=== PATIENT | female | born 1995 | race Caucasian/White ===

== ENCOUNTER 2023-07-05 20:41 | Outpatient (REF) | payer BC, SELFPAY ==
[2023-07-12 14:09] LABS: Age Gdln ACOG Testing Note (.); IGP, rfx Aptima HPV ASCU Note (.)
== END 2023-07-05 20:42 | disposition home or self-care (01) ==
LOC: LAB 20:41
PROVIDERS: Visit Provider Obstetrics & Gynecology
DX: Z12.4 Encounter for screening for malignant neoplasm of cervix (principal)
CPT/HCPCS: G0145

== ENCOUNTER 2024-11-12 19:35 | Outpatient (REF) | payer BC, SELFPAY ==
[2024-11-15 12:08] LABS: Age Gdln ACOG Testing Note (.); IGP, rfx Aptima HPV ASCU Note (.)
== END 2024-11-12 19:36 | disposition home or self-care (01) ==
LOC: LAB 19:35
PROVIDERS: Visit Provider Obstetrics & Gynecology
DX: Z01.419 Encounter for gynecological examination (general) (routine) without abnormal findings (principal)
CPT/HCPCS: 88175

== ENCOUNTER 2025-04-16 16:35 | Outpatient (OUT) | payer BC, SELFPAY ==
--- OUTSIDE RECORDS SUMMARY | 2011-09-12 20:00 | XMS_ITS | Continuity of Care Document ---
Author Organization [facility] Address [address] [place] [address] Phone Care Team Providers Care Medical Representative Name Role Phone Nighat SCHULTZ Renard Unavailable Unavailable Procedures Procedure Date TB INTRADERMAL TEST Advance Directives Directive Yes / No Effective Date File Name No Information Encounters Encounter Description Practice Location Reason(s) For Visit Diagnoses Date Provider Providers Copied on Encounter [facility], [address] [place], [place], [id number], [place] tel:[phone] [facility] No Information Nighat Loco. [address] [place], [place], [id number], [place]. tel:[phone] Family History Family Member Type Diagnosis Age At Onset No Information Payers Payer name Insurance type Covered constitution party ID Authoriza tion(s) No Information Social [...]
--- OUTSIDE RECORDS SUMMARY | 2025-01-14 06:45 | XMS_ITS ---
Author Organization [facility] Address [address] [place] [address] Care Team Providers Care Technology Architect Name Role Phone Aleksandr Becerril Primary Care Provider [phone] Deisy Nelson Unavailable [phone] REASON FOR VISIT 6 MONTHS Encounters Encounter Location Date Provider Diagnosis [facility] [address] [place] [address] 01/14/2025 Deisy Nelson Plan Of Treatment Next Appt Details Provider Name:Bridgett Osuna , 04/23/2025 09:00:00 AM, [address], [place], [address], Progress Notes * YOLANDA LIMONJUANITAOB:1995 ( 29 yo F)Acc No.[id number]:01/14/2025 Patient: DAYA KEN Provider: Dorene Nleson :1995 A ge:29 Y S ex:Female Date:01/14/2025 Address:[address] [place], [place] [address] Pcp:Aleksandr Becerril Subjective: * Chief Complaints: * 1 . 6 MONTHS. * Medical History: Objective: * Vitals: Assessment: Plan: * Treatment: * Images: * Electronic signature of Katherin Nelson on 04/16/2025 at 04:38 PM EDT Sign off status: Pending * Provider: Dorene Nelson Date: 0 01/14/2025 Generated for Lobo tovar/Alhaji/Silverio on: 0 04/16/2025 04:38 PM EDT
--- OUTSIDE RECORDS SUMMARY | 2025-04-16 16:38 | XMS_ITS | Clinical Summary ---
Author Organization [facility] Address [address] [place] [address] Care Team Providers Care Nursing Scheduler Name Role Phone Varun Cardenas MD Primary Care Provider [phone] Allergies No known active allergies Medications clindamycin (Cleocin-T) 1 % lotionIndicatio ns:Acne, unspecified acne type Apply topically Daily 60 mL 3 03/20/20 25 026 Active MV-Min-Fe Fum-FA-DHA ( 1 PO) Take 1 tablet by mouth Daily Active metFORMIN, OSM, (Fortamet) 500 MG 24 hr tablet Metformin HCl 025 Discontinued metFORMIN XR (Glucophage-XR) 500 MG 24 hr tabletIndicatio ns:Weight gain Take 1 tablet (500 mg) by mouth in the evening. Take with meals Do not crush, chew, or split. 30 tablet 11 11/12/19 25 025 Discontinued phentermine (Adipex-P) 37.5 MG tabletIndicatio ns:Encounter for weight management Take 1 tablet (37.5 mg) by mouth in the morning. Take before meals. 30 tablet 12/19/19 25 025 Discontinued phentermine (Adipex-P) 37.5 MG tabletIndicatio ns:Encounter for weight management Take 1 tablet (37.5 mg) by mouth in the morning. Take before meals. 30 tablet 01/14/20 25 025 Discontinued Encounters Date Type Department Care Team Description 03/20/2025 1:00 PM EDT Initial [facility] [address] [place] [address] [place]: 12w0d 03/20/2025 12:30 PM EDT Ancillary Procedure [facility] [address] [place] [address] Missed menses 03/17/2025 Travel from Last 3 Months Family History Medical History Relation Name Comments Breast cancer Maternal Great-Grandmother Relation Name Status Comments Brother 1 Alive Brother 2 Alive Father Alive Maternal Great-Grandmother Mother Alive Social History Tobacco Use Types Packs/Day Years Used Date Smoking Tobacco: Some Days Cigarettes Tobacco Cessation:Ready to Q uit: Not Asked; Counseling Given: Not Answered Comments:5 or less cigarettes/day Alcohol Use Standard Drinks/Week Comments Yes 0 (1 standard drink = 0.6 oz pure alcohol) Alcohol: 1 or 2 drinks on a typical day / 2 to 4 times a month. Caffeine: >4 cups/day coffee Estimated Date of Delivery Comme nts Yes 10/02/2025 Based on Ultraso und, FHR-160 Sex and Gender Information Value Date Recorded Sex Assigned at Female 07/04/2023 6:04 PM EDT Legal Sex Female 6:37 PM EDT Gender Identity Female 07/04/2023 6:04 PM EDT Sexual Orientation Straight 07/04/2023 6: 04 PM EDT Last Filed Vital Signs Vital Sign Reading Time Taken Comments Blood Pressure 110/70 03/20/2025 1:47 PM EDT Pulse - - Temperature - - Respiratory Rate - - Oxygen Saturation - - Inhaled Oxygen Concentration - - Weight 101 kg (223 lb 3.2 oz) 03/20/2025 1:47 PM EDT Height 152.4 cm (5') 01/13/2025 8:57 AM EDT Body Mass Index 43.59 01/13/2025 8:57 AM EDT Plan of Treatment Upcoming Encounters Date Type Department Care Team (Late st Contact Info) Description 04/17/2025 8:50 AM EDT Routine [facility] [address] [place], [place] [address] [address] Grzegorz Cheung, DO [address] [place], [place] [address], [place] [id number] 11/18/2025 9:00 AM EST Office Visit [facility] [address] [facility] [place] [address] Grzegorz Cheung, DO [address] [facility] [place] [address] Procedures Procedure Name Priority Date/Time Associated Diagnosis Comments US OB TRANSVAGINAL Routine 03/20/2025 2: 27 PM EDT Missed menses POCT URINALYSIS DIPSTICK Routine 03/20/2025 1:11 PM EDT Missed menses POCT , URINE Routine 03/20/2025 1:11 PM EDT Missed menses from Last 3 Months Results * US OB transvaginal (03/20/2025 2:27 PM EDT) Anatomical Region Laterality Modality Body Ultrasound 03/21/2025 10:1 5 AM EDT Narrative 03/21/2025 10:15 AM EDT EXAM: US OB TRANSVAGINAL HISTORY: Dating. COMPARISON: None available. TECHNIQUE: Two-dimensional transvaginal grayscale ultrasound imaging of the pelvis was performed. Color Doppler evaluation of the ovaries was also performed. FINDINGS: The uterus demonstrates a normal homogeneous echotexture. The cervix measures 4.4 cm in length and the cervical os is closed. The right ovary measures 3.2 x 1.9 x 2.0 cm and demonstrates a normal echotexture. There is normal color Doppler flow. The left ovary measures 2.8 x 1.6 x 2.5 cm and demonstrates a normal echotexture. There is normal color Doppler flow. No fluid is present within the cul-de-sac. There is a single, live intrauterine gestation identified with a heart rate of 160 beats per minute and a crown-rump length measurement of 5.3 cm, correlating to a gestational age of 12 weeks is 0 days (+/- 8 days). There is a 2.1 cm subchorionic hemorrhage visualized. A yolk sac is not visualized. IMPRESSION: 1. Single, live intrauterine gestation 9 weeks, 0 days by LMP. Today's ultrasound measurements correlate with a gestational age of 12 weeks 0 days (+/- 8 days). ROSALEE by today's ultrasound is 10/02/2025. 2. Small subchorionic hemorrhage. 3. Normal color Doppler evaluation of the bilateral ovaries. Interpreted by: Electronically signed by VELASQUEZ SCHUMACHER II, MD, PHD at 21-Mar-2025 10:13:40 AM [facility] Procedure Note Velasquez Schumacher MD - 03/21/2025 EXAM: US OB TRANSVAGINAL HISTORY: Dating. COMPARISON: None available. TECHNIQUE: Two-dimensional transvaginal grayscale ultrasound imaging ofthe pelvis was performed. Color Doppler evaluation of the ovaries was alsoperformed. FINDINGS: The uterus demonstrates a normal homogeneous echotexture. The cervixmeasures 4.4 cm in length and the cervical os is closed. The right ovary measures 3.2 x 1.9 x 2.0 cm and demonstrates a normalechotexture. There is normal color Doppler flow. The left ovary measures 2.8 x 1.6 x 2.5 cm and demonstrates a normalechotexture. There is normal color Doppler flow. No fluid is present within the cul-de-sac. There is a single, live intrauterine gestation identified with a fetalheart rate of 160 beats per minute and a crown-rump length measurement of5.3 cm, correlating to a gestational age of 12 weeks is 0 days (+/- 8days). There is a 2.1 cm subchorionic hemorrhage visualized. A yolk sac isnot visualized. IMPRESSION: 1. Single, live intrauterine gestation 9 weeks, 0 days by LMP. Today'sultrasound measurements correlate with a gestational age of 12 weeks 0days (+/- 8 days). ROSALEE by today's ultrasound is 10/02/2025. 2. Small subchorionic hemorrhage. 3. Normal color Doppler evaluation of the bilateral ovaries. Interpreted by: Electronically signed by VELASQUEZ SCHUMACHER II, MD, PHD [id number] 10:13:40 AM [facility] us Grzegorz Cheung DO IM OB US PROCEDURES Final Resul t * (ABNORMAL) POCT , urine manually resulted (03/20/2025 1:11 PM EDT) Preg Test, Ur Positive Negative Urine 03/20/2025 1:11 PM EDT [facility] DO POINT OF CARE TEST ENTER/EDIT OR DERABLES Final Result * (ABNORMAL) POCT urinalysis dipstick manually resulted (03/20/2025 1:11 PM EDT) Color, UA Yellow Clarity, UA Clear Glucose, UA Negative Negative - 2000(110) ++++ mg/dL Bilirubin, UA Negative Negative - 4(70) +++ mg/dL Ketones, UA Negative Negative - 160(16) ++++ mg/dL Spec Grav, UA 1.025 1 - 1.03 Blood, UA Negative Negative - 50 Shoaib/mcL pH, UA 5.5 5 - 9 Protein, UA Negative Negative - 2000(20) ++++ mg/dL Urobilinogen, UA 0.2 0.2 - 12 mg/dL Leukocytes, UA Trace Negative - 500+++ Mayra/mcL Nitrite, UA Negative Negative - Positive Urine 03/20/2025 1:11 PM EDT [facility] DO POINT OF CARE TEST ENTER/EDIT OR DERABLES Final Result from Last 3 Months Insurance [facility] Care Teams Nursing Scheduler Relationship Specialty Start Date End Date Varun Cardenas MD [address] [place] [address] PCP - General 07/04/23
--- OUTSIDE RECORDS SUMMARY | 2025-04-16 16:38 | XMS_ITS | Encounter Summary ---
Author Organization [facility] Address [address] [place] [address] Care Team Providers Care Vessel Builder Name Role Phone Varun Cardenas MD Primary Care Provider [phone] Encounter Details Date Type Department Care Team (Late Contact Info) Description 11/25/2024 Orders Only [facility] [address] [place] [address] Perlita Lynn LPN [address] [employer] [facility] [place] [address] Social History Tobacco Use Types Packs/Day Years Used Date Smoking Tobacco: Some Days Cigarettes Comments:5 or less cigarette s/day Alcohol Use Standard Drinks/Week Comments Yes 0 (1 standard drink = 0.6 oz pure alcohol) Alcohol: 1 or 2 drinks on a typical day / 2 to 4 times a month. Caffeine: >4 cups/day coffee Comments Unknown Sex and Gender Information Value Date Recorded Sex Assigned at Female 07/04/2023 6:04 PM EDT Legal Sex Female 6:37 PM EDT Gender Identity Female 07/04/2023 6:04 PM EDT Sexual Orientation Straight 07/04/2023 6: 04 PM EDT documented as of this encounter Plan of Treatment Upcoming Encounters Date Type Department Care Team (Late st Contact Info) Description 04/17/2025 8:50 AM EDT Routine [facility] [address] [place] [address] Grzegorz Cheung, DO [address] [place] [address] 11/18/2025 9:00 AM EST Office Visit [facility] [address] [facility] [place] [address] Grzegorz Cheung DO [address] [place] [address] Dr Joelle [place], [place] [id number] documented as of this encounter Procedures Procedure Name Priority Date/Time Associated Diagnosis Comments PAP SMEAR Routine 11/12/2024 12:00 AM EST documented in this encounter Results * Pap Smear (11/12/2024 12:00 AM EST) Swab Cervical swab / Unknown us [facility] Nurse LAB CYTOLOGY ORDERABLES Final Result EXTERNAL LAB documented in this encounter Visit Diagnoses Not on filedocumented in this encounter Care Teams Vessel Builder Relationship Specialty Start Date End Date Varun Cardenas MD [address] [facility] [place] [address] PCP - General 07/04/23 documented as of this encounter
--- OUTSIDE RECORDS SUMMARY | 2025-04-16 16:38 | XMS_ITS | Patient Health Record ---
Author Organization [facility] Address [address] [place] [address] Care Team Providers Care Freelance Displayer Name Role Phone MauriAleksandr cobb Primary Care Provider [phone] Dr. Agustin Jaramillo Unavailable [phone] Deisy Nelson Unavailable [phone] Reason For Referral No Information Medications Medication SIG (Take, Route, Fr equency, Duration) Notes Start Date End Date Status Metformin HCl Active Citalopram Hydrobromide Active Encounters Encounter Location Date Provider Diagnosis [facility] [address] [place] [address] 04/14/2025 Aleksandr Clementeelizabethreza [place] [address] [place] [address] 07/16/2024 Deisy Nelson Other dental procedure status Z98.818 ; Encounter for dental examination and cleaning with abnormal findings Z01.21 ; Dental caries on pit and fissure surface penetrating into dentin K02.52 and Acute gingivitis, plaque induced K05.00 [place] [address] [place] [address] 06/11/2024 gAustin Mckeon Dental caries on pit and fissure surface penetrating into dentin K02.52 Assessments Encounter Date Diagnosis (ICD Code) Assessment Notes Treatment Notes Treatment Clinical Notes Section Notes 06/11/2024 Dental caries on pit and fissure surface penetrating into dentin (ICD-10 - K02.52) 07/16/2024 Other dental procedure status (ICD-10 - Z98.818) 07/16/2024 Encounter for dental examination and cleaning with abnormal findings (ICD-10 - Z01.21) 07/16/2024 Dental caries on pit and fissure surface penetrating into dentin (ICD-10 - K02.52) 07/16/2024 Acute gingivitis, plaque induced (ICD-10 - K05.00) Plan Of Treatment Next Appt Details Provider Name:Bridgett Osuna , 04/23/2025 09:00:00 AM, [address], [place], [address], Insurance Providers Payer Name Payer Address Payer Phone Subscriber Number Group Number Insured Name Patient Relationship to Insured Coverage Start Date Coverage End Date zCARESOU RCE-term ed 22 [address] [place] [address] [id number] DAYA LIMON Self - patient is the insured 2 3 zMEDICAI D CFC after CARESOUR CE-terme d 22 [address] [place] [address] [id number] DAYA LIMON Self - patient is the insured 2 3 zDENTAL DQ CARESOUR CE-terme d 22 [address] [place] [address] [id number] DAYA LIMON Self - patient is the insured 2 3 zDental MEDICAID CFC after CARESOUR CE-terme d 22 [address] [place] [address] [phone] [id number] DAYA LIMON Self - patient is the insured 2 3 [facility] [place] [address] [place] [address] [id number] DAYA LIMON Self - patient is the insured 3 3 Wrap CFC [employer] [address] [place] [address] [id number] DAYA LIMON Self - patient is the insured 3 3 Dental [facility] [facility] [place] [address] [place] [address] [id number] DAYA LIMON Self - patient is the insured 3 4 Dental Wrap [facility] ce [address] [place] [address] [id number] DAYA LIMON Self - patient is the insured [address] [facility] [address] [place] [phone] [id number] DAYA LIMON Self - patient is the insured 3 3 DENTAL GUARDIAN [address] [place] [address] [id number] DAYA LIMON Self - patient is the insured 4 4 DENTAL [facility] [address] [place] [address] [id number] DAYA LIMON Self - patient is the insured 4
[2025-04-16 16:57] LABS: Basophils Percent Auto 0.2 % (0.2-2.0); Eosinophils Absolute Auto 0.1 10^3/uL (0.0-0.7); Eosinophils Percent Auto 0.5 % (0.9-7.0); Hematocrit 37.3 % (36.0-48.0); Hemoglobin 12.5 g/dL (12.0-16.0); Immature Granulocytes Abs Auto 0.03 10^3/uL (0.00-0.03); Immature Granulocytes Pct Auto 0.3 % (0.0-0.5); Lymphocytes Absolute Auto 2.9 10^3/uL (1.2-3.8); Lymphocytes Percent Auto 26.2 % (20.5-60.0); Mean Corpuscular HGB Conc 33.5 g/dL (29.9-35.2); Mean Corpuscular Hemoglobin 28.2 pg (26.7-34.0); Mean Platelet Volume 8.5 fL (9.5-13.5); Monocytes Absolute Auto 0.5 10^3/uL (0.3-0.8); Monocytes Percent Auto 4.6 % (1.7-12.0); Neutrophils Absolute Auto 7.6 10^3/uL (1.4-6.5); Neutrophils Percent Auto 68.2 % (43.0-75.0); Platelet Count 237 10^3/uL (150-450); Red Blood Count 4.44 10^6/uL (4.20-5.40); White Blood Count 11.1 10^3/uL (4.0-11.0)
[2025-04-16 17:15] LABS: Amphetamine Screen Urine NEGATIVE (NEGATIVE); Barbiturates Screen Urine NEGATIVE (NEGATIVE); Benzodiazepines Screen Urine NEGATIVE (NEGATIVE); Buprenorphine Screen Urine NEGATIVE (NEGATIVE); Cannabinoid Screen Urine POSITIVE (NEGATIVE); Cocaine Screen Urine NEGATIVE (NEGATIVE); Methadone Screen Urine NEGATIVE (NEGATIVE); Methamphetamines Screen Urine NEGATIVE (NEGATIVE); Opiate Screen Urine NEGATIVE (NEGATIVE); Oxycodone Screen Urine NEGATIVE (NEGATIVE); Phencyclidine Screen Urine NEGATIVE (NEGATIVE); Tricyclic Antidepressant Urine NEGATIVE (NEGATIVE)
[2025-04-16 17:22] LABS: Estimated Average Glucose 103 mg/dL; Glycohemoglobin A1C 5.2 % (4.5-6.2)
[2025-04-18 05:07] LABS: HIV Ab/p24 Ag Screen Non Reactive (Non Reactive)
[2025-04-18 06:08] LABS: HBsAg Screen Negative (Negative); HCV Ab Non Reactive (Non Reactive)
[2025-04-18 09:10] LABS: Rubella Antibodies, IgG 4.12 index (Immune >0.99)
[2025-04-18 12:08] LABS: Rapid Plasma Reagin, Quant Non Reactive titer (NonRea<1:1)
[2025-04-21 20:08] LABS: Cannabinoid Positive (.); Carboxy THC Conf, MS, UR 611 ng/mL (Cutoff=10)
== END 2025-04-16 16:36 | disposition home or self-care (01) ==
LOC: LAB 16:35
PROVIDERS: PCP Family Medicine; Visit Provider Obstetrics & Gynecology
DX: Z34.01 Encounter for supervision of normal first pregnancy, first trimester (principal); N92.6 Irregular menstruation, unspecified
CPT/HCPCS: 36415; 80307; 80349; 83036; 85025; 86592; 86762; 86803; 86850; 86900; 86901; 87086; 87340; 87389

== ENCOUNTER 2025-07-14 10:26 | Outpatient (OUT) | payer BC, SELFPAY ==
--- OUTSIDE RECORDS SUMMARY | 2011-09-12 20:00 | XMS_ITS | Continuity of Care Document ---
Author Organization [facility] Address [address] [place] [address] Phone Care Team Providers Care Leak Patcher Name Role Phone Nighat SCHULTZ Renard Unavailable Unavailable Procedures Procedure Date TB INTRADERMAL TEST Advance Directives Directive Yes / No Effective Date File Name No Information Encounters Encounter Description Practice Location Reason(s) For Visit Diagnoses Date Provider Providers Copied on Encounter [facility], [address] [place], [place], [id number], [place] tel:[phone] [facility] No Information Nighat Loco. [address] [place], [place], [id number], [place]. tel:[phone] Family History Family Member Type Diagnosis Age At Onset No Information Payers Payer name Insurance type Covered libertarian ID Authoriza tion(s) No Information Social History [...]
--- OUTSIDE RECORDS SUMMARY | 2025-01-14 06:45 | XMS_ITS ---
Author Organization [facility] Address [address] [place] [address] Care Team Providers Care General Assembler Name Role Phone Aleksandr Becerril Primary Care Provider [phone] Deisy Nelson Unavailable [phone] REASON FOR VISIT 6 MONTHS Encounters Encounter Location Date Provider Diagnosis [facility] [address] [place] [address] 01/14/2025 Deisy Nelson Plan Of Treatment Next Appt Details Provider Name:Bridgett Osuna , 02/17/2026 11:00:00 AM, [address], [place], [address], Progress Notes * YOLANDA LIMONJUANITAOB:1995 ( 30 yo F)Acc No.[id number]:01/14/2025 Patient: DAYA KEN Provider: Dorene Nelson :1995 A ge:29 Y S ex:Female Date:01/14/2025 Address:[address] [place], [place] [address] Pcp:Aleksandr Becerril Subjective: * Chief Complaints: * 1 . 6 MONTHS. * Medical History: Objective: * Vitals: Assessment: Plan: * Treatment: * Images: * Electronic signature of Katherin Nelson on 07/14/2025 at 10:31 AM EDT Sign off status: Pending * Provider: Dorene Nelson Date: 0 01/14/2025 Generated for Lobo tovar/Alhaji/Silverio on: 0 07/14/2025 10:31 AM EDT
--- OUTSIDE RECORDS SUMMARY | 2025-04-23 05:00 | XMS_ITS ---
Author Organization [facility] Address [address] [place] [address] Care Team Providers Care Grocery Specialist Name Role Phone Aleksandr Becerril Primary Care Provider [phone] Bridgett Denis [phone] REASON FOR VISIT PROPHY Encounters Encounter Location Date Provider Diagnosis [facility] [address] [place] [address] 04/23/2025 Bridgett Osuna Acute gingivitis, plaque induced K05.00 Assessments Encounter Date Diagnosis (ICD Code) Assessment Notes Treatment Notes Treatment Clinical Notes Section Notes 04/23/2025 Acute gingivitis, plaque induced (ICD-10 - K05.00) Plan Of Treatment Next Appt Details Provider Name:Bridgett Osuna , 02/17/2026 11:00:00 AM, [address], [place], [address], Progress Notes * YOLANDA LIMONHDOB:1995 ( 30 yo F)Acc No.[id number]:04/23/2025 Patient: DAYA KEN Provider: Gregory Osuna :1995 A ge:29 Y S ex:Female Date:04/23/2025 Address:[address] [place] [address] Pcp:Aleksandr Becerril Subjective: * Chief Complaints: * 1 . PROPHY. * Medical History: Objective: * Vitals: * Dental Examination/Plan : Tooth / Surface Status Description Provider TP PROPHYLAXIS - ADULT 04/23 Assessment: * Assessment: 1. A cute gingivitis, plaque induced - K05.00 (Primary) Plan: * Treatment: * Images: * Electronic signature of Ginger Osuna on 07/14/2025 at 10:30 AM EDT Sign off status: Pending * Provider: Gregory Osuna Date: 0 04/23/2025 Generated for Lobo tovar/Alhaji/Silverio on: 0 07/14/2025 10:30 AM EDT
--- OUTSIDE RECORDS SUMMARY | 2025-05-29 05:45 | XMS_ITS ---
Author Organization [facility] Address [address] [place] [address] Care Team Providers Care Material Flow Engineer Name Role Phone Aleksandr Becerril Primary Care Provider [phone] Bridgett Denis Bobbi [phone] REASON FOR VISIT 6 MONTH F/U Encounters Encounter Location Date Provider Diagnosis [facility] [address] [place] [address] 05/29/2025 Bridgett Osuna Plan Of Treatment Next Appt Details Provider Name:Bridgett Osuna , 02/17/2026 11:00:00 AM, [address], [place], [address], Progress Notes * JEWELS LIMONOB:1995 ( 30 yo F)Acc No.[id number]:05/29/2025 Patient: DAYA KEN Provider: Gregory Osuna :1995 A ge:29 Y S ex:Female Date:05/29/2025 Address:[address] [place], [place] [address] Pcp:Aleksandr Becerril Subjective: * Chief Complaints: * 1 . 6 MONTH F/U. * Medical History: Objective: * Vitals: Assessment: Plan: * Treatment: * Images: * Electronic signature of Ginger Osuna on 07/14/2025 at 10:31 AM EDT Sign off status: Pending * Provider: Gregory Osuna Date: 05/29/2025 Generated for Printi ng/Alhaji/Mauitting on: 0 07/14/2025 10:31 AM EDT
--- OUTSIDE RECORDS SUMMARY | 2025-06-30 09:50 | XMS_ITS | Encounter Summary ---
Author Organization [facility] Address [address] [place] [address] Care Team Providers Care Die Press Operator Name Role Phone Varun Cardenas MD Primary Care Provider [phone] Reason for Visit * Reason Comments Routine Visit Encounter Details Date Type Department Care Team (Late st Contact Info) Description 06/30/2025 9:50 AM EDT Routine [facility] [place] [facility] [address] [place] [address] Grzegorz Cheung DO [address] [place] [id number] Second trimester ([facility]); 26 weeks gestation of ([facility]); Diabetes mellitus screening Social History Tobacco Use Types Packs/Day Years [...] PM EDT documented as of this encounter Last Filed Vital Signs Vital Sign Reading Time Taken Comments Blood Pressure 124/76 06/30/2025 10:14 AM EDT Pulse - - Temperature - - Respiratory Rate - - Oxygen Saturation - - Inhaled Oxygen Concentration - - Weight 110 kg (241 lb 8 oz) 06/30/2025 10:14 AM EDT Height - - Body Mass Index 47.16 01/13/2025 8:57 AM EDT documented in this encounter Progress Notes * Becki Chaudhary NP - 06/30/2025 9:50 AM EDT Reason for Appointment: Patient ID: Genesis Barahona is a 30 y.o. female who presents for Routine Visit Patient presents today for Return OB appointment. MEDICATIONS Current Outpatient Medications Medication Instructions aspirin 81 mg, Daily clindamycin (Cleocin-T) 1 % lotion Topical, Daily MV-Min-Fe Fum-FA-DHA ( 1 PO) 1 tablet, Daily ALLERGIES No Known Allergies PROBLEMS Active Ambulatory Problems Diagnosis Date Noted No Active Ambulatory Problems Resolved Ambulatory Problems Diagnosis Date Noted No Resolved Ambulatory Problems Past Medical History: Diagnosis Date PCOS (polycystic ovarian syndrome) HISTORY PAST MEDICAL HISTORY SOCIAL HISTORY Past Medical History: Diagnosis Date PCOS (polycystic ovarian syndrome) Social History Tobacco Use Smoking status: Some Days Types: Cigarettes Smokeless tobacco: Not on file Tobacco comments: 5 or less cigarettes/day Substance Use Topics Alcohol use: Yes Comment: Alcohol: 1 or 2 drinks on a typical day / 2 to 4 times a month. Caffeine: >4 cups/day coffee Drug use: Never FAMILY HISTORY Family History Problem Relation Name Age of Onset Breast cancer Maternal Great-Grandmother SURGICAL HISTORY Past Surgical History: Procedure Laterality Date SECTION, LOW TRANSVERSE PAP SMEAR 04/04/[address]/ ng neg REVIEW OF SYSTEMS Review of Systems: Review of Systems Constitutional: Negative. HENT: Negative. Eyes: Negative. Respiratory: Negative. Cardiovascular: Negative. Gastrointestinal: Negative. Genitourinary: Negative. Musculoskeletal: Negative. Skin: Negative. Neurological: Negative. All other systems reviewed and are negative. Hematological: Negative. Endocrine: Negative. Allergic/Immunologic: Negative. OBJECTIVE Objective: Physical Exam Constitutional: Appearance: Normal appearance. She is well-developed. Cardiovascular: Rate and Rhythm: Normal rate and regular rhythm. Pulmonary: Effort: Pulmonary effort is normal. Breath sounds: Normal breath sounds. Abdominal: General: Bowel sounds are normal. There is no distension. Palpations: Abdomen is soft. Tenderness: There is no abdominal tenderness. There is no guarding or rebound. Musculoskeletal: General: No swelling. Normal range of motion. Right lower leg: No edema. Left lower leg: No edema. Neurological: Mental Status: She is alert and oriented to person, place, and time. Skin: General: Skin is warm and dry. Psychiatric: Mood and Affect: Mood normal. Behavior: Behavior normal. Vitals and nursing note reviewed. Exam conducted with a labor relations manager present. Vitals: Estimated body mass index is 47.16 kg/m?? as calculated from the following: Height as of 01/13/25: 5'. Weight as of this encounter: 241 lb 8 oz. BP: 124/76 Patient's last menstrual period was 01/16/2025. ASSESSMENT & PLAN ICD-10-CM 1. Second trimester ([facility]) Z34.92 POCT urinalysis dipstick manually resulted 2. 26 weeks gestation of ([facility]) Z3A.26 3. Diabetes mellitus screening Z13.1 CBC Glucose tolerance, 1 hour CBC Glucose tolerance, 1 hour Return OB: Patient presents today for a routine obstetrics appointment. Patient is currently 26w4d . Patient states she is doing well but has complaints of being tired due to current . Patient has verbalizes frequent movement. labor precautions was discussed/given and patient was instructed to perform kick counts three times a day. Orders Placed This Encounter Procedures CBC Glucose tolerance, 1 hour POCT urinalysis dipstick manually resulted Follow Up: Patient is to return to office in 2 week for routine OB appointment. Documented by Becki Chaudhary NP on behalf of: Grzegorz Cheung DO documented in this encounter Plan of Treatment Upcoming Encounters Date Type Department Care Team (Late st Contact Info) Description 07/28/2025 2:50 PM EDT Routine [facility] [place] [facility] [address] [facility] [place] [address] Grzegorz Cheung DO [address] [facility] [place] [address] 11/18/2025 9:00 AM EST Office Visit [facility] [place] [facility] [address] [facility] [place] [address] Grzegorz Cheung DO [address] [facility] [place] [address] Scheduled Orders Name Type Priority Associated Diagnoses Orde r Schedule CBC Lab Routine Diabetes mellitus screening Expected: 06/30/2025 (Approximate), Expires: 06/30/2026 Glucose tolerance, 1 hour Lab Routine Diabetes mellitus screening Expected: 06/30/2025 (Approximate), Expires: 06/30/2026 documented as of this encounter Goals Goal Patient Goal Type Associated Problems Recent Progress Patient-Stated? Author Reminders Care Plan OB Reminders No Open Scheduling, Background documented as of this encounter Procedures Procedure Name Priority Date/Time Associated Diagnosis Comments POCT URINALYSIS DIPSTICK Routine 06/30/2025 10:16 AM EDT Second trimester ([facility]) documented in this encounter Results * (ABNORMAL) POCT urinalysis dipstick manually resulted (06/30/2025 10:16 AM EDT) Color, UA Yellow Clarity, UA Clear Glucose, UA Negative Negative - 2000(110) ++++ mg/dL Bilirubin, UA Negative Negative - 4(70) +++ mg/dL Ketones, UA Positive Negative - 160(16) ++++ mg/dL Comment:0.5 mmol/L Spec Grav, UA 1.020 1 - 1.03 Blood, UA Negative Negative - 50 Shoaib/mcL pH, UA 6.0 5 - 9 Protein, UA Positive Negative - 2000(20) ++++ mg/dL Comment:0.15 g/L Urobilinogen, UA 0.2 0.2 - 12 mg/dL Leukocytes, UA Positive Negative - 500+++ Mayra/mcL Comment:15 Mayra/ul Nitrite, UA Negative Negative - Positive Urine 06/30/2025 10:1 6 AM EDT us Grzegorz Cheung DO POINT OF CARE TEST ENTER/EDIT OR DERABLES Final Result documented in this encounter Visit Diagnoses Diagnosis Second trimester [facility]) state, incidental 26 weeks gestation of ([facility]) Diabetes mellitus screening Screening for diabetes mellitus documented in this encounter Additional Health Concerns Active Problems Noted Date Diagnosed Date OB Reminders 04/16/2025 documented as of this encounter Care Teams Die Press Operator Relationship Specialty Start Date End Date Varun Cardenas MD [address] [place] [address] PCP - General 07/04/23 documented as of this encounter
--- OUTSIDE RECORDS SUMMARY | 2025-07-14 10:31 | XMS_ITS | Encounter Summary ---
Author Organization [facility] Address [address] [place] [address] Care Team Providers Care Slubber Runner Name Role Phone Varun Cardenas MD Primary Care Provider [phone] Encounter Details Date Type Department Care Team (Late Contact Info) Description 06/30/2025 Bamboo flowsheet [facility] [address] [place] [address] Grzegorz Cheung, [address] [facility] [address] [place], [place] [id number] Social History Tobacco Use Types Packs/Day Years [...] Encounters Date Type Department Care Team (Late Contact Info) Description 07/28/2025 2:50 PM EDT Routine [facility] [address] [place] [address] Grzegorz Cheung, DO [address] [facility] [place] [address] 11/18/2025 9:00 AM EST Office Visit [facility] [place] [facility] [address] [facility] [place] [address] Grzegorz Cheung, DO [address] [facility] [place] [address] documented as of this encounter Goals Goal Patient Goal Type Associated Problems Recent Progress Patient-Stated? Author Reminders Care Plan OB Reminders No Open Scheduling, Background documented as of this encounter Visit Diagnoses Not on filedocumented in this encounter Additional Health Concerns Active Problems Noted Date Diagnosed Date OB Reminders 04/16/2025 documented as of this encounter Care Teams Slubber Runner Relationship Specialty Start Date End Date Varun Cardenas MD [address] [facility] [address] PCP - General 07/04/23 documented as of this encounter
--- OUTSIDE RECORDS SUMMARY | 2025-07-14 10:31 | XMS_ITS | Clinical Summary ---
Author Organization [facility] Address [address] [place] [address] Care Team Providers Care Investment Trader Name Role Phone Varun Cardenas MD Primary Care Provider [phone] Allergies No known active allergies Medications clindamycin (Cleocin-T) 1 % lotionIndication s:Acne, unspecified acne type Apply topically Daily 60 mL 3 5 03/20/20 26 Active MV-Min-Fe Fum-FA-DHA ( 1 PO) Take 1 tablet by mouth Daily Active aspirin 81 MG EC tablet Take 81 mg by mouth Daily Active Encounters Date Type Department Care Team Description 06/30/2025 9:50 [place] [address] Grzegorz Cheung DO Second trimester ([facility]); 26 weeks gestation of ([facility]); Diabetes mellitus screening 06/30/2025 [place] [address] Grzegorz Cheung DO 05/29/2025 9:30 [place] [address] Bekah Harry PA Second trimester ([facility]); 22 weeks gestation of ([facility]) 05/29/2025 8:30 AM EDT Ancillary Procedure [facility] [place] [phone] Screening, , for anatomic survey ([facility]) 04/17/2025 8:50 AM EDT Routine [facility] [place] [phone] Grzegorz Cheung DO Second trimester ([facility]); 16 weeks gestation of ([facility]); Screening, , for anatomic survey ([facility]) 04/17/2025 Bamboo flowsheet [facility] JONES [address] [place] [address] [place] [phone] Grzegorz Cheung DO 04/16/2025 Travel 04/16/2025 Clinisync Result Encounter [facility] External Department Unsolicited Grzegorz Cheung DO from Last 3 Months Family History Medical [...] 8 oz) 06/30/2025 10:14 AM EDT Height 152.4 cm (5') 01/13/2025 8:57 AM EDT Body Mass Index 47.16 01/13/2025 8:57 AM EDT Plan of Treatment Upcoming Encounters Date Type Department Care Team (Late st Contact Info) Description 07/28/2025 2:50 PM EDT Routine [facility] [address] [facility] [facility] [place] [phone] Grzegorz Cheung, DO [address] [place] [address] 11/18/2025 9:00 AM EST Office Visit [facility]ON[facility] [address] [facility] [place] [phone] Grzegorz Cheung, DO [address] Joelle [place], [place] [id number] Goals Goal Patient Goal Type Associated Problems Recent Progress Patient-Stated? Author Reminders Care Plan OB Reminders No Open Scheduling, Background Procedures Procedure Name Priority Date/Time Associated Diagnosis Comments POCT URINALYSIS DIPSTICK Routine 06/30/2025 10:16 AM EDT Second trimester ([facility]) POCT URINALYSIS DIPSTICK Routine 05/29/2025 10:24 AM EDT Second trimester ([facility]) OB 14+ WEEKS ANATOMY SCAN Routine 05/29/2025 9:47 AM EDT Screening, , for anatomic survey ([facility]) POCT URINALYSIS DIPSTICK Routine 04/17/2025 9:21 AM EDT Second trimester ([facility]) HBSAG SCREEN Routine 04/16/2025 4:48 PM EDT RAPID PLASMA REAGIN, QUANT Routine 04/16/2025 4:48 PM EDT HCV ANTIBODY RFX TO QUANT PCR Routine 04/16/2025 4:48 PM EDT ALL RUBELLA IGG AB Routine 04/16/2025 4: 48 PM EDT HIV AB/P24 AG WITH REFLEX Routine 04/16/2025 4:48 PM EDT ALL TYPE AND SCREEN Routine 04/16/2025 4 :48 PM EDT MLR HEMOGLOBIN A1C Routine 04/16/2025 4: 48 PM EDT ALL CBC WITH AUTO DIFF Routine 04/16/2025 4:48 PM EDT CANNABINOID CONF, MS, UR Routine 04/16/2025 4:40 PM EDT [facility] DRUG SCREEN RAPID (URINE) Routine 04/16/2025 4:40 PM EDT from Last 3 Months Results * (ABNORMAL) POCT urinalysis dipstick manually resulted (06/30/2025 10:16 AM EDT) Only the most recent of3 resultswithin the time period is included. Color, UA Yellow Clarity, UA Clear Glucose, [...] TEST ENTER/EDIT OR DERABLES Final Result * US OB 14+ weeks anatomy scan (05/29/2025 9:47 AM EDT) Anatomical Region Laterality Modality Body Ultrasound 06/03/2025 10:5 8 AM EDT Impressions 06/03/2025 11:27 AM EDT Single, live intrauterine , current sonographic age of 22 weeks and 0 days, with an estimated date of delivery of October 02, 2025. TRANSCRIBED BY: ELECTRONICALLY SIGNED BY: Agustin Fernandez MD Narrative 06/03/2025 11:27 AM EDT FINDINGS: A single, live intrauterine is present with normal cardiac rate of 140 beats per minute. Normal activity and amniotic fluid volume. Morphology is grossly normal. The cervix is long and closed, 3.8 cm. The placenta is anterior, inferior margin 7.5 cm from the closed internal cervical os. The current sonographic age is 22 weeks and 0 days, based on the following measurements: BPD 5.1 cm (21 weeks, 3 days) Head Circumference 19.6 cm (21 weeks, 6 days) Abdominal Circumference 18.1 cm (23 weeks, 0 days) Femur Length 3.6 cm (20 weeks, 1 day) Presentation Cephalic Placenta Anterior These measurements result in an estimated date of delivery of October 02, 2025. The current estimated weight is 483 grams (1 pound, 1 ounce). Procedure Note Agustin Fernandez MD - 06/03/2025 FINDINGS: A single, live intrauterine is present with normal cardiacrate of 140 beats per minute. Normal activity and amniotic fluidvolume. Morphology is grossly normal. The cervix is long and closed, 3.8cm. The placenta is anterior, inferior margin 7.5 cm from the closedinternal cervical os. The current sonographic age is 22 weeks and 0 days,based on the following measurements: BPD 5.1 cm (21 weeks, 3 days) Head Circumference 19.6 cm (21 weeks, 6 days) Abdominal Circumference 18.1 cm (23 weeks, 0 days) Femur Length 3.6 cm (20 weeks, 1 day) Presentation Cephalic Placenta Anterior These measurements result in an estimated date of delivery of September. The current estimated weight is 483 grams (1 pound, 1 ounce). IMPRESSION: Single, live intrauterine , current sonographic age of 22 weeksand 0 days, with an estimated date of delivery of October 02, 2025. TRANSCRIBED BY: ELECTRONICALLY SIGNED BY: Agustin Fernandez MD us Grzegorz Skye DO IMG OB US PROCEDURES Final Resul t * HBSAG SCREEN (04/16/2025 4:48 PM EDT) Pathologist [facility] HBSAG SCREEN Negative Negative [facility] Comment: Performed at: [address] [id number] [facility]of[facility] Prosthetics Dentist: Jeet Dawn PhD, Phone: [phone] 04/16/2025 4:48 PM EDT 04/16/2025 4:50 PM EDT Narrative [facility] - 04/18/2025 12:08 PM EDT us Grzegorz Skye DO LAB BLOOD ORDERABLES Final Resul t [facility] * RAPID PLASMA REAGIN, QUANT (04/16/2025 4:48 PM EDT) [facility] RAPID PLASMA REAGIN, QUANT Non Reactive NonRea<1: 1 titer [facility] Comment: Please Note: This test does not meet current guidelines for screening and diagnosis of syphilis. This test is intended for following treatment response in patients being treated for syphilis infection. To screen for syphilis infection, a reflex cascade that includes both RPR and a treponema-specific assay should be utilized, such as Treponema pallidum (Syphilis) Screening [place] (920509) or Rapid Plasma Reagin (RPR) Test With Reflex to Quantitative RPR and Confirmatory Treponema pallidum Antibodies (155716). Performed at: [address] [id number] Maxillof[facility] Prosthetics Dentist: Jeet Dawn PhD, Phone: [phone] 04/16/2025 4:48 PM EDT 04/16/2025 4:50 PM EDT Narrative [facility] - 04/18/2025 12:08 PM EDT us Grzegorz Skye DO LAB BLOOD ORDERABLES Final Resul t Performing Organization Address [facility] Co de Phone Number [facility] * HIV AB/P24 AG WITH REFLEX (04/16/2025 4:48 PM EDT) Pathologist [facility] HIV AB/P24 AG SCREEN Non Reactive Non Reactive [facility] Comment: HIV-1/HIV-2 antibodies and HIV-1 p24 antigen were NOT detected. There is no laboratory evidence of HIV infection. HIV Negative Performed at: [address] [id number] Max[facility]of[facility] Prosthetics Dentist: Jeet Dawn PhD, Phone: [phone] 04/16/2025 4:48 PM EDT 04/16/2025 4:50 PM EDT [facility] - 04/18/2025 5:07 AM EDT us [email or web address] DO LAB BLOOD ORDERABLES Final Resul t Performing Organization Address [facility] Co de Phone Number [facility] * HCV ANTIBODY RFX TO QUANT PCR (04/16/2025 4:48 PM EDT) Pathologist [facility] HCV AB Non Reactive Non Reactive [facility] INTERPRETATION: Comment . [facility] Comment: Not infected with HCV unless early or acute infection is suspected (which may be delayed in an immunocompromised individual), or other evidence exists to indicate HCV infection. Performed at: [address] [id number] [facility] Pro[facility] Dentist: Jeet Dawn PhD, Phone: [phone] 04/16/2025 4:48 PM EDT 04/16/2025 4:50 PM EDT [facility] - 04/18/2025 9:10 AM EDT us Grzegorz Skye DO LAB BLOOD ORDERABLES Final Resul t Performing Organization Address [facility] Co de Phone Number [facility] * MLR HEMOGLOBIN A1C (04/16/2025 4:48 PM EDT) Pathologist [facility] GLYCOHEMOGLOBIN A1C 5.2 4.5 - 6.2 % [facility] Comment: ADA RECOMMENDED LIMIT 4.0 - 6.0 ADA THERAPEUTIC TARGET < 7.0 ACTION SUGGESTED > 7.0 ESTIMATED AVERAGE GLUCOSE 103 mg/dL TB 04/16/2025 4:48 PM EDT 04/16/2025 4:50 PM EDT Narrative [facility] - 04/16/2025 5:34 PM EDT Grzegorz Skye DO CLINISYNC Final Result [facility] * ALL TYPE AND SCREEN (04/16/2025 4:48 PM EDT) Pathologist [facility] BLOOD TYPE A Negative [facility] ANTIBODY SCREEN NEGATIVE [facility] 04/16/2025 4:48 PM EDT 04/16/2025 4:50 PM EDT Narrative [facility] - 04/16/2025 6:28 PM EDT [facility] , Grzegorz Skye DO CLINISYNC Final Result Performing Organization Address City/[facility]/ZIP Co de Phone Number [facility] * ALL RUBELLA IGG AB (04/16/2025 4:48 PM EDT) Pathologist [facility] RUBELLA ANTIBODIES, IGG 4.12 Immune >0.99 index [facility] Comment: Non-immune <0.90 Equivocal 0.90 - 0.99 Immune >0.99 Performed at: - [facility] [id number] [facility]of[facility] Pro[facility] Dentist: Jeet Dawn PhD, Phone: [phone] 04/16/2025 4:48 PM EDT 04/16/2025 4:50 PM EDT Narrative [facility] - 04/18/2025 9:10 AM EDT Grzegorz Skye DO CLINISYNC Final Result [facility] * (ABNORMAL) ALL CBC WITH AUTO DIFF (04/16/2025 4:48 PM EDT) [facility] TB WBC 11.1(H) 4.0 - 11.0 10 3/uL [facility] RBC 4.44 4.20 - 5.40 10 6/uL [facility] HGB 12.5 12.0 - 16.0 g/dL [facility] TB[facility] HCT 37.3 36.0 - 48.0 % [facility] MCV 84.0 81.0 - 99.0 fL [facility] MCH 28.2 26.7 - 34.0 pg TBH [facility] MCHC 33.5 29.9 - 35.2 g/dL [facility]H RDW 13.0 11.0 - 15.0 % [facility] TBH PLT 237 150 - 450 10 3/uL [facility] TBH MPV 8.5(L) 9.5 - 13.5 fL [facility] NEUTROPHILS PERCENT AUTO 68.2 43.0 - 75.0 % [facility] LYMPHOCYTES PERCENT AUTO 26.2 20.5 - 60.0 % [facility] MONOCYTES PERCENT AUTO 4.6 1.7 - 12.0 % [facility] EO % 0.5(L) 0.9 - 7.0 % [facility] BASOPHILS PERCENT AUTO 0.2 0.2 - 2.0 % [facility] IMMATURE GRANULOCYTES PCT AUTO 0.3 0.0 - 0.5 % [facility] NEUTROPHILS ABSOLUTE AUTO 7.6(H) 1.4 - 6.5 10 3/uL [facility] LYMPHOCYTES ABSOLUTE AUTO 2.9 1.2 - 3.8 10 3/uL [facility] MONOCYTES ABSOLUTE AUTO 0.5 0.3 - 0.8 10 3/uL [facility] TBH EO # 0.1 0.0 - 0.7 10 3/uL [facility] BASOPHILS ABSOLUTE AUTO 0.0 0.0 - 0.1 10 3/uL [facility] IMMATURE GRANULOCYTES ABS AUTO 0.03 0.00 - 0.03 10 3/uL [facility] 04/16/2025 4:48 PM EDT 04/16/2025 4:50 PM EDT Narrative [facility] - 04/16/2025 4:59 PM EDT Grzegorz Skye DO CLINISYNC Final Result [facility] * (ABNORMAL) [facility] DRUG SCREEN RAPID (URINE) (04/16/2025 4:40 PM EDT) CANNABINOID SCREEN URINE POSITIVE(A) NEGATIVE [facility] PHENCYCLIDINE SCREEN URINE NEGATIVE NEGATIVE [facility] COCAINE SCREEN URINE NEGATIVE NEGATIVE [facility] METHAMPHETAMINES SCREEN URINE NEGATIVE NEGATIVE [facility] OPIATE SCREEN URINE NEGATIVE NEGATIVE TBH AMPHETAMINE SCREEN URINE NEGATIVE NEGATIVE TBH BENZODIAZEPINES SCREEN URINE NEGATIVE NEGATIVE TBH TRICYCLIC ANTIDEPRESSANT URINE NEGATIVE NEGATIVE TB[facility] METHADONE SCREEN URINE NEGATIVE NEGATIVE TBH BARBITURATES SCREEN URINE NEGATIVE NEGATIVE TBH OXYCODONE SCREEN URINE NEGATIVE NEGATIVE TB[facility] BUPRENORPHINE SCREEN URINE NEGATIVE NEGATIVE [facility] Comment: DRUG CLASS TEST SYSTEM CUT-OFF CONCENTRATIONS ARE FOLLOWS: AMP (Amphetamine): 500 ng/mL BAR (Barbiturates): 200 ng/mL BZO (Benzodiazepines): 150 ng/mL BUP (Buprenorphine): 10 ng/mL BRIDGER (Cocaine): 150 ng/mL mAMP (Methamphetamine): 500 ng/mL MTD (Methadone): 200 ng/mL OPI (Opiates): 100 ng/mL OXY (Oxycodone): 100 ng/mL PCP (Phencyclidine): 25 ng/mL THC (Cannabinoids): 50 ng/mL TCA (Trycyclic Antidepressants): 300 ng/mL 04/16/2025 4:40 PM EDT 04/16/2025 4:50 PM EDT Narrative [facility] - 04/16/2025 5:15 PM EDT us Grzegorz Skye DO CLINISYNC Final Result [facility] * (ABNORMAL) CANNABINOID CONF, MS, UR (04/16/2025 4:40 PM EDT) CANNABINOID Positive(A ) . [facility] CARBOXY THC CONF, MS, UR 611 Cutoff=10 ng/mL [facility] Comment: Performed at: [facility] [address] [facility], [place] [id number] Maxillof[facility] Prosthetics Dentist: Phill Astorga PhD, Phone: [phone] 04/16/2025 4:40 PM EDT 04/16/2025 5:17 PM EDT Narrative [facility] - 04/21/2025 8:08 PM EDT us Grzegorz Skye DO LAB BLOOD ORDERABLES Final Resul t [facility] from Last 3 Months Additional Health Concerns Active Problems Noted Date Diagnosed Date OB Reminders 04/16/2025 Insurance BCBS Care Teams Investment Trader Relationship Specialty Start Date End Date Varun Cardenas MD [address] [place] [address] PCP - General 07/04/23
--- OUTSIDE RECORDS SUMMARY | 2025-07-14 10:31 | XMS_ITS | Encounter Summary ---
Author Organization [facility] Address [address] [place] [address] Care Team Providers Care Bearingizer Name Role Phone Varun Cardenas MD Primary Care Provider [phone] Encounter Details Date Type Department Care Team (Late Contact Info) Description 11/25/2024 Orders Only [facility] [address] [place] [address] Perlita Lynn LPN [address] [facility] [place] Joelle MARTE [id number] Social History Tobacco Use Types Packs/Day Years [...] 07/28/2025 2:50 PM EDT Routine [facility] [address] [place] [address] Grzegorz Cheung DO [address] [place] [address] 11/18/2025 9:00 AM EST Office Visit [facility] [address] [facility] [place] [phone] Grzegorz Cheung, [address] [facility] [address] [place], [place] [phone] documented as of this encounter Procedures Procedure Name Priority Date/Time Associated Diagnosis Comments PAP SMEAR Routine 11/12/2024 12:00 AM EST documented in this encounter Results * Pap Smear (11/12/2024 12:00 AM EST) Swab Cervical swab / Unknown us Skye Nurse [facility] LAB CYTOLOGY ORDERABLES Final Result EXTERNAL LAB documented in this encounter Visit Diagnoses Not on filedocumented in this encounter Care Teams Bearingizer Relationship Specialty Start Date End Date Varun Cardenas MD [address] [facility] [place] [phone] PCP - General 07/04/23 documented as of this encounter
--- OUTSIDE RECORDS SUMMARY | 2025-07-14 10:37 | XMS_ITS | CCD ---
Author Organization [facility] Care Team Providers Care History Tutor Name Role Phone SKYE, DR COPELAND Attending Unavailable REQUEST, NONE LISTED Primary Care Unavaila ble OMEGA, DR ESAU Smith Consulting Unavailable SKYE, DR COPELAND Admitting Unavailable SKYE, DR COPELAND Consulting Unavailable SKYE, DR COPELAND Attending Unavailable SKYE, DR COPELAND Admitting Unavailable REQUEST, DR LUNA LISTED Primary Care Unavaila ble SKYE, DR COPELAND Consulting Unavailable ZIEBER, DR ENRIQUETA Luke Consulting Unavailable SKYE, DR COPELAND Attending Unavailable SKYE, DR COPELAND Admitting Unavailable REQUEST, DR NONE LISTED Primary Care Unavaila ble SKYE, DR COPELAND Consulting Unavailable SKYE, DR COPELAND Attending Unavailable SKYE, DR COPELAND Admitting Unavailable REQUEST, DR CARRASCO LISTED Primary Care Unavaila ble SKYE, DR COPELAND Consulting Unavailable ZIEBER, DR ENRIQUETA Luke Consulting Unavailable SKYE, DR COPELAND Attending Unavailable SKYE, DR COPELAND Admitting Unavailable REQUEST, DR LUNA LISTED Primary Care Unavaila ble SKYE, DR COPELAND Attending Unavailable SKYE, DR COPELAND Admitting Unavailable REQUEST, NONE LISTED Primary Care Unavaila ble SKYE, DR COPELAND Consulting Unavailable SKYE, DR COPELAND Attending Unavailable SKYE, DR COPELAND Primary Care Unavailable SKYE, DR COPELAND Admitting Unavailable SKYE, DR COPELADN Attending Unavailable SKYE, DR COPELAND Admitting Unavailable REQUEST, DR NONE LISTED Primary Care Unavaila ble DAMIAN, DR CARROLL Consulting Unavailable GRIFFIN WHEELER Attending Unavailable GRIFFIN WHEELER Admitting Unavailable REQUEST, DR CARRASCO LISTED Primary Care Unavaila ble SKYE, DR COPELAND Consulting Unavailable GRIFFIN WHEELER Consulting Unavailable DAMIAN, DR CARROLL Procedure Practitioner Unava ilable AGUBOSISUSAN Mendoza Consulting Unavailable SKYE, DR COPELAND Procedure Practitioner Unavailab le SKYE, DR COPELAND Consulting Unavailable SKYE, DR COPELAND Attending Unavailable REQUEST, NONE LISTED Primary Care Unavaila ble SKYE, DR COPELAND Admitting Unavailable SKYE, DR COPELAND Attending Unavailable SKYE, DR COPELAND Admitting Unavailable REQUEST, NONE LISTED Primary Care Unavaila carlos CHEUNG, DR COPELAND Consulting Unavailable SKYE, DR COPELAND Attending Unavailable SKYE, DR COPELAND Admitting Unavailable REQUEST, NONE LISTED Primary Care Unavaila Varun Ingram MD Primary Care Provider [phone] Varun Cardenas MD Primary Care Provider [phone] Varun Cardenas MD Primary Care Provider [phone] BEKAH OLSON Attending Unavailable BEKAH OLSON Attending Unavailable MIN CHEUNG Attending Unavailable SKYE, MIN Attending Unavailable WHITNEY, BEKAH Attending Unavailable SKYE, MIN Attending Unavailable Medications Current Medications Medication Drug Class(es) Dates Sig (Normalized) Sig (Original) aspirin 81 mg delayed release oral tablet (7 sources) Platelet Aggregation Inhibitor, Nonsteroidal Anti-inflammatory Drug take 1 tablet by mouth once daily aspirin 81 MG EC tablet Take 81 mg by mouth Daily Active citalopram 10 mg oral tablet (6 sources) Serotonin Reuptake Inhibitor End: 12-19-2024 citalopram (CeleXA) 10 MG tablet CeleXA 12/19/2024 Discontinued (Other) clindamycin 10 mg/ml topical lotion (10 sources) Lincosamide Antibacterial Start: 03-20-2025 End: 03-20-2026 clindamycin (Cleocin-T) 1 % lotion Indications: Acne, unspecified acne type Apply topically Daily 60 mL 3 03/20/2025 03/20/2026 Active desogestrel 0.15 mg / ethinyl estradiol 0.03 mg oral tablet (3 sources) Progestin, Estrogen Start: 08-13-2024 End: 11-12-2024 desogestrel-ethiny l estradiol (Apri) 0.15-30 MG-MCG tablet Indications: Acne, unspecified acne type TAKE 1 TABLET BY MOUTH EVERY DAY IN THE MORNING 28 tablet 08/13/2024 11/12/2024 Discontinued (Therapy completed) 24 hr metFORMIN hydrochloride 500 mg extended release oral tablet (14 sources) Biguanide Start: 11-12-2024 End: 11-12-2025 take 1 tablet by mouth every twenty-four hours at mealtime metFORMIN XR (Glucophage-XR) 500 MG 24 hr tablet Indications: Weight gain Take 1 tablet (500 mg) by mouth in the evening. Take with meals Do not crush, chew, or split. 30 tablet 11 11/12/2024 03/20/2025 Discontinued End: 03-20-2025 metFORMIN, OSM, (Fortamet) 5 00 MG 24 hr tablet Metformin HCl 03/20/2025 Discontinued minocycline 50 mg oral capsule (3 sources) Tetracycline-class Drug Start: 09-01-2023 End: 11-12-2024 take 1 tablet by mouth at bedtime minocycline 50 MG capsule Indications: Acne, unspecified acne type TAKE 1 TABLET (50 MG) BY MOUTH IN THE MORNING AND BEFORE BEDTIME 60 capsule 1 09/01/2023 11/12/2024 Discontinued (Therapy completed) phentermine hydrochloride 37.5 mg oral tablet (4 sources) Sympathomimetic Amine Anorectic Start: 12-19-2024 End: 03-20-2025 take 1 tablet by mouth before mealtime phentermine (Adipex-P) 37.5 MG tablet Indications: Encounter for weight management Take 1 tablet (37.5 mg) by mouth in the morning. Take before meals. 30 tablet 01/13/2025 03/20/2025 Discontinued MV-Min-Fe Fum-FA-DHA ( 1 PO) (10 sources) MV-Min-Fe Fum-FA-DHA ( 1 PO) Take 1 tablet by mouth Daily Active 24 hr venlafaxine 37.5 mg extended release oral capsule (3 sources) Serotonin and Norepinephrine Reuptake Inhibitor Start: 11-02-2023 End: 11-12-2024 take 1 capsule by mouth every twenty-four hours in the morning venlafaxine XR (Effexor XR) 37.5 MG 24 hr capsule Indications: Anxiety, generalized (CMS/HCC) Take 1 capsule (37.5 mg) by mouth in the morning. Do not crush or chew.. 30 capsule 5 11/02/2023 11/12/2024 Discontinued (Therapy completed) Problems Active Problems Problem Classification Problem Date Documented Date Episodic/Chronic Administrative/social admission (2 sources) Patient encounter status; Translations: [Persons encountering health services in other specified circumstances] 12-19-2024 Episodic Immunizations and screening for infectious disease (1 source) Encounter for screening for human papillomavirus (HPV); Translations: [ENC SCREENING HUMAN PAPILLOMAVIRUS] Onset: 03-16-2022 Episodic Menstrual disorders (1 source) Missed period; Translations: [Irregular menstruation, unspecified] 03-19-2025 Chronic Other complications of ; puerperium affecting management of mother (1 source) Anemia complicating childbirth; Translations: [ANEMIA COMPLICATING CHILDBIRTH] Onset: 08-05-2021 Chronic Other nutritional; endocrine; and metabolic disorders (2 sources) Weight increased; Translations: [Abnormal weight gain] 11-12-2024 Episodic Other and delivery including normal (17 sources) Encounter for care and examination of lactating mother; Translations: [Encounter for routine follow-up] Onset: 07-28-2021 Episodic Other screening for suspected conditions (not mental disorders or infectious disease) (18 sources) Encounter for screening for malignant neoplasm of cervix; Translations: [Encounter for screening for Streptococcus B] Onset: 04-20-2021 Episodic Other skin disorders (1 source) Acne; Translations: [Acne, unspecified] 03-20-2025 Episodic Residual codes; unclassified (2 sources) Gestation period, 16 weeks; Translations: [16 weeks gestation of ] 04-17-2025 Episodic Residual codes; unclassified (2 sources) Gestation period, 22 weeks; Translations: [22 weeks gestation of ] 05-29-2025 Episodic Residual codes; unclassified (2 sources) Gestation period, 26 weeks; Translations: [26 weeks gestation of ] 06-30-2025 Episodic Unclassified (1 source) CONTACT W/AND (SUSP) EXPOS COVID-19; Translations: [CONTACT W/AND (SUSP) EXPOS COVID-19] Onset: 08-05-2021 Unclassified (8 sources) OB Reminders Onset: 04-16-2025 04-16-2025 Past or Other Problems Problem Classification Problem Date Documented Date Episodic/Chronic Acute posthemorrhagic anemia (1 source) Acute posthemorrhagic anemia; Translations: [ACUTE POSTHEMORRHAGIC ANEMIA] Onset: 08-05-2021 Episodic Fetopelvic disproportion; obstruction (1 source) Maternal care for disproportion, unspecified; Translations: [MATERNAL CARE FOR DISPROPORTION UNS] Onset: 08-05-2021 Episodic Hemorrhage during ; abruptio placenta; placenta previa (4 sources) Low lying placenta NOS or without hemorrhage, second trimester; Translations: [LOW LYING PL NOS W/O HEMORR 2ND TRI] Onset: 04-15-2021 Episodic Malposition; malpresentation (1 source) Maternal care for high head at term, not applicable or unspecified; Translations: [MATERNAL CARE HIGH HEAD TERM NA/UNS] Onset: 08-05-2021 Episodic Other complications of (5 sources) Maternal care for excessive growth, third trimester, not applicable or unspecified; Translations: [MAT CARE EXCSS FTL GRTH 3RD TRI UNS] Onset: 07-02-2021 Episodic Other complications of (4 sources) Maternal care for excessive growth, unspecified trimester, not applicable or unspecified; Translations: [MAT CARE EXCSS FTL GRTH UNS TRI UNS] Onset: 07-15-2021 Episodic Other complications of (1 source) Other specified related conditions, unspecified trimester; Translations: [OTH SPEC PREG RELATED COND UNS TRI] Onset: 05-12-2021 Episodic Residual codes; unclassified (1 source) 39 weeks gestation of ; Translations: [39 WEEKS GESTATION OF ] Onset: 08-05-2021 Episodic Residual codes; unclassified (1 source) 35 weeks gestation of ; Translations: [35 WEEKS GESTATION OF ] Onset: 07-02-2021 Episodic Residual codes; unclassified (1 source) Unspecified blood type, Rh negative; Translations: [UNSPECIFIED BLOOD TYPE RH NEGATIVE] Onset: 05-12-2021 Episodic Residual codes; unclassified (1 source) 24 weeks gestation of ; Translations: [24 WEEKS GESTATION OF ] Onset: 04-20-2021 Episodic Results Test Name Value Interpretation Reference Range Facility Urinalysis macro (dipstick) panel (U)on 06-30-2025 Bilirubin, UA Negative Negative - 4(70) +++ mg/dL [facility] Blood, UA Negative Negative - 50 Shoaib/mcL [facility] Healthcare Clarity, UA Clear [facility] re Color, UA Yellow [facility] Glucose, UA Negative Negative - 1999(110) ++++ mg/dL [facility] Interpretation and review of laboratory results Abnormal [facility] re Ketones, UA Positive Negative - 160(16) ++++ mg/dL [facility] Comment on above: 0.5 mmol/L Leukocytes, UA Positive Negative - 500+++ Mayra/mcL [facility] Comment on above: 15 Mayra/ul Nitrite, UA Negative Negative - Positive [facility] pH, UA 6 5 - 9 [facility] e Protein, UA Positive Negative - 2000(20) ++++ mg/dL [facility] Comment on above: 0.15 g/L Spec Grav, UA 1.02 1 - 1.03 [facility] Urobilinogen, UA 0.2 0.2 - 12 mg/dL [facility] e US OB 14+ WEEKS ANATOMY SCAN on 05-29-2025 US OB 14+ WEEKS ANATOMY SCAN FINDINGS: A single, live intrauterine is present [...] BY: ELECTRONICALLY SIGNED BY: Agustin Fernandez MD Normal Not Available Comment on above: Order Comment: US OB ANATOMY SINGLE W US OB CERVICAL LENGTH Estimated Date of Delivery: 10/02/25 Gestational Age as of 04/17/2025: 16w0d Urinalysis macro (dipstick) panel (U)on 05-29-2025 Bilirubin, UA Negative Negative - 4(70) +++ mg/dL [facility] Blood, UA Negative Negative - 50 Shoaib/mcL [facility] Clarity, UA Clear [facility] re Color, UA Yellow [facility] Glucose, UA Negative Negative - 1999(110) ++++ mg/dL [facility] Interpretation and review of laboratory results Normal [facility] re Ketones, UA Negative Negative - 160(16) ++++ mg/dL [facility] Leukocytes, UA Negative Negative - 500+++ Mayra/mcL [facility] Nitrite, UA Negative Negative - Positive [facility] pH, UA 8 5 - 9 [facility] Protein, UA Negative Negative - 1999(20) ++++ mg/dL [facility] Spec Grav, UA 1.015 1 - 1.03 [facility] Urobilinogen, UA 0.2 0.2 - 12 mg/dL [facility] Urinalysis macro (dipstick) panel (U)on 04-17-2025 Bilirubin, UA Negative Negative - 4(70) +++ mg/dL [facility] Blood, UA Positive Negative - 50 Shoaib/mcL [facility] Comment on above: Trace-intact Clarity, UA Clear [facility] re Color, UA Yellow [facility] Glucose, UA Negative Negative - 1999(110) ++++ mg/dL [facility] Interpretation and review of laboratory results Abnormal [facility] re Ketones, UA Negative Negative - 160(16) ++++ mg/dL [facility] Leukocytes, UA Trace Negative - 500+++ Mayra/mcL [facility] Nitrite, UA Negative Negative - Positive [facility] pH, UA 7 5 - 9 [facility] Protein, UA Negative Negative - 1999(20) ++++ mg/dL [facility] Spec Grav, UA 1.01 1 - 1.03 [facility] Urobilinogen, UA 0.2 0.2 - 12 mg/dL [facility] ALL CBC WITH AUTO DIFFon BASOPHILS ABSOLUTE AUTO 0 [facility] Basophils/100 WBC (Bld) 0.2 % 0.2 - 2.0 % [facility] Eosinophils/100 WBC (Bld) 0.5 % Low 0.9 - 7.0 % [facility] Erythrocyte distribution width (RBC) [Ratio] 13 % 11.0 - 15.0 % [facility] Hematocrit (Bld) [Volume fraction] 37.3 % 36.0 - 48.0 % [facility] Hemoglobin (Bld) [Mass/Vol] 12.5 g/dL 12.0 - 16.0 g/dL [facility] IMMATURE GRANULOCYTES ABS AUTO 0.03 [facility] Immature granulocytes/100 WBC (Bld) 0.3 % 0.0 - 0.5 % [facility] Interpretation and review of laboratory results Abnormal [facility] re LYMPHOCYTES ABSOLUTE AUTO 2.9 [facility] Lymphocytes/100 WBC (Bld) 26.2 % 20.5 - 60.0 % [facility] MCH (RBC) [Entitic mass] 28.2 pg 26.7 - 34.0 pg [facility] MCHC (RBC) [Mass/Vol] 33.5 g/dL 29.9 - 35.2 g/dL [facility] MCV (RBC) [Entitic vol] 84 fL 81.0 - 99.0 fL [facility] MONOCYTES ABSOLUTE AUTO 0.5 [facility] Monocytes/100 WBC (Bld) 4.6 % 1.7 - 12.0 % [facility] NEUTROPHILS ABSOLUTE AUTO 7.6 High [facility] Neutrophils/100 WBC (Bld) 68.2 % 43.0 - 75.0 % [facility] Platelet mean volume (Bld) [Entitic vol] 8.5 fL Low 9.5 - 13.5 fL [facility] TBH EO # 0.1 [facility] TB PLT 237 [facility] RBC 4.44 [facility] TB WBC 11.1 High [facility] HCG ( test) Ql (U)o n 03-20-2025 Interpretation and review of laboratory results Abnormal [facility] re Preg Test, Ur Positive Negative [facility] US OB TRANSVAGINALon 025 US OB TRANSVAGINAL EXAM: US OB TRANSVAGINAL HISTORY: Dating. COMPARISON: [...] II, MD, PHD at 21-Mar-2025 10:13:40 AM [facility] [employer] Normal Not Available Comment on above: Order Comment: US OB TRANSVAGINAL No LMP recorded. Urinalysis macro (dipstick) panel (U)on 03-20-2025 Bilirubin, UA Negative Negative - 4(70) +++ mg/dL [facility] Blood, UA Negative Negative - 50 Shoaib/mcL [facility] Clarity, UA Clear [facility] re Color, UA Yellow [facility] Glucose, UA Negative Negative - 1999(110) ++++ mg/dL [facility] Interpretation and review of laboratory results Abnormal [facility] re Ketones, UA Negative Negative - 160(16) ++++ mg/dL [facility] Leukocytes, UA Trace Negative - 500+++ Mayra/mcL [facility] Nitrite, UA Negative Negative - Positive [facility] pH, UA 5.5 5 - 9 [facility] Protein, UA Negative Negative - 1999(20) ++++ mg/dL [facility] Spec Grav, UA 1.025 1 - 1.03 [facility] Urobilinogen, UA 0.2 0.2 - 12 mg/dL [facility] IGP,APTIMA HPV,AGE GDLNon AGE GDLN ACOG TESTING Note . [facility] Comment on above: TESTS RESULT FLAG UN ITS REF RANGE LAB Clinician Provided Cytology Information Source.............Cervix;Endocervix No. of containers..01 ThinPrep Vial Age Algo ACOG Ese... FLAG LEGEND: L-Low Normal,H-High Normal,LL-Alert Low,HH-Alert High <-Panic Low,>-Panic High,A-Abnormal,AA-Critical Abnormal Performed at: 01 [facility] [id number] Cynthia Guzman MD, IGP, RFX APTIMA HPV ASCU Note . [facility] Comment on above: TESTS RESULT FLAG UN ITS REF RANGE LAB DIAGNOSIS: 02 NEGATIVE FOR INTRAEPITHELIAL LESION OR MALIGNANCY. Specimen adequacy: 02 Satisfactory for evaluation. Endocervical and/or squamous metaplastic cells (endocervical component) are present. Performed by: 02 Ramon Marquez Windows Software Developer ([facility]) . 02 Note: Note 02 The Pap smear is a screening test designed to aid in the detection of premalignant and malignant conditions of the uterine cervix. It is not a diagnostic procedure and should not be used as the sole means of detecting cervical cancer. Both false-positive and false-negative reports do occur. Test Methodology: Note 02 This liquid based ThinPrep(R) pap test was screened with the use of an image guided system. . 02 The HPV DNA reflex criteria were not met with this specimen result therefore, no HPV testing was performed. FLAG LEGEND: L-Low Normal,H-High Normal,LL-Alert Low,HH-Alert High <-Panic Low,>-Panic High,A-Abnormal,AA-Critical Abnormal Performed at: [address] [phone] Cynthia Guzman MD, Performed at: = - [facility] [address] [id number] Commercial Loan Administrator: Cynthia Guzman MD, Phone: [phone] Performed at: [facility] [address] [id number] Commercial Loan Administrator: Cynhtia Guzman MD, Phone: [phone] BRUSH-SPATULA CERVIX ENDOCERVIX [facility] Cytology Cervical or vaginal smear or scraping studyon 07-05-2023 [facility] PAP ACOG PANEL 2: 21 to 29on 03-21-2022 . . Normal [facility] Comment on above: Performed By: #### C VDAGA #### [facility] [address] [place] [address] Dr. Nixon Bravo DIAGNOSIS: Comment Normal [facility] Comment on above: Result Comment: NEGA TIVE FOR INTRAEPITHELIAL LESION OR MALIGNANCY. Performed By: #### C WINNIEAGA #### [facility] [address] [place] [address] Dr. Nixon Bravo Methodology: Comment [facility] Comment on above: Result Comment: This liquid based ThinPrep(R) pap test was screened with the use of an image guided system. Performed By: #### C VDAGA #### [facility] [address] [place] [address] Dr. Nixon Bravo Note: Comment [facility] Comment on above: Result Comment: The Pap smear is a screening test designed to aid in the detection of premalignant and malignant conditions of the uterine cervix. It is not a diagnostic procedure and should not be used as the sole means of detecting cervical cancer. Both false-positive and false-negative reports do occur. . Performed By: #### C VDAGA #### [facility] [address] [place] [address] Dr. Nixon Bravo Performed by: Comment Normal [facility] Comment on above: Result Comment: Brianna Anderson, Windows Software Developer ([employer]) Performed By: #### C VDAGA #### [facility] [address] [place] [address] Dr. Nixon Bravo Reflex Criteria: Comment [facility] Comment on above: Result Comment: The HPV DNA reflex criteria were not met with this specimen result therefore, no HPV testing was performed. . Performed By: #### C VDAGA #### [facility] [address] [place] [address] Dr. Nixon Bravo Specimen adequacy: Comment [facility] Comment on above: Result Comment: Sati sfactory for evaluation. Endocervical and/or squamous metaplastic cells (endocervical component) are present. Performed By: #### C VDAGA #### [facility] [address] [place] [address] Dr. Nixon Bravo Age Gdln ACOG Testing [facility] Comment on above: Performed By: #### C VDAGA #### [facility] [address] [place], [place] [id number] Dr. Nixon Bravo PRBC LEUKOREDUCEDon 08-04-20 21 ABO and Rh group Nom (Bld) Cross Match Result Compatible Unit Blood Type A Neg Unit Number [id number] Status Information Transfused Product ID Red Blood Cells Product Code [id number] Cross Match Result Compatible Blood Bank Notes Notifed Meredith Collazo in [facility] @ 1053 07/26/21 Unit Blood Type A Neg Unit Number [id number] Status Information Transfused Product ID Red Blood Cells Product Code [id number] Normal [facility] Comment on above: Performed By: #### P RBC #### [facility] [address] [place] [address] Dr. Nixon Bravo CBC AUTO DIFFon 07-26-2021 BASO # 0.0 103/ul Normal 0.0-0.1 [facility] Comment on above: Performed By: #### C BC #### [facility] [address] [place] [address] Dr. Nixon Bravo Basophils/100 WBC (Bld) 0.3 % Normal 0.2-2.0 [facility] Comment on above: Performed By: #### C BC #### [facility] [address] [place] [address] Dr. Nixon Bravo EO # 0.0 103/ul Normal 0.0-0.7 [facility] Comment on above: Performed By: #### C BC #### [facility] [address] [place] [address] Dr. Nixon Bravo Eosinophils/100 WBC (Bld) 0.3 % Critically low 0.9-7.0 [facility] Comment on above: Performed By: #### C BC #### [facility] [address] [place] [address] Dr. Nixon Bravo Erythrocyte distribution width (RBC) [Ratio] 14.8 % Normal 11.0-15.0 [facility] Comment on above: Performed By: #### C BC #### [facility] [address] [place] [address] Dr. Nixon Bravo Hematocrit (Bld) [Volume fraction] 24.0 % Critically low 36.0-48.0 [facility] Comment on above: Performed By: #### C BC #### [facility] [address] [address] [address] Nixon Bravo Hemoglobin (Bld) [Mass/Vol] 7.5 g/dL Critically low 12.0-16.0 [facility] Comment on above: Performed By: #### C BC #### [facility] [address] [address] [address] Nixon Bravo IG # 0.05 10e3/ul Critically high 0.00-0.03 [facility] Comment on above: Performed By: #### C BC #### [facility] [address] [address] [address] Nixon Bravo IG % 0.5 % Normal 0.0-0.5 [facility] Comment on above: Performed By: #### C BC #### [facility] [address] [place] [address] Dr. Nixon Bravo LYMPH # 2.4 103/ul Normal 1.2-3.8 [facility] Comment on above: Performed By: #### C BC #### [facility] [address] [place] [address] Dr. Nixon Bravo Lymphocytes/100 WBC (Bld) 24.7 % Normal 20.5-60.0 [facility] Comment on above: Performed By: #### C BC #### [facility] [address] [place] [address] Dr. Nixon Bravo MANUAL DIFF REQ NO Normal [facility] Comment on above: Performed By: #### C BC #### [facility] [address] [address] [address] Nixon Bravo MCH (RBC) [Entitic mass] 25.6 pg Critically low 26.7-34.0 [facility] Comment on above: Performed By: #### C BC #### [facility] [address] [place] [address] Dr. Nixon Bravo MCHC (RBC) [Mass/Vol] 31.3 g/dL Normal 29.9-35.2 [facility] Comment on above: Performed By: #### C BC #### [facility] [address] [place], [place] [id number] Dr. Nixon Bravo MCV (RBC) [Entitic vol] 81.9 fL Normal 81.0-99.0 [facility] Comment on above: Performed By: #### C BC #### [facility] [address] [place] [address] Dr. Nixon Bravo MONO # 0.8 103/ul Normal 0.3-0.8 [facility] Comment on above: Performed By: #### C BC #### [facility] [address] [place] [address] Dr. Nixon Bravo Monocytes/100 WBC (Bld) 7.8 % Normal 1.7-12.0 [facility] Comment on above: Performed By: #### C BC #### [facility] [address] [place] [address] Dr. Nixon Bravo NEUT # 6.5 103/ul Normal 1.4-6.5 [facility] Comment on above: Performed By: #### C BC #### [facility] [address] [place] [address] Dr. Nixon Bravo Neutrophils/100 WBC (Bld) 66.4 % Normal 43.0-75.0 [facility] Comment on above: Performed By: #### C BC #### [facility] [address] [place] [address] Dr. Nixon Bravo Platelet mean volume (Bld) [Entitic vol] 9.7 fL Normal 9.5-13.5 [facility] Comment on above: Performed By: #### C BC #### [facility] [address] [place] [address] Dr. Nixon Bravo PLT 254 103/ul Normal 150-450 [facility] Comment on above: Performed By: #### C BC #### [facility] [address] [place] [address] Dr. Nixon Bravo RBC 2.93 106/ul Critically low 4.20-5.40 [facility] Comment on above: Performed By: #### C BC #### [facility] [address] [place] [address] Dr. Nixon Bravo WBC 9.8 103/ul Normal 4.0-11.0 [facility] Comment on above: Performed By: #### C BC #### [facility] [address] [place] [address] Dr. Nixon Bravo CBC AUTO DIFFon 07-25-2021 BASO # 0.0 103/ul Normal 0.0-0.1 [facility] Comment on above: Performed By: #### C BC #### [facility] [address] [place] [address] Dr. Nixon Bravo Basophils/100 WBC (Bld) 0.1 % Critically low 0.2-2.0 [facility] Comment on above: Performed By: #### C BC #### [facility] [address] [place] [address] Dr. Nixon Bravo EO # 0.0 103/ul Normal 0.0-0.7 [facility] Comment on above: Performed By: #### C BC #### [facility] [address] [place] [address] Dr. Nixon Bravo Eosinophils/100 WBC (Bld) 0.1 % Critically low 0.9-7.0 [facility] Comment on above: Performed By: #### C BC #### [facility] [address] [place] [address] Dr. Nixon Bravo Erythrocyte distribution width (RBC) [Ratio] 14.5 % Normal 11.0-15.0 [facility] Comment on above: Performed By: #### C BC #### [facility] [address] [place] [address] Dr. Nixon Bravo Hematocrit (Bld) [Volume fraction] 25.9 % Critically low 36.0-48.0 [facility] Comment on above: Performed By: #### C BC #### [facility] [address] [place] [address] Dr. Nixon Bravo Hemoglobin (Bld) [Mass/Vol] 8.0 g/dL Critically low 12.0-16.0 [facility] Comment on above: Result Comment: DELT A: DELIVERED Performed By: #### C BC #### [facility] [address] [place] [address] Dr. Nixon Bravo IG # 0.06 10e3/ul Critically high 0.00-0.03 [facility] Comment on above: Performed By: #### C BC #### [facility] [address] [place] [address] Dr. Nixon Bravo IG % 0.4 % Normal 0.0-0.5 [facility] Comment on above: Performed By: #### C BC #### [facility] [address] [place] [address] Dr. Nixon Bravo LYMPH # 2.1 103/ul Normal 1.2-3.8 [facility] Comment on above: Performed By: #### C BC #### [facility] [address] [place] [address] Dr. Nixon Bravo Lymphocytes/100 WBC (Bld) 14.9 % Critically low 20.5-60.0 [facility] Comment on above: Performed By: #### C BC #### [facility] [address] [place] [address] Dr. Nixon Bravo MANUAL DIFF REQ NO Normal [facility] Comment on above: Performed By: #### C BC #### [facility] [address] [place] [address] Dr. Nixon Bravo MCH (RBC) [Entitic mass] 25.5 pg Critically low 26.7-34.0 [facility] Comment on above: Performed By: #### C BC #### [facility] [address] [place] [address] Dr. Nixon Bravo MCHC (RBC) [Mass/Vol] 30.9 g/dL Normal 29.9-35.2 [facility] Comment on above: Performed By: #### C BC #### [facility] [address] [place] [address] Dr. Nixon Bravo MCV (RBC) [Entitic vol] 82.5 fL Normal 81.0-99.0 [facility] Comment on above: Performed By: #### C BC #### [facility] [address] [place] [address] Dr. Nixon Bravo MONO # 0.9 103/ul Critically high 0.3-0.8 [facility] Comment on above: Performed By: #### C BC #### [facility] [address] [place] [address] Dr. Nixon Bravo Monocytes/100 WBC (Bld) 6.2 % Normal 1.7-12.0 [facility] Comment on above: Performed By: #### C BC #### [facility] [address] [address] [address] Nixon Bravo NEUT # 11.1 103/ul Critically high 1.4-6.5 [facility] Comment on above: Performed By: #### C BC #### [facility] [address] [place] [address] Dr. Nixon Bravo Neutrophils/100 WBC (Bld) 78.3 % Critically high 43.0-75.0 [facility] Comment on above: Performed By: #### C BC #### [facility] [address] [place] [address] Dr. Nixon Bravo Platelet mean volume (Bld) [Entitic vol] 9.8 fL Normal 9.5-13.5 [facility] Comment on above: Performed By: #### C BC #### [facility] [address] [place] [address] Dr. Nixon Bravo PLT 230 103/ul Normal 150-450 [facility] Comment on above: Performed By: #### C BC #### [facility] [address] [place] [address] Dr. Nixon Bravo RBC 3.14 106/ul Critically low 4.20-5.40 [facility] Comment on above: Performed By: #### C BC #### [facility] [address] [place] [address] Dr. Nixon Bravo WBC 14.2 103/ul Critically high 4.0-11.0 [facility] Comment on above: Performed By: #### C BC #### [facility] [address] [place] [address] Dr. Nixon Bravo SCREENon 07-25-2021 SCREEN Negative Normal [facility] Comment on above: Performed By: #### F ETSCRN #### [facility] [address] [place] [address] Dr. Nixon Bravo RHOGAMon 07-25-2021 RHOGAM Status Information Issued Quantity 1 Product ID Rh Immune Globulin Lot Number [id number] Issue Date/Time [id number] Normal [facility] Comment on above: Performed By: #### R HOG #### [facility] [address] [place] [address] Dr. Nixon Bravo ASYMPTOMATIC COVID-19 ANTIGE Non 07-24-2021 EUA Statement SEE BELOW Normal [facility] Comment on above: Result Comment: This test has not been FDA cleared or approved, but has been authorized by the FDA under an Emergency Use Authorization (EUA) for use by authorized laboratories certified under CLIA that meet the requirements to perform moderate or high complexity testing. This test has been authorized only for the detection of proteins from SARS-CoV-2, not for any other viruses or pathogens. The emergency use of this test is authorized for the duration of the declaration that circumstances exist justifying the authorization of emergency use of in vitro diagnostic tests for detection and/or diagnosis of Covid-19 under section 564(b)(1) of the Act, 21 U.S.C. 360bbb-3(b)(1), unless the declaration is terminated or authorization is revoked sooner. Performed By: #### C VDAGA #### [facility] [address] [place] [address] Dr. Nixon Bravo SARS-CoV-2 (COVID-19) RNA JONA+probe Ql (Unsp spec) Negative Normal NEGATIVE [facility] Comment on above: Result Comment: Nega tive results are presumptive. They do not preclude infection and should not be used as the sole basis for treatment decisions. Additional confirmatory testing by a molecular method should be considered. Performed By: #### C VDAGA #### [facility] [address] [place] [address] Dr. Nixon Bravo CBC AUTO DIFFon 07-24-2021 BASO # 0.0 103/ul Normal 0.0-0.1 [facility] Comment on above: Performed By: #### C VDAGA #### [facility] [address] [address] [address] Nixon Bravo Basophils/100 WBC (Bld) 0.2 % Normal 0.2-2.0 [facility] Comment on above: Performed By: #### C VDAGA #### [facility] [address] [place] [address] Dr. Nixon Bravo EO # 0.0 103/ul Normal 0.0-0.7 [facility] Comment on above: Performed By: #### C VDAGA #### [facility] [address] [place] [address] Dr. Nixon Bravo Eosinophils/100 WBC (Bld) 0.3 % Critically low 0.9-7.0 [facility] Comment on above: Performed By: #### C VDAGA #### [facility] [address] [place] [address] Dr. Nixon Bravo Erythrocyte distribution width (RBC) [Ratio] 14.3 % Normal 11.0-15.0 [facility] Comment on above: Performed By: #### C VDAGA #### [facility] [address] [place] [address] Dr. Nixon Bravo Hematocrit (Bld) [Volume fraction] 33.2 % Critically low 36.0-48.0 [facility] Comment on above: Performed By: #### C VDAGA #### [facility] [address] [place] [address] Dr. Nixon Bravo Hemoglobin (Bld) [Mass/Vol] 10.6 g/dL Critically low 12.0-16.0 [facility] Comment on above: Performed By: #### C VDAGA #### [facility] [address] [place] [address] Dr. Nixon Bravo IG # 0.03 10e3/ul Normal 0.00-0.03 [facility] Comment on above: Performed By: #### C VDAGA #### [facility] [address] [place] [address] Dr. Nixon Bravo IG % 0.3 % Normal 0.0-0.5 [facility] Comment on above: Performed By: #### C VDAGA #### [facility] [address] [address] [address] Nixon Bravo LYMPH # 2.8 103/ul Normal 1.2-3.8 [facility] Comment on above: Performed By: #### C VDAGA #### [facility] [address] [address] [address] Nixon Bravo Lymphocytes/100 WBC (Bld) 26.9 % Normal 20.5-60.0 [facility] Comment on above: Performed By: #### C VDAGA #### [facility] [address] [address] [address] Nixon Bravo MANUAL DIFF REQ NO Normal [facility] Comment on above: Performed By: #### C VDAGA #### [facility] [address] [place] [address] Dr. Nixon Bravo MCH (RBC) [Entitic mass] 25.9 pg Critically low 26.7-34.0 [facility] Comment on above: Performed By: #### C VDAGA #### [facility] [address] [address] [address] Nixon Bravo MCHC (RBC) [Mass/Vol] 31.9 g/dL Normal 29.9-35.2 [facility] Comment on above: Performed By: #### C VDAGA #### [facility] [address] [place] [address] Dr. Nixon Bravo MCV (RBC) [Entitic vol] 81.2 fL Normal 81.0-99.0 [facility] Comment on above: Performed By: #### C VDAGA #### [facility] [address] [address] [address] Nixon Bravo MONO # 0.7 103/ul Normal 0.3-0.8 [facility] Comment on above: Performed By: #### C VDAGA #### [facility] [address] [address] [address] Nixon Bravo Monocytes/100 WBC (Bld) 6.5 % Normal 1.7-12.0 [facility] Comment on above: Performed By: #### C VDAGA #### [facility] [address] [address] [address] Nixon Bravo NEUT # 6.8 103/ul Critically high 1.4-6.5 [facility] Comment on above: Performed By: #### C VDAGA #### [facility] [address] [address] [address] Nixon Bravo Neutrophils/100 WBC (Bld) 65.8 % Normal 43.0-75.0 [facility] Comment on above: Performed By: #### C VDAGA #### [facility] [address] [address] [address] Nixon Bravo Platelet mean volume (Bld) [Entitic vol] 9.8 fL Normal 9.5-13.5 [facility] Comment on above: Performed By: #### C VDAGA #### [facility] [address] [address] [address] Nixon Bravo PLT 243 103/ul Normal 150-450 [facility] Comment on above: Performed By: #### C VDAGA #### [facility] [address] [address] [address] Nixon Bravo RBC 4.09 106/ul Critically low 4.20-5.40 [facility] Comment on above: Performed By: #### C VDAGA #### [facility] [address] [address] [address] Nixon Bravo WBC 10.3 103/ul Normal 4.0-11.0 [facility] Comment on above: Performed By: #### C VDAGA #### [facility] [address] [place] [address] Dr. Nixon Bravo DRUG SCREEN RAPID (URINE)on 07-24-2021 AMP Negative Normal NEGATIVE [facility] Comment on above: Performed By: #### C BC #### [facility] [address] [place] [address] Dr. Nixon Bravo BAR Negative Normal NEGATIVE [facility] Comment on above: Performed By: #### C BC #### [facility] [address] [place] [address] Dr. Nixon Bravo BUP Negative Normal NEGATIVE [facility] Comment on above: Performed By: #### C BC #### [facility] [address] [place] [address] Dr. Nixon Bravo BZO Negative Normal NEGATIVE [facility] Comment on above: Performed By: #### C BC #### [facility] [address] [place] [address] Dr. Nixon Bravo BRIDGER Negative Normal NEGATIVE [facility] Comment on above: Performed By: #### C BC #### [facility] [address] [place] [address] Dr. Nixon Bravo CUT-OFFS SEE BELOW Normal [facility] Comment on above: Result Comment: AMP (Amphetamine): 500ng/mL, BAR (Barbituates): 200 ng/mL, BZO (Benzodiazepines): 150 ng/mL, BUP (Buprenorphine): 10 ng/mL, BRIDGER (Cocaine): 150 ng/mL, mAMP (Methamphetamine): 500 ng/mL, MTD (Methadone): 200 ng/mL, OPI (Opiates): 100 ng/mL, OXY (Oxycodone): 100 ng/mL, PCP (Phencyclidine): 25 ng/mL, PPX (Propoxyphene): 300 ng/mL, THC (Cannabinoids): 50 ng/mL, TCA (Trycyclic Antidepressants): 300 ng/mL Performed By: #### C BC #### [facility] [address] [place] [address] Dr. Nixon Bravo DRUG CUT HEADER DRUG CLASS TEST SYSTEM CUT-OFF CONCENTRATIONS ARE FOLLOWS: Normal [facility] Comment on above: Performed By: #### C BC #### [facility] [address] [place] [address] Dr. Nixon Bravo mAMP Negative Normal NEGATIVE [facility] Comment on above: Performed By: #### C BC #### [facility] [address] [place] [address] Dr. Nixon Bravo MTD Negative Normal NEGATIVE [facility] Comment on above: Performed By: #### C BC #### [facility] [address] [place] [address] Dr. Nixon Bravo OPI Negative Normal NEGATIVE [facility] Comment on above: Performed By: #### C BC #### [facility] [address] [place] [address] Dr. Nixon Bravo OXY Negative Normal NEGATIVE [facility] Comment on above: Performed By: #### C BC #### [facility] [address] [place] [address] Dr. Nixon Bravo PCP Negative Normal NEGATIVE [facility] Comment on above: Performed By: #### C BC #### [facility] [address] [place] [address] Dr. Nixon Bravo PPX Negative Normal NEGATIVE [facility] Comment on above: Performed By: #### C BC #### [facility] [address] [place] [address] Dr. Nixon Bravo TCA Negative Normal NEGATIVE [facility] Comment on above: Performed By: #### C BC #### [facility] [address] [place] [address] Dr. Nixon Bravo THC Negative Normal NEGATIVE [facility] Comment on above: Performed By: #### C BC #### [facility] [address] [place] [address] Dr. Nixon Bravo TYPE AND SCREENon 07-24-2021 TYPE AND SCREEN Negative Normal [facility] Comment on above: Performed By: #### T NS #### [facility] [address] [place] [address] Dr. Nixon Bravo US PREG GROWTHon 07-15-2021 US PREG GROWTH EXAMINATION: US PREG GROWTH HISTORY: Large for gestation age fetus COMPARISON: Ultrasound growth 07/01/2021 FINDINGS: Heart Rate: 146 Number: 1.0 Position: Cephalic Amniotic Fluid Volume: 12.9 cm Maximum Vertical Pocket: 3.5 cm BIOMETRY: BPD: 9.5 cm cm; 38 weeks 4 days HC: 35.0 cmcm; 40 weeks 5 days AC: 37.3 cm cm; 41 weeks 1 days FL: 6.9 cm cm; 35 weeks 2 days EFW: 3864 g (84th percentile by ultrasound, 90th percentile by expected). FL/AC: 0.344312 FL/BPD: 0.752167 HC/AC: 0.437687 GESTATIONAL AGE: Age by EDC: 37 weeks, 6 days ROSALEE by EDC: 07/30/2021 Age by US: 39 weeks, 0 days ROSALEE by US: 07/22/2021 IMPRESSION: 1. Single live intrauterine with growth detailed above. 2. Estimated weight is at the 95th percentile. Dr. Cheung was notified by the honeycomb blanket maker at the time of imaging. Electronically authenticated by: ENRIQUETA HUERTA Date: 2021-07-15 13:30 Normal [facility] GROUP B STREP CULTUREon 06-07 S. agalactiae Ag Ql (Unsp spec) Culture Observations: NEGATIVE FOR GROUP B STREPTOCOCCUS. Normal [facility] Comment on above: Performed By: #### C VDAGA #### [facility] [address] [place] [address] Dr. Nixon Bravo US PREG GROWTHon 07-01-2021 US PREG GROWTH EXAMINATION: US PREG GROWTH HISTORY: Excessive growth affecting management of mother COMPARISON: Ultrasound anatomy 03/18/2021 FINDINGS: Heart Rate: 135 Number: 1.0 Position: Cephalic Amniotic Fluid Volume: 14.0 cm Maximum Vertical Pocket: 4.8 cm BIOMETRY: BPD: 9.4 cm cm; 38 weeks 2 days HC: 33.8 cmcm; 38 weeks 5 days AC: 35.0 cm cm; 38 weeks 6 days FL: 6.8 cm cm; 34 weeks 5 days EFW: 3347 g (69th percentile by ultrasound, 94th percentile by expected) FL/AC: 0.028827 FL/BPD: 0.523635 HC/AC: 0.867490 GESTATIONAL AGE: Age by EDC: 35 weeks, 6 days ROSALEE by EDC: 07/30/2021 Age by US: 37 weeks, 4 days ROSALEE by US: 07/18/2021 IMPRESSION: 1. Single live intrauterine with growth detailed above. 2. Estimated weight is at the 94th percentile. 3. BPD, HC, and AC are more than 2 weeks larger than gestational age. Electronically authenticated by: ENRIQUETA HUERTA Date: 2021-07-01 09:04 Normal [facility] HEPATITIS B SURFACE ANTIBODY , QUANTon 06-10-2021 Hepatitis B Surf AB Quant <3.1 Critically low Immunity>9.9 [facility] Comment on above: Result Comment: Stat us of Immunity Anti-HBs Level Inconsistent with Immunity 0.0 - 9.9 Consistent with Immunity >9.9 Performed By: #### C VDAGA #### [facility] [address] [place] [address] Dr. Nixon Bravo RHOGAMon 05-07-2021 RHOGAM Status Information Issued Quantity 1 Product ID Rh Immune Globulin Lot Number [id number] Issue Date/Time [id number] Normal [facility] Comment on above: Performed By: #### C VDAGA #### [facility] [address] [place] [address] Dr. Nixon Bravo GLUCOSE - 1HRon 05-06-2021 Glucose [Mass/Vol] 98 mg/dL Normal 74-106 [facility] Comment on above: Performed By: #### C VDAGA #### [facility] [address] [place] [address] Dr. Nixon Bravo HEMOGRAM AND PLATELon 2020 Hematocrit (Bld) [Volume fraction] 35.7 % Critically low 36.0-48.0 [facility] Comment on above: Performed By: #### H H #### [facility] [address] [place] [address] Samantha Eliana Hemoglobin (Bld) [Mass/Vol] 11.8 g/dL Critically low 12.0-16.0 [facility] Comment on above: Performed By: #### H H #### [facility] [address] [place] [address] Samantha Eliana MCH (RBC) [Entitic mass] 28.0 pg Normal 26.7-34.0 [facility] Comment on above: Performed By: #### H H #### [facility] [address] [place] [address] Samantha Eliana MCHC (RBC) [Mass/Vol] 33.1 g/dL Normal 29.9-35.2 [facility] Comment on above: Performed By: #### H H #### [facility] [address] [place], [place] [address] Samantha Monroy MCV (RBC) [Entitic vol] 84.8 fL Normal 81.0-99.0 [facility] Comment on above: Performed By: #### H H #### [facility] [address] [place], [place] [address] Samantha Monroy PLT 231 103/ul Normal 150-450 [facility] Comment on above: Performed By: #### H H #### [facility] [address] [place], [place] [address] Samanhtaeric Monroy RBC 4.21 106/ul Normal 4.20-5.40 [facility] Comment on above: Performed By: #### H H #### [facility] [address] [place], [place] [address] Samanthaeric Monroy WBC 11.3 103/ul Critically high 4.0-11.0 [facility] Comment on above: Performed By: #### H H #### [facility] [address] [place], [place] [address] Samantha Eliana TYPE AND SCREENon 05-06-2021 TYPE AND SCREEN Negative Normal [facility] Comment on above: Performed By: #### T NS #### [facility] [address] [place] [address] Samantha Monroy US PREG PLACENTAon US PREG PLACENTA EXAMINATION: US PREG PLACENTA HISTORY: Low lying placenta COMPARISON: 03/18/2021 FINDINGS: Placenta: Posterior. No intraplacental or retroplacental echogenic abnormality. The placental edge is 4.8 cm from the cervical os. IMPRESSION: Placental edge is 4.8 cm from the cervical os Electronically authenticated by: ESAU DUFF Date: 2021-04-15 08:45 Normal [facility] Vital Signs Date Time Vital Sign Value Performing Clinician Fatou cutler 06-30-2025 10:14-0400 Body mass index (BMI) [Ratio] 47.16 kg/m2 Min Cheung DO Work Phone: [facility] 06-30-2025 10:14-0400 Body weight 109.54 kg Min Skye DO Work Phone: [facility] 06-30-2025 10:14-0400 Diastolic blood pressure 76 mm[Hg] Min Skye DO Work Phone: [facility] 06-30-2025 10:14-0400 Systolic blood pressure 124 mm[Hg] Min Skye DO Work Phone: [facility] 05-29-2025 10:20-0400 Body mass index (BMI) [Ratio] 45.8 kg/m2 Bekah Whitney PA Work Phone: [facility] 05-29-2025 10:20-0400 Body weight 106.37 kg Bekah Whitney PA Work Phone: [facility] 05-29-2025 10:20-0400 Diastolic blood pressure 82 mm[Hg] Bekah Whitney PA Work Phone: [facility] 05-29-2025 10:20-0400 Systolic blood pressure 110 mm[Hg] Bekah Whitney PA Work Phone: [facility] 04-17-2025 09:15-0400 Body mass index (BMI) [Ratio] 44.33 kg/m2 Min Skye DO Work Phone: [facility] 04-17-2025 09:15-0400 Body weight 102.97 kg Min Skye DO Work Phone: [facility] 04-17-2025 09:15-0400 Diastolic blood pressure 84 mm[Hg] Min Skye DO Work Phone: [facility] 04-17-2025 09:15-0400 Systolic blood pressure 120 mm[Hg] Min Skye DO Work Phone: [facility] 03-20-2025 13:47-0400 Body mass index (BMI) [Ratio] 43.59 kg/m2 [facility] 03-20-2025 13:47-0400 Body weight 101.24 kg [facility] 03-20-2025 13:47-0400 Diastolic blood pressure 70 mm[Hg] [facility] 03-20-2025 13:47-0400 Systolic blood pressure 110 mm[Hg] [facility] 12-19-2024 13:02-0500 Body mass index (BMI) [Ratio] 47.29 kg/m2 Bekah ESCAMILLA Work Phone: [facility] 12-19-2024 13:02-0500 Body weight 109.83 kg Bekah Whitney PA Work Phone: [facility] 12-19-2024 13:02-0500 Diastolic blood pressure 72 mm[Hg] Bekah Whitney PA Work Phone: [facility] 12-19-2024 13:02-0500 Systolic blood pressure 114 mm[Hg] Bekah Napa PA Work Phone: [facility] 11-12-2024 11:59-0500 Body mass index (BMI) [Ratio] 48.63 kg/m2 Min Skye DO Work Phone: [facility] 11-12-2024 11:59-0500 Body weight 112.95 kg Min Skye DO Work Phone: [facility] 11-12-2024 11:59-0500 Diastolic blood pressure 72 mm[Hg] Min Skye DO Work Phone: [facility] 11-12-2024 11:59-0500 Systolic blood pressure 118 mm[Hg] Min Skye DO Work Phone: [facility] Encounters Encounter Date Encounter Type Care Provider Facility Start: 06-30-2025 End: 06-30-2025 Bamboo flowsheet Min Skye DO Work Phone: [facility] Start: 06-30-2025 End: 06-30-2025 Bamboo flowsheet Min Skye DO Work Phone: [facility] Start: 06-30-2025 End: 06-30-2025 ambulatory MIN SKYE Not Available Start: 06-30-2025 End: 06-30-2025 flow sheet Min Skye DO Work Phone: [facility] Comment on above: Second trimester pre gnancy ([facility]); 26 weeks gestation of ([facility]); Diabetes mellitus screening Start: 05-29-2025 End: 05-29-2025 ambulatory BEKAH OLSON Not Available Start: 05-29-2025 End: 05-29-2025 flow sheet Bekah Olson PA Work Phone: [facility] Comment on above: Second trimester pre gnancy ([facility]); 22 weeks gestation of ([facility]) Start: 05-29-2025 End: 05-29-2025 ambulatory BEKAH OLSON Not Available Start: 04-17-2025 End: 04-17-2025 Bamboo flowsheet Min Skye DO Work Phone: [facility] Start: 04-17-2025 End: 04-17-2025 Bamboo flowsheet Min Skye DO Work Phone: [facility] Start: 04-17-2025 End: 04-17-2025 ambulatory MIN SKYE Not Available Start: 04-17-2025 End: 04-17-2025 flow sheet Min Skye DO Work Phone: [facility] Comment on above: Second trimester pre gnancy ([facility]); 16 weeks gestation of ([facility]); Screening, , for anatomic survey ([facility]) Start: 04-16-2025 End: 04-16-2025 Clinisync Result Encounter Min Skye DO Work Phone: [facility] Unsolicited Start: 04-16-2025 End: 04-16-2025 Clinisync Result Encounter Min Skye DO Work Phone: [facility]solic[facility] Start: 03-20-2025 End: 03-20-2025 Office outpatient visit 5 minutes [facility]e Nurse [facility] Comment on above: GA: 12w0d Start: 03-20-2025 End: 03-20-2025 ambulatory BEKAH OLSON Not Available Start: 01-13-2025 End: 01-13-2025 ambulatory BEKAH OLSON Not Available Start: 12-19-2024 End: 12-19-2024 Bamboo flowsheet Bekah Olson PA Work Phone: [facility] Start: 12-19-2024 End: 12-19-2024 Bamboo flowsheet Bekah Olson PA Work Phone: [facility] Start: 12-19-2024 End: 12-19-2024 Office outpatient visit 15 minutes Bekah Olson PA Work Phone: [facility] Comment on above: Encounter for weight management Start: 12-19-2024 End: 12-19-2024 ambulatory BEKAH WHITNEY Not Available Start: 11-12-2024 End: 11-12-2024 Bamboo flowsheet Min Skye DO Work Phone: [facility] Start: 11-12-2024 End: 11-15-2024 Bamboo flowsheet Min Skye DO Work Phone: [facility] Start: 11-12-2024 End: 11-15-2024 Clinisync Result Encounter Mni Skye DO Work Phone: [facility] External Department Unsolicited Start: 11-12-2024 End: 11-12-2024 Patient encounter procedure Min Skye DO Work Phone: [facility] Healthcare Start: 11-12-2024 End: 11-12-2024 Periodic preventive med est patient 18-39 yrs Min Skye DO Work Phone: [facility] Comment on above: Well woman exam with routine gynecological exam; Weight gain Start: 11-12-2024 End: 11-12-2024 ambulatory MIN SKYE Not Available Start: 03-15-2022 End: 03-15-[address] MIN CHEUNG Facility:[facility] Start: 08-03-2021 End: 08-12-[address] MIN CHEUNG Facility:[facility] Start: 07-30-2021 Evaluation and manag ement of inpatient DR MIN CHEUNG Facility:[facility] Start: 07-28-2021 End: 07-29-[address] MIN CHEUNG Facility:[facility] Start: 07-24-2021 End: 07-26-2021 Evaluation and management of inpatient DR GLEN SALGADO Facility:[facility] Start: 07-15-2021 End: 07-16-[address] MIN CHEUNG Facility:[facility] Start: 07-01-2021 End: 07-01-[address] MIN CHEUNG Facility:[facility] Start: 07-01-2021 End: 07-02-[address] MIN CHEUNG Facility:[facility] Start: 06-14-2021 Encounter for antibo dy response examination DR MIN CHEUNG [facility] Start: 06-09-2021 End: 06-10-[address] MIN CHEUNG Facility:[facility] Start: 06-09-2021 End: 06-10-2021 Encounter for antibody response examination DR MIN CHEUNG Facility:[facility] Start: 05-06-2021 End: 05-07-[address] MIN CHEUNG Facility:[facility] Start: 04-15-2021 End: 04-16-[address] MIN CHEUNG Facility:[facility] Procedures Date Procedure Procedure Detail Performing Clinician Start: 06-30-2025 Urnls dip stick/tabl et rgnt non-auto w/o micrscp Min Skye DO Work Phone: Start: 05-29-2025 Urnls dip stick/tabl et rgnt non-auto w/o micrscp Bekah ESCAMILLA Work Phone: Start: 04-17-2025 Urnls dip stick/tabl et rgnt non-auto w/o micrscp Min Skye DO Work Phone: Start: 04-16-2025 ALL CBC WITH AUTO DIFF Min Skye DO Work Phone: Start: 03-20-2025 Urnls dip stick/tabl et rgnt non-auto w/o micrscp Min Skye DO Work Phone: Start: 11-12-2024 IGP,APTIMA HPV,AGE GDLN Min Cheung DO Work Phone: Start: 07-05-2023 Cytp cerv/vag auto t hin layer prep mnl screen Min Cheung DO Work Phone: Start: 07-26-2021 Transfusion of Nonautologous Red Blood Cells into Peripheral Vein, Percutaneous Approach DR MIN CHEUNG Start: 07-24-2021 Extraction of Produc ts of Conception, Low Cervical, Open Approach DR MIN CHEUNG Start: 07-24-2021 Drainage of Amniotic Fluid, Therapeutic from Products of Conception, Via Natural or Artificial Opening DR MIN CHEUNG Start: 07-23-2021 Introduction of Othe r Hormone into Peripheral Vein, Percutaneous Approach DR MIN CHEUNG Plan of Treatment Date Care Activity Detail Author Start: 11-18-2025 End: 11-18-2025 Patient encounter procedure [facility] Start: 07-14-2025 End: 07-14-2025 Patient encounter procedure 07/14/2025 11:30 AM EDT Routine [facility] [address] [place] [id number] Min Cheung DO [address] [address] [facility] Start: 06-30-2025 End: 06-30-2026 CBC panel - Blood by Automated count CBC Lab Routine Diabetes mellitus screening Expected: 06/30/2025 (Approximate), Expires: 06/30/2026 [facility] Work Phone: Comment on above: Expected: 06/30/2025 (Approximate), Expires: 06/30/2026 Start: 06-30-2025 End: 06-30-2026 Measurement of glucose 1 hour after glucose challenge for glucose tolerance test Glucose tolerance, 1 hour Lab Routine Diabetes mellitus screening Expected: 06/30/2025 (Approximate), Expires: 06/30/2026 [facility] Comment on above: Expected: 06/30/2025 (Approximate), Expires: 06/30/2026 Start: 06-30-2025 End: 06-30-2025 Patient encounter procedure 06/30/2025 9:50 AM EDT Routine [facility] [address] [phone] Min Cheung DO [address] [place], [place] [id number] [facility] Start: 05-29-2025 End: 05-29-2025 Patient encounter procedure 05/29/2025 9:30 AM EDT Routine [facility] [address] [place] [address] Bekah Olson PA [address] [place], [place] [id number] [facility] Start: 05-29-2025 End: 05-29-2025 Professional / ancillary services management 05/29/2025 8:30 AM EDT Ancillary Procedure [facility] [address] [place] [address] [facility] Start: 04-17-2025 End: 06-17-2025 Alpha fetoprotein, maternal Alpha fetoprotein, maternal Lab Routine 16 weeks gestation of ([facility]) Expected: 04/17/2025 (Approximate), Expires: 06/17/2025 [facility] Work Phone: Comment on above: Expected: 04/17/2025 (Approximate), Expires: 06/17/2025 Start: 04-17-2025 End: 07-18-2025 US for US OB 14+ weeks anatomy scan Imaging Routine Screening, , for anatomic survey ([facility]) Expected: 04/17/2025, Expires: 07/18/2025 [facility] Comment on above: Expected: 04/17/2025 , Expires: 07/18/2025 Start: 04-17-2025 End: 04-17-2025 Patient encounter procedure 04/17/2025 8:50 AM EDT Routine [facility] [address] [phone] Min Cheung DO [address] [place], [place] [id number] [facility] Start: 03-20-2025 End: 03-20-2026 ABO/Rh ABO/Rh Lab Routine Missed menses , unspecified gestational age Expected: 03/20/2025 (Approximate), Expires: 03/20/2026 [facility] Comment on above: Expected: 03/20/2025 (Approximate), Expires: 03/20/2026 Start: 03-20-2025 End: 03-20-2026 Blood type and Indirect antibody screen panel - Blood Type and screen Lab Routine Missed menses , unspecified gestational age Expected: 03/20/2025 (Approximate), Expires: 03/20/2026 [facility] Comment on above: Expected: 03/20/2025 (Approximate), Expires: 03/20/2026 Start: 03-20-2025 End: 03-20-2026 Drugs of abuse panel - Urine by Screen method Rapid drug screen, urine Lab Routine , unspecified gestational age Encounter for supervision of normal first in first trimester Expected: 03/20/2025 (Approximate), Expires: 03/20/2026 [facility] Comment on above: Expected: 03/20/2025 (Approximate), Expires: 03/20/2026 Start: 03-19-2025 End: 06-19-2025 US Pelvis transvaginal US OB transvaginal Imaging Routine Missed menses Expected: 03/19/2025, Expires: 06/19/2025 [facility] Work Phone: Comment on above: Expected: 03/19/2025 , Expires: 06/19/2025 Start: 01-16-2025 End: 01-16-2025 Patient encounter procedure 01/16/2025 8:30 AM EDT Office Visit [facility] [address] [phone] Bekah Olson PA [address] [place] [address] [facility] Start: 12-19-2024 End: 12-19-2024 [facility] Comment on above: Arrived Start: 11-12-2024 End: 11-12-2024 Patient encounter procedure 11/12/2024 11:40 AM EST Office Visit [facility] [address] [phone] Min Cheung, [address] [place] [address] [facility] Comment on above: Arrived Bacteria identified in Urine by Culture Urine culture Microbiology Routine Missed menses Ordered: 03/20/2025 [facility] Comment on above: Ordered: 03/20/2025 CBC W Auto Different ial panel - Blood CBC and differential Lab Routine Missed menses , unspecified gestational age Ordered: 03/20/2025 [facility] Comment on above: Ordered: 03/20/2025 Cytology Cervical or vaginal smear or scraping study Pap Smear Pathology and Cytology Routine Well woman exam with routine gynecological exam Ordered: 11/12/2024 [facility] Work Phone: Comment on above: Ordered: 11/12/2024 Hemoglobin A1c/Hemoglobin.total in Blood Hemoglobin A1c Lab Routine Missed menses , unspecified gestational age Ordered: 03/20/2025 [facility] Comment on above: Ordered: 03/20/2025 Hepatitis B virus surface Ag [Presence] in Serum or Plasma by Immunoassay Hepatitis B surface antigen Lab Routine Missed menses , unspecified gestational age Ordered: 03/20/2025 [facility] Comment on above: Ordered: 03/20/2025 Hepatitis C virus Ab [Presence] in Serum or Plasma by Immunoassay Hepatitis C antibody Lab Routine Missed menses , unspecified gestational age Ordered: 03/20/2025 [facility] Comment on above: Ordered: 03/20/2025 HIV-1/HIV-2 antigen/antibody combination immunoassay HIV-1 and HIV-2 antibodies Lab Routine Missed menses , unspecified gestational age Ordered: 03/20/2025 [facility] Comment on above: Ordered: 03/20/2025 Reagin Ab [Presence] in Serum by RPR RPR Lab Routine Missed menses , unspecified gestational age Ordered: 03/20/2025 [facility] Comment on above: Ordered: 03/20/2025 Rubella antibody, IgG Rubella an tibody, IgG Lab Routine Missed menses , unspecified gestational age Ordered: 03/20/2025 [facility] Comment on above: Ordered: 03/20/2025 US Pelvis transvaginal US OB tra nsvaginal Imaging Routine Missed menses 03/20/2025 12:34 PM EDT [facility] Payers Date Payer Category Payer [facility] BCBS [id number] 2023 Unknown [id number] 1995 Unknown [id number] 2.840.1.692948.3.579.2. 59 1995 Unknown [id number] 2.840.1.791647.3.579.2 59 1995 Unknown [id number] 2.840.1.903293.3.579.2. 59 1995 Unknown [id number] 2.16.840.1.229008.3.579.2. 59 1995 Unknown [id number] 2.16840.1.963421.3.579.2. 59 1995 Unknown [id number] 2.16.840.1.341063.3.579.2. 593 1995 Unknown [id number] 2.16.840.1.861467.3.579.2. 593 1995 Unknown [id number] 2.16.840.1.542758.3.579.2. 593 1995 Unknown [id number] 2.16.840.1.001808.3.579.2. 593 1995 Unknown [id number] 2.16.840.1.206388.3.579.2. 593 1995 Unknown [id number] 2.16.840.1.804931.3.579.2. 593 1995 Unknown [id number] 2.16.840.1.350907.3.579.2. 593 1995 Unknown [id number] 2.16.840.1.914353.3.579.2. 125 1995 Unknown [id number] 2.16840.1.314638.3.579.2. 125 1995 Unknown [id number] 2.16.840.1.144098.3.579.2. 1258 1995 Unknown [id number] 2.16.840.1.563900.3.579.2. 1258 1995 Unknown [id number] 2.16.840.1.630240.3.579.2. 125 1995 Unknown [id number] 2.16840.1.342082.3.579.2. 125 1995 Unknown [id number] 2.16.840.1.632019.3.579.2. 125 1995 Unknown [id number] 2.16840.1.968908.3.579.2. 1258 1995 Unknown [id number] 2.16.840.1.255732.3.579.2. 1259 1959 Unknown [id number] 1959 Unknown [id number] Social History Date Type Detail Facility Start: 06-27-2023 Tobacco smoking stat [facility] Occasional tobacco smoker [facility] History of tobacco use Cigarette Smoker [facility] Start: 07-05-2023 End: 03-20-2025 Alcoholic beverage intake Current drinker of alcohol (finding) [facility] Start: 07-05-2023 End: 11-12-2024 History of Social function [facility] Start: 07-05-2023 End: 11-12-2024 Tobacco use panel [facility] Start: 06-27-2023 Tobacco Comment 5 or less cigarettes /day [facility] Start: 06-27-2023 Alcohol Comment Alcohol: 1 or 2 drinks on a typical day / 2 to 4 times a month. Caffeine: >4 cups/day coffee [facility] Start: 1995 Sex assigned at Female [facility] Start: 07-04-2023 Gender identity Identifies as female gender (finding) [facility] Start: 07-04-2023 Sexual orientation Heterosexual (fin ding) [facility] Start: 01-09-2025 [facility] Goals Date Patient Goal Desired Activity /State Personal health goal Clinical Notes 07-24-2021 to 06-30-2025 Becki Chaudhary NP - 06/30/2025 9:50 AM FRANCINE Covington - 05/29/2025 9:30 AM Sinai Osorio IC ENGINEER - 04/17/2025 8:50 AM Bakari Lynn IC ENGINEER - 03/20/2025 1:00 PM EDT Note Date & Type Note Facility 06-30-2025 History of Presen t illness Narrative Reason for Appointment: Patient ID: Genesis Barahona [...] nursing note reviewed. Exam conducted with a graphic designer present. Vitals: Estimated body mass index is 47.16 kg/m as calculated from the following: Height as of 25: 5'. Weight as of this encounter: 241 lb 8 oz. BP: 124/76 Patient's last menstrual period was 01/16/2025. ASSESSMENT & PLAN ICD-10-CM 1. Second trimester ([facility]) Z34.92 POCT urinalysis dipstick manually resulted 2. 26 weeks gestation of ([facility]) Z3A.26 3. Diabetes mellitus screening Z13.1 CBC [...] by Becki Chaudhary NP on behalf of: Min Cheung DO documented in this encounter [facility] 05-29-2025 History of Presen t illness Narrative Reason for Appointment: Patient ID: Genesis Barahona is a 29 y.o. female who presents for Routine Visit [...] Exam Constitutional: Appearance: Normal appearance. She is normal weight. HENT: Head: Normocephalic. Cardiovascular: Rate and Rhythm: Normal rate. Pulses: Normal pulses. Pulmonary: Effort: Pulmonary effort is normal. Breath sounds: Normal breath sounds. Abdominal: Palpations: Abdomen is soft. Musculoskeletal: General: Normal range of motion. Neurological: General: No focal deficit present. Mental Status: She is alert and oriented to person, place, and time. Psychiatric: Mood and Affect: Mood normal. Behavior: Behavior normal. Thought Content: Thought content normal. Judgment: Judgment normal. Vitals and nursing note reviewed. Vitals: Estimated body mass index is 45.8 kg/m as calculated from the following: Height as of 01/13/25: 5'. Weight as of this encounter: 234 lb 8 oz. BP: 110/82 Patient's last menstrual period was 01/16/2025. ASSESSMENT & PLAN ICD-10-CM 1. Second trimester ([facility]) Z34.92 POCT urinalysis dipstick manually resulted 2. 22 weeks gestation of ([facility]) Z3A.22 Return OB: Patient presents today for a routine obstetrics appointment. Patient is currently 22w0d . Patient states she is doing well but has complaints of being tired due to current . Patient has verbalizes frequent movement. Orders Placed This Encounter Procedures POCT urinalysis dipstick manually resulted Follow Up: Patient is to return to office in 24 week for routine OB appointment. Documented by FRANCINE Chery on behalf of: FRANCINE Chery documented in this encounter [facility] 04-17-2025 History of Presen t illness Narrative Reason for Appointment: Patient ID: Genesis Barahona is a 29 y.o. female who presents for Routine Visit [...] nursing note reviewed. Exam conducted with a graphic designer present. Vitals: Estimated body mass index is 44.33 kg/m as calculated from the following: Height as of 01/13/25: 5'. Weight as of this encounter: 227 lb. BP: 120/84 Patient's last menstrual period was 01/16/2025. ASSESSMENT & PLAN ICD-10-CM 1. Second trimester ([facility]) Z34.92 POCT urinalysis dipstick manually resulted 2. 16 weeks gestation of ([facility]) Z3A.16 Alpha fetoprotein, maternal Alpha fetoprotein, maternal 3. Screening, , for anatomic survey ([facility]) Z36.89 US OB 14+ weeks anatomy scan New OB: Patient presents today for 1st time obstetrics appointment with provider. Patient is currently 16w0d . Patients history has been reviewed in great detail including any potential risks. Patient stated she currently has no complaints. Expectations throughout regarding labs, ultrasounds, and appointments have been discussed with the patient in detail. It was reiterated that the patient is to drink 6-8 glasses of water a day, eat 6 small meals a day, do not consume raw or undercooked meat, and stay away from [facility]. Patient has been consulted regarding any further do's and don'ts of . Patient voiced understanding and all questions and concerns were answered. Orders Placed This Encounter Procedures US OB 14+ weeks anatomy scan Alpha fetoprotein, maternal POCT urinalysis dipstick manually resulted Discussed rpt to be performed on 09/25/2025. Discussed that at 28 weeks gestation patient will need to have Rhogam injection. Discussed nausea and vomiting. Follow Up: Patient is to return in 4 weeks for routine OB appointment. Documented by Karina Osorio LPN on behalf of: Min Cheung DO documented in this encounter [facility] 03-20-2025 History of Presen t illness Narrative Reason for Appointment: Patient ID: Genesis Barahona is a 29 y.o. female who presents for Amenorrhea Patient presents today for a Nurse OB Intake appointment. Patient is 12w0d with a Estimated Date of Delivery: 10/02/25 OB History Para Term AB Living 2 1 1 SAB IAB Ectopic Multiple Live Births 1 # Outcome Date GA Lbr Madhu/2nd Weight Sex Type Anes PTL Lv 2 Current 1 Para Current Medications: has a current medication list which includes the following prescription(s): clindamycin and mv-min-fe fum-fa-dha. Medical History: Active Ambulatory Problems Diagnosis Date Noted No Active Ambulatory Problems Resolved Ambulatory Problems Diagnosis Date Noted No Resolved Ambulatory Problems Past Medical History: Diagnosis Date PCOS (polycystic ovarian syndrome) Family History Problem Relation Name Age of Onset Breast cancer Maternal Great-Grandmother Social History Tobacco Use Smoking status: Some Days Types: Cigarettes Smokeless tobacco: Not on file Tobacco comments: 5 or less cigarettes/day Substance Use Topics Alcohol use: Yes Comment: Alcohol: 1 or 2 drinks on a typical day / 2 to 4 times a month. Caffeine: >4 cups/day coffee Drug use: Never Past Surgical History: Procedure Laterality Date SECTION, LOW TRANSVERSE PAP SMEAR 04/04/[address]/ ng neg No Known Allergies Vitals: Estimated body mass index is 44.72 kg/m as calculated from the following: Height as of 01/13/25: 5'. Weight as of 01/13/25: 229 lb. BP: Patient's last menstrual period was 01/16/2025. Assessment/Plan Diagnoses and all orders for this visit: Missed menses - US OB transvaginal; Future - Type and screen; Future - ABO/Rh; Future - CBC and differential - Hemoglobin A1c - RPR - Rubella antibody, IgG - Hepatitis B surface antigen - Hepatitis C antibody - HIV-1 and HIV-2 antibodies - Urine culture - POCT , urine manually resulted - POCT urinalysis dipstick manually resulted , unspecified gestational age - Type and screen; Future - ABO/Rh; Future - CBC and differential - Hemoglobin A1c - RPR - Rubella antibody, IgG - Hepatitis B surface antigen - Hepatitis C antibody - HIV-1 and HIV-2 antibodies - Rapid drug screen, urine; Future Encounter for supervision of normal first in first trimester - Rapid drug screen, urine; Future Acne, unspecified acne type - clindamycin (Cleocin-T) 1 % lotion; Apply topically Daily Nurse Note: OB Intake: Patient presents today for first OB visit. Patients history has been reviewed in great detail including any potential risks. Patient signed consent forms and patient desires testing in both trimesters. Patient currently has no complaints and has been advised to drink 6-8 glasses of water a day, eat no raw or undercooked meat, and stay away from [facility]. Patient has also been advised to not change litter boxes and eat 6 small meals a day. Patient has been consulted regarding the do's and don'ts of . Patient was given labs and all questions and concerns were answered. Patient did not want [place] labs or Zofran sent at this time. Patient spoke with provider and needed to have Cleocin T- acne medication sent to pharmacy for her. Follow Up: Patient is to return in 4 weeks for routine OB appointment. Follow Up: Patient is to have labs drawn at directed and return to office for initial OB appointment with provider. Patient may call office as needed with any concerns or questions. Nurse Visit Completed by: Perlita Lynn LPN documented in this encounter [facility] 12-19-2024 History of Presen t illness Narrative Reason for Appointment: Patient ID: Genesis Barahona is a 29 y.o. female who presents for Weight Management Patient presents today for a weight management consultation. Patient desires to initiate Adipex. Initial Vitals for Adipex prescription #1: Estimated body mass index is 47.29 kg/m as calculated from the following: Height as of 04/05/22: 5'. Weight as of this encounter: 242 lb 1.9 oz. Allergies as of 12/19/2024 (No Known Allergies) No past medical history on file. Past Surgical History: Procedure Laterality Date PAP SMEAR 04/04/[address]/ ng neg Review of Systems: Review of Systems Constitutional: Negative. HENT: Negative. Eyes: Negative. Respiratory: Negative. Cardiovascular: Negative. Gastrointestinal: Negative. Genitourinary: Negative. Musculoskeletal: Negative. Skin: Negative. Neurological: Negative. All other systems reviewed and are negative. Hematological: Negative. Endocrine: Negative. Allergic/Immunologic: Negative. Objective Physical Exam Constitutional: Appearance: Normal appearance. She is normal weight. HENT: Head: Normocephalic. Cardiovascular: Rate and Rhythm: Normal rate. Pulses: Normal pulses. Pulmonary: Effort: Pulmonary effort is normal. Breath sounds: Normal breath sounds. Abdominal: Palpations: Abdomen is soft. Musculoskeletal: General: Normal range of motion. Neurological: General: No focal deficit present. Mental Status: She is alert and oriented to person, place, and time. Psychiatric: Mood and Affect: Mood normal. Behavior: Behavior normal. Thought Content: Thought content normal. Judgment: Judgment normal. Vitals and nursing note reviewed. Assessment/Plan Encounter Diagnosis Name Primary? Encounter for weight management Adipex: Patient presents today for initial Adipex prescription. I have discussed in detail the importance of keeping a food journal, proper nutrition/diet, and exercise regimen while taking Adipex. Patient verbalized understanding and signed consents to initiate (Adipex) medication therapy. Patient was given a printed prescription signed by provider to take to their local pharmacy. Follow Up: Patient is to return to the office in 1 month for further evaluation to assess patient progress. Weight and blood pressure will need to be captured in order for patient to receive 2nd prescription. Documented by: Lucretia Lazar LPN on behalf of FRANCINE Chery documented in this encounter [facility] 11-12-2024 History of Presen t illness Narrative Reason for Appointment: Patient ID: Genesis Barahona is a 29 y.o. female who presents for Gynecologic Exam Patient presents today for Annual Exam. MEDICATIONS Current Outpatient Medications Medication Instructions citalopram (CeleXA) 10 MG tablet CeleXA metFORMIN, OSM, (Fortamet) 500 MG 24 hr tablet Metformin HCl ALLERGIES No Known Allergies PROBLEMS Active Ambulatory Problems Diagnosis Date Noted No Active Ambulatory Problems Resolved Ambulatory Problems Diagnosis Date Noted No Resolved Ambulatory Problems No Additional Past Medical History HISTORY PAST MEDICAL HISTORY SOCIAL HISTORY No past medical history on file. Social History Tobacco Use Smoking status: Some [...] HISTORY Past Surgical History: Procedure Laterality Date PAP SMEAR 04/04/[address]/ ng neg REVIEW OF SYSTEMS Review of Systems: Review of Systems Constitutional: Negative. HENT: Negative. Eyes: Negative. Respiratory: Negative. Cardiovascular: Negative. Gastrointestinal: Negative. Genitourinary: Negative. Musculoskeletal: Negative. Skin: Negative. Neurological: Negative. All other systems reviewed and are negative. Hematological: Negative. Endocrine: Negative. Allergic/Immunologic: Negative. OBJECTIVE Objective: Physical Exam Constitutional: Appearance: Normal appearance. She is well-developed. Genitourinary: Vulva normal. Cardiovascular: Rate and Rhythm: Normal rate and [...] nursing note reviewed. Exam conducted with a graphic designer present. Vitals: Estimated body mass index is 48.63 kg/m as calculated from the following: Height as of 04/05/22: 5'. Weight as of this encounter: 249 lb. BP: 118/72 No LMP recorded. ASSESSMENT & PLAN ICD-10-CM 1. Well woman exam with routine gynecological exam Z01.419 Pap Smear Annual Exam: Patient presents today for an annual exam. Patient states she is doing well and has complaints of weight gain. Rx for metformin faxed to pharmacy and will return in 4 weeks. Pap was obtained without difficulty. No orders of the defined types were placed in this encounter. Follow Up: Patient is to return in one year for annual unless needed otherwise. Documented by Eliana Pruett LPN on behalf of: Min Cheung DO documented in this encounter [facility] 07-24-2021 Note OPERATIVE NOTE OPERATION DATE: 07-24-21 ANESTHETIC:Spinal with Duramorph. INTERNET MANAGER:IBIS Cordova. PREOPERATIVE DIAGNOSIS: 1. Intrauterine at 39 weeks. 2. Failure to descend. 3. Suspected CPD. POSTOPERATIVE DIAGNOSIS:Same as above. PROCEDURE NAME:Caesarean section. URINE OUTPUT:Yellow and clear. BLOOD LOSS:700 mL. SPECIMEN:Placenta. FINDINGS: Viable female, Apgars 8 at 1, 9 at 5. Weight 9 pounds, 3 ounces. PROCEDURE: Patient was taken back to the Operating Room where she was given a spinal anesthesia with Duramorph without difficulty. She was prepped and draped in the normal sterile fashion. A Pfannenstiel skin incision was then made 2 cm above the symphysis pubis and carried down to underlying rectus fascia using a Bovie. The fascia was incised in the midline and extended laterally using Gongora scissors. Two Miri clamps were placed on the superior aspect of the fascia and dissected off the underlying rectus muscles. The same was performed on the inferior aspect as well. The muscles were then in the midline. Peritoneum was identified and entered bluntly. The peritoneum was then extended superiorly and inferiorly with good visualization of the bladder. The bladder blade was inserted. Vesicouterine peritoneum was identified, tented up, and entered with Metzenbaum scissors. A bladder flap was then created digitally. The bladder blade was reinserted. A low transverse incision was made on the patient's uterus and extended laterally digitally. The infant was then delivered atraumatically after the bladder blade was removed in the cephalic position. The cord was clamped and cut. Cord blood was obtained. The was handed off to awaiting team. The patient's placenta was spontaneously delivered. The uterus was then exteriorized. The uterus was cleared of all clots and debris. The bladder blade was reinserted. The patient's uterine incision was closed using #0 Vicryl in a running lock fashion. Excellent hemostasis was assured. The uterus was then returned to the patient's abdomen. The patient's abdomen was copiously irrigated using warm saline. Peritoneal gutters were cleared of all clots and debris. Again excellent hemostasis was assured. The patient's peritoneum was closed using 3-0 Vicryl in a running fashion. The patient's fascia was closed using #0 Vicryl in a running fashion. The patient's skin was closed using 4-0 Vicryl subcuticularly. The patient tolerated the procedure well. Sponge, lap, and needle counts were correct x2. The patient was taken to the Recovery Room in stable condition. [facility] Signed and Approved by: DR IMN CHEUNG . 07/27/2021 19:33:00 [facility] 07-24-2021 Note DISCHARGE SUMMARY Discharge Date: 07-26-21 PRIMARY DIAGNOSIS: 1. Intrauterine at 39 weeks. 2. Failure to descend. 3. Suspected CPD. PROCEDURE: Primary low transverse Caesarean section. CONSULTATION: Anesthesia. HOSPITAL COURSE: Was as expected, please see chart for full details. LABS: Please see chart. DISCHARGE CONDITION: Stable. DISCHARGE PLAN: ACTIVITY: Pelvic rest for 6 weeks. No heavy lifting for 6 weeks greater than [address] when pain free and no longer on narcotics. DIET: Regular. MEDICATIONS: Percocet, 5/325, 1-2 p.o. q4-5h p.r.n. pain. Motrin, 800, 1 p.o. q8h p.r.n. pain. FOLLOW-UP: In 1 week. The patient was instructed to return to the hospital with any vaginal bleeding greater than a period. Any fever unrelieved by Tylenol, any abdominal pain unrelieved with narcotics. [facility] Signed and Approved by: DR MIN CHEUNG . 08/05/2021 21:36:00 [facility] Evaluation note Diagnosis Well woman exam with routine gynecological exam Routine gynecological examination Weight gain Other symptoms concerning nutrition, metabolism, and development [facility] Diagnosis Encounter for weight management [facility] Diagnosis Missed menses , unspecified gestational age Encounter for supervision of normal first in first trimester Acne, unspecified acne type [facility] Diagnosis Second trimester ([facility]) state, incidental 16 weeks gestation of ([facility]) Screening, , for anatomic survey ([facility]) Encounter for anatomic survey [facility] Diagnosis Second trimester ([facility]) state, incidental 22 weeks gestation of ([facility]) [facility] Diagnosis Second trimester ([facility]) state, incidental 26 weeks gestation of ([facility]) Diabetes mellitus screening Screening for diabetes mellitus documented in this encounter [facility] Summary Purpose Family History No Family History Records FoundNo Family History Records Found Advance Directives No Advanced Directives Records FoundNo Advanced Directives Records Found Additional Source Comments INFORMATION SOURCE (unrecogn ized section and content) DATE CREATED AUTHOR 03/24/2022 [facility] DATE CREATED AUTHOR AUTHOR'S ORGANIZ ATION 07/01/2025 [facility] Care Teams (unrecognized sec tion and content) History Tutor Relationship Specialty Start Date End Date Varun Cardenas MD [address] [place] [place] [address] PCP - General 07/04/23 History Tutor Relationship Specialty Start Date End Date Varun Cardenas MD [address] [place] [facility] [place] [address] PCP - General 07/04/23 History Tutor Relationship Specialty Start Date End Date Varun Cardenas MD [address] [place] [facility] [place] [address] PCP - General 07/04/23 History Tutor Relationship Specialty Start Date End Date Varun Cardenas MD [address] [place] [facility] [place] [address] PCP - General 07/04/23 History Tutor Relationship Specialty Start Date End Date Varun Cardenas MD PCP - General 07/04/23 History Tutor Relationship Specialty Start Date End Date Varun Cardenas MD [address] [place] [place] [address] PCP - General 07/04/23 History Tutor Relationship Specialty Start Date End Date Varun Cardenas MD [address] [place] [place] [address] PCP - General 07/04/23 History Tutor Relationship Specialty Start Date End Date Varun Cardenas MD [address] [place] [place] [address] PCP - General 07/04/23 Reason for Visit (unrecogniz ed section and content) Reason Comments Gynecologic Exam Reason Comments Weight Management Reason Comments Amenorrhea Reason Comments Routine Visit FOR RECORDS PERTAINING TO PATIENTS WHO ARE OR HAVE BEEN ENROLLED IN A CHEMICAL DEPENDENCY/SUBSTANCEABUSE PROGRAM, SOME INFORMATION MAY BE OMITTED. This clinical summary was aggregated from multiple sources. Caution should be exercised in using it in the provision of clinical care. This summary normalizes information from multiple sources, and as a consequence, information in this document may materially change the coding, format and clinical context of patient data. In addition, data may be omitted in some cases. CLINICAL DECISIONS SHOULD BE BASED ON THE PRIMARY CLINICAL RECORDS. [facility] [employer] [facility]. provides no warranty or guarantee of the accuracy or completeness of information in this document.
[2025-07-14 12:08] LABS: Hematocrit 35.2 % (36.0-48.0); Hemoglobin 11.3 g/dL (12.0-16.0); Immature Granulocytes Abs Auto 0.12 10^3/uL (0.00-0.03); Immature Granulocytes Pct Auto 1.3 % (0.0-0.5); Lymphocytes Absolute Auto 2.3 10^3/uL (1.2-3.8); Mean Corpuscular HGB Conc 32.1 g/dL (29.9-35.2); Mean Corpuscular Hemoglobin 27.3 pg (26.7-34.0); Mean Corpuscular Volume 85.0 fL (81.0-99.0); Platelet Count 236 10^3/uL (150-450); Red Blood Count 4.14 10^6/uL (4.20-5.40); White Blood Count 9.5 10^3/uL (4.0-11.0)
[2025-07-14 12:10] LABS: Glucose 1 Hour 104 mg/dL (<130)
== END 2025-07-14 10:27 | disposition home or self-care (01) ==
LOC: LAB 10:28
PROVIDERS: PCP Family Medicine; Visit Provider Obstetrics & Gynecology
DX: Z13.1 Encounter for screening for diabetes mellitus (principal)
CPT/HCPCS: 36415; 82950; 85025

== ENCOUNTER 2025-08-11 07:35 | Outpatient (RCR) | payer BC, SELFPAY ==
[2025-08-11 09:00] VITALS: BP 107/69; PULSE 90; TEMP 36.5; O2SAT 98
[2025-08-11] MEDS: RHO(D) IMMUNE GLOBULIN 1,500 UNIT SYRINGE 1500 UNIT IM (09:05)
== END 2025-09-05 23:59 | disposition home or self-care (01) ==
LOC: INF 07:35
PROVIDERS: PCP Family Medicine; Visit Provider Obstetrics & Gynecology
DX: O26.893 Other specified pregnancy related conditions, third trimester (principal); Z67.91 Unspecified blood type, Rh negative; Z3A.00 Weeks of gestation of pregnancy not specified
CPT/HCPCS: 36415; 86850; 86900; 86901; 96372; J2791

== ENCOUNTER 2025-09-09 18:42 | Outpatient (REF) | payer BC, SELFPAY ==
--- OUTSIDE RECORDS SUMMARY | 2011-09-12 19:00 | XMS_ITS | Continuity of Care Document ---
Author Organization [facility] Address [address] [place] [address] Phone Care Team Providers Care Tube Backer Name Role Phone Nighat SCHULTZ Renard Unavailable Unavailable Procedures Procedure Date TB INTRADERMAL TEST Advance Directives Directive Yes / No Effective Date File Name No Information Encounters Encounter Description Practice Location Reason(s) For Visit Diagnoses Date Provider Providers Copied on Encounter [facility], [address] [place], [place], [id number], [place] tel:[phone] [facility] No Information Nighat Loco. [address] [place], [place], [id number], [place]. tel:[phone] Family History Family Member Type Diagnosis Age At Onset No Information Payers Payer name Insurance type Covered alliance party ID Authoriza tion(s) No Information Social [...]
--- OUTSIDE RECORDS SUMMARY | 2024-03-14 09:45 | XMS_ITS ---
Author Organization [facility] Address [address] [place] [address] Care Team Providers Care Director Telehealth Name Role Phone Aleksandr Becerril Primary Care Provider [phone] Dr. Agustin Jaramillo Unavailable [phone] REASON FOR VISIT FILLING Encounters Encounter Location Date Provider Diagnosis [facility] [address] [place] [address] 03/14/2024 Agustin Mckeon Plan Of Treatment Next Appt Details Provider Name:Bridgett Osuna , 02/17/2026 11:15:00 AM, [address], [place], [address], Progress Notes * YOLANDA LIMONHDOB:1995 ( 30 yo F)Acc No.[id number]:03/14/2024 Patient:?DAYA LIMON :?Agustin Mckeon DDSDOB:1995???Age:28 Y???Sex: FemaleDate:03/14/2024hone:[phone]:[address] [place], [place] [address], [place]Pcp:Aleksandr Becerril Subjective: * Chief Complaints: * F ILLING Billing Information: * Procedure Codes: * Electronic signature of Dr. Agustin Mckeon , [facility], [id number] on 09/09/2025 at 11:49 AM ESTSign off status: Pending * Provider: Catherine Mckeon DDS Date: 0 03/14/2024 Generated for Printing/Faxing/eTransmitting on:?09/09/2025 11:49 AM EST
--- OUTSIDE RECORDS SUMMARY | 2024-07-15 03:30 | XMS_ITS ---
Author Organization [facility] Address [address] [place] [address] Care Team Providers Care Pinking Machine Operator Name Role Phone Aleksandr Becerril Primary Care Provider [phone] Deisy Nelson Unavailable [phone] REASON FOR VISIT 6 MONTH prophy Encounters Encounter Location Date Provider Diagnosis [facility] [address] [place] [address] 07/15/2024 Deisy Nelson Plan Of Treatment Next Appt Details Provider Name:Bridgett Osuna , 02/17/2026 11:15:00 AM, [address], [place], [address], Progress Notes * YOLANDA LIMONJUANITAOB:1995 ( 30 yo F)Acc No.[id number]:07/15/2024 Patient:?DAYA LIMON :?Deisy ReillyelifDOB:1995???Age:29 Y???Sex: FemaleDate:07/15/2024hone:[phone]:[address] [place], [place]Qdv:Aleksandr Becerril Subjective: * Chief Complaints: * 6 MONTH prophy * Electronic signature of Deisy Nelson on 09/09/2025 at 11:49 AM ESTSign off status: Pending * Provider: Dorene Nelson Date: 0 07/15/2024 Generated for Printing/Faxing/eTransmitting on:?09/09/2025 11:49 AM EST
--- OUTSIDE RECORDS SUMMARY | 2025-01-14 05:45 | XMS_ITS ---
Author Organization [facility] Address [address] [place] [address] Care Team Providers Care Senior Quantity Surveyor Name Role Phone Aleksandr Becerril Primary Care Provider Deisy Nelson Unavailable [phone] REASON FOR VISIT 6 MONTHS Encounters Encounter Location Date Provider Diagnosis [facility] [address] [place] [address] 01/14/2025 Deisy Nelson Plan Of Treatment Next Appt Details Provider Name:Bridgett Osuna , 02/17/2026 11:15:00 AM, [address], [place], [address], Progress Notes * YOLANDA LIMONHDOB:1995 ( 30 yo F)Acc No.[id number]:01/14/2025 Patient:?DAYA LIMON :?Deisy NelsonDOB:1995???Age:29 Y???Sex: FemaleDate:01/14/2025Phone:[phone]:[address] [place], [place]Ktx:Aleksandr Becerril Subjective: * Chief Complaints: * 6 MONTHS * Electronic signature of Deisy Nelson on 09/09/2025 at 11:49 AM ESTSign off status: Pending * Provider: Dorene Nelson Date: 0 01/14/2025 Generated for Printing/Faxing/eTransmitting on:?09/09/2025 11:49 AM EST
--- OUTSIDE RECORDS SUMMARY | 2025-04-23 04:00 | XMS_ITS ---
Author Organization [facility] Address [address] [place] [address] Care Team Providers Care Dehydrating Press Operator Name Role Phone Aleksandr Becerril Primary Care Provider [phone] Bridgett Denis Unavailable [phone] REASON FOR VISIT PROPHY Encounters Encounter Location Date Provider Diagnosis [facility] [address] [place] [address] 04/23/2025 Bridgett Osuna Acute gingivitis, plaque induced K05.00 Assessments Encounter Date Diagnosis (ICD Code) Assessment Notes Treatment Notes Treatment Clinical Notes Section Notes 04/23/2025 Acute gingivitis, plaque induced (ICD-10 - K05.00) Plan Of Treatment Next Appt Details Provider Name:Bridgett Osuna , 02/17/2026 11:15:00 AM, [address], [place], [address], Progress Notes * YOLANDA LIMONHDOB:1995 ( 30 yo F)Acc No.[id number]:04/23/2025 Patient:?DAYA LIMON :?Bridgett OsunaDOB:1995???Age:29 Y???Sex: FemaleDate:04/23/2025Phone:[phone]:[address], [id number]:Aleksandr Becerril Subjective: * Chief Complaints: * P ROPHY Objective: * Dental Examination/Plan : * Tooth / Surface Status Description Provider Date TPPROPHYLAXIS - [id number]/23/2025 Assessment: * Assessment: 1.?Acute gingivitis, plaque induced - K05.00 (Primary)??? * Electronic signature of Bridgettyoel Osuna on 09/09/2025 at 11:49 AM ESTSign off status: Pending * Provider: Gregory Osuna Date: 0 04/23/2025 Generated for Printing/Faxing/eTransmitting on:?09/09/2025 11:49 AM EST
--- OUTSIDE RECORDS SUMMARY | 2025-05-29 04:45 | XMS_ITS ---
Author Organization [facility] Address [address] [place] [address] Care Team Providers Care Data Warehouse Analyst Name Role Phone Aleksandr Becerril Primary Care Provider [phone] Bridgett Denis Unavailable [phone] REASON FOR VISIT 6 MONTH F/U Encounters Encounter Location Date Provider Diagnosis [facility] [address] [place] [address] 05/29/2025 Bridgett Osuna Plan Of Treatment Next Appt Details Provider Name:Bridgett Osuna , 02/17/2026 11:15:00 AM, [address], [place], [address], Progress Notes * YOLANDA LIMONJUANITAOB:1995 ( 30 yo F)Acc No.[id number]:05/29/2025 Patient:?DAYA LIMON :?Bridgett OsunaDOB:1995???Age:29 Y???Sex: FemaleDate:05/29/2025Phone:[phone]:[address] [id number]:Aleksandr Becerril Subjective: * Chief Complaints: * 6 MONTH F/U * Electronic signature of Bridgett Osuna on 09/09/2025 at 11:49 AM ESTSign off status: Pending * Provider: Gregory Osuna Date: 0 05/29/2025 Generated for Printing/Faxing/eTransmitting on:?09/09/2025 11:49 AM EST
--- OUTSIDE RECORDS SUMMARY | 2025-08-26 10:00 | XMS_ITS | Encounter Summary ---
Author Organization [facility] Address [address] [place] [address] Care Team Providers Care Artificial Flower Maker Name Role Phone Varun Cardenas MD Primary Care Provider [phone] Encounter Details DateTypeDepartmentCare Team (Latest Contact Info)Kzqstfxdwcn59/21/2025 11:00 AM EDTAncillary Procedure NOMNick JONES [address] [place] [address] size inconsistent with dates ([facility]) Social History Tobacco UseTypesPacks/DayYears UsedDateSmoking Tobacco: Some DaysCigarettes Comments:5 or less cigarette s/day Alcohol UseStandard Drinks/WeekCommentsYes0 (1 standard drink = 0.6 oz pure alcohol)Alcohol: 1 or 2 drinks on a typical day / 2 to 4 times a month. Caffeine: >4 cups/day coffeeEstimated Date of DeliveryCommentsYes 5Based on Ultrasound, FHR-160Sex and Gender InformationValueDate RecordedSex Assigned at EtlxnOmpbjr96/29/2023 6:04 PM EDTLegal SexFemale 01/18/2023 6:37 PM EDTGender TgiweksxSbgbgs78/29/2023 6:04 PM EDTSexual YdtqmofcwyuNgrsuobf13/29/2023 6:04 PM EDTdocumented as of this encounter Plan of Treatment DateTypeDepartmentCare Team (Latest Contact Info)Yzdwennyppm37/13/2025 2:30 PM ESTRoutine NOMNick JONES [address] [place] [phone] Bekah Harry PA [address] [facility] [address] [place], [place] [id number] 11/18/2025 9:00 AM ESTOffice Visit [facility] [address] [place] [address] Grzegorz Cheung, [address] [facility] [place] [address] documented as of this encounter Goals GoalPatient Goal TypeAssociated ProblemsRecent ProgressPatient-Stated?Author Reminders Care PlanOB RemindersNoOpen Scheduling, Backgrounddocumented as of this encounter Procedures Procedure NamePriorityDate/TimeAssociated DiagnosisCommentsUS OB FOLLOW UP TRANSABDOMINAL SLPKUNKCIfofeor30/21/2025 11:42 AM EDT size inconsistent with dates ([facility]) documented in this encounter Results * OB follow up transabdominal approach (08/26/2025 11:42 AM EDT)Anatomical RegionLateralityModalityBodyUltrasoundSpecimen (Source)Anatomical Location / LateralityCollection Method / VolumeCollection TimeReceived Time08/26/2025 3:48 PM EDT Impressions 08/27/2025 7:09 AM EDT 1. Single, live intrauterine , current sonographic age of 36 weeks and 1 days, with an estimated date of delivery of September 22, 2025. 2. Comparison made with prior examination of May 29, 2025 date of delivery at that tie was October 02, 2025 and weight ??was 53.7% * ??Estimated Weight (g) by Percentile is based upon an accurate estimated age based onlast menstrual period. ?? TRANSCRIBED BY: ? ELECTRONICALLY SIGNED BY: Agustin Fernandez MD Narrative 08/27/2025 7:09 AM EDT FINDINGS: A single, live intrauterine is present with normal cardiac rate of ??139 beats per minute. Normal activity and amniotic fluid volume. Amniotic fluid index is 15 ??cm. ??Morphology is grossly normal. The current sonographic age is36 ??weeks and 1 days, based on the following measurements: ? BPD ?9.0cm (36 weeks, 3 days) Head Circumference ?32.9cm ( 37weeks,3 ??days) Abdominal Circumference ?32.5cm ( 36 ??weeks, 3 days) Femur Length ? 6.6 ??cm (34 weeks,1 ??days) Presentation ? Cephalic ? Weight (g) by Percentile ??80.3 % * These measurements result in an estimated date of delivery of ??September 22, 2025 ??The current estimated weight is ??2807grams ( 6 pound, 3 ounces). ?? Procedure Note Agustin Fernandez MD - 08/27/2025 FINDINGS: A single, live intrauterine is present with normal cardiacrate of 139 beats per minute. Normal activity and amniotic fluidvolume. Amniotic fluid index is 15 cm. Morphology is grossly normal. Thecurrent sonographic age is36 weeks and 1 days, based on the followingmeasurements: BPD 9.0cm (36 weeks, 3 days) Head Circumference 32.9cm ( 37weeks,3 days) Abdominal Circumference 32.5cm ( 36 weeks, 3 days) Femur Length 6.6 cm (34 weeks,1 days) Presentation Cephalic Weight (g) by Percentile 80.3 % * These measurements result in an estimated date of delivery of 2024 The current estimated weight is 2807grams ( 6 pound, 3ounces). IMPRESSION: 1. Single, live intrauterine , current sonographic age of 36weeks and 1 days, with an estimated date of delivery of September. 2. Comparison made with prior examination of May 29, 2025 date ofdelivery at that tie was October 02, 2025 and weight was 53.7% * Estimated Weight (g) by Percentile is based upon an accurateestimated age based on last menstrual period. TRANSCRIBED BY: ELECTRONICALLY SIGNED BY: Agustin Fernandez MD Authorizing ProviderResult TypeResult StatusBecki Chaudhary NPIMG OB US PROCEDURESFinal Result documented in this encounter Visit Diagnoses Diagnosis size inconsistent with dates ([facility]) documented in this encounter Additional Health Concerns Active ProblemsNoted DateDiagnosed DateOB Kpvkmtllr74/11/2025 documented as of this encounter Care Teams Team MemberRelationshipSpecialtyStart DateEnd Date Varun Cardenas MD [address] [place] [address] PCP - General07/04/23documented as of this encounter
--- OUTSIDE RECORDS SUMMARY | 2025-08-26 10:30 | XMS_ITS | Encounter Summary ---
Author Organization [facility] Address [address] [place] [address] Care Team Providers Care Design Editor Name Role Phone Varun Cardenas MD Primary Care Provider [phone] Reason for Visit * ReasonCommentsRoutine Visit Encounter Details DateTypeDepartmentCare Team (Latest Contact Info)Wkcxtkkinjq49/21/2025 11:30 AM EDTRoutine [facility] [address] [phone] Grzegorz Cheung DO [address] [place], [place] [phone] Third trimester ([facility]); 34 weeks gestation of ([facility]) Social History Tobacco UseTypesPacks/DayYears UsedDateSmoking Tobacco: Some DaysCigarettes Comments:5 or less cigarette s/day Alcohol UseStandard Drinks/WeekCommentsYes0 (1 standard drink = 0.6 oz pure alcohol)Alcohol: 1 or 2 drinks on a typical day / 2 to 4 times a month. Caffeine: >4 cups/day coffeeEstimated Date of DeliveryCommentsYes 5Based on Ultrasound, FHR-160Sex and Gender InformationValueDate RecordedSex Assigned at ZkydbVwqjdj17/29/2023 6:04 PM EDTLegal SexFemale 01/18/2023 6:37 PM EDTGender StyjlrinHygbbh36/29/2023 6:04 PM EDTSexual EmawpwjsllhDxsncdpv82/29/2023 6:04 PM EDTdocumented as of this encounter Last Filed Vital Signs Vital SignReadingTime TakenCommentsBlood Xgsddugi025/8210 11:45 AM EDT Pulse--Temperature--Respiratory Rate--Oxygen Saturation--Inhaled Oxygen Concentration--Jfpgja273 kg (254 lb)08/26/2025 11:45 AM EDTHeight--Body Mass Index49.6103 8:57 AM EDTdocumented in this encounter Progress Notes * Eliana Pruett LPN - 08/26/2025 11:30 AM EDT Reason for Appointment: Patient ID: [...] nursing note reviewed. Exam conducted with a anchor operator present. Vitals: Estimated body mass index is 49.61 kg/m?? as calculated from the following: Height as of 01/13/25: 5'. Weight as of this encounter: 254 lb. BP: 138/82 Patient's last menstrual period was 01/16/2025. Assessment/Plan ICD-10-CM 1. Third trimester ([facility]) Z34.93 2. 34 weeks gestation of ([facility]) Z3A.34 POCT urinalysis dipstick manually resulted Return OB: Patient presents today for a routine obstetrics appointment. Patient is currently 34w5d . Patient states she is doing well but has complaints of being tired due to current . Patient has verbalizes frequent movement. labor precautions was discussed/given and patient was instructed to perform kick counts three times a day. Orders Placed This Encounter Procedures POCT urinalysis dipstick manually resulted Follow Up: Patient is to return to office in 2 week for routine OB appointment. Documented by Eliana Pruett LPN on behalf of: Grzegorz Cheung DO documented in this encounter Plan of Treatment DateTypeDepartmentCare Team (Latest Contact Info)Xieohgzgktm58/13/2025 2:30 PM ESTRoutine [facility] [address] [place] [phone] Bekah Harry PA [address] [facility] [place] [address] 11/18/2025 9:00 AM ESTOffice Visit [facility] [address] [address] Grzegorz Cheung DO [address] [facility] [place] [address] documented as of this encounter Goals GoalPatient Goal TypeAssociated ProblemsRecent ProgressPatient-Stated?Author Reminders Care PlanOB RemindersNoOpen Scheduling, Backgrounddocumented as of this encounter Procedures Procedure NamePriorityDate/TimeAssociated DiagnosisCommentsPOCT URINALYSIS VFMWHVONVzlwhsx03/21/2025 11:58 AM EDT 34 weeks gestation of ([facility]) documented in this encounter Results * (ABNORMAL) POCT urinalysis dipstick manually resulted (08/26/2025 11:58 AM EDT)ComponentValueRef RangeTest MethodAnalysis TimePerformed AtPathologist SignatureColor, UAYellowClarity, UAClearGlucose, UATraceNegative - 2000(110) ++++ mg/dLBilirubin, UANegativeNegative - 4(70) +++ mg/dLKetones, UAPositive Negative - 160(16) ++++ mg/dLSpec Grav, UA1.0201 - 1.03Blood, UANegative Negative - 50 Shoaib/mcLpH, UA6.05 - 9Protein, UANegativeNegative - 2000(20) ++++ mg/dLUrobilinogen, UA2.00.2 - 12 mg/dLLeukocytes, UANegativeNegative - 500+++ Mayra/mcLNitrite, UANegativeNegative - PositiveSpecimen (Source)Anatomical Location / LateralityCollection Method / VolumeCollection TimeReceived Time Urine08/26/2025 11:58 AM EDT Narrative Authorizing ProviderResult TypeResult StatusCorey Skye DOPOINT OF CARE TEST ENTER/EDIT ORDERABLESFinal Result documented in this encounter Visit Diagnoses Diagnosis Third trimester ([facility]) state, incidental 34 weeks gestation of ([facility]) documented in this encounter Additional Health Concerns Active ProblemsNoted DateDiagnosed DateOB Rrhuubfbx84/11/2025 documented as of this encounter Care Teams Team MemberRelationshipSpecialtyStart DateEnd Date Varun Cardenas MD [address] [place] [address] PCP - General07/04/23documented as of this encounter
--- OUTSIDE RECORDS SUMMARY | 2025-09-09 10:00 | XMS_ITS | Encounter Summary ---
Author Organization [facility] Address [address] [place] [address] Care Team Providers Care Plant Packer Name Role Phone Varun Cardenas MD Primary Care Provider [phone] Reason for Visit * ReasonCommentsRoutine Visit Encounter Details DateTypeDepartmentCare Team (Latest Contact Info)Igwzfngyccq28/04/2025 10:00 AM ESTRoutine [facility] [address] [place] [phone] Grzegorz Cheung DO [address] [facility] [address] [place] [id number] Third trimester ([facility]); 36 weeks gestation of ([facility]) Social History Tobacco UseTypesPacks/DayYears UsedDateSmoking Tobacco: Some DaysCigarettes Comments:5 or less cigarette s/day Alcohol UseStandard Drinks/WeekCommentsYes0 (1 standard drink = 0.6 oz pure alcohol)Alcohol: 1 or 2 drinks on a typical day / 2 to 4 times a month. Caffeine: >4 cups/day coffeeEstimated Date of DeliveryCommentsYes 5Based on Ultrasound, FHR-160Sex and Gender InformationValueDate RecordedSex Assigned at VkzpaWzlxtb32/29/2023 6:04 PM EDTLegal SexFemale 01/18/2023 6:37 PM EDTGender WvejyycrJfuzou97/29/2023 6:04 PM EDTSexual LbwrxrdiwvgFnotiexs62/ 6:04 PM EDTdocumented as of this encounter Last Filed Vital Signs Vital SignReadingTime TakenCommentsBlood Vkjwvgzr929/7811 10:41 AM EST Pulse--Temperature--Respiratory Rate--Oxygen Saturation--Inhaled Oxygen Concentration--Biioqj095 kg (255 lb 12.8 oz)09/09/2025 10:41 AM ESTHeight--Body Mass Index49.9603 8:57 AM EDTdocumented in this encounter Progress Notes * Eliana Pruett LPN - 09/09/2025 10:00 AM EST Reason for Appointment: Patient ID: Genesis Barahona [...] Exam Constitutional: Appearance: Normal appearance. She is well-developed and normal weight. Genitourinary: Vulva normal. HENT: Head: Normocephalic. Cardiovascular: Rate and Rhythm: Normal rate and regular rhythm. Pulses: Normal pulses. Pulmonary: Effort: Pulmonary effort is normal. Breath sounds: Normal breath sounds. Abdominal: General: Bowel sounds are normal. There is no distension. Palpations: Abdomen is soft. Tenderness: There is no abdominal tenderness. There is no guarding or rebound. Musculoskeletal: General: No swelling. Normal range of motion. Right lower leg: No edema. Left lower leg: No edema. Neurological: General: No focal deficit present. Mental Status: She is alert and oriented to person, place, and time. Skin: General: Skin is warm and dry. Psychiatric: Mood and Affect: Mood normal. Behavior: Behavior normal. Thought Content: Thought content normal. Judgment: Judgment normal. Vitals and nursing note reviewed. Exam conducted with a aircraft structural repairer present. Vitals: Estimated body mass index is 49.96 kg/m?? as calculated from the following: Height as of 01/13/25: 5'. Weight as of this encounter: 255 lb 12.8 oz. BP: 126/78 Patient's last menstrual period was 01/16/2025. Assessment/Plan ICD-10-CM 1. Third trimester ([facility]) Z34.93 SURESWAB(R) ADVANCED VAGINITIS PLUS, TMA CHLAMYDIA TRACHOMATIS (GENITO/STI) Neisseria gonorrhea DNA probe, direct CULTURE, GROUP B STREP WITH SUSCEPTIBLITY CULTURE, GROUP B STREP WITH SUSCEPTIBLITY 2. 36 weeks gestation of ([facility]) Z3A.36 POCT urinalysis dipstick manually resulted Patient is doing well but has complaints of being tired and having maternal discomfort due to . Patient verbalized frequent movement and was instructed to perform kick counts three times per day. labor precautions were given, LARC consent was signed/declined, and GBS was obtained. Orders Placed This Encounter Procedures CHLAMYDIA TRACHOMATIS (GENITO/STI) Neisseria gonorrhea DNA probe, direct CULTURE, GROUP B STREP WITH SUSCEPTIBLITY POCT urinalysis dipstick manually resulted Follow Up: Patient is to return to office in 1 week for routine OB appointment Documented by Eliana Pruett LPN on behalf of: Grzegorz Cheung DO documented in this encounter Plan of Treatment DateTypeDepartmentCare Team (Latest Contact Info)Amvttmavssy97/13/2025 2:30 PM ESTRoutine [facility]OM[facility] [address] [place] [address] [place] [phone] Bekah Harry PA [address] [facility] [place] [address] 11/18/2025 9:00 AM ESTOffice Visit NOM[facility] [address] [place] [address] [place] [address] Grzegorz Cheung DO [address] [facility] [address] [place], [place] [id number] NameTypePriorityAssociated DiagnosesOrder ScheduleSURESWAB(R) ADVANCED VAGINITIS PLUS, TMAPathology and CytologyRoutine Third trimester ([facility]) Ordered: 09/09/2025HLAMYDIA TRACHOMATIS (GENITO/STI)LabRoutine Third trimester ([facility]) Ordered: 09/09/2025Neisseria gonorrhea DNA probe, directLabRoutine Third trimester ([facility]) Ordered: 09/09/2025ULTURE, GROUP B STREP WITH SUSCEPTIBLITYLabRoutine Third trimester ([facility]) Expected: 09/09/2025, Expires: 09/09/2026documented as of this encounter Goals GoalPatient Goal TypeAssociated ProblemsRecent ProgressPatient-Stated?Author Reminders Care PlanOB RemindersNoOpen Scheduling, Backgrounddocumented as of this encounter Procedures Procedure NamePriorityDate/TimeAssociated DiagnosisCommentsPOCT URINALYSIS OXFHOZLSSpmvgff81/04/2025 10:40 AM EST 36 weeks gestation of ([facility]) documented in this encounter Results * (ABNORMAL) POCT urinalysis dipstick manually resulted (09/09/2025 10:40 AM EST)ComponentValueRef RangeTest MethodAnalysis TimePerformed AtPathologist SignatureColor, UAYellowClarity, UAClearGlucose, UANegativeNegative - 1999(110) ++++ mg/dLBilirubin, UANegativeNegative - 4(70) +++ mg/dLKetones, UA PositiveNegative - 160(16) ++++ mg/dLSpec Grav, UA1.0151 - 1.03Blood, UA NegativeNegative - 50 Shoaib/mcLpH, UA6.05 - 9Protein, UATraceNegative - 1999(20) ++++ mg/dLUrobilinogen, UA1.00.2 - 12 mg/dLLeukocytes, UATraceNegative - 500+++ Mayra/mcLNitrite, UANegativeNegative - PositiveSpecimen (Source) Anatomical Location / LateralityCollection Method / VolumeCollection Time Received OlaeIeava94/04/2025 10:40 AM EST Narrative Authorizing ProviderResult TypeResult StatusCorey Skye DOPOINT OF CARE TEST ENTER/EDIT ORDERABLESFinal Result documented in this encounter Visit Diagnoses Diagnosis Third trimester ([facility]) state, incidental 36 weeks gestation of ([facility]) documented in this encounter Additional Health Concerns Active ProblemsNoted DateDiagnosed DateOB Kixlqrfet64/11/2025 documented as of this encounter Care Teams Team MemberRelationshipSpecialtyStart DateEnd Date Varun Cardenas MD [address] [place] [address] PCP - General07/04/23documented as of this encounter
--- OUTSIDE RECORDS SUMMARY | 2025-09-09 18:45 | XMS_ITS | Patient Health Record ---
Author Organization [facility] Address [address] [place] [address] Care Team Providers Care Asphalt Distributor Tender Name Role Phone Aleksandr Becerril Primary Care Provider Bridgett Osuna Unavailable [phone] Deisy Nelson Unavailable [phone] Reason For Referral No Information Medications Medication SIG (Take, Route, Frequency, Duration) Notes Start Date End Date Status Metformin HCl ActiveCitalopram HydrobromideActive Encounters Encounter Location Date Provider Diagnosis [facility] [address] [place] [address] 06/13/2025 Bridgett Osuna Acute gingivitis, plaque induced K05.00 and Dental caries on pit and fissure surface penetrating into dentin K02.[address] [place] [address] 04/14/2025 Aleksandr Becerril Assessments Encounter Date Diagnosis (ICD Code) Assessment Notes Treatment Notes Treatment Clinical Notes Section Notes 06/13/2025 Acute gingivitis, plaque induced (ICD-10 - K05.00) 06/13/2025Dental caries on pit and fissure surface penetrating into dentin (ICD- 10 - K02.52) Plan Of Treatment Next Appt Details Provider Name:Bridgett Osuna , 02/17/2026 11:15:00 AM, [address] [place], [address], Insurance Providers Payer Name Payer Address Payer Phone Subscriber Number Group Number Insured Name Patient Relationship to Insured Coverage Start Date Coverage End Date zCARESOJORDANA CE-termed 12/06/22 [address] [place] [address] [id number] DAYA LIMON Self - patient is the insured 2 3 zMEDICAID CFC after [employer] E-termed 12/06/22 [address] [place] [address] [id number] DAYA LIMON Self - patient is the insured 2 3 zDENTAL [employer] E-termed 12/06/22 [address] [place] [address] [id number] DAYA LIMON Self - patient is the insured 2 3 zDental MEDICAID CFC after [employer] E-termed 12/06/22 [address] [place] [address] [id number] DAYA LIMON Self - patient is the insured 2 3 [facility] [place] [address] [place] [address] [id number] Jackie LIMON - patient is the [id number] [facility] CareSource [address] [place] [id number], HANNAHSelf - patient is the tzmitwh48/ental CareSource DQ [place] [place] [id number], HANNAHSelf - patient is the jmkxunj72/ental Wrap [facility] CareSourcePO [address] [place] [phone], HANNAHSelf - patient is the blzaxvq28/[facility] [address] [place] [phone], HANNAHSelf - patient is the [id number]PO [address] [place] [address] [id number], HANNAHSelf - patient is the tucwlqf7311/06/2023 05/05/2024[facility] [address] [place] [phone], HANNAHSelf - patient is the uefiule8505/06/2024[facility] COMMERCIALPO [address] [address] [place] [id number], HANNAHSelf - patient is the insured 11/06/2024
--- OUTSIDE RECORDS SUMMARY | 2025-09-09 18:45 | XMS_ITS | Encounter Summary ---
Author Organization [facility] Address [address] [place] [address] Care Team Providers Care Tree Care Foreman Name Role Phone Varun Cardenas MD Primary Care Provider [phone] Encounter Details DateTypeDepartmentCare Team (Latest Contact Info)Nflnexevjfs29/04/2025amboo flowsheet [facility] [address] [place] [address] Grzegorz Cheung, [address] [place], [facility] Social History Tobacco UseTypesPacks/DayYears UsedDateSmoking Tobacco: Some DaysCigarettes Comments:5 or less cigarette s/day Alcohol UseStandard Drinks/WeekCommentsYes0 (1 standard drink = 0.6 oz pure alcohol)Alcohol: 1 or 2 drinks on a typical day / 2 to 4 times a month. Caffeine: >4 cups/day coffeeEstimated Date of DeliveryCommentsYes 5Based on Ultrasound, FHR-160Sex and Gender InformationValueDate RecordedSex Assigned at BiydcQeynbm01/29/2023 6:04 PM EDTLegal SexFemale 01/18/2023 6:37 PM EDTGender UfxyiknbPjpwuj03/29/2023 6:04 PM EDTSexual HgiqkdpnanwDyujbwua73/29/2023 6:04 PM EDTdocumented as of this encounter Plan of Treatment DateTypeDepartmentCare Team (Latest Contact Info)Xfkxguxicfq74/13/2025 2:30 PM ESTRoutine [facility] [address] [place] [phone] Bekah Harry PA [address] [place] [address] 11/18/2025 9:00 AM ESTOffice Visit NOMNick [place] [facility] [address] [place] [phone] Grzegorz Cheung DO [address] [place] [address] documented as of this encounter Goals GoalPatient Goal TypeAssociated ProblemsRecent ProgressPatient-Stated?Author Reminders Care PlanOB RemindersNoOpen Scheduling, Backgrounddocumented as of this encounter Visit Diagnoses Not on filedocumented in this encounter Additional Health Concerns Active ProblemsNoted DateDiagnosed DateOB Okqznevza23/11/2025 documented as of this encounter Care Teams Team MemberRelationshipSpecialtyStart DateEnd Date Varun Cardenas MD [address] [facility] [place] [address] PCP - General07/04/23documented as of this encounter
--- OUTSIDE RECORDS SUMMARY | 2025-09-09 18:46 | XMS_ITS | CCD ---
Author Organization [facility] Care Team Providers Care Stem Maker Name Role Phone SKYE, DR COPELAND Attending [...] Unavailable SKYE, DR COPELAND Attending Unavailable REQUEST, DR NONE LISTED Primary Care Unavaila ble SKYE, DR COPELAND Admitting Unavailable SKYE, DR COPELAND Attending Unavailable SKYE, DR COPELAND Admitting Unavailable REQUEST, NONE LISTED Primary Care Unavaila carlos CHEUNG, DR COPELAND Consulting Unavailable SKYE, DR COPELAND Attending Unavailable SKYE, DR COPELAND Admitting Unavailable REQUEST, NONE LISTED Primary Care Unavaila Varun Ingram MD Primary Care Provider [phone] Varun Cardenas MD Primary Care Provider [phone] Varun Cardenas MD Primary Care Provider [phone] BEKAH OLSON Attending Unavailable BEKAH OLSON Attending Unavailable SKYE, MIN Attending Unavailable BECKI CHAUDHARY Attending Unavailable SKYE, MIN Attending Unavailable BEKAH OLSON Attending Unavailable SKYE, MIN Attending Unavailable SKYE, MIN Attending Unavailable SKYE, MIN Attending Unavailable Varun Cardenas MD Primary Care Provider [phone] Medications Current Medications MedicationDrug Class(es)DatesSig (Normalized)Sig (Original)aspirin 81 mg delayed release oral tablet (19 sources)Platelet Aggregation Inhibitor, Nonsteroidal Anti-inflammatory Drug take 1 tablet by mouth once dailyaspirin 81 MG EC tablet Take 81 mg by mouth Daily Activecitalopram 10 mg oral tablet (6 sources)Serotonin Reuptake Inhibitor End: 41-15-2082gkmbpnxmcw (CeleXA) 10 MG tablet CeleXA 12/19/2024 Discontinued (Other)clindamycin 10 mg/ml topical lotion (20 sources)Lincosamide AntibacterialStart: 03-20-2025 End: 98-04-7507wjbcvcuqtuy (Cleocin-T) 1 % lotion Indications: Acne, unspecified acne type Apply topically Daily 60 mL 3 03/20/2025 03/20/2026 Activedesogestrel 0.15 mg / ethinyl estradiol 0.03 mg oral tablet (3 sources)Progestin, EstrogenStart: 08-13-2024 End: 86-32-3039tvqrvjctswc-ethinyl estradiol (Apri) 0.15-30 MG-MCG tablet Indications: Acne, unspecified acne typeTAKE 1 TABLET BY MOUTH EVERY DAY IN THE MORNING 28 tablet 08/13/2024 11/12/2024 Discontinued (Therapy completed)24 hr metFORMIN hydrochloride 500 mg extended release oral tablet (14 sources)BiguanideStart: 11-12-2024 End: 75-33-3829jsok 1 tablet by mouth every twenty-four hours at mealtime metFORMIN XR (Glucophage-XR) 500 MG 24 hr tablet Indications: Weight gain Take 1 tablet (500 mg) bymouth in the evening. Take with meals Do not crush, chew, or split. 30 tablet 11 11/12/2024 03/20/2025 Discontinued End: 62-56-5614olfZNGNHF, OSM, (Fortamet) 500 MG 24 hr tablet Metformin HCl 03/20/2025 Discontinuedminocycline 50 mg oral capsule (3 sources)Tetracycline-class DrugStart: 09-01-2023 End: 34-06-5966bhsz 1 tablet by mouth at bedtimeminocycline 50 MG capsule Indications: Acne, unspecified acne type TAKE 1 TABLET (50 MG) BY MOUTH IN THE MORNING AND BEFORE BEDTIME 60 capsule 1 09/01/2023 11/12/2024 Discontinued (Therapy completed)phentermine hydrochloride 37.5 mg oral tablet (4 sources)Sympathomimetic Amine AnorecticStart: 12-19-2024 End: 00-79-3447ulkq 1 tablet by mouth before mealtimephentermine (Adipex-P) 37.5 MG tablet Indications: Encounter for weight management Take 1 tablet (37.5 mg) by mouth in the morning. Take before meals. 30 tablet 01/13/2025 03/20/2025 DiscontinuedPrenatal MV-Min-Fe Fum-FA-DHA ( 1 PO) (20 sources) MV-Min-Fe Fum-FA-DHA ( 1 PO) Take 1 tablet by mouth Daily Fltfeb40 hr venlafaxine 37.5 mg extended release oral capsule (3 sources)Serotonin and Norepinephrine Reuptake InhibitorStart: 11-02-2023 End: 23-32-5247nqjn 1 capsule by mouth every twenty-four hours in the morning venlafaxine XR (Effexor XR) 37.5 MG 24 hr capsule Indications: Anxiety, generalized (CMS/HCC) Take 1 capsule (37.5 mg) by mouth in the morning. Do not crush or chew.. 30 capsule 5 11/02/2023 11/12/2024 Discontinued (Therapy completed) Problems Active Problems Problem ClassificationProblemDateDocumented DateEpisodic/Chronic Administrative/social admission (2 sources)Patient encounter status; Translations: [Persons encountering health services in other specified circumstances]04-17-3465XpmvrikcPowsevicshefk and screening for infectious disease (1 source)Encounter for screening for human papillomavirus (HPV); Translations: [ENC SCREENING HUMAN PAPILLOMAVIRUS]Onset: 10-29-6908FadxmjilWlsblggje disorders (1 source)Missed period; Translations: [Irregular menstruation, unspecified] 96-60-3086YqdzbirXjfmd complications of ; puerperium affecting management of mother (1 source)Anemia complicating childbirth; Translations: [ANEMIA COMPLICATING CHILDBIRTH]Onset: 84-93-2062HayhsuyZcidg complications of (2 sources) size does not accord with dates; Translations: [Uterine size- date discrepancy, unspecified trimester]08-62-9795YlgtplcdNmulq nutritional; endocrine; and metabolic disorders (2 sources)Weight increased; Translations: [Abnormal weight gain]11-12-2024 EpisodicOther and delivery including normal (20 sources)Encounter for care and examination of lactating mother; Translations: [Encounter for routine follow-up]Onset: 07-28-2021 EpisodicOther screening for suspected conditions (not mental disorders or infectious disease) (18 sources)Encounter for screening for malignant neoplasm of cervix; Translations: [Encounter for screening for Streptococcus B]Onset: 80-65-5221YigfqqjoGqeuy skin disorders (1 source)Acne; Translations: [Acne, unspecified]73-63-6880AcvxxgcqEzmwcbcd codes; unclassified (2 sources)Gestation period, 16 weeks; Translations: [16 weeks gestation of ]26-14-4161DadtriezXahcujub codes; unclassified (2 sources)Gestation period, 22 weeks; Translations: [22 weeks gestation of ]27-24-6358RbsuusxlTjsgmyii codes; unclassified (2 sources)Gestation period, 26 weeks; Translations: [26 weeks gestation of ]58-13-8695YokiswpmGneilsnt codes; unclassified (2 sources)Gestation period, 30 weeks; Translations: [30 weeks gestation of ]28-75-6691TruhcictNyxuxxnz codes; unclassified (2 sources)Gestation period, 32 weeks; Translations: [32 weeks gestation of ]52-70-0961YigldgnbBftsgqtn codes; unclassified (2 sources)Gestation period, 34 weeks; Translations: [34 weeks gestation of ]15-37-1577DehzdqusJpjyihrm codes; unclassified (2 sources)Gestation period, 36 weeks; Translations: [36 weeks gestation of ]84-44-0247IvpcfrcgOweoxqxyldui (1 source)CONTACT W/AND (SUSP) EXPOS COVID-19; Translations: [CONTACT W/AND (SUSP) EXPOS COVID-19]Onset: 01-25-1050Iwsuuonqodqs (20 sources)OB RemindersOnset: [id number] Past or Other Problems Problem ClassificationProblemDateDocumented DateEpisodic/ChronicAcute posthemorrhagic anemia (1 source)Acute posthemorrhagic anemia; Translations: [ACUTE POSTHEMORRHAGIC ANEMIA]Onset: 34-78-1050QtpijqxnEwiufdintd disproportion; obstruction (1 source)Maternal care for disproportion, unspecified; Translations: [MATERNAL CARE FOR DISPROPORTION UNS]Onset: 33-82-3283HaueyrwwGcazjssjgh during ; abruptio placenta; placenta previa (4 sources)Low lying placenta NOS or without hemorrhage, second trimester; Translations: [LOW LYING PL NOS W/OHEMORR 2ND TRI]Onset: 19-05-2090Mnitrshe Malposition; malpresentation (1 source)Maternal care for high head at term, not applicable or unspecified; Translations: [MATERNAL CARE HIGH HEAD TERM NA/UNS]Onset: 01-77-3483Pwponrrm Other complications of (5 sources)Maternal care for excessive growth, third trimester, not applicable or unspecified; Translations: [MAT CARE EXCSS FTL GRTH 3RD TRI UNS] Onset: 81-61-4195CypzqibxWmjtp complications of (4 sources)Maternal care for excessive growth, unspecified trimester, not applicable or unspecified; Translations: [MAT CARE EXCSS FTL GRTH UNS TRI UNS] Onset: 37-70-0154JvfvmstbIojms complications of (1 source)Other specified related conditions, unspecified trimester; Translations: [OTH SPEC PREG RELATED COND UNS TRI]Onset: 51-81-4930Zvtoqmkj Residual codes; unclassified (1 source)39 weeks gestation of ; Translations: [39 WEEKS GESTATION OF ]Onset: 72-90-0761RadfdoznBtbqgevi codes; unclassified (1 source)35 weeks gestation of ; Translations: [35 WEEKS GESTATION OF ]Onset: 37-30-1456KdhebnvgYclfiahw codes; unclassified (1 source)Unspecified blood type, Rh negative; Translations: [UNSPECIFIED BLOOD TYPE RH NEGATIVE]Onset: 60-26-8694SjbltbrzUvssgwwb codes; unclassified (1 source)24 weeks gestation of ; Translations: [24 WEEKS GESTATION OF ]Onset: 66-16-3207Uzguagnz Results Test NameValueInterpretationReference RangeFacilityUrinalysis macro (dipstick) panel (U)on 52-40-0954Fpiqzofhc, UANegativeNegative - 4(70) +++ mg/dLNOMS HealthcareBlood, UANegativeNegative - 50 Shoaib/mcLNOMS HealthcareClarity, UAClear NOMS HealthcareColor, UAYellowNOMS HealthcareGlucose, UANegativeNegative - 2000(110) ++++ mg/dLNOMS HealthcareInterpretation and review of laboratory resultsAbnormalNOMS HealthcareKetones, UAPositiveNegative - 160(16) ++++ mg/dL NOMS HealthcareLeukocytes, UATraceNegative - 500+++ Mayra/mcLNOMS Healthcare Nitrite, UANegativeNegative - PositiveNOMS HealthcarepH, UA6.05 - 9NOMS HealthcareProtein, UATraceNegative - 2000(20) ++++ mg/dLNOMS HealthcareSpec Grav, UA1.0151 - 1.03NOMS HealthcareUrobilinogen, UA1.00.2 - 12 mg/dLNOMS HealthcareNOMS HealthcareUS OB FOLLOW UP TRANSABDOMINAL APPROACHon 67-34-0645YI OB FOLLOW UP TRANSABDOMINAL APPROACHFINDINGS: A single, live intrauterine is present with normal cardiac rate of 139 beats per minute. Normal activity and amniotic fluid volume. Amniotic fluid index is 15 cm. Morphology is grossly normal. The current sonographic age is36 weeks and 1 days, based on the following measurements: BPD 9.0cm (36 weeks, 3 days) Head Circumference 32.9cm ( 37weeks,3 days) Abdominal Circumference 32.5cm ( 36 weeks, 3 days) Femur Length 6.6 cm (34 weeks,1 days) Presentation Cephalic Weight (g) by Percentile 80.3 % * These measurements result in an estimated date of delivery of September 22, 2025 The current estimated weight is 2807grams ( 6 pound, 3 ounces). IMPRESSION: 1. Single, live intrauterine , current sonographic age of 36 weeks and 1 days, with an estimated date of delivery of September 22, 2025. 2. Comparison made with prior examination of May 29, 2025 date of delivery at that tie was October 02, 2025 and weight was 53.7% * Estimated Weight (g) by Percentile is based upon an accurate estimated age based on last menstrual period. TRANSCRIBED BY: ELECTRONICALLY SIGNED BY: Dylon Godinez AvailableComment on above:Order Comment: US OB SCAN FOR GROWTH Estimated Date of Delivery: 10/02/25 Gestational Age as of 08/11/2025: 68m6rTlqdycvgdm macro (dipstick) panel (U)on 50-09-4007Ulzdgbnsl, UANegativeNegative - 4(70) +++ mg/dLNOMS HealthcareBlood, UANegativeNegative - 50 Shoaib/mcLNOMS HealthcareClarity, UAClearNOMS Healthcare Color, UAYellowNOMS HealthcareGlucose, UATraceNegative - 2000(110) ++++ mg/dL NOMS HealthcareInterpretation and review of laboratory resultsAbnormalNOMS HealthcareKetones, UAPositiveNegative - 160(16) ++++ mg/dLNOMS Healthcare Leukocytes, UANegativeNegative - 500+++ Mayra/mcLNOMS HealthcareNitrite, UA NegativeNegative - PositiveNOMS HealthcarepH, UA6.05 - 9NOMS HealthcareProtein, UANegativeNegative - 1999(20) ++++ mg/dLNOMS HealthcareSpec Grav, UA1.0201 - 1.03NOMS HealthcareUrobilinogen, UA2.00.2 - 12 mg/dLNOMS HealthcareNOMS HealthcareUrinalysis macro (dipstick) panel (U)on 37-73-8978Aqtwogysn, UA NegativeNegative - 4(70) +++ mg/dLNOMS HealthcareBlood, UANegativeNegative - 50 Shoaib/mcLNOMS HealthcareClarity, UAClearNOMS HealthcareColor, UAYellowNOMS HealthcareGlucose, UANegativeNegative - 1999(110) ++++ mg/dLNOMS Healthcare Interpretation and review of laboratory resultsNormalNOMS HealthcareKetones, UA NegativeNegative - 160(16) ++++ mg/dLNOMS HealthcareLeukocytes, UANegative Negative - 500+++ Mayra/mcLNOMS HealthcareNitrite, UANegativeNegative - Positive NOMS HealthcarepH, UA75 - 9NOMS HealthcareProtein, UANegativeNegative - 1999(20) ++++ mg/dLNOMS HealthcareSpec Grav, UA1.0151 - 1.03NOMS HealthcareUrobilinogen, UA2.00.2 - 12 mg/dLNOMS HealthcareNOMS HealthcareUrinalysis macro (dipstick) panel (U)on 54-82-9522Pqqvbbyza, UANegativeNegative - 4(70) +++ mg/dLNOMS HealthcareBlood, UANegativeNegative - 50 Shoaib/mcLNOMS HealthcareClarity, UAClear NOMS HealthcareColor, UAYellowNOMS HealthcareGlucose, UANegativeNegative - 1999(110) ++++ mg/dLNOMS HealthcareInterpretation and review of laboratory resultsAbnormalNOMS HealthcareKetones, UANegativeNegative - 160(16) ++++ mg/dL NOMS HealthcareLeukocytes, UAPositiveNegative - 500+++ Mayra/mcLNOMS Healthcare Comment on above:TraceNitrite, UANegativeNegative - PositiveNOMS HealthcarepH, UA75 - 9NOMS HealthcareProtein, UAPositiveNegative - 1999(20) ++++ mg/dLNOMS HealthcareComment on above:TraceSpec Grav, UA1.0151 - 1.03N[facility] Healthcare Urobilinogen, UA0.20.2 - 12 mg/dLNOMS HealthcareNOMS HealthcareGLUCOSE 1 HOURon 87-76-2969Cijbmqo [Mass/Vol]104 mg/dLNINF - 130 mg/dLNOMS HealthcareCLINISYNC [facility] HealthcareUrinalysis macro (dipstick) panel (U)on 23-32-1542Ggddthmfj, UA NegativeNegative - 4(70) +++ mg/dLNOMS HealthcareBlood, UANegativeNegative - 50 Shoaib/mcLNOMS HealthcareClarity, UAClearNOMS HealthcareColor, UAYellowNOMS HealthcareGlucose, UANegativeNegative - 2000(110) ++++ mg/dLNOMS Healthcare Interpretation and review of laboratory resultsAbnormalNOMS HealthcareKetones, UAPositiveNegative - 160(16) ++++ mg/dLNOMS HealthcareComment on above:0.5 mmol/LLeukocytes, UAPositiveNegative - 500+++ Mayra/mcLNOMS HealthcareComment on above:15 Mayra/ulNitrite, UANegativeNegative - PositiveNOMS HealthcarepH, UA65 - 9 NOMS HealthcareProtein, UAPositiveNegative - 2000(20) ++++ mg/dLNOMS Healthcare Comment on above:0.15 g/LSpec Grav, UA1.021 - 1.03NOVA HealthcareUrobilinogen, UA0.20.2 - 12 mg/dLNOMS HealthcareNOMS HealthcareUS OB 14+ WEEKS ANATOMY SCANon 90-52-2161EK OB 14+ WEEKS ANATOMY SCANFINDINGS: A single, live intrauterine is present with [...] 02, 2025. TRANSCRIBED BY: ELECTRONICALLY SIGNED BY: Dylon Godinez AvailableComment on above:Order Comment: US OB ANATOMY SINGLE W US OB CERVICAL LENGTH Estimated Date of Delivery: 10/02/25 Gestational Age as of 04/17/2025: 39k3rDmuejlhqls macro (dipstick) panel (U)on 74-20-4095Jlwwpqfqg, UANegativeNegative - 4(70) +++ mg/dLNOMS HealthcareBlood, UANegativeNegative - 50 Shoaib/mcLNOMS HealthcareClarity, UAClearNOMS Healthcare Color, UAYellowNOMS HealthcareGlucose, UANegativeNegative - 1999(110) ++++ mg/dL NOMS HealthcareInterpretation and review of laboratory resultsNormalNOMS HealthcareKetones, UANegativeNegative - 160(16) ++++ mg/dLNOMS Healthcare Leukocytes, UANegativeNegative - 500+++ Mayra/mcLNOMS HealthcareNitrite, UA NegativeNegative - PositiveNOMS HealthcarepH, UA85 - 9NOMS HealthcareProtein, UA NegativeNegative - 2000(20) ++++ mg/dLNOMS HealthcareSpec Grav, UA1.0151 - 1.03 NOMS HealthcareUrobilinogen, UA0.20.2 - 12 mg/dLNOMS HealthcareNOMS Healthcare Urinalysis macro (dipstick) panel (U)on 71-14-8339Lavefnzev, UANegativeNegative - 4(70) +++ mg/dLNOMS HealthcareBlood, UAPositiveNegative - 50 Shoaib/mcLNOMS HealthcareComment on above:Trace-intactClarity, UAClearNOMS HealthcareColor, UA YellowNOMS HealthcareGlucose, UANegativeNegative - 2000(110) ++++ mg/dLNOMS HealthcareInterpretation and review of laboratory resultsAbnormalNOMS Healthcare Ketones, UANegativeNegative - 160(16) ++++ mg/dLWestern Missouri Mental Health CenterLeukocytes, UA TraceNegative - 500+++ Mayra/mcLNOThree Rivers HealthcareNitrite, UANegativeNegative - PositiveNOVA HealthcarepH, UA75 - 9NOVA HealthcareProtein, UANegativeNegative - 2000(20) ++++ mg/dLWestern [facility] Mental Health CenterSpec Grav, UA1.011 - 1.03NOThree Rivers Healthcare Urobilinogen, UA0.20.2 - 12 mg/dLPutnam County Memorial Hospital HealthcareALL CBC WITH AUTO DIFFon 21-37-9431AQZPHYTRA ABSOLUTE WUYQ2HJVEWestern Missouri Mental Health CenterBasophils/100 WBC (Bld) 0.2 %0.2 - 2.0 %[facility] CenterEosinophils/100 WBC (Bld)0.5 %Low0.9 - 7.0 %[facility] CenterErythrocyte distribution width (RBC) [Ratio]13 %11.0 - 15.0 %[facility] CenterHematocrit (Bld) [Volume fraction]37.3 %36.0 - 48.0 %[facility] Hemoglobin (Bld) [Mass/Vol]12.5 g/dL12.0 - 16.0 g/dLWestern Missouri Mental Health CenterIMMATURE GRANULOCYTES ABS AUTO0.03[facility] CenterImmature granulocytes/100 WBC (Bld)0.3 % 0.0 - 0.5 %[facility] CenterInterpretation and review of laboratory results AbnormalWestern Missouri Mental Health CenterLYMPHOCYTES ABSOLUTE AUTO2.9NOThree [facility] Healthcare Lymphocytes/100 WBC (Bld)26.2 %20.5 - 60.0 %[facility] CenterH (RBC) [Entitic mass]28.2 pg26.7 - 34.0 pgNortheast Regional Medical CenterHC (RBC) [Mass/Vol]33.5 g/dL29.9 - 35.2 g/dLNortheast Regional Medical CenterV (RBC) [Entitic vol]84 fL81.0 - 99.0 fLWestern Missouri Mental Health CenterMONOCYTES ABSOLUTE AUTO0.5NOThree Rivers HealthcareMonocytes/100 WBC (Bld)4.6 % 1.7 - 12.0 %[facility] CenterNEUTROPHILS ABSOLUTE AUTO7.6HighWestern Missouri Mental Health Center Neutrophils/100 WBC (Bld)68.2 %43.0 - 75.0 %NOMS HealthcarePlatelet mean volume (Bld) [Entitic vol]8.5 fLLow9.5 - 13.5 fLNOSSM [facility] EO #0.1NOMS [facility] [id number] [facility] RBC4.44NOMS [facility] WBC11.1HighWestern Missouri Mental Health CenterCLINISYNCNMEMORIAL HOSPITAL [facility] HealthcareHCG ( test) Ql (U)on 03-20-2025 Interpretation and review of laboratory resultsAbnormalWestern Missouri Mental Health CenterPreg Test, UrPositiveNegativeNOPutnam County Memorial Hospital HealthcareUS OB TRANSVAGINALon 03-20-2025 US OB TRANSVAGINALEXAM: US OB TRANSVAGINAL HISTORY: Dating. COMPARISON: None [...] II, MD, PHD at 21-Mar-2025 10:13:40 AM [facility] TeleradiologyNormalNot AvailableComment on above:Order Comment: US OB TRANSVAGINAL No LMP recorded.Urinalysis macro (dipstick) panel (U)on 24-28-2217Cxwuzxjeg, UA NegativeNegative - 4(70) +++ mg/dLNOMS HealthcareBlood, UANegativeNegative - 50 Shoaib/mcLCACHE VALLEY HOSPITAL HealthcareClarity, UAClearNOVA HealthcareColor, UAYellowNOVA HealthcareGlucose, UANegativeNegative - 2000(110) ++++ mg/dLN[facility] Healthcare Interpretation and review of laboratory resultsAbnormalNOVA HealthcareKetones, UANegativeNegative - 160(16) ++++ mg/dLNOVA HealthcareLeukocytes, UATrace Negative - 500+++ Mayra/mcLCACHE VALLEY HOSPITAL HealthcareNitrite, UANegativeNegative - Positive NOMS HealthcarepH, UA5.55 - 9NOVA HealthcareProtein, UANegativeNegative - 2000(20) ++++ mg/dLNOVA HealthcareSpec Grav, UA1.0251 - 1.03[facility] Urobilinogen, UA0.20.2 - 12 mg/dLNOThree Rivers HealthcareNOVA HealthcareIGP,APTIMA HPV,AGE GDLNon 62-01-5360BGT GDLN ACOG TESTINGNote.[facility] Health CenterComment on above:TESTS RESULT FLAG UNITS REF RANGE LAB Clinician Provided Cytology Information Source.............Cervix;Endocervix No. of containers..01 ThinPrep Vial Age Algo ACOG Ese... FLAG LEGEND: L-Low Normal,H-High Normal,LL-Alert Low,HH-Alert High <-Panic Low,>-Panic High,A-Abnormal,AA-Critical Abnormal Performed at: 01 =G [facility] [address] [place] [address] Cynthia Guzman MD, IGP, RFX APTIMA HPV ASCUNote.NOMS HealthcareComment on above:TESTS RESULT FLAG UNITS REF RANGE LAB DIAGNOSIS: 02 NEGATIVE FOR INTRAEPITHELIAL LESION OR MALIGNANCY. Specimen adequacy: 02 Satisfactory for evaluation. Endocervical and/or squamous metaplastic cells (endocervical component) are present. Performed by: 02 Ramon Marquez, Field Artillery Operations Specialist ([facility]) . 02 Note: Note 02 The [...] <-Panic Low,>-Panic High,A-Abnormal,AA-Critical Abnormal Performed at: 02 WB [facility] [address] [place] [address] Cynthia Guzman MD, Performed at: =G - [facility] [address], [place] [id number] Sausage Canner: Cynthia Guzman MD, Phone: [phone] Performed at: - [facility] [id number] Sausage Canner: Cynthia Guzman MD, Phone: [phone] BRUSH-SPATULA CERVIX ENDOCERVIX CLINISYJamestown Regional Medical CenterCytology Cervical or vaginal smear or scraping studyon 57-18-1612KHWHWestern Missouri Mental Health CenterPAP ACOG PANEL 2: 21 to 29on 03-21-2022..NormalGlenbeigh Hospitalment on above:Performed By: #### CVDAGA #### [facility] [address] [place] [address] Dr. Nixon BravoDIAGNOSIS:CommentMercer County Community Hospital on above: Result Comment: NEGATIVE FOR INTRAEPITHELIAL LESION OR MALIGNANCY.Performed By: #### CVDAGA #### [facility] [address] [place] [address] Dr. Nixon BravoMethodology:CommentNoMercy Health St. [facility] on above: Result Comment: This liquid based ThinPrep(R) pap test was screened with the use of an image guided system.Performed By: #### CVDAGA #### [facility] [address] [place] [address] Dr. Nixon BravoNote:CommentMercer County Community Hospital on above:Result Comment: The Pap smear is a screening test designed to aid in the detection of premalignant and malignant conditions of the uterine cervix. It is not a diagnostic procedure and should not be used as the sole means of detecting cervical cancer. Both false-positive and false-negative reports do occur. .Performed By: #### CVDAGA #### [facility] [address] [place] [address] Dr. Nixon BravoPerformed by:CommentMercer County Community Hospital on above: Result Comment: Pam Anderson, Field Artillery Operations Specialist (ASCP)Performed By: #### CVDAGA #### [facility] [address] [place] [address] Dr. Nixon BravoReflex Criteria:CommentMercer County Community Hospital on above:Result Comment: The HPV DNA reflex criteria were not met with this specimen result therefore, no HPV testing was performed. .Performed By: #### CVDAGA #### [facility] [address] [place] [address] Dr. Nixon BravoSpecimen adequacy:CommentMercer County Community Hospital on above:Result Comment: Satisfactory for evaluation. Endocervical and/or squamous metaplastic cells (endocervical component) are present.Performed By: #### CVDAGA #### [facility] [address] [place] [address] Dr. Nixon Santana Gdln ACOG Rdblgfl92-70EurprfVonSelect Medical Specialty Hospital - Southeast OhioComment on above:Performed By: #### CVDAGA #### [facility] [address] [place] [address] Dr. Nixon BravoPRJULIO LEUKOREDUCEDon 16-30-8658EQA and Rh group Nom (Bld)Cross Match Result Compatible Unit Blood Type A Neg Unit Number [id number] Status Information Transfused Product ID Red Blood Cells Product Code [id number] Cross Match Result Compatible Blood Bank Notes Notifed Meredith Collazo in [facility] @ 1053 07/26/21 Unit Blood Type A Neg Unit Number [id number] Status Information Transfused Product ID Red Blood Cells Product Code [id number] Medical Specialty Hospital - Southeast OhioComment on above:Performed By: #### PRBC #### [facility] [address] [place] [address] Dr. Nixon BravoCBC AUTO DIFFon 53-88-1147QHPV #0.0 103/ulNormal0.0-0.1The [facility] Memorial HospitalComment on above:Performed By: #### CBC #### [facility] [address] [place] [address] Dr. Nixon BravoBasophils/100 WBC (Bld)0.3 %Normal0.2-2.0[facility] Comment on above:Performed By: #### CBC #### [facility] [address] [place] [address] Dr. Nixon Alberto #0.0 103/ulNormal0.0-0.7The [facility] HospitalComment on above: Performed By: #### CBC #### [facility] [address] [place] [address] Dr. Nixon Azevedoosinophils/100 WBC (Bld)0.3 %Critically low0.9-7.0The [facility] Memorial HospitalComment on above:Performed By: #### CBC #### [facility] [address] [place] [address] Dr. Nixon Azevedorythrocyte distribution width (RBC) [Ratio]14.8 %Odnnin14.0-15.0 Select [facility] - DublinComment on above:Performed By: #### CBC #### [facility] [address] [place] [address] Dr. Nixon BravoHematocrit (Bld) [Volume fraction]24.0 %Critically low36.0-48.0 [facility] - DublinComment on above:Performed By: #### CBC #### [facility] [address] [place] [address] Dr. Nixon BravoHemoglobin (Bld) [Mass/Vol]7.5 g/dLCritically low12.0-16.0[facility] - DublinComment on above:Performed By: #### CBC #### [facility] [address] [place] [address] Dr. Nixon Shields #0.05 10e3/ulCritically high0.00-0.03The [facility] Comment on above:Performed By: #### CBC #### [facility] [address] [place] [address] Dr. Nixon Shields %0.5 %Normal0.0-0.5The [facility] HospitalComment on above: Performed By: #### CBC #### [facility] [address] [place] [address] Dr. Nixon Vela #2.4 103/ulNormal1.2-3.8The [facility] HospitalComment on above:Performed By: #### CBC #### [facility] [address] [place] [address] Dr. Nixon Perrymphocytes/100 WBC (Bld)24.7 %Fabjpa20.5-60.0The [facility] HospitalComment on above:Performed By: #### CBC #### [facility] [address] [place] [address] Dr. Nixon Restrepo DIFF REQNONormalThe [facility] HospitalComment on above: Performed By: #### CBC #### [facility] [address] [place] [address] Dr. Nixon Borges (RBC) [Entitic mass]25.6 pgCritically low26.7-34.0The [facility] HospitalComment on above:Performed By: #### CBC #### [facility] [address] [place] [address] Dr. Nixon Borges (RBC) [Mass/Vol]31.3 g/aAAdoiqi57.9-35.2The [facility] HospitalComment on above:Performed By: #### CBC #### [facility] [address] [place] [address] Dr. Nixon Coates (RBC) [Entitic vol]81.9 yTIkysfc36.0-99.0The [facility] HospitalComment on above:Performed By: #### CBC #### [facility] [address] [place] [address] Dr. Nixon Rose #0.8 103/ulNormal0.3-0.8The [facility] HospitalComment on above:Performed By: #### CBC #### [facility] [address] [place] [address] Dr. Nixon Kimballocytes/100 WBC (Bld)7.8 %Normal1.7-12.0[facility] Comment on above:Performed By: #### CBC #### [facility] [address] [place] [address] Dr. Yilan ChangNEUT #6.5 103/ulNormal1.4-6.5The [facility] HospitalComment on above:Performed By: #### CBC #### [facility] [address] [place] [address] Dr. Nixon Torrezutrophils/100 WBC (Bld)66.4 %Musxva59.0-75.0The [facility] HospitalComment on above:Performed By: #### CBC #### [facility] [address] [place] [address] Dr. Nixon Santanalet mean volume (Bld) [Entitic vol]9.7 fLNormal9.5-13.5The [facility] HospitalComment on above:Performed By: #### CBC #### [facility] [address] [place] [address] Dr. Nixon RolonT254 103/eeMplsmd645-130Kar [facility] HospitalComment on above: Performed By: #### CBC #### [facility] [address] [place] [address] Dr. Nixon BravoRBC2.93 106/ulCritically low4.20-5.40The [facility] HospitalComment on above:Performed By: #### CBC #### [facility] [address] [place] [address] Dr. Nixon BravoWBC9.8 103/ulNormal4.0-11.0The [facility] HospitalComment on above: Performed By: #### CBC #### [facility] [address] [place] [address] Dr. Nixon Sanchez AUTO DIFFon [id number] #0.0 103/ulNormal0.0-0.1The [facility] HospitalComment on above:Performed By: #### CBC #### [facility] [address] [place] [address] Dr. Nixon Calderonsophils/100 WBC (Bld)0.1 %Critically low0.2-2.0The [facility] HospitalComment on above:Performed By: #### CBC #### [facility] [address] [place] [address] Dr. Nixon Alberto #0.0 103/ulNormal0.0-0.7The [facility] HospitalComment on above: Performed By: #### CBC #### [facility] [address] [place] [address] Dr. Nixon Azevedoosinophils/100 WBC (Bld)0.1 %Critically low0.9-7.0The [facility] HospitalComment on above:Performed By: #### CBC #### [facility] [address] [place] [address] Dr. Nixon Azevedorythrocyte distribution width (RBC) [Ratio]14.5 %Zksuee14.0-15.0 The [facility] HospitalComment on above:Performed By: #### CBC #### [facility] [address] [place] [address] Dr. Nixon BravoHematocrit (Bld) [Volume fraction]25.9 %Critically low36.0-48.0 The [facility] HospitalComment on above:Performed By: #### CBC #### [facility] [address] [place] [address] Dr. Nixon BravoHemoglobin (Bld) [Mass/Vol]8.0 g/dLCritically low12.0-16.0The [facility] HospitalComment on above:Result Comment: DELTA: DELIVEREDPerformed By: #### CBC #### [facility] [address] [place] [address] Dr. Nixon Shields #0.06 10e3/ulCritically high0.00-0.03[facility] Comment on above:Performed By: #### CBC #### [facility] [address] [place] [address] Dr. Nixon Shields %0.4 %Normal0.0-0.5The [facility] HospitalComment on above: Performed By: #### CBC #### [facility] [address] [place] [address] Dr. Nixon Vela #2.1 103/ulNormal1.2-3.8The [facility] HospitalComment on above:Performed By: #### CBC #### [facility] [address] [place] [address] Dr. Nixon Perrymphocytes/100 WBC (Bld)14.9 %Critically low20.5-60.0The [facility] HospitalComment on above:Performed By: #### CBC #### [facility] [address] [place] [address] Dr. Nixon FisherUAL DIFF REQNONormalThe [facility] HospitalComment on above: Performed By: #### CBC #### [facility] [address] [place] [address] Dr. Nixon Borges (RBC) [Entitic mass]25.5 pgCritically low26.7-34.0The [facility] HospitalComment on above:Performed By: #### CBC #### [facility] [address] [place] [address] Dr. Nixon BorgesHC (RBC) [Mass/Vol]30.9 g/sOGrfwlq08.9-35.2The [facility] HospitalComment on above:Performed By: #### CBC #### [facility] [address] [place] [address] Dr. Nixon BorgesV (RBC) [Entitic vol]82.5 lJQmsokm06.0-99.0The [facility] HospitalComment on above:Performed By: #### CBC #### [facility] [address] [place] [address] Dr. Nixon Rose #0.9 103/ulCritically high0.3-0.8ThTogus [facility] Comment on above:Performed By: #### CBC #### [facility] [address] [place] [address] Dr. Nixon Kimballocytes/100 WBC (Bld)6.2 %Normal1.7-12.0[facility] Comment on above:Performed By: #### CBC #### [facility] [address] [place] [address] Dr. Nixon Mercedes #11.1 103/ulCritically high1.4-6.5[facility] Comment on above:Performed By: #### CBC #### [facility] [address] [place] [address] Dr. Nixon Torrezutrophils/100 WBC (Bld)78.3 %Critically high43.0-75.0The [facility] HospitalComment on above:Performed By: #### CBC #### [facility] [address] [place] [address] Dr. Nixon Santanalet mean volume (Bld) [Entitic vol]9.8 fLNormal9.5-13.5The [facility] HospitalComment on above:Performed By: #### CBC #### [facility] [address] [place] [address] Dr. Nixon BravoPLT230 103/fkDcbbqf401-783Pks [facility] HospitalComment on above: Performed By: #### CBC #### [facility] [address] [place] [address] Dr. Nixon BravoRBC3.14 106/ulCritically low4.20-5.40The [facility] HospitalComment on above:Performed By: #### CBC #### [facility] [address] [place] [address] Dr. Nixon BravoWBC14.2 103/ulCritically high4.0-11.0The [facility] HospitalCombronson [facility] on above:Performed By: #### CBC #### [facility] [address] [place] [address] Dr. Nixon iSlver SCREENon 62-43-7510AHXVB SCREENNegativeDoctors HospitalCombronson methodist hospital on above:Performed By: #### FETSCRN #### [facility] [address] [place] [address] Dr. Nixon Zendejas [id number] Information Issued Quantity 1 Product ID Rh Immune Globulin Lot Number [id number] Issue Date/Time [id number] County Community Hospital on above: Performed By: #### RHOG #### [facility] [address] [place] [address] Dr. Nixon AguiarMPTOMATIC COVID-19 ANTIGENon [id number] StatementSEE BELOW NormalThe [facility] HospitalComment on above:Result Comment: This test has not been FDA [...] declaration is terminated or authorization is revoked sooner.Performed By: #### CVDAGA #### [facility] [address] [place] [address] Dr. Nixon Barragan-CoV-2 (COVID-19) RNA JONA+probe Ql (Unsp spec)NegativeNormal NEGATIVEThe [facility] HospitalComment on above:Result Comment: Negative results are presumptive. They do not preclude infection and should not be used as the sole basis for treatment decisions. Additional confirmatory testing by a molecular method should be considered.Performed By: #### CVDAGA #### [facility] [address] [place] [address] Dr. Nixon Sanchez AUTO DIFFon [id number] #0.0 103/ulNormal0.0-0.1The [facility] HospitalComment on above:Performed By: #### CVDAGA #### [facility] [address] [place] [address] Dr. Nixon BravoBasophils/100 WBC (Bld)0.2 %Normal0.2-2.0[facility] Comment on above:Performed By: #### CVDAGA #### [facility] [address] [place] [address] Dr. Alicea ChangELalo #0.0 103/ulNormal0.0-0.7The [facility] HospitalComment on above: Performed By: #### CVDAGA #### [facility] [address] [place] [address] Dr. Nixon Azevedoosinophils/100 WBC (Bld)0.3 %Critically low0.9-7.0The [facility] HospitalComment on above:Performed By: #### CVDAGA #### [facility] [address] [place] [address] Dr. Nixon Azevedorythrocyte distribution width (RBC) [Ratio]14.3 %Wlwyud39.0-15.0 The [facility] HospitalComment on above:Performed By: #### CVDAGA #### [facility] [address] [place] [address] Dr. Nixon BravoHematocrit (Bld) [Volume fraction]33.2 %Critically low36.0-48.0 [facility] - DublinComment on above:Performed By: #### CVDAGA #### [facility] [address] [place] [address] Dr. Nixon BravoHemoglobin (Bld) [Mass/Vol]10.6 g/dLCritically low12.0-16.0The [facility] HospitalComment on above:Performed By: #### CVDAGA #### [facility] [address] [place] [address] Dr. Nixon BravoIG #0.03 10e3/ulNormal0.00-0.03The [facility] HospitalComment on above:Performed By: #### CVDAGA #### [facility] [address] [place] [address] Dr. Nixon BravoIG %0.3 %Normal0.0-0.5The [facility] HospitalComment on above: Performed By: #### CVDAGA #### [facility] [address] [place] [address] Dr. Nixon MenchacaH #2.8 103/ulNormal1.2-3.8The [facility] HospitalComment on above:Performed By: #### CVDAGA #### [facility] [address] [place] [address] Dr. Nixon Perrymphocytes/100 WBC (Bld)26.9 %Kfyhtc15.5-60.0The [facility] HospitalComment on above:Performed By: #### CVDAGA #### [facility] [address] [place] [address] Dr. Nixon Restrepo DIFF REQNONormalThe [facility] HospitalComment on above: Performed By: #### CVDAGA #### [facility] [address] [place] [address] Dr. Nixon Borges (RBC) [Entitic mass]25.9 pgCritically low26.7-34.0The [facility] HospitalComment on above:Performed By: #### CVDAGA #### [facility] [address] [place] [address] Dr. Nixon Borges (RBC) [Mass/Vol]31.9 g/dSAumyon07.9-35.2The [facility] HospitalComment on above:Performed By: #### CVDAGA #### [facility] [address] [place] [address] Dr. Nixon Borges (RBC) [Entitic vol]81.2 vJErtztm58.0-99.0The [facility] HospitalComment on above:Performed By: #### CVDAGA #### [facility] [address] [place] [address] Dr. Nixon Rose #0.7 103/ulNormal0.3-0.8The [facility] HospitalComment on above:Performed By: #### CVDAGA #### [facility] [address] [place] [address] Dr. Nixon Kimballocytes/100 WBC (Bld)6.5 %Normal1.7-12.0[facility] Comment on above:Performed By: #### CVDAGA #### [facility] [address] [place] [address] Dr. Nixon Mercedes #6.8 103/ulCritically high1.4-6.5The [facility] Comment on above:Performed By: #### CVDAGA #### [facility] [address] [place] [address] Dr. Nixon Torrezutrophils/100 WBC (Bld)65.8 %Ugqkvt03.0-75.0The [facility] HospitalComment on above:Performed By: #### CVDAGA #### [facility] [address] [place] [address] Dr. Nixon Faith mean volume (Bld) [Entitic vol]9.8 fLNormal9.5-13.5The [facility] HospitalComment on above:Performed By: #### CVDAGA #### [facility] [address] [place] [address] Dr. Nixon BravoPLT243 103/hnYoebpl424-204Rjf [facility] HospitalComment on above: Performed By: #### CVDAGA #### [facility] [address] [place] [address] Dr. Nixon BravoRBC4.09 106/ulCritically low4.20-5.40The [facility] HospitalComment on above:Performed By: #### CVDAGA #### [facility] [address] [place] [address] Dr. Nixon BravoWBC10.3 103/ulNormal4.0-11.0The [facility] HospitalComment on above:Performed By: #### CVDAGA #### [facility] [address] [place] [address] Dr. Nixon BravoDRUG SCREEN RAPID (URINE)on [id number]H The [facility] HospitalCombronson methodist hospital on above:Performed By: #### CBC #### [facility] [address] [place] [address] Dr. Nixon NagelNegativeNormalNEGATIVESelect Medical [facility] - DublinCombronson methodist hospital on above: Performed By: #### CBC #### [facility] [address] [place] [address] Dr. Nixon SebastianPNegativeNormalNEGATIVEThe [facility] HospitalCombronson methodist hospital on above: Performed By: #### CBC #### [facility] [address] [place] [address] Dr. Nixon PhilippeZONegativeNormalNEGATIVEThe [facility] Hospitalment on above: Performed By: #### CBC #### [facility] [address] [address] [address] Nixon WeinerCNegativeNormalNEGATIVEAvita Health System [facility] Hospital on above: Performed By: #### CBC #### [facility] [address] [address] [address] Nixon JorgensenSamaritan HospitalComment on above: Result Comment: AMP (Amphetamine): 500ng/mL, BAR (Barbituates): 200 ng/mL, BZO (Benzodiazepines): 150 ng/mL, BUP (Buprenorphine): 10 ng/mL, BRIDGER (Cocaine): 150 ng/mL, mAMP (Methamphetamine): 500 ng/mL, MTD (Methadone): 200 ng/mL, OPI (Opiates): 100 ng/mL, OXY (Oxycodone): 100 ng/mL, PCP (Phencyclidine): 25 ng/mL, PPX (Propoxyphene): 300 ng/mL, THC (Cannabinoids): 50 ng/mL, TCA (Trycyclic Antidepressants): 300 ng/mLPerformed By: #### CBC #### [facility] [address] [place] [address] Dr. Nixon BravoDRUG CUT HEADERDRUG CLASS TEST SYSTEM CUT-OFF CONCENTRATIONS ARE FOLLOWS:NormalThe [facility] on above:Performed By: #### CBC #### [facility] [address] [place] [address] Dr. Nixon BravomAMPNegativeNormalNEGATIVEAvita Health System [facility] Hospital on above: Performed By: #### CBC #### [facility] [address] [place] [address] Dr. Nixon BravoMTDNegativeNormalNEGATIVEAvita Health System [facility] Hospital on above: Performed By: #### CBC #### [facility] [address] [place] [address] Dr. Nixon GriggsINegativeNormalNEGMorrow County Hospital on above: Performed By: #### CBC #### [facility] [address] [address] [address] Nixon BravoOXYNegativeNormalNEGATIVESelect Medical [facility] - DublinComment on above: Performed By: #### CBC #### [facility] [address] [place] [address] Dr. Nixon BravoPCPNegativeNormalNEGClermont County HospitalComment on above: Performed By: #### CBC #### [facility] [address] [place] [address] Dr. Nixon BravoPPXNegativeNormalNEGClermont County HospitalComment on above: Performed By: #### CBC #### [facility] [address] [place] [address] Dr. Nixon BravoTCANegativeNormalNEGClermont County HospitalComment on above: Performed By: #### CBC #### [facility] [address] [place] [address] Dr. Nixon BravoTHCNegativeNormalNEGClermont County HospitalComment on above: Performed By: #### CBC #### [facility] [address] [place] [address] Dr. Nixon BravoTYPE AND SCREENon 27-51-2039FTGU AND SCREENNegativeNormalThTogus VA Medical CenterComment on above:Performed By: #### TNS #### [facility] [address] [place] [address] Dr. Nixon Rodriguez PREG GROWTHon [id number] PREG GROWTHEXAMINATION: US PREG GROWTH HISTORY: Large for gestation [...] by ultrasound, 90th percentile by expected). FL/AC: 0.793089 FL/BPD: 0.898667 HC/AC: 0.254368 GESTATIONAL AGE: Age by EDC: 37 weeks, 6 days ROSALEE by EDC: 07/30/2021 Age by US: 39 weeks, 0 days ROSALEE by US: 07/22/2021 IMPRESSION: 1. Single live intrauterine with growth detailed above. 2. Estimated weight is at the 95th percentile. Dr. Cheung was notified by the assistant unit forester at the time of imaging. Electronically authenticated by: ENRIQUETA HUERTA Date: 2021-07-15 13:30Doctors HospitalGROUP B STREP CULTUREon 07-01-2021. agalactiae Ag Ql (Unsp spec)Culture Observations: NEGATIVE FOR GROUP B STREPTOCOCCUS.NormalSelect Medical [facility] Hospital - DublinComment on above: Performed By: #### CVDAGA #### [facility] [address] [place] [address] Dr. Nixon Rodriguez PREG GROWTHon [id number] PREG GROWTHEXAMINATION: US PREG GROWTH HISTORY: Excessive growth affecting [...] by ultrasound, 94th percentile by expected) FL/AC: 0.951392 FL/BPD: 0.368465 HC/AC: 0.201567 GESTATIONAL AGE: Age by EDC: 35 weeks, 6 days ROSALEE by EDC: 07/30/2021 Age by US: 37 weeks, 4 days ROSALEE by US: 07/18/2021 IMPRESSION: 1. Single live intrauterine with growth detailed above. 2. Estimated weight is at the 94th percentile. 3. BPD, HC, and AC are more than 2 weeks larger than gestational age. Electronically authenticated by: ENRIQUETA HUERTA Date: 2021-07-01 09:04Doctors HospitalHEPATITIS B SURFACE ANTIBODY, QUANTon [id number] B Surf AB Quant<3.1Critically lowImmunity>9.9The [facility] HospitalComment on above:Result Comment: Status of Immunity Anti-HBs Level Inconsistent with Immunity 0.0 - 9.9 Consistent with Immunity >9.9Performed By: #### CVDAGA #### [facility] [address] [place] [address] Dr. Nixon Zendejas 27-29-2100HPCIJHVdtscl Information Issued Quantity 1 Product ID Rh Immune Globulin Lot Number [id number] Issue Date/Time [id number] Bellevue HospitalComment on above: Performed By: #### VIRGINIEAGA #### [facility] [address] [place] [address] Dr. Nixon BravoGLUCOSE - 1HRon 94-87-1593Xpnbcqn [Mass/Vol]98 mg/tFFgdhik19-565 The [facility] HospitalComment on above:Performed By: #### VIRGINIEAGA #### [facility] [address] [place] [address] Dr. Nixon BravoHEMOGRAM AND PLATELon 38-76-2959Tcmwszmtll (Bld) [Volume fraction]35.7 %Critically low36.0-48.0The [facility] HospitalComment on above: Performed By: #### HH #### [facility] [address] [place] [address] Samantha KarenHemoglobin (Bld) [Mass/Vol]11.8 g/dLCritically low12.0-16.0The [facility] HospitalComment on above:Performed By: #### HH #### [facility] [address] [place] [address] Sam[facility]New[facility] (RBC) [Entitic mass]28.0 wlHibume02.7-34.0The [facility] Comment on above:Performed By: #### HH #### [facility] [address] [place] [address] Sam[facility] KarLife[facility] (RBC) [Mass/Vol]33.1 g/xVHbrnmu18.9-35.2[facility] Comment on above:Performed By: #### HH #### [facility] [address] [place] [address] Samantha MonroyMCV (RBC) [Entitic vol]84.8 iJJphlsd55.0-99.0[facility] Comment on above:Performed By: #### HH #### [facility] [address] [place] [address] Samantha GhpjwWKW784 103/lxBpxnmy076-676Zyo [facility] HospitalComment on above: Performed By: #### HH #### [facility] [address] [place] [address] Samantha KarenRBC4.21 106/ulNormal4.20-5.40The [facility] HospitalComment on above: Performed By: #### HH #### [facility] [address] [place] [address] Samantha MedelenWBC11.3 103/ulCritically high4.0-11.0[facility] DublinComment on above:Performed By: #### HH #### [facility] [address] [place] [address] Samantha KarenTYPE AND SCREENon 84-81-1828GMTE AND SCREENNegativeDoctors HospitalComment on above:Performed By: #### TNS #### [facility] [address] [place] [address] Samantha MedelenUS PREG PLACENTAon 96-14-0610BX PREG PLACENTAEXAMINATION: US PREG PLACENTA HISTORY: Low lying placenta COMPARISON: 03/18/2021 FINDINGS: Placenta: Posterior. No intraplacental or retroplacental echogenic abnormality. The placental edge is 4.8 cm from the cervical os. IMPRESSION: Placental edge is 4.8 cm from the cervical os Electronically authenticated by: ESAU DUFF Date: 2021-04-15 08:45[facility] Vital Signs Date TimeVital SignValuePerforming IhppmhuzoBmgeijak55-45-3898 10:41-0500Body mass index (BMI) [Ratio]49.96 kg/k0Jbvqt Skye DO Work Phone: [phone] [place], [place] [address]Diuoswgrov91-54-3097 10:41-0500Body iaoaor461.03 kgCorey Skye DO Work Phone: [phone] [place], [place] [address]Ngomtwbkoo74-00-1907 10:41-0500Diastolic blood mm[Hg]Min Skye DO Work Phone: [phone] [place], [place] [address]Bnxrcwears31-85-5994 10:41-0500Systolic blood mm[Hg]Min Skye DO Work Phone: [phone] [place], [place] 9881610-21-2025 11:45-0400Body mass index (BMI) [Ratio]49.61 kg/u7Lwiox Skye DO Work Phone: [phone] [place], [place] 9881610-21-2025 11:45-0400Body jsizjz228.21 kgCorey Skye DO Work Phone: [phone] [place], [place] 9881610-21-2025 11:45-0400Diastolic blood nmqdeytr25 mm[Hg]Min Skye DO Work Phone: [phone] [place], [place] 988[address]10-21-2025 11:45-0400Systolic blood gvclsvri527 mm[Hg]Min Skye DO Work Phone: [phone] [place], [place] [address]88[address]10-06-2025 15:26-0400Body mass index (BMI) [Ratio]48.67 kg/y7HqosummoBecki Chaudhary AUTOMOTIVE REFINISHER Work Phone: [phone] [place], [place] [address]881610-06-2025 15:26-0400Body rixjzk233.04 kgKrtorresa Neena AUTOMOTIVE REFINISHER Work Phone: [phone] [place], [place] 9881610-06-2025 15:26-0400Diastolic blood zzrltofp79 mm[Hg]Becki Neena AUTOMOTIVE REFINISHER Work Phone: [phone] [place], [place] 9881610-06-2025 15:26-0400Systolic blood pkubdgaq918 mm[Hg]Becki Chaudhary AUTOMOTIVE REFINISHER Work Phone: [phone] [place], [place] 9881609-22-2025 15:30-0400Body mass index (BMI) [Ratio]47.8 kg/i6Zejin Skye DO Work Phone: 1([phone])546-[address] [place], [place] [address]Ugujukrdph17-72-1427 15:30-0400Body ughcmx200.02 kgCorey Skye DO Work Phone: [phone])420-[address] [place], [place] [address]Vmwmimqpis10-77-5914 15:30-0400Diastolic blood eclxqmjd69 mm[Hg]Min Skye DO Work Phone: [phone] [place], [place] [address]Rzipdxhhip63-50-9652 15:30-0400Systolic blood jjbctspo650 mm[Hg]Min Skye DO Work Phone: [phone] [place], [place] [address]Bidlhsgwxk07-96-5742 10:14-0400Body mass index (BMI) [Ratio]47.16 kg/r3Oslne Skye DO Work Phone: [phone])[facility] [place], [place] [address]Zxgwdbyrwm26-18-2840 10:14-0400Body .54 kgCorey Skye DO Work Phone: [phone] [place], [place] [address]Ttclbdrxyi05-71-4867 10:14-0400Diastolic blood vqmfusdi14 mm[Hg]Imn Skye DO Work Phone: [phone] [place], [place] [address]Loteufdmjo04-68-4999 10:14-0400Systolic blood cgidvnmp399 mm[Hg]Min Skye DO Work Phone: 1(728)[facility] [place], [place] [address]Bifieeijou91-42-1819 10:20-0400Body mass index (BMI) [Ratio]45.8 kg/m2Bekah ESCAMILLA Work Phone: [phone] [place], [place] [address]Gkvbotfzvp51-67-9584 10:20-0400Body .37 kgBekah ESCAMILLA Work Phone: 1(463)858-[address] [place], [place] [address]Bzfrhejted75-75-7224 10:20-0400Diastolic blood mcbygpqt71 mm[Hg]Bekah ESCAMILLA Work Phone: 1(972)664-[address] [place], [place] [address]Zbidnctvbt14-02-8063 10:20-0400Systolic blood mm[Hg]Bekah ESCAMILLA Work Phone: 1([phone] [place], [place] [address]Zqfgtojqtr98-68-4574 09:15-0400Body mass index (BMI) [Ratio]44.33 kg/s1Fpvuo Skye DO Work Phone: [phone] [place], [place] [address]Wrxfmppxhy83-85-6827 09:15-0400Body hmhkih203.97 kgCorey Skye DO Work Phone: 1(955)082-[address] [place], [place] [address]Cbkordsxjj23-73-8051 09:15-0400Diastolic blood upnstyzv99 mm[Hg]Min Skye DO Work Phone: 1(739)415-[address] [place], [place] [address]Ujnpqcsykq86-62-1763 09:15-0400Systolic blood rfanxjih673 mm[Hg]Min Skye DO Work Phone: 1(405)443-[address] [place], [place] [address]Rsgcpukcni58-56-9981 13:47-0400Body mass index (BMI) [Ratio]43.59 kg/m2[facility]05-15-2025 13:47-0400Body xxuwqk166.24 kg[facility]05-15-2025 13:47-0400Diastolic blood rszaixfb44 mm[Hg][facility]05-15-2025 13:47-0400Systolic blood iprimozu223 mm[Hg][facility]02-13-2025 13:02-0500Body mass index (BMI) [Ratio]47.29 kg/m2Bekah ESCAMILLA Work Phone: 1(588)266-[address] [place], [place] [address]Vvdjifjkrk55-98-6592 13:02-0500Body yzbyzt850.83 kgBekah ESCAMILLA Work Phone: 1([phone] [place], [place] [address]Dhwakytnhp43-99-8934 13:02-0500Diastolic blood ekwnfeao77 mm[Hg]Bekah ESCAMILLA Work Phone: 1(510)894-[address] [place], [place] [address]Pgeilbktnu11-40-4616 13:02-0500Systolic blood lraxufzj449 mm[Hg]Bekah ESCAMILLA Work Phone: 1(527)718-[address] [place], [place] [address]Koiegcwqjt08-10-2701 11:59-0500Body mass index (BMI) [Ratio]48.63 kg/s3Rnfte Skye DO Work Phone: 1(362)991-[address] [place], [place] [address]Pasaqbdphm10-71-3926 11:59-0500Body zgftar125.95 kgCorey Skye DO Work Phone: NO Ewkutvncrf54-78-0740 11:59-0500Diastolic blood qxyuxifl29 mm[Hg]Min Skye DO Work Phone: [facility] Fyewcszpjx41-17-2833 11:59-0500Systolic blood badbagmb565 mm[Hg]Min Skye DO Work Phone: [facility] Encounters Encounter DateEncounter TypeCare ProviderFacilityStart: 09-09-2025 End: 18-97-7306Swbckn flowsheetCorey Skye DO Work Phone: [facility]BGYNStart: 09-09-2025 End: 34-51-6334Iqcycl flowsheetCorey Skye DO Work Phone: [facility]BGYNStart: 09-09-2025 End: 51-37-2539Eneopxyc flow sheetCorey Skye DO Work Phone: [facility]BGYNComment on above:Third trimester ([facility]); 36 weeks gestation of ([facility])Start: 08-26-2025 End: 30-87-7771Iwiqpqlo flow sheetCorey Skye DO Work Phone: [facility] OBGYNComment on above:Third trimester ([facility]); 34 weeks gestation of ([facility])Start: 08-26-2025 End: 05-38-7290jhphxtsekgXDLJK FAZIONot AvailableStart: 08-11-2025 End: 47-49-5514uxeuumehkkCKKQMKCD EBERLYNot AvailableStart: 08-11-2025 End: 85-55-3507Nehkbssh flow sheetKristina Neena AUTOMOTIVE REFINISHER Work Phone: [facility] OBGYNComment on above: size inconsistent with dates ([facility]) (Primary Dx); Third trimester ([facility]); 32 weeks gestation of ([facility])Start: 08-11-2025 End: 77-45-4675Fecyrp flowsheetKristina Neena AUTOMOTIVE REFINISHER Work Phone: [facility] [place] OBGYNStart: 08-11-2025 End: 05-29-3989Xbmglh Fernando Chaudhary AUTOMOTIVE REFINISHER Work Phone: [facility]BGYNStart: 07-28-2025 End: 14-27-4545Corkhmki flow sheetCorey Skye DO Work Phone: [facility] OBGYNComment on above:Third trimester ([facility]); 30 weeks gestation of ([facility])Start: 07-28-2025 End: 51-40-0837qycapmpgggYREAT FAZIONot AvailableStart: 07-28-2025 End: 75-67-1832Lildec flowsheetCorey Skye DO Work Phone: [facility]BGYNStart: 07-28-2025 End: 99-63-2645Psxdqy flowsheetCorey Skye DO Work Phone: [facility]BGYNStart: 07-14-2025 End: 67-07-1629Rneydwtcu Result EncounterCorey Skye DO Work Phone: [facility] External Department UnsolicitedStart: 07-14-2025 End: 53-83-8825Rdxfxxosc Result EncounterCorey Skye DO Work Phone: [facility] External Department UnsolicitedStart: 06-30-2025 End: 09-19-1626Bibhkt flowsheetCorey Skye DO Work Phone: [facility]BGYNStart: 06-30-2025 End: 71-36-1739Zzvcak flowsheetCorey Skye DO Work Phone: [facility]BGYNStart: 06-30-2025 End: 24-13-6321ffkajaftppVQHBD FAZIONot AvailableStart: 06-30-2025 End: 20-27-1224Aemtqtdz flow sheetCorey Skye DO Work Phone: NOUT [facility] OBGYNComment on above:Second trimester ([facility]); 26 weeks gestation of ([facility]); Diabetes mellitus screeningStart: 05-29-2025 End: 20-65-8475bzqkiqinzaWJH RAMEYNot AvailableStart: 05-29-2025 End: 08-39-5104Opbhtinb flow sheetAmy [place]ager[place] PA Work Phone: NOYD BCP OBComment on above:Second trimester ([facility]); 22 weeks gestation of ([facility])Start: 05-29-2025 End: 00-55-6212xcrxshxqluSEZ RAMEYNot AvailableStart: 04-17-2025 End: 81-27-1592Ssxxxr flowsheetCorey Skye DO Work Phone: NOVI BCP OBStart: 04-17-2025 End: 17-87-9481Aqfzwh flowsheetCorey Skye DO Work Phone: NOAF BCP OBStart: 04-17-2025 End: 07-88-4293fnxikqgtgmELSFS FAZIONot AvailableStart: 04-17-2025 End: 28-74-3036Fmipawrs flow sheetCorey Skye DO Work Phone: [facility] BCP OBComment on above:Second trimester ([facility]); 16 weeks gestation of ([facility]); Screening, , for anatomic survey ([facility])Start: 04-16-2025 End: 65-05-3296Ptqfvxxdl Result EncounterCorey Skye DO Work Phone: noms External Department UnsolicitedStart: 04-16-2025 End: 19-96-0482Monzpumwf Result EncounterCorey Skye DO Work Phone: noms External Department UnsolicitedStart: 03-20-2025 End: 14-03-7486Coupxv outpatient visit 5 minutesNoms Bcp Ob Skye NurseNOMS BCP OBComment on above:GA: 39j1nNoqwj: 03-20-2025 End: 38-29-7572mixrugzwkzUSG RAMEYNot AvailableStart: 01-13-2025 End: 77-51-6030riwevonbxjTDL RAMEYNot AvailableStart: 12-19-2024 End: 08-89-1740Jeliko flowsAndriy ESCAMILLA Work Phone: [facility] BCP OBStart: 12-19-2024 End: 26-04-1015Swpasf Jaden ESCAMILLA Work Phone: [facility] BCP OBStart: 12-19-2024 End: 72-61-2381Uugnzp outpatient visit 15 minutesAmy Kamryn ESCAMILLA Work Phone: [facility] BCP OBComment on above:Encounter for weight managementStart: 12-19-2024 End: 63-51-8981eyqdhsrgeuLLQ RAMEYNot AvailableStart: 11-12-2024 End: 04-95-9427Amostd flowsheetCorey Skye DO Work Phone: [facility] BCP OBStart: 11-12-2024 End: 91-07-6529Zbgqku flowsheetCorey Skye DO Work Phone: [facility] BCP OBStart: 11-12-2024 End: 82-73-3968Nzbbdomqt Result EncounterCorey Skye DO Work Phone: [facility] External Department UnsolicitedStart: 11-12-2024 End: 77-55-4715[place] encounter procedureCorey Skye DO Work Phone: [facility] HealthcareStart: 11-12-2024 End: 20-03-0367Ryfuygsw preventive med est patient 18-39 yrsCorey Skye DO Work Phone: [facility] BCP OBComment on above:Well woman exam with routine gynecological exam; Weight gainStart: 11-12-2024 End: 80-11-6366yxrxgkhxacGIILQ FAZIONot AvailableStart: 03-15-2022 End: 52-77-4101mtktjpggigXG MIN FAZIOFacility:K9Lcplg: 08-03-2021 End: 65-21-2403bpcrpwivwgZA MIN FAZIOFacility:H0Txlxs: 12-75-8762Qsbuoavhts and management of inpatientDR MIN FAZIOFacility:O4Vjkdg: 07-28-2021 End: 96-18-3156azemkbccziWD MIN FAZIOFacility:C3Rzwmj: 07-24-2021 End: 14-41-7675Urhrkgtewd and management of inpatientDR GLEN SALGADO Facility:C1Yqvqh: 07-15-2021 End: 25-94-2928nbvbmyqbuaGQ MIN FAZIOFacility:A7Caext: 07-01-2021 End: 06-73-1951bvarinjdgaUY MIN FAZIOFacility:W9Iwdqn: 07-01-2021 End: 56-53-0436kotauuwoumML MIN FAZIOFacility:V6Wjrlr: 68-15-4147Mjwkucqqy for antibody response examinationDR MIN FAZIOThe [facility] HospitalStart: 06-09-2021 End: 62-42-1421wsifoiikhtFD MIN FAZIOFacility:Y6Nnbfd: 06-09-2021 End: 22-27-1370Wxpcdcnto for antibody response examinationDR MIN SKYE Facility:W9Fzxot: 05-06-2021 End: 26-49-2514qixkmcklspTG MIN FAZIOFacility:B8Akloh: 04-15-2021 End: 27-28-2229bixnsqytraEW MIN FAZIOFacility:H1 Procedures DateProcedureProcedure DetailPerforming ClinicianStart: 77-31-7952Znldf dip stick/tablet rgnt non-auto w/o micrscpCorey Skye DO Work Phone: Start: 25-67-0455Uhmzw dip stick/tablet rgnt non-auto w/o micrscpCorey Skye DO Work Phone: Start: 31-88-1004Fjgju dip stick/tablet rgnt non-auto w/o micrscpKristina Neena AUTOMOTIVE REFINISHER Work Phone: Start: 17-17-8284Vmdqj dip stick/tablet rgnt non-auto w/o micrscpCorey Skye DO Work Phone: Start: 88-91-7901ACPKIFR 1 HOURCorey Skye DO Work Phone: Start: 60-95-1606Jmasq dip stick/tablet rgnt non-auto w/o micrscpCorey Skye DO Work Phone: Start: 57-24-9925Uwhra dip stick/tablet rgnt non-auto w/o micrscpAmy Kamryn PA Work Phone: Start: 52-47-4066Vjeut dip stick/tablet rgnt non-auto w/o micrscpCorey Skye DO Work Phone: Start: 47-46-0919ZFJ CBC WITH AUTO DIFFCorey Skye DO Work Phone: Start: 00-60-9016Brsuo dip stick/tablet rgnt non-auto w/o micrscpCorey Skye DO Work Phone: Start: 45-83-4407KTD,APTIMA HPV,AGE GDLNCorey Skye DO Work Phone: Start: 40-31-4625Ilum cerv/vag auto thin layer prep mnl screenCorey Skye DO Work Phone: Start: 31-09-4223Nsmtqzqcgwc of Nonautologous Red Blood Cells into Peripheral Vein, Percutaneous ApproachDR MIN FAZIOStart: 48-63-7376Esetrwkbmd of Products of Conception, Low Cervical, Open ApproachDR MIN FAZIOStart: 87-20-7731Xbwuogjk of Amniotic Fluid, Therapeutic from Products of Conception, Via Natural or Artificial OpeningDR MIN FAZIOStart: 98-23-2842Lseztwehyrxm of Other Hormone into Peripheral Vein, Percutaneous ApproachDR MIN CHEUNG Plan of Treatment DateCare ActivityDetailAuthorStart: 11-18-2025 End: 97-95-1363Rfttrhj encounter procedureNOMS BCP OBStart: 09-18-2025 End: 34-24-2436Rwaoxjj encounter fphlfwrul44/13/2025 2:30 PM EST Routine [facility] GLOVERGYMaximus [address] [place], [id number] Bekah Olson PA [address] [place] [address] NOMNick [facility] OBGYNStart: 09-09-2025 End: 39-61-5319JPUMNCU, GROUP B STREP WITH SUSCEPTIBLITYCULTURE, GROUP B STREP WITH SUSCEPTIBLITY Lab Routine Third trimester ([facility]) Expected: 09/09/2025, Expires: 09/09/2026[facility] HealthcareComment on above:Expected: 09/09/2025, Expires: 09/09/2026Start: 09-09-2025 End: 55-86-0628Iqtwzwo encounter procedureNO Greer OBGYNComment on above: ArrivedStart: 08-11-2025 End: 31-13-4584Riferxs encounter cifoitknc44/06/2025 3:20 PM EDT Routine [facility] [address] [place], [id number] Becki Chaudhary, [place] [address] [place] [address] NOMNick [facility] OBGYNStart: 08-11-2025 End: 31-91-4148VU for pregnancyUS OB follow up transabdominal approach Imaging Routine size inconsistent with dates ([facility]) Expected: 08/11/2025, Expires: 12/12/2025[facility] Work Phone: comment on above:Expected: 08/11/2025, Expires: 12/12/2025Start: 07-28-2025 End: 67-63-8896Lsguusk encounter procedureNO [facility]er OBGYNComment on above: ArrivedStart: 07-14-2025 End: 22-28-8701Jzkaqni encounter wqqohosul53/08/2025 11:30 AM EDT Routine [facility] [place] [facility] [address] [place] [phone] Min Cheung, DO [address] [place], [place] [address] [address] NOMNick [place] OBGYNStart: 06-30-2025 End: 98-95-7599ZUX panel - Blood by Automated countCBC Lab Routine Diabetes mellitus screening Expected: 06/30/2025 (Approximate), Expires: 06/30/2026[facility] Work Phone: comment on above:Expected: 06/30/2025 (Approximate), Expires: 06/30/2026Start: 06-30-2025 End: 94-05-0491Qcafrzmslxz of glucose 1 hour after glucose challenge for glucose tolerance testGlucose tolerance, 1 hour Lab Routine Diabetes mellitus screening Expected: 06/30/2025 (Approximate), Expires: 06/30/2026[facility] HealthcareComment on above:Expected: 06/30/2025 (Approximate), Expires: 06/30/2026Start: 06-30-2025 End: 00-24-7624Xqguyug encounter tjtibrgew07/25/2025 9:50 AM EDT Routine [facility] [address] [place], [place] [address] [place] [phone] Min Cheung, [address] [place] [address] N[facility] BCP OBStart: 05-29-2025 End: 73-79-9709Rugsplp encounter cghtlunpb75/24/2025 9:30 AM EDT Routine [facility] [address] [place] [phone] Bekah Olson, FRANCINE [place], [place] [phone] [facility] BCP OBStart: 05-29-2025 End: 00-56-5695Lbadrltifvzl / ancillary services /24/2025 8:30 AM EDT Ancillary Procedure [facility] [address] [place] [address] [phone] BCP OBStart: 04-17-2025 End: 40-74-0582Mydup fetoprotein, maternalAlpha fetoprotein, maternal Lab Routine 16 weeks gestation of ([facility]) Expected: 04/17/2025 (Approximate), Expires: 06/17/2025[facility] Work Phone: comment on above:Expected: 04/17/2025 (Approximate), Expires: 06/17/2025Start: 04-17-2025 End: 98-57-7828MH for pregnancyUS OB 14+ weeks anatomy scan Imaging Routine Screening, , for anatomic survey ([facility]) Expected: 04/17/2025, Expires: 07/18/2025[facility] HealthcareComment on above:Expected: 04/17/2025, Expires: 07/18/2025Start: 04-17-2025 End: 47-93-0090Jbaccva encounter bnzygfrrp66/12/2025 8:50 AM EDT Routine [facility] [address] [place] [phone] Min Cheung, DO [address] [place] [address] N[facility]S BCP OBStart: 03-20-2025 End: 94-79-6762BWX/RhABO/Rh Lab Routine Missed menses , unspecified gestational age Expected: 03/20/2025 (Approximate), Expires: 03/20/2026[facility] HealthcareComment on above:Expected: 03/20/2025 (Approximate), Expires: 03/20/2026Start: 03-20-2025 End: 84-26-7194Whups type and Indirect antibody screen panel - BloodType and screen Lab Routine Missed menses , unspecified gestational age Expected: 03/20/2025 (Approximate), Expires: 03/20/2026[facility] HealthcareComment on above:Expected: 03/20/2025 (Approximate), Expires: 03/20/2026Start: 03-20-2025 End: 38-41-1488Heoga of abuse panel - Urine by Screen methodRapid drug screen, urine Lab Routine , unspecified gestational age Encounter for supervision of normal first in first trimester Expected: 03/20/2025 (Approximate), Expires: 03/20/2026[facility] HealthcareComment on above:Expected: 03/20/2025 (Approximate), Expires: 03/20/2026Start: 03-19-2025 End: 97-51-8919RW Pelvis transvaginalUS OB transvaginal Imaging Routine Missed menses Expected: 03/19/2025, Expires: 06/19/2025[facility] Work Phone: comment on above:Expected: 03/19/2025, Expires: 06/19/2025Start: 01-16-2025 End: 31-99-3089Zkmvyhr encounter lbdpslhme16/13/2025 8:30 AM EDT Office Visit [facility] [address] [place] [address] Bekah Olson PA [address] [place] [address] N[facility]S BCP OBStart: 12-19-2024 End: 09-84-7781Gfyrzil encounter procedureNOMS [facility] OBComment on above:Arrived Start: 11-12-2024 End: 28-80-5228Ufbfvkf encounter qnvhdrxik51/07/2025 11:40 AM EST Office Visit [facility] [address] [place] [phone] Min Cheung DO [address] [place] [address] ArrivedNOMS BCP OBComment on above:ArrivedBacteria identified in Urine by CultureUrine culture Microbiology Routine Missed menses Ordered: 03/20/2025[facility] HealthcareComment on above:Ordered: 03/20/2025BC W Auto Differential panel - BloodCBC and differential Lab Routine Missed menses , unspecified gestational age Ordered: 03/20/2025[facility] HealthcareComment on above:Ordered: 03/20/2025HLAMYDIA TRACHOMATIS (GENITO/STI)CHLAMYDIA TRACHOMATIS (GENITO/STI) Lab Routine Third trimester ([facility]) Ordered: 09/09/2025[facility] HealthcareComment on above:Ordered: 09/09/2025ytology Cervical or vaginal smear or scraping studyPap Smear Pathology and Cytology Routine Well woman exam with routine gynecological exam Ordered: 11/12/2024[facility] Work Phone: comment on above:Ordered: 11/12/2024Hemoglobin A1c/Hemoglobin.total in BloodHemoglobin A1c Lab Routine Missed menses , unspecified gestational age Ordered: 03/20/2025[facility] HealthcareComment on above: Ordered: 03/20/2025Hepatitis B virus surface Ag [Presence] in Serum or Plasma by ImmunoassayHepatitis B surface antigen Lab Routine Missed menses , unspecified gestational age Ordered: 03/20/2025[facility] HealthcareComment on above: Ordered: 03/20/2025Hepatitis C virus Ab [Presence] in Serum or Plasma by ImmunoassayHepatitis C antibody Lab Routine Missed menses , unspecified gestational age Ordered: 03/20/2025[facility] HealthcareComment on above:Ordered: 03/20/2025HIV-1/HIV-2 antigen/antibody combination immunoassayHIV-1 and HIV-2 antibodies Lab Routine Missed menses , unspecified gestational age Ordered: 03/20/2025[facility] HealthcareComment on above:Ordered: 03/20/2025Neisseria gonorrhoeae DNA [Presence] in Unspecified specimen by JONA with probe detection Neisseria gonorrhea DNA probe, direct Lab Routine Third trimester ([facility]) Ordered: 09/09/2025[facility] HealthcareComment on above:Ordered: 09/09/2025 Reagin Ab [Presence] in Serum by RPRRPR Lab Routine Missed menses , unspecified gestational age Ordered: 03/20/2025[facility] HealthcareComment on above: Ordered: 03/20/2025Rubella antibody, IgGRubella antibody, IgG Lab Routine Missed menses , unspecified gestational age Ordered: 03/20/2025[facility] HealthcareComment on above:Ordered: 03/20/2025SURESWAB(R) ADVANCED VAGINITIS PLUS, TMASURESWAB(R) ADVANCED VAGINITIS PLUS, TMA Pathology and Cytology Routine Third trimester ([facility]) Ordered: 09/09/2025[facility] [employer] Work Phone: comment on above:Ordered: 09/09/2025US Pelvis transvaginalUS OB transvaginal Imaging Routine Missed menses 03/20/2025 12:34 PM EDT[facility] Payers DatePayer CategoryPayerPolicy [id number] [facility] ..[id number] [id number] 2..1.892222.3.57[id number] 2.1.219144.3.5[id number] 2..1.854884.3.57[id number] 2..1.735458.3.57[id number] 2..1.984413.3.579.2.38584-80-8276Gvwfgft2622951 2..1.557141.3.5[id number] 2..1.987696.3.579.[id number] 2.840.1.048108.3.579.2.50308-69-9118Brmonpg9847111 2.840.1.623978.3.57[id number] 2.840.1.801012.3.579.2.66647-70-2835Lmsipis6082563 2.840.1.098581.3.579.2.55820-64-5470Adqikmp3449614 2.0.1.027176.3.579.2.[id number] 2.840.1.037171.3.579.2.677810-51-5695Gffevab74862296 2.0.1.435254.3.57[id number] 2.0.1.731256.3.579.2.213413-51-3969Nfkwous90341984 2.840.1.276250.3.579.2.677813-06-3283Nryvdrh35001034 2.0.1.482185.3.579.2.[id number] 2.0.1.118133.3.579.2.688136-84-7377Smfgsyj68378346 2.0.1.501326.3.579.[id number] 2.840.1.805276.3.579.2.996313-30-1938Omexpfw7651357 2.840.1.403804.3.579.2.146743-53-2345Vrjtjvs0632131 2.16.840.1.994152.3.579.2.528426-38-6490Afgbzpb6939225 2.16.840.1.950732.3.579.2.190654-35-2179Nlwotdq0093023 2.16.840.1.487931.3.579.2.456131-91-9465Vnxsmek0936539 2.16.840.1.678637.3.579.2.337799-63-5470Byriady0950936596319-12-2321Dekwmbg [id number] Social History DateTypeDetailFacilityStart: 85-92-0327Cqiolut smoking status NHISOccasional tobacco smokerNOVA HealthcareHistory of tobacco useCigarette SmokerCACHE VALLEY [facility] HealthcareStart: 07-05-2023 End: 03-71-7529Vnipamfvy beverage intakeCurrent drinker of alcohol (finding)[facility] HealthcareStart: 07-05-2023 End: 41-81-2660Fglnmpu of Social functionNOVA HealthcareStart: 07-05-2023 End: 02-99-1433Bmmpgtd use panelNOVA HealthcareStart: 50-48-8459Fafwpbl Comment5 or less cigarettes/dayNOVA HealthcareStart: 39-30-8204Fllaieh CommentAlcohol: 1 or 2 drinks on a typical day / 2 to 4 times a month. Caffeine: >4 cups/day coffeeCACHE VALLEY HOSPITAL HealthcareStart: 47-23-0654Lcq assigned at birthFeHelen M. [facility] Start: 01-62-4665Gqdpeb identityIdentifies as female gender (finding)[facility] HealthcareStart: 46-50-3897Emhjdn orientationHeterosexual (finding)[facility] HealthcareStart: 36-91-9825XnydqggudNGVZ HealthcareStart: 04-69-9312JroJfhmnh [facility] Healthcare Goals DatePatient GoalDesired Activity/StatePersonal health goal Clinical Notes 07-24-2021 to 09-09-2025 Note Date & [id number] History of Present illness Narrative* Eliana Pruett, NIB FINISHER - 09/09/2025 10:00 AM EST Reason for [...] nursing note reviewed. Exam conducted with a veterinary assistant technician present. Vitals: Estimated body mass index is 49.96 kg/m as calculated from the following: Height as of 01/13/25: 5'. Weight as of this encounter: 255 lb 12.8 oz. BP: 126/78 Patient's last menstrual period was 01/16/2025. Assessment/Plan ICD-10-CM 1. Third trimester ([facility]) Z34.93 SURESWAB(R) ADVANCED VAGINITIS PLUS, TMA CHLAMYDIA TRACHOMATIS (GENITO/STI) Neisseria gonorrhea DNA probe, direct CULTURE, GROUP B STREP WITH SUSCEPTIBLITY CULTURE, GROUP B STREP WITH SUSCEPTIBLITY 2. 36 weeks gestation of ([facility]) Z3A.36 POCT urinalysis dipstick manually resulted Patient [...] of: Min Cheung DO documented in this encounterWestern [facility] Mental Health CenterNzfqvmyvzz50-90-1711 History of Present illness Narrative* Eliana Pruett LPN - 08/26/2025 11:30 AM [...] nursing note reviewed. Exam conducted with a veterinary assistant technician present. Vitals: Estimated body mass index is 49.61 kg/m as calculated from the following: Height as of 01/13/25: 5'. Weight as of this encounter: 254 lb. BP: 138/82 Patient's last menstrual period was 01/16/2025. Assessment/Plan ICD-10-CM 1. Third trimester ([facility]) Z34.93 2. 34 weeks gestation of ([facility]) Z3A.34 POCT urinalysis dipstick manually resulted Return [...] of: Min Cheung DO documented in this encounterWestern Missouri Mental Health CenterZndxxzoxfn01-29-1692 History of Present illness Narrative* Becki Chaudhary NP - 08/11/2025 3:20 PM EDT Reason for Appointment: Patient ID: Genesis [...] nursing note reviewed. Exam conducted with a veterinary assistant technician present. Vitals: Estimated body mass index is 48.67 kg/m as calculated from the following: Height as of 01/13/25: 5'. Weight as of this encounter: 249 lb 3.2 oz. BP: 122/72 Patient's last menstrual period was 01/16/2025. ASSESSMENT & PLAN ICD-10-CM 1. size inconsistent with dates ([facility]) O26.849 US OB follow up transabdominal approach 2. Third trimester ([facility]) Z34.93 3. 32 weeks gestation of ([facility]) Z3A.32 POCT urinalysis dipstick manually resulted Return OB: Patient presents today for a routine obstetrics appointment. Patient is currently 32w4d . Patient states she is doing well but has complaints of being tired due to current . Patient has verbalizes frequent movement. labor precautions was discussed/given and patient was instructed to perform kick counts three times a day. Patient reports receiving Rhogam today prior to visit Orders Placed This Encounter Procedures US OB follow up transabdominal approach POCT urinalysis dipstick manually resulted Follow Up: Patient is to return to office in 2 week for routine OB appointment. Documented by Becki Chaudhary NP on behalf of: Becki Chaudhary NP documented in this encounterWestern Missouri Mental Health CenterKgexixbois69-77-0731 History of Present illness Narrative* Becki Chaudhary NP - 07/28/2025 2:50 PM EDT Reason for Appointment: Patient ID: Genesis [...] nursing note reviewed. Exam conducted with a veterinary assistant technician present. Vitals: Estimated body mass index is 47.8 kg/m as calculated from the following: Height as of 01/13/25: 5'. Weight as of this encounter: 244 lb 12 oz. BP: 122/76 Patient's last menstrual period was 01/16/2025. ASSESSMENT & PLAN ICD-10-CM 1. Third trimester ([facility]) Z34.93 POCT urinalysis dipstick manually resulted 2. 30 weeks gestation of ([facility]) Z3A.30 Return OB: Patient presents today for a routine obstetrics appointment. Patient is currently 30w4d . Patient states she is doing well [...] of: Min Cheung DO documented in this encounterWestern Missouri Mental Health CenterGtlibinuls77-11-3412 History of Present illness Narrative* Becki Chaudhary NP - 06/30/2025 9:50 AM [...] nursing note reviewed. Exam conducted with a veterinary assistant technician present. Vitals: Estimated body mass index is 47.16 kg/m as calculated from the following: Height as of 01/13/25: 5'. Weight as of this encounter: 241 lb 8 oz. BP: 124/76 Patient's last menstrual period was 01/16/2025. ASSESSMENT & PLAN ICD-10-CM 1. Second trimester ([facility]) Z34.92 POCT urinalysis dipstick manually resulted 2. 26 weeks gestation of ([facility]) Z3A.26 3. Diabetes mellitus screening [...] of: Min Cheung DO documented in this encounterWestern Missouri Mental Health CenterUvjqcyjjht60-12-6344 History of Present illness Narrative* FRANCINE Chery - 05/29/2025 9:30 AM EDT Reason for Appointment: Patient ID: [...] ASSESSMENT & PLAN ICD-10-CM 1. Second trimester ([facility]) Z34.92 POCT urinalysis dipstick manually resulted 2. 22 weeks gestation of ([facility]) Z3A.22 Return OB: Patient presents today for [...] behalf of: FRANCINE Chery documented in this encounterWestern Missouri Mental Health CenterAqimmebiyd29-22-1134 History of Present illness Narrative* Karina Osorio LPN - 04/17/2025 8:50 AM EDT Reason for Appointment: Patient ID: [...] nursing note reviewed. Exam conducted with a veterinary assistant technician present. Vitals: Estimated body mass index is 44.33 kg/m as calculated from the following: Height as of 01/13/25: 5'. Weight as of this encounter: 227 lb. BP: 120/84 Patient's last menstrual period was 01/16/2025. ASSESSMENT & PLAN ICD-10-CM 1. Second trimester ([facility]) Z34.92 POCT urinalysis dipstick manually resulted 2. 16 weeks gestation of ([facility]) Z3A.16 Alpha fetoprotein, maternal Alpha fetoprotein, maternal 3. Screening, , for anatomic survey ([facility]) Z36.89 US OB 14+ weeks [...] or undercooked meat, and stay away from [facility]. Patient has been consulted regarding any further do's and don'tsof . Patient voiced understanding and all questions and concerns were answered. Orders Placed This Encounter Procedures US OB 14+ weeks anatomy scan Alpha fetoprotein, maternal POCT urinalysis dipstick manually resulted Discussed rpt to be performed on 09/25/2025. Discussed that at 28 weeks gestation patientwill need to have Rhogam injection. Discussed nausea and vomiting. Follow Up: Patient is to return in 4 weeks for routine OB appointment. Documented by Karina Osorio LPN on behalf of: Min Cheung DO documented in this encounterWestern Missouri Mental Health CenterYocfvjgbra55-02-6099 History of Present illness Narrative* Perlita Lynn LPN - 03/20/2025 1:00 PM EDT Reason for Appointment: Patient ID: Genesis Barahona is a 29 y.o. female who presents for Amenorrhea Patient presents today for a Nurse OB Intake appointment. Patient is 12w0d with a Estimated Date ofDelivery: 10/02/25 OB History Para Term AB Living [...] drink 6-8 glasses of water a day, eatno raw or undercooked meat, and stay away from [facility]. Patient has also been advised to not change litter boxes and eat 6 small meals a day. Patient has been consulted regarding the do's and don'ts ofpregnancy. Patient was given labs and all questions and concerns were answered. Patient did not want [place] labs or Zofran sent at this time. [...] by: Perlita Lynn LPN documented in this encounterWestern Missouri Mental Health CenterWvyxegidik34-23-5400 History of Present illness Narrative* FRANCINE Chery - 12/19/2024 1:00 PM EST Reason for Appointment: Patient ID: Genesis [...] behalf of FRANCINE Chery documented in this encounterWestern Missouri Mental Health CenterQpalabwlyu03-76-2589 History of Present illness Narrative* Eliana Pruett LPN - 11/12/2024 11:40 AM EST Reason for Appointment: Patient ID: [...] nursing note reviewed. Exam conducted with a veterinary assistant technician present. Vitals: Estimated body mass index is [...] of: Min Cheung DO documented in this encounterWestern Missouri Mental Health CenterXewfwyczrs50-82-2156 NoteOPERATIVE NOTE OPERATION DATE: 07-24-21 ANESTHETIC:Spinal with Duramorph. COLLECTIONS CURATOR:IBIS Cordova. PREOPERATIVE DIAGNOSIS: 1. Intrauterine at 39 [...] and cut. Cord blood was obtained. The infant was handed off to awaiting team. The [...] to the Recovery Room in stable condition. [facility] Signed and Approved by: DR MIN CHEUNG . 07/27/2021 19:33:00[facility]09-18-2021 NoteDISCHARGE SUMMARY Discharge Date: 07-26-21 PRIMARY DIAGNOSIS: 1. [...] Tylenol, any abdominal pain unrelieved with narcotics. [facility] Signed and Approved by: DR MIN CHEUNG . 08/05/2021 21:36:00[facility] Diagnosis Well woman exam with routine gynecological [...] ([facility]) state, incidental 16 weeks gestation of ([facility]) Screening, , for anatomic survey ([facility]) Encounter for anatomic survey [facility] Diagnosis Second trimester ([facility]) state, incidental 22 weeks gestation of ([facility]) [facility]* Diagnosis Second trimester ([facility]) state, incidental 26 weeks gestation of ([facility]) Diabetes mellitus screening Screening for diabetes mellitus [facility]* Diagnosis Third trimester ([facility]) state, incidental 30 weeks gestation of ([facility]) [facility]* Diagnosis size inconsistent with dates ([facility])- Primary Third trimester ([facility]) state, incidental 32 weeks gestation of ([facility]) [facility]* Diagnosis Third trimester ([facility]) state, incidental 34 weeks gestation of ([facility]) [facility]* Diagnosis Third trimester ([facility]) state, incidental 36 weeks gestation of ([facility]) documented in this encounter [facility] Summary Purpose Family History No Family History Records FoundNo Family History Records Found Advance Directives No Advanced Directives Records FoundNo Advanced Directives Records Found Additional Source Comments INFORMATION SOURCE (unrecogn ized section and content) DATE CREATED AUTHOR 03/24/2022 [facility] DATE CREATED AUTHOR AUTHOR'S ORGANIZ ATION 08/27/[address] [facility] EPIC Care Teams (unrecognized sec tion and content) Team MemberRelationshipSpecialtyStart DateEnd Date Varun Cardenas MD [address] [place] [address] PCP - General07/04/23Team MemberRelationshipSpecialtyStart DateEnd Date Varun Cardenas MD [address] [place] [address] PCP - General07/04/23Team MemberRelationshipSpecialtyStart DateEnd Date Varun Cardenas MD [address] [place] [address] PCP - General07/04/23Team MemberRelationshipSpecialtyStart DateEnd Date Varun Cardenas MD [address] [place] [address] PCP - General07/04/23Te MemberRelationshipSpecialtyStart DateEnd Date Varun Cardenas MD PCP - [facility]07/04/23Te MemberRelationshipSpecialtyStart DateEnd Date Varun Cardenas MD [address] [place] [address] PCP - [facility]07/04/23Te MemberRelationshipSpecialtyStart DateEnd Date Varun Cardenas MD [address] [place] [address] [facility]07/04/23Te MemberRelationshipSpecialtyStart DateEnd Varun Cardenas MD [address] [place] [address] [facility] - [facility]07/04/23Te MemberRelationshipSpecialtyStart DateEnd Varun Cardenas MD [address] [place] [address] PCP - [facility]07/04/23 Reason for Visit (unrecogniz ed section and content) ReasonCommentsGynecologic ExamReasonCommentsWeight ManagementReasonComments AmenorrheaReasonCommentsRoutine Visit FOR RECORDS PERTAINING TO PATIENTS WHO [...] BE BASED ON THE PRIMARY CLINICAL RECORDS. [facility], [facility]. provides no warranty or guarantee of the accuracy or completeness of information in this document.
--- OUTSIDE RECORDS SUMMARY | 2025-09-09 18:46 | XMS_ITS | Clinical Summary ---
Author Organization [facility] Address [address] [place] [address] Care Team Providers Care Cabin Cleaning Supervisor Name Role Phone Varun Cardenas MD Primary Care Provider [phone] Allergies No known active allergies Medications MedicationSigDispense QuantityRefillsLast FilledStart DateEnd DateStatus clindamycin (Cleocin-T) 1 % lotion Indications:Acne, unspecified acne typeApply topically Daily 60 mL /ctive MV-Min-Fe Fum-FA-DHA ( 1 PO) Take 1 tablet by mouth DailyActive aspirin 81 MG EC tablet Take 81 mg by mouth DailyActive Encounters DateTypeDepartmentCare JrkcHplimsduofp94/04/2025 10:00 [place] [address] Grzegorz Cheung DO Third trimester ([facility]); 36 weeks gestation of ([facility])09/09/2025[place] [address] Grzegorz Cheung DO 08/26/2025 11:30 [place] [phone] Grzegorz Cheung DO Third trimester ([facility]); 34 weeks gestation of ([facility])08/26/2025 11:00 AM EDTAncillary Procedure [facility] [address] [place] [address] size inconsistent with dates ([facility])08/19/2025bstract [facility] [address] [address] Grzegorz Cheung, 08/11/2025 3:20 PM EDTRoutine [facility] [address] [phone] Becki Chaudhary, GROUTMAN size inconsistent with dates ([facility]) (Primary Dx); Third trimester ([facility]); 32 weeks gestation of ([facility])08/11/2025amboo flowsheet [facility] [address] [phone] Becki Chaudhary, STERLING 07/28/2025 2:50 PM EDTRoutine [facility] [address] [place] [address] [place] [phone] Grzegorz Cheung, Third trimester ([facility]); 30 weeks gestation of ([facility])07/28/2025bstract [facility] [address] [address] Grzegorz Cheung, DO 07/28/2025amboo flowsheet [facility] [address] [place] [address] [place] [address] Grzegorz Cheung, DO 5Clinisync Result Encounter [facility] Unsolicited Grzegorz Cheung, DO 06/30/2025 9:50 AM EDTRoutine [facility] [address] [place] [address] [place] [address] Grzegorz Cheung, Second trimester ([facility]); 26 weeks gestation of ([facility]); Diabetes mellitus lqazilopi04/25/2025amboo flowsheet [facility] [address] [address] Grzegorz Cheung DO from Last 3 Months Family History Medical HistoryRelationNameCommentsBreast cancerMaternal Great-Grandmother RelationNameStatusCommentsBrother 1AliveBrother 2AliveFatherAliveMaternal Great-GrandmotherMotherAlive Social History Tobacco UseTypesPacks/DayYears UsedDateSmoking Tobacco: Some DaysCigarettes Tobacco Cessation:Ready to Q uit: Not Asked; Counseling Given: Not Answered Comments:5 or less cigarettes/day Alcohol UseStandard Drinks/WeekCommentsYes0 (1 standard drink = 0.6 oz pure alcohol)Alcohol: 1 or 2 drinks on a typical day / 2 to 4 times a month. Caffeine: >4 cups/day coffeeEstimated Date of DeliveryCommentsYes 10/02/2025ased on Ultrasound, FHR-160Sex and Gender InformationValueDate RecordedSex Assigned at AxgurOzpzvx65/29/2023 6:04 PM EDTLegal SexFemale 01/18/2023 6:37 PM EDTGender KzrocuygJuwjly69/29/2023 6:04 PM EDTSexual NlfvtctgwilNzuomdda58/29/2023 6:04 PM EDT Last Filed Vital Signs Vital SignReadingTime TakenCommentsBlood Xkytuiuw971/7809/09/2025 10:41 AM EST Pulse--Temperature--Respiratory Rate--Oxygen Saturation--Inhaled Oxygen Concentration--Vgvvbc241 kg (255 lb 12.8 oz)09/09/2025 10:41 AM BQFCtuskn229.4 cm (5')01/13/2025 8:57 AM EDTBody Mass Index49.9601/13/2025 8:57 AM EDT Plan of Treatment DateTypeDepartmentCare Team (Latest Contact Info)Gefjxavoupf09/13/2025 2:30 PM ESTRoutine [facility] [address] [address] Bekah Harry PA [address] [address] 11/18/2025 9:00 AM ESTOffice Visit [facility] [address] [address] Grzegorz Cheung, DO [address] [place], [place] [id number] Goals GoalPatient Goal TypeAssociated ProblemsRecent ProgressPatient-Stated?Author Reminders Care PlanOB RemindersNoOpen Scheduling, Background Procedures Procedure NamePriorityDate/TimeAssociated DiagnosisCommentsPOCT URINALYSIS KCVDQOWROiwvdie01/04/2025 10:40 AM EST 36 weeks gestation of ([facility]) POCT URINALYSIS CWYKHHJIZixmqpy72/21/2025 11:58 AM EDT 34 weeks gestation of ([facility]) OB FOLLOW UP TRANSABDOMINAL FJSVDOUXBlshqds25/21/2025 11:42 AM EDT size inconsistent with dates ([facility]) POCT URINALYSIS OHYQVDGFXtfdjgw82/06/2025 3:30 PM EDT 32 weeks gestation of ([facility]) POCT URINALYSIS XCIPHZHLOrwdnyb32/22/2025 3:38 PM EDT Third trimester ([facility]) ALL CBC WITH AUTO LAFZGbytiiq98/08/2025 11:42 AM EDT GLUCOSE 1 JPLLQmrsigl78/08/2025 11:42 AM EDT POCT URINALYSIS DLGDXULNEpzvvkf88/25/2025 10:16 AM EDT Second trimester ([facility]) from Last 3 Months Results * (ABNORMAL) POCT urinalysis dipstick manually resulted (09/09/2025 10:40 AM EST) Only the most recent of5 resultswithin the time period is included. ComponentValueRef RangeTest MethodAnalysis TimePerformed AtPathologist Signature Color, UAYellowClarity, UAClearGlucose, UANegativeNegative - 1999(110) ++++ mg/dLBilirubin, UANegativeNegative - 4(70) +++ mg/dLKetones, UAPositiveNegative - 160(16) ++++ mg/dLSpec Grav, UA1.0151 - 1.03Blood, UANegativeNegative - 50 Shoaib/mcLpH, UA6.05 - 9Protein, UATraceNegative - 2000(20) ++++ mg/dLUrobilinogen, UA1.00.2 - 12 mg/dLLeukocytes, UATraceNegative - 500+++ Mayra/mcLNitrite, UA NegativeNegative - PositiveSpecimen (Source)Anatomical Location / Laterality Collection Method / VolumeCollection TimeReceived DfunSadse45/04/2025 10:40 AM EST Narrative Authorizing ProviderResult TypeResult StatusCorey Skye DOPOINT OF CARE TEST ENTER/EDIT ORDERABLESFinal Result * US OB follow up transabdominal approach (08/26/2025 11:42 [...] StatusBecki Chaudhary NPIMG OB US PROCEDURESFinal Result * GLUCOSE 1 HOUR (07/14/2025 11:42 AM EDT)ComponentValueRef RangeTest Method Analysis TimePerformed AtPathologist SignatureGLUCOSE 1 MIYT913<130 mg/dLTBH Specimen (Source)Anatomical Location / LateralityCollection Method / Volume Collection TimeReceived Time07/14/2025 11:42 AM EDT07/14/2025 11:44 AM EDT Narrative [facility] - 07/14/2025 12:11 PM EDT Authorizing ProviderResult TypeResult StatusGrzegorz Cheung DOL BLOOD ORDERABLES Final ResultPerforming OrganizationAddressCity/State/ZIP CodePhone Number [facility]UN[facility] * (ABNORMAL) ALL CBC WITH AUTO DIFF (07/14/2025 11:42 AM EDT)ComponentValueRef RangeTest MethodAnalysis TimePerformed AtPathologist SignatureTBH WBC9.54.0 - 11.0 10 3/uLTBHTBH RBC4.14(L)4.20 - 5.40 10 6/uLTBHTBH HGB11.3(L)12.0 - 16.0 g/dLTBHTBH HCT35.2(L)36.0 - 48.0 %TBHTBH MCV85.081.0 - 99.0 fLTBHTBH MCH27.3 26.7 - 34.0 pgTBHTBH MCHC32.129.9 - 35.2 g/dLTBHTBH RDW12.911.0 - 15.0 %TBHTBH OPL959066 - 450 10 3/uLTBHTBH MPV8.9(L)9.5 - 13.5 fLTBHNEUTROPHILS PERCENT AUTO68.743.0 - 75.0 %TBHLYMPHOCYTES PERCENT AUTO23.720.5 - 60.0 %TBHMONOCYTES PERCENT AUTO5.81.7 - 12.0 %TBHTBH EO %0.3(L)0.9 - 7.0 %TBHBASOPHILS PERCENT AUTO0.20.2 - 2.0 %TBHIMMATURE GRANULOCYTES PCT AUTO1.3(H)0.0 - 0.5 %TBH NEUTROPHILS ABSOLUTE AUTO6.6(H)1.4 - 6.5 10 3/uLTBHLYMPHOCYTES ABSOLUTE AUTO 2.31.2 - 3.8 10 3/uLTBHMONOCYTES ABSOLUTE AUTO0.60.3 - 0.8 10 3/uLTBHTBH EO # 0.00.0 - 0.7 10 3/uLTBHBASOPHILS ABSOLUTE AUTO0.00.0 - 0.1 10 3/uLTBHIMMATURE GRANULOCYTES ABS AUTO0.12(H)0.00 - 0.03 10 3/uLTBHSpecimen (Source)Anatomical Location / LateralityCollection Method / VolumeCollection TimeReceived Time 07/14/2025 11:42 AM EDT07/14/2025 11:44 AM EDT Narrative [facility] - 07/14/2025 12:13 PM EDT Authorizing ProviderResult TypeResult StatusCorey Skye DOCLINISYNCFinal Result Performing OrganizationAddressCity/State/ZIP CodePhone Number [facility]IN[facility]NC [facility] from Last 3 Months Additional Health Concerns Active ProblemsNoted DateDiagnosed DateOB Zdchhuxkh55/11/2025 Insurance Care Teams Team MemberRelationshipSpecialtyStart DateEnd Varun Cardenas MD [address] [place] [address] [facility] - General07/04/23
== END 2025-09-09 18:43 | disposition home or self-care (01) ==
LOC: LAB 18:42
PROVIDERS: PCP Family Medicine; Visit Provider Obstetrics & Gynecology
DX: Z34.93 Encounter for supervision of normal pregnancy, unspecified, third trimester (principal); Z3A.36 36 weeks gestation of pregnancy
CPT/HCPCS: 87081

== ENCOUNTER 2025-09-25 05:32 | Inpatient (IN) | payer BC, SELFPAY ==
--- OUTSIDE RECORDS SUMMARY | 2011-09-12 19:00 | XMS_ITS | Continuity of Care Document ---
Author Organization [facility] Address [address] [place] [address] Phone Care Team Providers Care Photoengraving Retoucher Name Role Phone Nighat SCHULTZ Renard Unavailable Unavailable Procedures Procedure Date TB INTRADERMAL TEST Advance Directives Directive Yes / No Effective Date File Name No Information Encounters Encounter Description Practice Location Reason(s) For Visit Diagnoses Date Provider Providers Copied on Encounter [facility], [address] [place], [place], [id number], [place] tel:[phone] [facility] No Information Nighat Loco. [address] [place], [place], [id number], [place]. tel:[phone] Family History Family Member Type Diagnosis Age At Onset No Information Payers Payer name Insurance type Covered green party ID Authoriza tion(s) No Information Social History Type Description Quantity Date Captured Comments Sex Female Smoking Status No Information Chief Complaint And Reason For Visit No Information Reason For Referral Reason For Referral No Information History Of Present Illness Encounter Date Complaint History Of Prese nt Illness No Information Functional Status Date Functional Assessmen t No Information Instructions Date Instruction Additional Infor mation No Information Assessments Type Assessment Date No Information Patient Care Teams Name Effective Dates (start - stop) Status Members No Information
--- OUTSIDE RECORDS SUMMARY | 2011-09-12 19:00 | XMS_ITS | Continuity of Care Document ---
Author Organization [facility] Address [address] [place] [address] Phone Care Team Providers Care Raw Cheese Worker Name Role Phone Nighat SCHULTZ Renard Unavailable Unavailable Procedures Procedure Date TB INTRADERMAL TEST Advance Directives Directive Yes / No Effective Date File Name No Information Encounters Encounter Description Practice Location Reason(s) For Visit Diagnoses Date Provider Providers Copied on Encounter [facility], [address] [place], [place], [id number], [place] tel:[phone] [facility] No Information Nighat Loco. [address] [place], [place], [id number], [place]. tel:[phone] Family History Family Member Type Diagnosis Age [...]
--- OUTSIDE RECORDS SUMMARY | 2025-09-18 14:30 | XMS_ITS | Encounter Summary ---
Author Organization [facility] Address [address] [place] [address] Care Team Providers Care Junior Systems Engineer Name Role Phone Varun Cardenas MD Primary Care Provider [phone] Reason for Visit * ReasonCommentsRoutine Visit Encounter Details DateTypeDepartmentCare Team (Latest Contact Info)Sqrrowmngzj59/13/2025 2:30 PM ESTRoutine [facility] [address] [place] [address] Bekah Harry PA [address] [place], [place] [address] Third trimester ([facility]); 38 weeks gestation of ([facility]) Social History Tobacco UseTypesPacks/DayYears UsedDateSmoking Tobacco: Some DaysCigarettes Comments:5 or less cigarette s/day Alcohol UseStandard Drinks/WeekCommentsYes0 (1 standard drink = 0.6 oz pure alcohol)Alcohol: 1 or 2 drinks on a typical day / 2 to 4 times a month. Caffeine: >4 cups/day coffeeEstimated Date of DeliveryCommentsYes 5Based on Ultrasound, [id number] and Gender InformationValueDate RecordedSex Assigned at BabldHpypec50/29/2023 6:04 PM EDTLegal SexFemale 01/18/2023 6:37 PM EDTGender VhoatmtzYqllek22/29/2023 6:04 PM EDTSexual AskvsrxfdnlJzjfbxna08/29/2023 6:04 PM EDTdocumented as of this encounter Last Filed Vital Signs Vital SignReadingTime TakenCommentsBlood Uxykhkxl757/7011 2:38 PM EST Pulse--Temperature--Respiratory Rate--Oxygen Saturation--Inhaled Oxygen Concentration--Mkydfr949 kg (259 lb 6.4 oz)09/18/2025 2:38 PM [...] nursing note reviewed. Exam conducted with a inseamer present. Vitals: Estimated body mass index is 49.96 kg/m?? as calculated from the following: Height as of 01/13/25: 5'. Weight as of 09/09/25: 255 lb 12.8 oz. BP: Patient's last menstrual period was 01/16/2025. ASSESSMENT & PLAN ICD-10-CM 1. Third trimester ([facility]) Z34.93 2. 38 weeks gestation of ([facility]) Z3A.38 POCT urinalysis dipstick manually resulted Assessment/Plan [...] Plan of Treatment DateTypeDepartmentCare Team (Latest Contact Info)Jntikhgqmxk13/26/2025 3:30 PM ESTOffice Visit [facility] [address] [place] [phone] Bekah Harry PA [address] [place] [address] 11/18/2025 9:00 AM ESTOffice Visit [facility] [address] [place] [address] Grzegorz Cheung DO [address] [place] [address] documented as of this encounter Goals GoalPatient Goal TypeAssociated ProblemsRecent ProgressPatient-Stated?Author Reminders Care PlanOB RemindersNoOpen Scheduling, Backgrounddocumented as of this encounter Procedures Procedure NamePriorityDate/TimeAssociated DiagnosisCommentsPOCT URINALYSIS XSFBXACTZmhhcqk43/13/2025 2:39 PM EST 38 weeks gestation of ([facility]) documented in this encounter Results * (ABNORMAL) [...] 2:39 PM EST Narrative Authorizing ProviderResult TypeResult StatusBekah Harry PAPOINT OF CARE TEST ENTER/EDIT ORDERABLESFinal Result documented in this encounter Visit Diagnoses Diagnosis Third trimester ([facility]) state, incidental 38 weeks gestation of ([facility]) documented in this encounter Additional Health Concerns Active ProblemsNoted DateDiagnosed DateOB Msuwrktte52/11/2025 documented as of this encounter Care Teams Team MemberRelationshipSpecialtyStart DateEnd Date Varun Cardenas MD [address] [place] [address] PCP - General07/04/23documented as of this encounter
[2025-09-25] VITALS (28 sets, daily range): BP systolic 79–153; BP diastolic 54–88; PULSE 63–88; TEMP 36.4–36.8; O2SAT 93–99
--- OUTSIDE RECORDS SUMMARY | 2025-09-25 05:36 | XMS_ITS | CCD ---
Author Organization [facility] Care Team Providers Care Batch Trucker Name Role Phone SKYE, DR COPELAND Attending [...] Unavaila Varun Ingram MD Primary Care Provider [phone] Varun Cardenas MD Primary Care Provider [phone] Varun Cardenas MD Primary Care Provider [phone] Varun Cardenas MD Primary Care Provider [phone] BEKAH OLSON Attending Unavailable BEKAH OLSON Attending Unavailable MIN CHEUNG Attending Unavailable SKYE, MIN Attending Unavailable BEKAH OLSON Attending Unavailable MIN CHEUNG Attending Unavailable SKYE, MIN Attending Unavailable BECKI CHAUDHARY Attending Unavailable SKYE, MIN Attending Unavailable SKYE, MIN Attending Unavailable Medications Current Medications MedicationDrug Class(es)DatesSig (Normalized)Sig (Original)aspirin 81 mg delayed release oral tablet (20 sources)Platelet Aggregation Inhibitor, Nonsteroidal Anti-inflammatory Drug take 1 tablet by mouth once dailyaspirin 81 MG EC tablet Take 81 mg by mouth Daily Activecitalopram 10 mg oral tablet (6 sources)Serotonin Reuptake Inhibitor End: 78-06-5709tafzegfgyf (CeleXA) 10 MG tablet CeleXA 12/19/2024 Discontinued (Other)clindamycin 10 mg/ml topical lotion (20 sources)Lincosamide AntibacterialStart: 03-20-2025 End: 57-02-1927xgoshdnzkyx (Cleocin-T) 1 % lotion Indications: Acne, unspecified acne type Apply topically Daily 60 mL 3 03/20/2025 03/20/2026 Activedesogestrel 0.15 mg / ethinyl estradiol 0.03 mg oral tablet (3 sources)Progestin, EstrogenStart: 08-13-2024 End: 92-36-8903lvyyzygifue-ethinyl estradiol (Apri) 0.15-30 MG-MCG tablet Indications: Acne, unspecified acne typeTAKE 1 TABLET BY MOUTH EVERY DAY IN THE MORNING 28 tablet 08/13/2024 11/12/2024 Discontinued (Therapy completed)24 hr metFORMIN hydrochloride 500 mg extended release oral tablet (14 sources)BiguanideStart: 11-12-2024 End: 65-86-5876vaqu 1 tablet by mouth every twenty-four hours at mealtime metFORMIN XR (Glucophage-XR) 500 MG 24 hr tablet Indications: Weight gain Take 1 tablet (500 mg) bymouth in the evening. Take with meals Do not crush, chew, or split. 30 tablet 11 11/12/2024 03/20/2025 Discontinued End: 59-22-5008kuqUMXJBV, OSM, (Fortamet) 500 MG 24 hr tablet Metformin HCl 03/20/2025 Discontinuedminocycline 50 mg oral capsule (3 sources)Tetracycline-class DrugStart: 09-01-2023 End: 37-44-5496cmbj 1 tablet by mouth at bedtimeminocycline 50 MG capsule Indications: Acne, unspecified acne type TAKE 1 TABLET (50 MG) BY MOUTH IN THE MORNING AND BEFORE BEDTIME 60 capsule 1 09/01/2023 11/12/2024 Discontinued (Therapy completed)phentermine hydrochloride 37.5 mg oral tablet (4 sources)Sympathomimetic Amine AnorecticStart: 12-19-2024 End: 34-69-2657lubg 1 tablet by mouth before mealtimephentermine (Adipex-P) 37.5 MG tablet Indications: Encounter for weight management Take 1 tablet (37.5 mg) by mouth in the morning. Take before meals. 30 tablet 01/13/2025 03/20/2025 DiscontinuedPrenatal MV-Min-Fe Fum-FA-DHA ( 1 PO) (20 sources) MV-Min-Fe Fum-FA-DHA ( 1 PO) Take 1 tablet by mouth Daily Oobpvb85 hr venlafaxine 37.5 mg extended release oral capsule (3 sources)Serotonin and Norepinephrine Reuptake InhibitorStart: 11-02-2023 End: 82-80-6083yksu 1 capsule by mouth every twenty-four hours [...] [Persons encountering health services in other specified circumstances]92-89-4671YpsnexkwDdvbdvcvieikz and screening for infectious disease (1 source)Encounter for screening for human papillomavirus (HPV); Translations: [ENC SCREENING HUMAN PAPILLOMAVIRUS]Onset: 49-86-2160IapueaahQsysmoron disorders (1 source)Missed period; Translations: [Irregular menstruation, unspecified] 13-12-2666CvefueiIbsqt complications of ; puerperium affecting management of mother (1 source)Anemia complicating childbirth; Translations: [ANEMIA COMPLICATING CHILDBIRTH]Onset: 17-59-2085FxqqbqxVfrxc complications of (2 sources) size does not accord with dates; Translations: [Uterine size- date discrepancy, unspecified trimester]59-54-9403TusyuhkgYvyoq nutritional; endocrine; and metabolic disorders (2 sources)Weight increased; Translations: [Abnormal weight gain]11-12-2024 EpisodicOther and delivery including normal (20 sources)Encounter for care and examination of lactating mother; Translations: [Encounter for routine follow-up]Onset: 07-28-2021 EpisodicOther screening for suspected conditions (not mental disorders or infectious disease) (18 sources)Encounter for screening for malignant neoplasm of cervix; Translations: [Encounter for screening for Streptococcus B]Onset: 10-55-8858LcrbdptyFvtwq skin disorders (1 source)Acne; Translations: [Acne, unspecified]14-90-6039MfqvinjmUyjpvxip codes; unclassified (2 sources)Gestation period, 16 weeks; Translations: [16 weeks gestation of ]55-63-1549NiifckenIbixbmon codes; unclassified (2 sources)Gestation period, 22 weeks; Translations: [22 weeks gestation of ]05-91-0018KkoogujzIzzryont codes; unclassified (2 sources)Gestation period, 26 weeks; Translations: [26 weeks gestation of ]89-78-8665MtckcsotIzantnrl codes; unclassified (2 sources)Gestation period, 30 weeks; Translations: [30 weeks gestation of ]02-78-2136KrltpthiXutwtcvs codes; unclassified (2 sources)Gestation period, 32 weeks; Translations: [32 weeks gestation of ]87-77-9388PqdjmmakDajcosbo codes; unclassified (2 sources)Gestation period, 34 weeks; Translations: [34 weeks gestation of ]00-67-9563ZduhntzfColuesym codes; unclassified (2 sources)Gestation period, 36 weeks; Translations: [36 weeks gestation of ]14-14-4807MvknvrcsRclfzabwlrcy (1 source)CONTACT W/AND (SUSP) EXPOS COVID-19; Translations: [CONTACT W/AND (SUSP) EXPOS COVID-19]Onset: 04-74-2861Czeaxsfhiebq (20 sources)OB RemindersOnset: [id number] Past or Other Problems Problem ClassificationProblemDateDocumented DateEpisodic/ChronicAcute posthemorrhagic anemia (1 source)Acute posthemorrhagic anemia; Translations: [ACUTE POSTHEMORRHAGIC ANEMIA]Onset: 84-01-9948ZqfrzuddBnbleqgunb disproportion; obstruction (1 source)Maternal care for disproportion, unspecified; Translations: [MATERNAL CARE FOR DISPROPORTION UNS]Onset: 28-75-5573BycipuhiFosjzwqask during ; abruptio placenta; placenta previa (4 sources)Low lying placenta NOS or without hemorrhage, second trimester; Translations: [LOW LYING PL NOS W/OHEMORR 2ND TRI]Onset: 14-02-3726Flpyesfm Malposition; malpresentation (1 source)Maternal care for high head at term, not applicable or unspecified; Translations: [MATERNAL CARE HIGH HEAD TERM NA/UNS]Onset: 92-39-4976Wnsycsrv Other complications of (5 sources)Maternal care for excessive growth, third trimester, not applicable or unspecified; Translations: [MAT CARE EXCSS FTL GRTH 3RD TRI UNS] Onset: 73-64-9367EboqnvnmOgmio complications of (4 sources)Maternal care for excessive growth, unspecified trimester, not applicable or unspecified; Translations: [MAT CARE EXCSS FTL GRTH UNS TRI UNS] Onset: 46-26-0040LddqwtzkDnmeh complications of (1 source)Other specified related conditions, unspecified trimester; Translations: [OTH SPEC PREG RELATED COND UNS TRI]Onset: 35-01-9389Wvjzuiry Residual codes; unclassified (1 source)39 weeks gestation of ; Translations: [39 WEEKS GESTATION OF ]Onset: 36-98-5869MuldrvtqVbtvqilk codes; unclassified (1 source)35 weeks gestation of ; Translations: [35 WEEKS GESTATION OF ]Onset: 50-43-3922PcwqlndlQgyolopm codes; unclassified (1 source)Unspecified blood type, Rh negative; Translations: [UNSPECIFIED BLOOD TYPE RH NEGATIVE]Onset: 78-11-7101IqcrxbyiMutvxziu codes; unclassified (1 source)24 weeks gestation of ; Translations: [24 WEEKS GESTATION OF ]Onset: 39-35-2229Znyiiyvl Results Test NameValueInterpretationReference RangeFacilitySTREP GP B CULTURE+RFLXon 80-09-5380RNUQM GP B CULTURE+RFLX Strep Gp B Culture+Rflx NOMS HealthcareSTREP GP B CULTURE+RFLXNegativeNOMS HealthcareSTREP GP B CULTURE+RFLXCenters for Disease Control and Prevention (CDC) andNOMS Healthcare STREP GP B CULTURE+RFLXAmerican Congress of Obstetricians and GynecologistsNOMS HealthcareSTREP GP B CULTURE+RFLX(ACOG) guidelines for prevention of group BNOMS HealthcareSTREP GP B CULTURE+RFLXstreptococcal (GBS) disease specify co-collection ofNOMS HealthcareSTREP GP B CULTURE+RFLXa vaginal and rectal swab specimen to maximizeNOMS HealthcareSTREP GP B CULTURE+RFLXsensitivity of GBS detection. Per the CDC and ACOG,NOMS HealthcareSTREP GP B CULTURE+RFLXswabbing both the lower vagina and rectumNOMS HealthcareSTREP GP B CULTURE+RFLX substantially increases the yield of detectionNOMS HealthcareSTREP GP B CULTURE+RFLXcompared with sampling the vagina alone.NOMS HealthcareSTREP GP B CULTURE+RFLXPenicillin G, ampicillin, or cefazolin are indicatedNOMS Healthcare STREP GP B CULTURE+RFLXfor intrapartum prophylaxis of GBSNOMS HealthcareSTREP GP B CULTURE+RFLXcolonization. Reflex susceptibility testing should beNOMS HealthcareSTREP GP B CULTURE+RFLXperformed prior to use of clindamycin only on GBSNOMS HealthcareSTREP GP B CULTURE+RFLXisolates from penicillin-allergic women who areNOMS HealthcareSTREP GP B CULTURE+RFLX considered a high risk for anaphylaxis. Treatment withNOMS HealthcareSTREP GP B CULTURE+RFLXvancomycin without additional testing is warranted ifNOMS Healthcare STREP GP B CULTURE+RFLXresistance to clindamycin is noted.NOMS HealthcareSTREP GP B CULTURE+RFLXPerformed at: - [facility] StamfordNOKS HealthcareSTREP GP B CULTURE+[id number] [place], [place] [id number] HealthcareSTREP GP B CULTURE+RFLXLab Director: Jeet Dawn PhD, Phone: [phone] HealthcareCLINISYNCNINTEGRIS BAP[facility] [place] HealthcareRECURRENT VAGINITIS (HTRX)on 09-11-2025 ATOPOBIUM [id number] HealthcareATOPOBIUM VAGINAENot detectedNOMS Healthcare BVAB 2,3 (BACTERIAL VAGINOSIS ASSOCIATED BACTERIA 2, 3); MOBILUNCUS NSS8ZCJH HealthcareBVAB 2,3 (BACTERIAL VAGINOSIS ASSOCIATED BACTERIA 2, 3); MOBILUNCUS SPPNot detectedNOMS HealthcareCANDIDA ALBICANS, PARAPSILOSIS, [id number] HealthcareCANDIDA ALBICANS, PARAPSILOSIS, TROPICALISNot detectedNOMS Healthcare CARIN FPWMVHOS5RLWU HealthcareCANDIDA GLABRATANot detectedNOMS Healthcare CARIN [id number] HealthcareCANDIDA KRUSEINot detectedNOMS HealthcareCHLAMYDIA [id number] HealthcareCHLAMYDIA TRACHOMATISNot detectedNOMS Healthcare GARDNERELLA LZFIWYXRQ7HWWJ HealthcareGARDNERELLA VAGINALISNot detectedNOMS HealthcareMEGASPHAERA (TYPES 1, 2)0NOMS HealthcareMEGASPHAERA (TYPES 1, 2)Not detectedNOMS HealthcareMYCOPLASMA [id number] HealthcareMYCOPLASMA GENITALIUMNot detectedNOMS HealthcareNEISSERIA PRLYTNYTAPO8PRYJ Healthcare NEISSERIA GONORRHOEAENot detectedNOMS HealthcareTRICHOMONAS UKKZLKHPJ6VPTI HealthcareTRICHOMONAS VAGINALISNot detectedNOKansas City VA Medical CenterNOMS Healthcare Urinalysis macro (dipstick) panel (U)on 39-21-0082Nqbmwkior, UANegativeNegative - 4(70) +++ mg/dLNOMS HealthcareBlood, UANegativeNegative - 50 Shoaib/mcLNOMS HealthcareClarity, UAClearNOMS HealthcareColor, UAYellowNOKS HealthcareGlucose, UANegativeNegative - 2000(110) ++++ mg/dLNOKS HealthcareInterpretation and review of laboratory resultsAbnormalNOKS HealthcareKetones, UAPositiveNegative - 160(16) ++++ mg/dLNOKS HealthcareLeukocytes, UATraceNegative - 500+++ Mayra/mcL NOMS HealthcareNitrite, UANegativeNegative - PositiveNOMS HealthcarepH, UA6.05 - 9NOMS HealthcareProtein, UATraceNegative - 2000(20) ++++ mg/dLNOKS Healthcare Spec Grav, UA1.0151 - 1.03NOKS HealthcareUrobilinogen, UA1.00.2 - 12 mg/dLNOMS HealthcareNOKS HealthcareUS OB FOLLOW UP TRANSABDOMINAL APPROACHon 20-00-3058BJ OB FOLLOW UP TRANSABDOMINAL APPROACHFINDINGS: A single, [...] Delivery: 10/02/25 Gestational Age as of 08/11/2025: 74a0zXasyptditt macro (dipstick) panel (U)on 62-80-4891Ualnkazom, UANegativeNegative - 4(70) +++ mg/dLNOMS HealthcareBlood, UANegativeNegative - 50 Shoaib/mcLNOMS HealthcareClarity, UAClearNOMS Healthcare Color, UAYellowNOMS HealthcareGlucose, UATraceNegative - 2000(110) ++++ mg/dL NOMS HealthcareInterpretation and review of laboratory resultsAbnormalNOMS HealthcareKetones, UAPositiveNegative - 160(16) ++++ mg/dLNOMS Healthcare Leukocytes, UANegativeNegative - 500+++ Mayra/mcLNOMS HealthcareNitrite, UA NegativeNegative - PositiveNOMS HealthcarepH, UA6.05 - 9NOMS HealthcareProtein, UANegativeNegative - 2000(20) ++++ mg/dLNOMS HealthcareSpec Grav, UA1.0201 - 1.03NOMS HealthcareUrobilinogen, UA2.00.2 - 12 mg/dLNOMS HealthcareNOMS HealthcareUrinalysis macro (dipstick) panel (U)on 02-73-2221Txszadzzj, UA NegativeNegative - 4(70) +++ mg/dLNOMS HealthcareBlood, UANegativeNegative - 50 Shoaib/mcLNOMS HealthcareClarity, UAClearNOMS HealthcareColor, UAYellowNOMS HealthcareGlucose, UANegativeNegative - 2000(110) ++++ mg/dLNOMS Healthcare Interpretation and review of laboratory resultsNormalNOMS HealthcareKetones, UA NegativeNegative - 160(16) ++++ mg/dLNOMS HealthcareLeukocytes, UANegative Negative - 500+++ Mayra/mcLNOMS HealthcareNitrite, UANegativeNegative - Positive NOMS HealthcarepH, UA75 - 9NOMS HealthcareProtein, UANegativeNegative - 2000(20) ++++ mg/dLNOMS HealthcareSpec Grav, UA1.0151 - 1.03NOMS HealthcareUrobilinogen, UA2.00.2 - 12 mg/dLNOMS HealthcareNOMS HealthcareUrinalysis macro (dipstick) panel (U)on 30-35-6456Cwftgpyxp, UANegativeNegative - 4(70) +++ mg/dLNOMS HealthcareBlood, UANegativeNegative - 50 Shoaib/mcLNOMS HealthcareClarity, UAClear NOMS HealthcareColor, UAYellowNOMS HealthcareGlucose, UANegativeNegative - 1999(110) ++++ mg/dLNOMS HealthcareInterpretation and review of laboratory resultsAbnormalNOMS HealthcareKetones, UANegativeNegative - 160(16) ++++ mg/dL NOMS HealthcareLeukocytes, UAPositiveNegative - 500+++ Mayra/mcLNOMS Healthcare Comment on above:TraceNitrite, UANegativeNegative - PositiveNOMS HealthcarepH, UA75 - 9NOMS HealthcareProtein, UAPositiveNegative - 2000(20) ++++ mg/dLNOMS HealthcareComment on above:TraceSpec Grav, UA1.0151 - 1.03NOMS Healthcare Urobilinogen, UA0.20.2 - 12 mg/dLNOMS HealthcareNOMS HealthcareGLUCOSE 1 HOURon 90-21-3656Jqggdzs [Mass/Vol]104 mg/dLNINF - 130 mg/dLNOMS HealthcareCLINISYNC NOMS HealthcareUrinalysis macro (dipstick) panel (U)on 09-17-8251Twhlsemkh, UA NegativeNegative - 4(70) +++ mg/dLNOMS HealthcareBlood, UANegativeNegative - 50 Shoaib/mcLNOMS HealthcareClarity, UAClearNOMS HealthcareColor, UAYellowNOMS HealthcareGlucose, UANegativeNegative - 2000(110) ++++ mg/dLNOMS Healthcare Interpretation and review of laboratory resultsAbnormalNOMS HealthcareKetones, UAPositiveNegative - 160(16) ++++ mg/dLNOMS HealthcareComment on above:0.5 mmol/LLeukocytes, UAPositiveNegative - 500+++ Mayra/mcLNOMS HealthcareComment on above:15 Mayra/ulNitrite, UANegativeNegative - PositiveNOMS HealthcarepH, UA65 - 9 NOMS HealthcareProtein, UAPositiveNegative - 1999(20) ++++ mg/dLNOMS Healthcare Comment on above:0.15 g/LSpec Grav, UA1.021 - 1.03NOMS HealthcareUrobilinogen, UA0.20.2 - 12 mg/dLNOMS HealthcareNOMS HealthcareUS OB 14+ WEEKS ANATOMY SCANon 15-82-1064KZ OB 14+ WEEKS ANATOMY SCANFINDINGS: A single, [...] Delivery: 10/02/25 Gestational Age as of 04/17/2025: 32g6oWrpcahprko macro (dipstick) panel (U)on 77-13-8106Jdbgzeryz, UANegativeNegative - 4(70) +++ mg/dLNOMS HealthcareBlood, UANegativeNegative - 50 Shoaib/mcLNOMS HealthcareClarity, UAClearNOMS Healthcare Color, UAYellowNOMS HealthcareGlucose, UANegativeNegative - 1999(110) ++++ mg/dL NOM HealthcareInterpretation and review of laboratory resultsNormalPRIMARY CHILDR[facility] HealthcareKetones, UANegativeNegative - 160(16) ++++ mg/dLNOKS Healthcare Leukocytes, UANegativeNegative - 500+++ Mayra/mcLNOKS HealthcareNitrite, UA NegativeNegative - PositiveNOMS HealthcarepH, UA85 - 9NOMS HealthcareProtein, UA NegativeNegative - 2000(20) ++++ mg/dLNOMS HealthcareSpec Grav, UA1.0151 - 1.03 NOMS HealthcareUrobilinogen, UA0.20.2 - 12 mg/dLNOKansas City VA Medical CenterNOKS Healthcare Urinalysis macro (dipstick) panel (U)on 66-19-8922Ormpgqotg, UANegativeNegative - 4(70) +++ mg/dLNOKS HealthcareBlood, UAPositiveNegative - 50 Shoaib/mcLNOKS HealthcareComment on above:Trace-intactClarity, UAClearNOKS HealthcareColor, UA YellowNOKS HealthcareGlucose, UANegativeNegative - 1999(110) ++++ mg/dLNOKS HealthcareInterpretation and review of laboratory resultsAbnormalSaint [facility] Ketones, UANegativeNegative - 160(16) ++++ mg/dLNOKS HealthcareLeukocytes, UA TraceNegative - 500+++ Mayra/mcLNOKS HealthcareNitrite, UANegativeNegative - PositiveNOKS HealthcarepH, UA75 - 9NOKS HealthcareProtein, UANegativeNegative - 2000(20) ++++ mg/dLNOKS HealthcareSpec Grav, UA1.011 - 1.03NOKS Healthcare Urobilinogen, UA0.20.2 - 12 mg/dLNOKS HealthcareNOMS HealthcareALL CBC WITH AUTO DIFFon 01-88-4103MRKOKXEEE ABSOLUTE FERU1VNAX HealthcareBasophils/100 WBC (Bld) 0.2 %0.2 - 2.0 %NOMS HealthcareEosinophils/100 WBC (Bld)0.5 %Low0.9 - 7.0 %NOMS HealthcareErythrocyte distribution width (RBC) [Ratio]13 %11.0 - 15.0 %NOMS HealthcareHematocrit (Bld) [Volume fraction]37.3 %36.0 - 48.0 %[facility] Hemoglobin (Bld) [Mass/Vol]12.5 g/dL12.0 - 16.0 g/dLSaint John's Aurora Community HospitalIMMATURE GRANULOCYTES ABS AUTO0.03NOKansas City VA Medical CenterImmature granulocytes/100 WBC (Bld)0.3 % 0.0 - 0.5 %[facility] HospitalInterpretation and review of laboratory results AbnormalSaint John's Aurora Community HospitalLYMPHOCYTES ABSOLUTE AUTO2.9[facility] Lymphocytes/100 WBC (Bld)26.2 %20.5 - 60.0 %[facility] HospitalH (RBC) [Entitic mass]28.2 pg26.7 - 34.0 pgGolden Valley Memorial HospitalHC (RBC) [Mass/Vol]33.5 g/dL29.9 - 35.2 g/dLGolden Valley Memorial HospitalV (RBC) [Entitic vol]84 fL81.0 - 99.0 fLSaint John's Aurora Community HospitalMONOCYTES ABSOLUTE AUTO0.5[facility] HospitalMonocytes/100 WBC (Bld)4.6 % 1.7 - 12.0 %[facility] HospitalNEUTROPHILS ABSOLUTE AUTO7.6HighSaint John's [facility] Community Hospital Neutrophils/100 WBC (Bld)68.2 %43.0 - 75.0 %[facility] HospitalPlatelet mean volume (Bld) [Entitic vol]8.5 fLLow9.5 - 13.5 fLSaint John's Aurora Community HospitalTB EO #0.1NOMS [facility] CenterTB JMS431LAWLThree [facility] Healthcare RBC4.44NOThree Rivers Healthcare WBC11.1HighSaint John's Aurora Community HospitalCLINISYNCNDeaconess Incarnate Word Health SystemHCG ( test) Ql (U)on 03-20-2025 Interpretation and review of laboratory resultsAbnormalSaint John's Aurora Community HospitalPreg Test, UrPositiveNegativeFreeman [facility] Institute HealthcareUS OB TRANSVAGINALon 03-20-2025 US OB TRANSVAGINALEXAM: [...] II, MD, PHD at 21-Mar-2025 10:13:40 AM [facility] TeleradiologyNormalNot AvailableComment on above:Order Comment: US OB TRANSVAGINAL No LMP recorded.Urinalysis macro (dipstick) panel (U)on 65-15-9833Cektjinoy, UA NegativeNegative - 4(70) +++ mg/dLNOMS HealthcareBlood, UANegativeNegative - 50 Shoaib/mcLNOKS HealthcareClarity, UAClearNOKS HealthcareColor, UAYellowNOMS HealthcareGlucose, UANegativeNegative - 1999(110) ++++ mg/dLNOKS Healthcare Interpretation and review of laboratory resultsAbnormalNOKS HealthcareKetones, UANegativeNegative - 160(16) ++++ mg/dLNOMS HealthcareLeukocytes, UATrace Negative - 500+++ Mayra/mcLNOMS HealthcareNitrite, UANegativeNegative - Positive NOMS HealthcarepH, UA5.55 - 9NOMS HealthcareProtein, UANegativeNegative - 1999(20) ++++ mg/dLNOMS HealthcareSpec Grav, UA1.0251 - 1.03N[facility] Healthcare Urobilinogen, UA0.20.2 - 12 mg/dLNOMS HealthcareNOMS HealthcareIGP,APTIMA HPV,AGE GDLNon 41-05-6708ASN GDLN ACOG TESTINGNote.[facility] HospitalComment on above:TESTS RESULT FLAG UNITS REF RANGE LAB Clinician Provided Cytology Information Source.............Cervix;Endocervix No. of containers..01 ThinPrep Vial Age Algo ACOG Ese... FLAG LEGEND: L-Low Normal,H-High Normal,LL-Alert Low,HH-Alert High <-Panic Low,>-Panic High,A-Abnormal,AA-Critical Abnormal Performed at: 01 =G [facility] [address] Cynthia Guzman MD, IGP, RFX APTIMA HPV ASCUNote.[facility] HospitalComment on above:TESTS RESULT FLAG UNITS REF RANGE LAB DIAGNOSIS: 02 NEGATIVE FOR INTRAEPITHELIAL LESION OR MALIGNANCY. Specimen adequacy: 02 Satisfactory for evaluation. Endocervical and/or squamous metaplastic cells (endocervical component) are present. Performed by: 02 Ramon Marquez Motorcycle Designer ([facility]) . 02 Note: Note 02 The Pap [...] <-Panic Low,>-Panic High,A-Abnormal,AA-Critical Abnormal Performed at: [address] [id number] Cynthia Guzman MD, Performed at: = - [facility] [id number] Pressroom Supervisor: Cynthia Guzman MD, Phone: [phone] Performed at: [facility] [id number] Pressroom Supervisor: Cynthia Guzman MD, Phone: [phone] BRUSH-SPATULA CERVIX ENDOCERVIX CLINISYNCNOKS HealthcareCytology Cervical or vaginal smear or scraping studyon 88-83-7294HMXE HealthcarePAP ACOG PANEL 2: 21 to 29on 03-21-2022..NormalThe [facility] on above:Performed By: #### CVDAGA #### [facility] [address] [place] [address] Dr. Nixon BravoDIAGNOSIS:CommentNormalThe [facility] on above: Result Comment: NEGATIVE FOR INTRAEPITHELIAL LESION OR MALIGNANCY.Performed By: #### CVDAGA #### [facility] [address] [place] [address] Dr. Nixon BravoMethodology:CommentKindred Hospital Dayton on above: Result Comment: This liquid based ThinPrep(R) pap test was screened with the use of an image guided system.Performed By: #### CVDAGA #### [facility] [address] [place] [address] Dr. Nixon BravoNote:CommentKindred Hospital Dayton on above:Result Comment: The Pap smear is a screening test designed to aid in the detection of premalignant and malignant conditions of the uterine cervix. It is not a diagnostic procedure and should not be used as the sole means of detecting cervical cancer. Both false-positive and false-negative reports do occur. .Performed By: #### CVDAGA #### [place] [address] Dr[address] Nixon BravoPerformed by:CommentKindred Hospital Dayton on above: Result Comment: Pam Anderson Motorcycle Designer (ASCP)Performed By: #### CVDAGA #### [place] [address] [address] Nixon BravoReflex Criteria:[facility] on above:Result Comment: The HPV DNA reflex criteria were not met with this specimen result therefore, no HPV testing was performed. .Performed By: #### CVDAGA #### [facility] [address] [place] [address] Dr. Nixon BravoSpecimen adequacy:CommentKindred Hospital Dayton on above:Result Comment: Satisfactory for evaluation. Endocervical and/or squamous metaplastic cells (endocervical component) are present.Performed By: #### CVDAGA #### [facility] [address] [place] [address] Dr. Nixon Santana Gdln ACOG Ofawnsd69-26NjpvpwHitProMedica Flower Hospital on above:Performed By: #### CVDAGA #### [facility] [address] [place] [address] Dr. Nixon Black LEUKOREDUCEDon 97-18-9488COL and Rh group Nom (Bld)Cross Match Result Compatible Unit Blood Type A Neg Unit Number [id number] Status Information Transfused Product ID Red Blood Cells Product Code [id number] Cross Match Result Compatible Blood Bank Notes Notifed Meredith Collazo in FB @ 1053 07/26/21 Unit Blood Type A Neg Unit Number [id number] Status Information Transfused Product ID Red Blood Cells Product Code [id number] [facility] HospitalComment on above:Performed By: #### PRBC #### [facility] [address] [place] [address] Dr. Nixon MunozC AUTO DIFFon 77-61-7524EHDM #0.0 103/ulNormal0.0-0.1The [facility] HospitalComment on above:Performed By: #### CBC #### [facility] [address] [place] [address] Dr. Nixon BravoBasophils/100 WBC (Bld)0.3 %Normal0.2-2.0The [facility] Comment on above:Performed By: #### CBC #### [facility] [address] [place] [address] Dr. Nixon Alberto #0.0 103/ulNormal0.0-0.7The [facility] HospitalComment on above: Performed By: #### CBC #### [facility] [address] [place] [address] Dr. Nixon Azevedoosinophils/100 WBC (Bld)0.3 %Critically low0.9-7.0The [facility] HospitalComment on above:Performed By: #### CBC #### [facility] [address] [place] [address] Dr. Nixon Azevedorythrocyte distribution width (RBC) [Ratio]14.8 %Bsptxr51.0-15.0 The [facility] HospitalComment on above:Performed By: #### CBC #### [facility] [address] [place] [address] Dr. Nixon BravoHematocrit (Bld) [Volume fraction]24.0 %Critically low36.0-48.0 The [facility] HospitalComment on above:Performed By: #### CBC #### [facility] [address] [place] [address] Dr. Nixon BravoHemoglobin (Bld) [Mass/Vol]7.5 g/dLCritically low12.0-16.0The [facility] HospitalComment on above:Performed By: #### CBC #### [facility] [address] [place] [address] Dr. Nixon Shields #0.05 10e3/ulCritically high0.00-0.03The [facility] Comment on above:Performed By: #### CBC #### [facility] [address] [place] [address] Dr. Nixon Shields %0.5 %Normal0.0-0.5The [facility] HospitalComment on above: Performed By: #### CBC #### [facility] [address] [place] [address] Dr. Nixon Vela #2.4 103/ulNormal1.2-3.8The [facility] HospitalComment on above:Performed By: #### CBC #### [facility] [address] [place] [address] Dr. Nixon Perrymphocytes/100 WBC (Bld)24.7 %Fcioxh33.5-60.0The [facility] HospitalComment on above:Performed By: #### CBC #### [facility] [address] [place] [address] Dr. Nixon FisherUAL DIFF REQNONormalThe [facility] HospitalComment on above: Performed By: #### CBC #### [facility] [address] [place] [address] Dr. Nixon Weathers (RBC) [Entitic mass]25.6 pgCritically low26.7-34.0The [facility] HospitalComment on above:Performed By: #### CBC #### [facility] [address] [place] [address] Dr. Nixon Borges (RBC) [Mass/Vol]31.3 g/uFEgsblw15.9-35.2The [facility] HospitalComment on above:Performed By: #### CBC #### [facility] [address] [address] [address] Nixon BorgesV (RBC) [Entitic vol]81.9 pSGnmehw62.0-99.0The [facility] HospitalComment on above:Performed By: #### CBC #### [facility] [address] [place] [address] Dr. Nixon Rose #0.8 103/ulNormal0.3-0.8The [facility] HospitalComment on above:Performed By: #### CBC #### [facility] [address] [place] [address] Dr. Nixon Kimballocytes/100 WBC (Bld)7.8 %Normal1.7-12.0The [facility] Comment on above:Performed By: #### CBC #### [facility] [address] [place] [address] Dr. Nixon Mercedes #6.5 103/ulNormal1.4-6.5The [facility] HospitalComment on above:Performed By: #### CBC #### [facility] [address] [place] [address] Dr. Nixon Torrezutrophils/100 WBC (Bld)66.4 %Imtzqh37.0-75.0The [facility] HospitalComment on above:Performed By: #### CBC #### [facility] [address] [place] [address] Dr. Nixon Santanalet mean volume (Bld) [Entitic vol]9.7 fLNormal9.5-13.5The [facility] HospitalComment on above:Performed By: #### CBC #### [facility] [address] [place] [address] Dr. Nixon BravoPLT254 103/csThmemm091-949Kvz [facility] HospitalComment on above: Performed By: #### CBC #### [facility] [address] [place] [address] Dr. Nixon BravoRBC2.93 106/ulCritically low4.20-5.40The [facility] on above:Performed By: #### CBC #### [facility] [address] [place] [address] Dr. Nixon BravoWBC9.8 103/ulNormal4.0-11.0The [facility] HospitalComment on above: Performed By: #### CBC #### [facility] [address] [place] [address] Dr. Nixon Sanchez AUTO DIFFon [id number] #0.0 103/ulNormal0.0-0.1The [facility] on above:Performed By: #### CBC #### [facility] [address] [place] [address] Dr. Nixon BravoBasophils/100 WBC (Bld)0.1 %Critically low0.2-2.0The [facility] on above:Performed By: #### CBC #### [facility] [address] [place] [address] Dr. Nixon Alberto #0.0 103/ulNormal0.0-0.7The [facility] on above: Performed By: #### CBC #### [facility] [address] [place] [address] Dr. Nixon Azevedoosinophils/100 WBC (Bld)0.1 %Critically low0.9-7.0The [facility] on above:Performed By: #### CBC #### [facility] [address] [place] [address] Dr. Nixon Azevedorythrocyte distribution width (RBC) [Ratio]14.5 %Ftstpw20.0-15.0 [facility] on above:Performed By: #### CBC #### [facility] [address] [place] [address] Dr. Nixon BravoHematocrit (Bld) [Volume fraction]25.9 %Critically low36.0-48.0 The [facility] HospitalComment on above:Performed By: #### CBC #### [facility] [address] [address] [address] Nixon BravoHemoglobin (Bld) [Mass/Vol]8.0 g/dLCritically low12.0-16.0The [facility] HospitalComment on above:Result Comment: DELTA: DELIVEREDPerformed By: #### CBC #### [facility] [address] [address] [address] Nixon Shields #0.06 10e3/ulCritically high0.00-0.03The [facility] Comment on above:Performed By: #### CBC #### [facility] [address] [place] [address] Dr. Nixon Shields %0.4 %Normal0.0-0.5The [facility] HospitalComment on above: Performed By: #### CBC #### [facility] [address] [place] [address] Dr. Nixon Vela #2.1 103/ulNormal1.2-3.8The [facility] HospitalComment on above:Performed By: #### CBC #### [facility] [address] [place] [address] Dr. Nixon Villanuevahocytes/100 WBC (Bld)14.9 %Critically low20.5-60.0The [facility] HospitalComment on above:Performed By: #### CBC #### [facility] [address] [place] [address] Dr. Nixon FisherUAL DIFF REQNONormalThe [facility] HospitalComment on above: Performed By: #### CBC #### [facility] [address] [place] [address] Dr. Nixon Weathers (RBC) [Entitic mass]25.5 pgCritically low26.7-34.0The [facility] HospitalComment on above:Performed By: #### CBC #### [facility] [address] [place] [address] Dr. Nixon Borges (RBC) [Mass/Vol]30.9 g/rLSgskuv31.9-35.2The [facility] HospitalComment on above:Performed By: #### CBC #### [facility] [address] [place] [address] Dr. Nixon Coates (RBC) [Entitic vol]82.5 oTJbwvwk11.0-99.0The [facility] HospitalComment on above:Performed By: #### CBC #### [facility] [address] [place] [address] Dr. Nixon Rose #0.9 103/ulCritically high0.3-0.8ThRegency Hospital Company Comment on above:Performed By: #### CBC #### [facility] [address] [place] [address] Dr. Nixon Kimballocytes/100 WBC (Bld)6.2 %Normal1.7-12.0[facility] Comment on above:Performed By: #### CBC #### [facility] [address] [place] [address] Dr. Nixon Mercedes #11.1 103/ulCritically high1.4-6.5ThRegency Hospital Company Comment on above:Performed By: #### CBC #### [facility] [address] [place] [address] Dr. Nixon Torrezutrophils/100 WBC (Bld)78.3 %Critically high43.0-75.0The [facility] HospitalComment on above:Performed By: #### CBC #### [facility] [address] [place] [address] Dr. Nixon Santanalet mean volume (Bld) [Entitic vol]9.8 fLNormal9.5-13.5The [facility] HospitalComment on above:Performed By: #### CBC #### [facility] [address] [place] [address] Dr. Nixon BravoPLT230 103/wlHaibzo334-102Ewt [facility] HospitalComment on above: Performed By: #### CBC #### [facility] [address] [place] [address] Dr. Nixon BravoRBC3.14 106/ulCritically low4.20-5.40The [facility] on above:Performed By: #### CBC #### [facility] [address] [place] [address] Dr. Nixon BravoWBC14.2 103/ulCritically high4.0-11.0The [facility] on above:Performed By: #### CBC #### [facility] [address] [place] [address] Dr. Nixon BravoFETAL SCREENon [id number] SCREENNegativeNoProMedica Flower Hospital on above:Performed By: #### FETSCRN #### [facility] [address] [place] [address] Dr. Nixon Zendejas [id number] Information Issued Quantity 1 Product ID Rh Immune Globulin Lot Number [id number] Issue Date/Time [id number] Hospital [place] on above: Performed By: #### RHOG #### [facility] [address] [place] [address] Dr. Nixon BravoASYMPTOMATIC COVID-19 ANTIGENon [id number] StatementSEE BELOW NormalThe [facility] on above:Result Comment: This test has not [...] is revoked sooner.Performed By: #### CVDAGA #### [facility] [address] [place] [address] Dr. Nixon Barragan-CoV-2 (COVID-19) RNA JONA+probe Ql (Unsp spec)NegativeNormal NEGATIVEThe [facility] HospitalComment on above:Result Comment: Negative results are presumptive. They do not preclude infection and should not be used as the sole basis for treatment decisions. Additional confirmatory testing by a molecular method should be considered.Performed By: #### CVDAGA #### [facility] [address] [place] [address] Dr. Nixon Sanchez AUTO DIFFon [id number] #0.0 103/ulNormal0.0-0.1The [facility] HospitalComment on above:Performed By: #### CVDAGA #### [facility] [address] [place] [address] Dr. Nixon BravoBasophils/100 WBC (Bld)0.2 %Normal0.2-2.0[facility] Comment on above:Performed By: #### CVDAGA #### [facility] [address] [place] [address] Dr. Nixon Alberto #0.0 103/ulNormal0.0-0.7The [facility] HospitalComment on above: Performed By: #### CVDAGA #### [facility] [address] [place] [address] Dr. Nixon Azevedoosinophils/100 WBC (Bld)0.3 %Critically low0.9-7.0[facility] HospitalComment on above:Performed By: #### CVDAGA #### [facility] [address] [place] [address] Dr. Nixon Azevedorythrocyte distribution width (RBC) [Ratio]14.3 %Exzxgl05.0-15.0 [facility] HospitalComment on above:Performed By: #### CVDAGA #### [facility] [address] [place] [address] Dr. Nixon Englandatocrit (Bld) [Volume fraction]33.2 %Critically low36.0-48.0 [facility] HospitalComment on above:Performed By: #### CVDAGA #### [facility] [address] [place] [address] Dr. Yilan ChangHemoglobin (Bld) [Mass/Vol]10.6 g/dLCritically low12.0-16.0The [facility] HospitalComment on above:Performed By: #### CVDAGA #### [facility] [address] [place] [address] Dr. Nixon Shields #0.03 10e3/ulNormal0.00-0.03The [facility] HospitalComment on above:Performed By: #### CVDAGA #### [facility] [address] [place] [address] Dr. Nixon Shields %0.3 %Normal0.0-0.5The [facility] HospitalComment on above: Performed By: #### CVDAGA #### [facility] [address] [place] [address] Dr. Nixon Vela #2.8 103/ulNormal1.2-3.8The [facility] HospitalComment on above:Performed By: #### CVDAGA #### [facility] [address] [place] [address] Dr. Nixon Villanuevahocytes/100 WBC (Bld)26.9 %Huwmwr09.5-60.0The [facility] HospitalComment on above:Performed By: #### CVDAGA #### [facility] [address] [place] [address] Dr. Nixon FisherUAL DIFF REQNONormalThe [facility] HospitalComment on above: Performed By: #### CVDAGA #### [facility] [address] [place] [address] Dr. Nixon Borges (RBC) [Entitic mass]25.9 pgCritically low26.7-34.0The [facility] HospitalComment on above:Performed By: #### CVDAGA #### [facility] [address] [place] [address] Dr. Nixon Borges (RBC) [Mass/Vol]31.9 g/lEAtyesm30.9-35.2The [facility] HospitalComment on above:Performed By: #### CVDAGA #### [facility] [address] [place] [address] Dr. Nixon BorgesV (RBC) [Entitic vol]81.2 fHHqnubl90.0-99.0The [facility] HospitalComment on above:Performed By: #### CVDAGA #### [facility] [address] [place] [address] Dr. Nixon Rose #0.7 103/ulNormal0.3-0.8The [facility] HospitalComment on above:Performed By: #### CVDAGA #### [facility] [address] [place] [address] Dr. Nixon Kimballocytes/100 WBC (Bld)6.5 %Normal1.7-12.0The [facility] Comment on above:Performed By: #### CVDAGA #### [facility] [address] [place] [address] Dr. Nixon Mercedes #6.8 103/ulCritically high1.4-6.5The [facility] Comment on above:Performed By: #### CVDAGA #### [facility] [address] [place] [address] Dr. Nixon Torrezutrophils/100 WBC (Bld)65.8 %Vnmhkf37.0-75.0The [facility] HospitalComment on above:Performed By: #### CVDAGA #### [facility] [address] [place] [address] Dr. Nixon Faith mean volume (Bld) [Entitic vol]9.8 fLNormal9.5-13.5The [facility] HospitalComment on above:Performed By: #### CVDAGA #### [facility] [address] [place] [address] Dr. Nixon BravoPLT243 103/hkQfadww938-266Ohr [facility] HospitalComment on above: Performed By: #### CVDAGA #### [facility] [address] [place] [address] Dr. Nixon BravoRBC4.09 106/ulCritically low4.20-5.40The [facility] HospitalComment on above:Performed By: #### CVDAGA #### [facility] [address] [place] [address] Dr. Nixon BravoWBC10.3 103/ulNormal4.0-11.0[facility] on above:Performed By: #### CVDAGA #### [facility] [address] [place] [address] Dr. Nixon Napier SCREEN RAPID (URINE)on [id number]B [facility] HospitalCombr[facility] on above:Performed By: #### CBC #### [facility] [address] [place] [address] Dr. Nixon NagelNegativeNormalNEGWyandot Memorial HospitalCombronson south [facility] hospital on above: Performed By: #### CBC #### [facility] [address] [place] [address] Dr. Nixon BravoBUPNegativeNowakemed north hospitalNEGWyandot Memorial HospitalCombronson [facility] hospital on above: Performed By: #### CBC #### [facility] [address] [place] [address] Dr. Nixon BravoBZONegativeNormalNEGWyandot Memorial HospitalCombronson south [facility] hospital on above: Performed By: #### CBC #### [facility] [address] [place] [address] Dr. Nixon WeinerCNegativeBarnes-Jewish HospitalalNEGWyandot Memorial HospitalCombronson south [facility] hospital on above: Performed By: #### CBC #### [facility] [address] [place] [address] Dr. Nixon JorgensenPaulding County HospitalComment on above: Result Comment: AMP (Amphetamine): 500ng/mL, BAR (Barbituates): 200 ng/mL, BZO (Benzodiazepines): 150 ng/mL, BUP (Buprenorphine): 10 ng/mL, BRIDGER (Cocaine): 150 ng/mL, mAMP (Methamphetamine): 500 ng/mL, MTD (Methadone): 200 ng/mL, OPI (Opiates): 100 ng/mL, OXY (Oxycodone): 100 ng/mL, PCP (Phencyclidine): 25 ng/mL, PPX (Propoxyphene): 300 ng/mL, THC (Cannabinoids): 50 ng/mL, TCA (Trycyclic Antidepressants): 300 ng/mLPerformed By: #### CBC #### [facility] [address] [place] [address] Dr. Nixon BravoDRUG CUT HEADERDRUG CLASS TEST SYSTEM CUT-OFF CONCENTRATIONS ARE FOLLOWS:NormalThe [facility] HospitalComment on above:Performed By: #### CBC #### [facility] [address] [place] [address] Dr. Nixon BravomAMPNegativeNormalNEGATIVEMartin Memorial HospitalComment on above: Performed By: #### CBC #### [facility] [address] [place] [address] Dr. Nixon BravoMTDNegativeNormalNEGWyandot Memorial HospitalComment on above: Performed By: #### CBC #### [facility] [address] [place] [address] Dr. Nixon BrvaoOPINegativeNormalNEGATIVEMartin Memorial HospitalComment on above: Performed By: #### CBC #### [facility] [address] [place] [address] Dr. Nixon BravoOXYNegativeNormalNEGATIVEMartin Memorial HospitalCombronson south haven hospital on above: Performed By: #### CBC #### [facility] [address] [place] [address] Dr. Nixon BravoPCPNegativeNormalNEGATIVEMartin Memorial HospitalComment on above: Performed By: #### CBC #### [facility] [address] [place] [address] Dr. Nixon BravoPPXNegativeNormalNEGATIVEMartin Memorial HospitalComment on above: Performed By: #### CBC #### [facility] [address] [place] [address] Dr. Nixon BravoTCANegativeNormalNEGWyandot Memorial HospitalComment on above: Performed By: #### CBC #### [facility] [address] [place] [address] Dr. Nixon BravoTHCNegativeNormalNEGATIVEMartin Memorial HospitalComment on above: Performed By: #### CBC #### [facility] [address] [address] [address] Nixon Valles AND SCREENon [id number] AND SCREENNegativeSelect Medical OhioHealth Rehabilitation Hospital - DublinComment on above:Performed By: #### TNS #### [facility] [address] [address] [address] Nixon Rodriguez PREG GROWTHon [id number] PREG GROWTHEXAMINATION: US PREG GROWTH HISTORY: Large [...] by ultrasound, 90th percentile by expected). FL/AC: 0.920316 FL/BPD: 0.290532 HC/AC: 0.143041 GESTATIONAL AGE: Age by EDC: 37 weeks, 6 days ROSALEE by EDC: 07/30/2021 Age by US: 39 weeks, 0 days ROSALEE by US: 07/22/2021 IMPRESSION: 1. Single live intrauterine with growth detailed above. 2. Estimated weight is at the 95th percentile. Dr. Cheung was notified by the rough rounder at the time of imaging. Electronically authenticated by: ENRIQUETA HUERTA Date: 2021-07-15 13:30[facility] DublinGROUP B STREP CULTUREon 07-01-2021. agalactiae Ag Ql (Unsp spec)Culture Observations: NEGATIVE FOR GROUP B STREPTOCOCCUS.NormalMartin Memorial HospitalComment on above: Performed By: #### CVDAGA #### [facility] [address] [place] [address] Dr. Nixon Rodriguez PREG GROWTHon [id number] PREG GROWTHEXAMINATION: US PREG GROWTH HISTORY: Excessive [...] by ultrasound, 94th percentile by expected) FL/AC: 0.833533 FL/BPD: 0.582954 HC/AC: 0.040231 GESTATIONAL AGE: Age by EDC: 35 weeks, 6 days ROSALEE by EDC: 07/30/2021 Age by US: 37 weeks, 4 days ROSALEE by US: 07/18/2021 IMPRESSION: 1. Single live intrauterine with growth detailed above. 2. Estimated weight is at the 94th percentile. 3. BPD, HC, and AC are more than 2 weeks larger than gestational age. Electronically authenticated by: ENRIQUETA HUERTA Date: 2021-07-01 09:04[facility] DublinHECORONA [facility] B SURFACE ANTIBODY, QUANTon [id number] B Surf AB Quant<3.1Critically lowImmunity>9.9The [facility] on above:Result Comment: Status of Immunity Anti-HBs Level Inconsistent with Immunity 0.0 - 9.9 Consistent with Immunity >9.9Performed By: #### VIRGINIEAGA #### [facility] [address] [place] [address] Dr. Nixon Zendejas [id number] Information Issued Quantity 1 Product ID Rh Immune Globulin Lot Number [id number] Issue Date/Time [id number] Hospital [place] on above: Performed By: #### LACHELLE #### [facility] [address] [place] [address] Dr. Nixon BravoGLUCMIRANDA - 1HRon [id number] [Mass/Vol]98 mg/oTPqcgvq23-042 The [facility] HospitalComment on above:Performed By: #### CVDAGA #### [facility] [address] [place] [address] Dr. Nixon BravoHEMOGRAM AND PLATELon [id number] (Bld) [Volume fraction]35.7 %Critically low36.0-48.0[facility] HospitalComment on above: Performed By: #### HH #### [facility] [address] [place] [address] Samantha KarenHemoglobin (Bld) [Mass/Vol]11.8 g/dLCritically low12.0-16.0The [facility] HospitalComment on above:Performed By: #### HH #### [facility] [address] [place] [address] Samantha KarenMCH (RBC) [Entitic mass]28.0 aoMsyoei16.7-34.0[facility] Comment on above:Performed By: #### HH #### [facility] [address] [place] [address] Samantha KarenMCHC (RBC) [Mass/Vol]33.1 g/vJYuieot86.9-35.2[facility] Comment on above:Performed By: #### HH #### [facility] [address] [place] [address] Samantha KarenMCV (RBC) [Entitic vol]84.8 oVQqjclp93.0-99.0[facility] Comment on above:Performed By: #### HH #### [facility] [address] [place] [address] Samantha NzdjdLPA798 103/gkSwrblj267-522Nfr [facility] HospitalComment on above: Performed By: #### HH #### [facility] [address] [place] [address] Samantha KarenRBC4.21 106/ulNormal4.20-5.40The [facility]st HospitalComment on above: Performed By: #### HH #### [facility] [address] [place] [address] Samantha NgybmZMD62.3 103/ulCritically high4.0-11.0The [facility]st HospitalComment on above:Performed By: #### HH #### [facility] [address] [place], [place] [address] Samantha MedelenTYPE AND SCREENon 75-91-2486PXQD AND SCREENNegativeSelect Medical [facility] Rehabilitation Hospital - DublinComment on above:Performed By: #### TNS #### [facility] [address] [place], [place] [address] Samantha MedelenUS PREG PLACENTAon 74-43-1879PY PREG PLACENTAEXAMINATION: US PREG PLACENTA HISTORY: Low lying placenta COMPARISON: 03/18/2021 FINDINGS: Placenta: Posterior. No intraplacental or retroplacental echogenic abnormality. The placental edge is 4.8 cm from the cervical os. IMPRESSION: Placental edge is 4.8 cm from the cervical os Electronically authenticated by: ESAU DUFF Date: 2021-04-15 08:45[facility] Vital Signs Date TimeVital SignValuePerforming MlddwzyuiZikunged44-47-0105 10:41-0500Body mass index (BMI) [Ratio]49.96 kg/v4Apweo Skye DO Work Phone: [phone]-[facility] HospitalLezuwxdbru13-73-1586 10:41-0500Body bkyudx700.03 kgCorey Skye DO Work Phone: [phone] [place], [place] [address]Xnkwmofuzo72-47-7231 10:41-0500Diastolic blood nkdczoii37 mm[Hg]Min Skye DO Work Phone: [phone] HospitalYjewkapqvr94-43-5264 10:41-0500Systolic blood nfoyylvx366 mm[Hg]Min Skye DO Work Phone: [phone] HospitalElujwirghm04-00-8328 11:45-0400Body mass index (BMI) [Ratio]49.61 kg/b2Xtidt Skye DO Work Phone: [facility] HospitalZjlllzllov66-12-5585 11:45-0400Body lbyxjw683.21 kgCorey Skye DO Work Phone: [phone]-[facility] HospitalHskodoqszt10-92-9899 11:45-0400Diastolic blood upshyjth87 mm[Hg]Min Skye DO Work Phone: [phone])549-[address] [place], [place] [address]Bccbbbmmpt87-20-7052 11:45-0400Systolic blood rhqizehv007 mm[Hg]Min Skye DO Work Phone: [phone] [place], [place] [address]Fpryyqdiya25-77-0876 15:26-0400Body mass index (BMI) [Ratio]48.67 kg/h5Qglilysh Neena [employer]ITION ASSEMBLY LABORER Work Phone: [phone])128-[address] [place], [place] [address]Vldxhxjfoj10-97-1361 15:26-0400Body .04 kgKrtorresa Neena [employer]ITION ASSEMBLY LABORER Work Phone: [phone] [place], [place] [address]Gkcghqfpvf40-04-9767 15:26-0400Diastolic blood dshvadre23 mm[Hg]Becki Neena [employer]ITION ASSEMBLY LABORER Work Phone: [phone])803-[address] [place], [place] [address]Vdzxigiqjb31-95-4351 15:26-0400Systolic blood mm[Hg]Becki Neena [employer]ITION ASSEMBLY LABORER Work Phone: [phone] [place], [place] [address]Swadotamfi90-20-3283 15:30-0400Body mass index (BMI) [Ratio]47.8 kg/j3Lufbv Skye DO Work Phone: [phone])909-[address] [place], [place] [address]Pufcuzziil82-93-0018 15:30-0400Body vensci747.02 kgCorey Skye DO Work Phone: [phone] [place], [place] [address]Xykkwongdb34-40-9387 15:30-0400Diastolic blood qlgseshv15 mm[Hg]Min Skye DO Work Phone: [phone])820-[address] [place], [place] [address]Lvfjuekcgf63-48-0658 15:30-0400Systolic blood sonmawpg130 mm[Hg]Min Skye DO Work Phone: [phone])[facility] [place], [place] [address]Cmhvrftlhp70-87-5284 10:14-0400Body mass index (BMI) [Ratio]47.16 kg/g8Qnqdt Skye DO Work Phone: [phone])523-[address] [place], [place] [address]Gyabljdeeq15-14-8388 10:14-0400Body hytrwr663.54 kgCorey Skye DO Work Phone: [facility] HospitalHpuvxjcppt15-63-2223 10:14-0400Diastolic blood anaoeasq13 mm[Hg]Min Skye DO Work Phone: [facility] HospitalOtjiremilb84-14-1872 10:14-0400Systolic blood mm[Hg]Min Skye DO Work Phone: [phone]-[facility] HospitalWkcatvnmrl67-67-3604 10:20-0400Body mass index (BMI) [Ratio]45.8 kg/m2Amy Kamryn PA Work Phone: [phone])847-[address] [place], [place] [address]Gsilfdrqcj19-63-5384 10:20-0400Body lhdris238.37 kgBekah Spearmirta ESCAMILLA Work Phone: [phone])960-[address] [place], [place] [address]Dyjoxdmvin72-39-1296 10:20-0400Diastolic blood gvewcfvr35 mm[Hg]Bekah Spearmirta ESCAMILLA Work Phone: [phone] [place], [place] [address]Kfjchxltjl12-70-5283 10:20-0400Systolic blood dpqundfv564 mm[Hg]Bekah Olson PA Work Phone: [phone] [place], [place] [address]Cauotmqqhd61-32-3224 09:15-0400Body mass index (BMI) [Ratio]44.33 kg/i5Iacdk Skye DO Work Phone: [phone])462-[address] [place], [place] [address]Tciiavvwqw35-83-6332 09:15-0400Body .97 kgCorey Skye DO Work Phone: [phone])399-[address] [place], [place] [address]Itsyryljsj40-99-4265 09:15-0400Diastolic blood mm[Hg]Min Skye DO Work Phone: [phone])803-[address] [place], [place] [address]Pasruhtcdl38-98-9008 09:15-0400Systolic blood xqpmecjc795 mm[Hg]Min Skye DO Work Phone: [phone])645-[address] [place], [place] [address]Vbrmzukvfo01-37-6107 13:47-0400Body mass index (BMI) [Ratio]43.59 kg/m2NoWashington [facility] Hospital05-15-2025 13:47-0400Body sjnnua286.24 kgNova NurseSaint John's Aurora Community HospitalYctegjbush33-91-8300 13:47-0400Diastolic blood fmgmxvxa65 mm[Hg]Noms NurseMS Gpiehaxtxh83-90-0586 13:47-0400Systolic blood lvprypxp420 mm[Hg][facility]02-13-2025 13:02-0500Body mass index (BMI) [Ratio]47.29 kg/m2Bekah Kamryn ESCAMILLA Work Phone: [facility] HospitalVmyxbfiwkz59-15-5383 13:02-0500Body atlijo870.83 kgBekah Kamryn ESCAMILLA Work Phone: [facility] HospitalBlxoppbmsh42-30-8915 13:02-0500Diastolic blood ipadcdfr31 mm[Hg]Bekah Kamrny ESCAMILLA Work Phone: [facility] HospitalQnprmtsvkr15-65-7941 13:02-0500Systolic blood lougivvw963 mm[Hg]Bekah Kamryn ESCAMILLA Work Phone: [facility] HospitalCvdthhihpu56-23-1824 11:59-0500Body mass index (BMI) [Ratio]48.63 kg/m4Aeezz Skye DO Work Phone: [facility] HospitalHmmalebuvy01-17-7570 11:59-0500Body zbogru651.95 kgCorey Skye DO Work Phone: [facility] HospitalExofjfbqyl44-98-5144 11:59-0500Diastolic blood tevkipmm37 mm[Hg]Min Skye DO Work Phone: [facility] HospitalHnzrlwddqm34-67-5145 11:59-0500Systolic blood vviktobp859 mm[Hg]Min Skye DO Work Phone: [facility] Encounters Encounter DateEncounter TypeCare ProviderFacilityStart: 09-09-2025 End: 73-11-9342Tqhwex flowsheetCorey Skye DO Work Phone: [facility]YNStart: 09-09-2025 End: 62-43-9551Mbnneo flowsheetCorey Skye DO Work Phone: [facility]YNStart: 09-09-2025 End: 80-67-5166Ejdeqmvxb Result EncounterCorey Skye DO Work Phone: [facility] External Department UnsolicitedStart: 09-09-2025 End: 36-16-2661Actapemv Result EncounterCorey Skye DO Work Phone: [facility] External Department UnsolicitedStart: 09-09-2025 End: 50-72-8226Kckrkfwe flow sheetCorey Skye DO Work Phone: [facility]BGYNComment on above:Third trimester ([facility] 36 weeks gestation of ([facility])Start: 09-09-2025 End: 47-81-9687jqvakbdmmhKMGMY FAZIONot AvailableStart: 08-26-2025 End: 23-88-8133Debojusy flow sheetCorey Skye DO Work Phone: [facility]BGYNComment on above:Third trimester ([facility]); 34 weeks gestation of ([facility])Start: 08-26-2025 End: 21-66-9537hvgaicmaleOHZNC FAZIONot AvailableStart: 08-11-2025 End: 58-02-7216sreqwbxllzWXCFRZEP EBERLYNot AvailableStart: 08-11-2025 End: 46-50-7571Hlckarqx flow sheetKristina Neena [employer] ASSEMBLY LABORER Work Phone: [facility]BGYNComment on above: size inconsistent with dates ([facility]) (Primary Dx); Third trimester ([facility]); 32 weeks gestation of ([facility])Start: 08-11-2025 End: 48-02-9420Nhcmza flowsheetKrkavin Chaudhary AMMUNITION ASSEMBLY LABORER Work Phone: [facility]BGYNStart: 08-11-2025 End: 72-38-7535Vskthr flowsheetKristina Neena AMMUNITION ASSEMBLY LABORER Work Phone: [facility]YNStart: 07-28-2025 End: 26-65-9179Frgrvvki flow sheetCorey Skye DO Work Phone: [facility]BGYNComment on above:Third trimester ([facility]); 30 weeks gestation of ([facility])Start: 07-28-2025 End: 13-26-6510ffvqqraavjXOWHQ FAZIONot AvailableStart: 07-28-2025 End: 51-40-7309Paxhip flowsheetCorey Skye DO Work Phone: [facility]BGYNStart: 07-28-2025 End: 92-65-2950Pvsiyo flowsheetCorey Skye DO Work Phone: [facility]YNStart: 07-14-2025 End: 63-20-0034Sqpfhltnj Result EncounterCorey Skye DO Work Phone: [facility] External Department UnsolicitedStart: 07-14-2025 End: 68-51-3262Cmuaaheji Result EncounterCorey Skye DO Work Phone: [facility] External Department UnsolicitedStart: 06-30-2025 End: 47-27-2130Lmxhtq flowsheetCorey Skye DO Work Phone: [facility]YNStart: 06-30-2025 End: 89-74-0791Rinopo flowsheetCorey Skye DO Work Phone: [facility]YNStart: 06-30-2025 End: 18-33-9291jgddgprnzlZPZRO FAZIONot AvailableStart: 06-30-2025 End: 12-23-3325Dwhmbnya flow sheetCorey Skye DO Work Phone: [facility]BGYNComment on above:Second trimester ([facility]); 26 weeks gestation of ([facility]); Diabetes mellitus screeningStart: 05-29-2025 End: 49-70-4055sakutydqtjGPG RAMEYNot AvailableStart: 05-29-2025 End: 43-18-1197Wonejgzp flow sheetBekah Olson PA Work Phone: [facility] BCP OBComment on above:Second trimester ([facility]); 22 weeks gestation of ([facility])Start: 05-29-2025 End: 27-29-5212osaxelspglZZO RAMEYNot AvailableStart: 04-17-2025 End: 83-48-3660Gryfrg flowsheetCorey Skye DO Work Phone: [facility] BCP OBStart: 04-17-2025 End: 71-53-4275Exhopi flowsheetCorey Skye DO Work Phone: [facility] BCP OBStart: 04-17-2025 End: 43-55-0007lfowwfbjrrFHNLU FAZIONot AvailableStart: 04-17-2025 End: 46-02-1958Jkxppkjf flow sheetCorey Skye DO Work Phone: [facility] BCP OBComment on above:Second trimester ([facility]); 16 weeks gestation of ([facility]); Screening, , for anatomic survey ([facility])Start: 04-16-2025 End: 91-94-5399Qihznwmjo Result EncounterCorey Skye DO Work Phone: no[facility] External Department UnsolicitedStart: 04-16-2025 End: 45-12-5045Vylvrnqye Result EncounterCorey Skye DO Work Phone: [facility] External Department UnsolicitedStart: 03-20-2025 End: 26-36-3461Deuqmy outpatient visit 5 minutesNoms Bcp Ob Skye NurseNOMS BCP OBComment on above:GA: 74i1yVttjd: 03-20-2025 End: 84-12-0487tqrrdmbickCBT RAMEYNot AvailableStart: 01-13-2025 End: 12-70-3002sojbquarieXIC RAMEYNot AvailableStart: 12-19-2024 End: 25-45-2457Gcvrgu Jaden ESCAMILLA Work Phone: [facility] BCP OBStart: 12-19-2024 End: 37-71-6373Gqbysz Jaden ESCAMILLA Work Phone: [facility] BCP OBStart: 12-19-2024 End: 17-08-7257Htitms outpatient visit 15 minutesAmy Kamryn ESCAMILLA Work Phone: [facility]oms BCP OBComment on above:Encounter for weight managementStart: 12-19-2024 End: 07-04-7018navyaoylfrJLH RAMEYNot AvailableStart: 11-12-2024 End: 77-34-1416Fgxtlz flowsheetCorey Skye DO Work Phone: [facility] BCP OBStart: 11-12-2024 End: 07-60-9822Mcjflq flowsheetCorey Skye DO Work Phone: [facility] BCP OBStart: 11-12-2024 End: 16-12-7026Uioiuvzvm Result EncounterCorey Skye DO Work Phone: [facility] External Department UnsolicitedStart: 11-12-2024 End: 13-49-9863Drosohk encounter procedureCorey Skye DO Work Phone: [facility] HealthcareStart: 11-12-2024 End: 53-25-9641Sgtdjaqr preventive med est patient 18-39 yrsCorey Skye DO Work Phone: noms BCP OBComment on above:Well woman exam with routine gynecological exam; Weight gainStart: 11-12-2024 End: 26-05-0983xtquwxsqvkBQDMP FAZIONot AvailableStart: 03-15-2022 End: 87-57-4390lmrdawqgeuQI MIN FAZIOFacility:L2Czmqr: 08-03-2021 End: 18-96-1560uxuonccoknYC MIN FAZIOFacility:G8Ketan: 58-10-7291Ammegwpjsu and management of inpatientDR MIN FAZIOFacility:D3Mizzn: 07-28-2021 End: 76-29-7840hyjjvzpiabTO MIN FAZIOFacility:I1Butxf: 07-24-2021 End: 80-04-4325Fsdzyjdeji and management of inpatientDR GLEN SALGADO Facility:P6Aekpa: 07-15-2021 End: 39-68-1689giaizgpripOA MIN FAZIOFacility:W8Fgtoa: 07-01-2021 End: 85-87-4739eymnjozmazRQ MIN FAZIOFacility:N6Arawu: 07-01-2021 End: 23-87-9452irxsqemmlwYF MIN FAZIOFacility:D6Mnwef: 32-89-0881Yzdfieqbf for antibody response examinationDR MIN Gastelum [facility] HospitalStart: 06-09-2021 End: 46-82-2079sbhogymbjgVX MIN FAZIOFacility:W1Lubbx: 06-09-2021 End: 31-30-9238Xsaezmxuy for antibody response examinationDR MIN SAGEO Facility:T7Vffud: 05-06-2021 End: 57-98-2020eeimwmthjkNT MIN FAZIOFacility:W4Wkbsf: 04-15-2021 End: 05-04-8131azvrurmaeuZV MIN FAZIOFacility:H1 Procedures DateProcedureProcedure DetailPerforming ClinicianStart: 70-98-0946SYYXWRMAO VAGINITIS (HTRX)Min Skye DO Work Phone: Start: 79-61-7236Peahx dip stick/tablet rgnt non-auto w/o micrscpCorey Skye DO Work Phone: Start: 66-78-1021WHKTV GP B CULTURE+RFLXCorey Skye DO Work Phone: Start: 56-05-4647Kfdjn dip stick/tablet rgnt non-auto w/o micrscpCorey Skye DO Work Phone: Start: 12-35-3545Moqrj dip stick/tablet rgnt non-auto w/o micrscpKristina Neena AMM[employer]ITION ASSEMBLY LABORER Work Phone: Start: 37-27-7545Pgmgp dip stick/tablet rgnt non-auto w/o micrscpCorey Skye DO Work Phone: Start: 43-11-2265EFMHTQK 1 HOURCorey Skye DO Work Phone: Start: 68-82-0895Etriv dip stick/tablet rgnt non-auto w/o micrscpCorey Skye DO Work Phone: Start: 22-44-3654Zawmf dip stick/tablet rgnt non-auto w/o micrscpAmy Kamryn ESCAMILLA Work Phone: Start: 11-29-9576Uetky dip stick/tablet rgnt non-auto w/o micrscpCorey Skye DO Work Phone: Start: 58-87-9151LHH CBC WITH AUTO DIFFCorey Skye DO Work Phone: Start: 40-92-6595Qfnpy dip stick/tablet rgnt non-auto w/o micrscpCorey Skye DO Work Phone: Start: 84-97-1193LNG,APTIMA HPV,AGE GDLNCorey Skye DO Work Phone: Start: 58-85-8666Upzx cerv/vag auto thin layer prep mnl screenCorey Skye DO Work Phone: Start: 66-25-6838Oxpqikclqgn of Nonautologous Red Blood Cells into Peripheral Vein, Percutaneous ApproachDR MIN FAZIOStart: 62-22-0020Wsuirpaopx of Products of Conception, Low Cervical, Open ApproachDR MIN FAZIOStart: 19-78-6219Xaeastnx of Amniotic Fluid, Therapeutic from Products of Conception, Via Natural or Artificial OpeningDR MIN FAZIOStart: 06-26-8783Gipgpagzsbym of Other Hormone into Peripheral Vein, Percutaneous ApproachDR [facility] Plan of Treatment DateCare ActivityDetailAuthorStart: 11-18-2025 End: 83-60-1065Gfxvtag encounter procedureNOMS BCP OBStart: 09-18-2025 End: 45-45-7656Xaxqkca encounter /13/2025 2:30 PM EST Routine [facility] [address] [place], [id number] Bekah Olson PA [address] [place] [address] NOMNick [facility] OBGYNStart: 09-09-2025 End: 24-56-4719RPYPDZF, GROUP B STREP WITH SUSCEPTIBLITYCULTURE, GROUP B STREP WITH SUSCEPTIBLITY Lab Routine Third trimester ([facility]) Expected: 09/09/2025, Expires: 09/09/2026N[facility] HealthcareComment on above:Expected: 09/09/2025, Expires: 09/09/2026Start: 09-09-2025 End: 78-42-6770Adtxdja encounter procedureNOMS [facility]er OBGYNComment on above: ArrivedStart: 08-11-2025 End: 67-65-3855Dvapsrl encounter /06/2025 3:20 PM EDT Routine NOMNick [place] [facility] [address] [place], [phone] Becki Chaudhary, AMM[employer] ASSEMBLY LABORER [address] [place] [phone] NOMNick [facility] OBGYNStart: 08-11-2025 End: 99-82-9466MQ for pregnancyUS OB follow up transabdominal approach Imaging Routine size inconsistent with dates ([facility]) Expected: 08/11/2025, Expires: 12/12/2025[facility] Work Phone: comment on above:Expected: 08/11/2025, Expires: 12/12/2025Start: 07-28-2025 End: 21-86-7584Msqlgck encounter procedureNO [place] OBGYNComment on above: ArrivedStart: 07-14-2025 End: 17-87-6607Raodgyv encounter iiebtncbl26/08/2025 11:30 AM EDT Routine [facility] [facility] [address] [place] [phone] Min Cheung DO [address] [place] [address] ROSELIA [place] OBGYNStart: 06-30-2025 End: 98-08-9743ZGV panel - Blood by Automated countCBC Lab Routine Diabetes mellitus screening Expected: 06/30/2025 (Approximate), Expires: 06/30/2026[facility] Work Phone: comment on above:Expected: 06/30/2025 (Approximate), Expires: 06/30/2026Start: 06-30-2025 End: 98-42-7244Iykdkfofwhs of glucose 1 hour after glucose challenge for glucose tolerance testGlucose tolerance, 1 hour Lab Routine Diabetes mellitus screening Expected: 06/30/2025 (Approximate), Expires: 06/30/2026[facility] HealthcareComment on above:Expected: 06/30/2025 (Approximate), Expires: 06/30/2026Start: 06-30-2025 End: 91-65-1361Unfjikn encounter /25/2025 9:50 AM EDT Routine [facility] [address] [place] [phone] Min Cheung DO [address] [place], [place] [id number] [facility] BCP OBStart: 05-29-2025 End: 33-40-7843Nnyionj encounter okmgvqudh64/24/2025 9:30 AM EDT Routine [facility] [address] [place] [address] Bekah Olson PA [address] [place] [address] N[facility] BCP OBStart: 05-29-2025 End: 71-49-5807Ujzxusvdfeik / ancillary services cujrdcehgt42/24/2025 8:30 AM EDT Ancillary Procedure [facility] [address] [place] [address] [facility] BCP OBStart: 04-17-2025 End: 78-27-1634Jhztz fetoprotein, maternalAlpha fetoprotein, maternal Lab Routine 16 weeks gestation of ([facility]) Expected: 04/17/2025 (Approximate), Expires: 06/17/2025[facility] Work Phone: comment on above:Expected: 04/17/2025 (Approximate), Expires: 06/17/2025Start: 04-17-2025 End: 41-09-6327XW for pregnancyUS OB 14+ weeks anatomy scan Imaging Routine Screening, , for anatomic survey ([facility]) Expected: 04/17/2025, Expires: 07/18/2025[facility] HealthcareComment on above:Expected: 04/17/2025, Expires: 07/18/2025Start: 04-17-2025 End: 39-15-1568Bbhqtgz encounter niacyzjwk33/12/2025 8:50 AM EDT Routine [facility] [address] [place] [phone] Min Cheung, DO [address] [place] [address] NOMS BCP OBStart: 03-20-2025 End: 67-34-7311VZL/RhABO/Rh Lab Routine Missed menses , unspecified gestational age Expected: 03/20/2025 (Approximate), Expires: 03/20/2026N[facility] HealthcareComment on above:Expected: 03/20/2025 (Approximate), Expires: 03/20/2026Start: 03-20-2025 End: 32-06-6374Tfmvw type and Indirect antibody screen panel - BloodType and screen Lab Routine Missed menses , unspecified gestational age Expected: 03/20/2025 (Approximate), Expires: 03/20/2026[facility] HealthcareComment on above:Expected: 03/20/2025 (Approximate), Expires: 03/20/2026Start: 03-20-2025 End: 39-94-4104Dczcz of abuse panel - Urine by Screen methodRapid drug screen, urine Lab Routine , unspecified gestational age Encounter for supervision of normal first in first trimester Expected: 03/20/2025 (Approximate), Expires: 03/20/2026N[facility] HealthcareComment on above:Expected: 03/20/2025 (Approximate), Expires: 03/20/2026Start: 03-19-2025 End: 31-15-5912GK Pelvis transvaginalUS OB transvaginal Imaging Routine Missed menses Expected: 03/19/2025, Expires: 06/19/2025[facility] Work Phone: comment on above:Expected: 03/19/2025, Expires: 06/19/2025Start: 01-16-2025 End: 27-80-1637Tirdwly encounter jzuwgglzu71/13/2025 8:30 AM EDT Office Visit [facility] [address] [place] [phone] Bekah Olson PA [address] [address] NOMS BCP OBStart: 12-19-2024 End: 89-23-3616Fwriifj encounter procedureNOMS BCP OBComment on above:Arrived Start: 11-12-2024 End: 76-90-1262Ijsaffh encounter denjckitp73/07/2025 11:40 AM EST Office Visit [facility] [address] [place] [phone] Min Cheung DO [address] [place] [address] ArrivedNOMS BCP OBComment on above:ArrivedBacteria identified in Urine by CultureUrine culture Microbiology Routine Missed menses Ordered: 03/20/2025[facility] HealthcareComment on above:Ordered: 03/20/2025BC W Auto Differential panel - BloodCBC and differential Lab Routine Missed menses , unspecified gestational age Ordered: 03/20/2025[facility] HealthcareComment on above:Ordered: 03/20/2025HLAMYDIA TRACHOMATIS (GENITO/STI)CHLAMYDIA TRACHOMATIS (GENITO/STI) Lab Routine Third trimester ([facility]) Ordered: 09/09/2025[facility] HealthcareComment on above:Ordered: 09/09/2025ytology Cervical or vaginal smear or scraping studyPap Smear Pathology and Cytology Routine Well woman exam with routine gynecological exam Ordered: 11/12/2024[facility] Work Phone: Comment on above:Ordered: 11/12/2024Hemoglobin A1c/Hemoglobin.total in BloodHemoglobin A1c Lab Routine Missed menses , unspecified gestational age Ordered: 03/20/2025[facility] HealthcareComment on above: Ordered: 03/20/2025Hepatitis B virus surface Ag [Presence] in Serum or Plasma by ImmunoassayHepatitis B surface antigen Lab Routine Missed menses , unspecified gestational age Ordered: 03/20/2025[facility] HealthcareComment on above: Ordered: 03/20/2025Hepatitis C virus Ab [Presence] in Serum or Plasma by ImmunoassayHepatitis C antibody Lab Routine Missed menses , unspecified gestational age Ordered: 03/20/2025[facility] HealthcareComment on above:Ordered: 03/20/2025HIV-1/HIV-2 antigen/antibody combination immunoassayHIV-1 and HIV-2 antibodies Lab Routine Missed menses , unspecified gestational age Ordered: 03/20/2025[facility] HealthcareComment on above:Ordered: 03/20/2025Neisseria gonorrhoeae DNA [Presence] in Unspecified specimen by JONA with probe detection Neisseria gonorrhea DNA probe, direct Lab Routine Third trimester ([facility]) Ordered: 09/09/2025[facility] HealthcareComment on above:Ordered: 09/09/2025 Reagin Ab [Presence] in Serum by RPRRPR Lab Routine Missed menses , unspecified gestational age Ordered: 03/20/2025[facility] HealthcareComment on above: Ordered: 03/20/2025Rubella antibody, IgGRubella antibody, IgG Lab Routine Missed menses , unspecified gestational age Ordered: 03/20/2025[facility] HealthcareComment on above:Ordered: 03/20/2025SURESWAB(R) ADVANCED VAGINITIS PLUS, TMASURESWAB(R) ADVANCED VAGINITIS PLUS, TMA Pathology and Cytology Routine Third trimester ([facility]) Ordered: 09/09/2025[facility] Healthcare Work Phone: comment on above:Ordered: 09/09/2025US Pelvis transvaginalUS OB transvaginal Imaging Routine Missed menses 03/20/2025 12[facility] [place] Payers DatePayer CategoryPayerPolicy [id number] ..[id number] 2..1.258930.3.57[id number] 2..1.897694.3.57[id number] 2..1.907860.3.579.2.67079-96-7950Bdvivvj9970169 2..1.230544.3.579.2.24485-65-8027Cbeacpr0568548 2..1.291768.3.579.2.76169-50-0984Jhzbcbg6362110 2..1.582682.3.579.2.41357-22-2614Dfqcumb6895249 2..1.480519.3.579.2.07418-04-7576Yxkijkb0292815 2..1.145150.3.579.2.83220-46-0938Bypqrqj7106131 2.840.1.309017.3.579.2.54524-77-0405Kepejlz2544977 2.840.1.949676.3.579.2.82549-94-6940Pzmquyc8719229 2.840.1.369096.3.579.2.39857-98-7889Nmqgbre1045357 2.840.1.501246.3.579.2.95021-21-3003Aljzqlj18343032 2.0.1.347840.3.579.2.530137-08-6923Tucsgkp03898360 2.0.1.805635.3.579.2.0[id number] 2.0.1.911958.3.579.2.259829-80-5388Mlvumhi07789371 2.0.1.637355.3.579.2.700387-11-0644Sztzibx73718032 2.0.1.570511.3.579.2.559512-20-7765Qqbphit12703436 2..1.878827.3.579.2.[id number] 2..1.318723.3.57[id number] 2.0.1.983364.3.57[id number] 2.0.1.854735.3.579.2.054835-90-5870Xtyozcj4805555 2.840.1.899372.3.579.2.[id number] 2.0.1.597837.3.579.[id number] 2.16.840.1.580504.3.579.2.6[id number] 2.16.840.1.089312.3.579.2.117327-91-0676Wgyafpp7830092 2.16.840.1.669981.3.579.2.980754-57-4648Pzkwiga6185695403004-00-4203Qayhflf [id number] Social History DateTypeDetailFacilityStart: 18-45-8047Mtfqhgg smoking status NHISOccasional tobacco smokerNOKS HealthcareHistory of tobacco useCigarette SmokerPRIMARY CHILDR[facility]'S [facility] HealthcareStart: 07-05-2023 End: 07-13-2587Zlgzqblim beverage intakeCurrent drinker of alcohol (finding)[facility] HealthcareStart: 07-05-2023 End: 09-42-9603Uzchxns of Social functionNOKS HealthcareStart: 07-05-2023 End: 30-91-7255Fhjupwd use panelNOKS HealthcareStart: 64-84-2889Gtfaoys Comment5 or less cigarettes/dayPR[facility] CHILDREN'S [facility]ITAL HealthcareStart: 12-27-3800Zsdnrnb CommentAlcohol: 1 or 2 drinks on a typical day / 2 to 4 times a month. Caffeine: >4 cups/day coffeePRIMARY CHILDREN'S HOSPITAL HealthcareStart: 41-08-2529Fmb assigned at birthAsc[facility] Start: 51-65-7132Jxpkti identityIdentifies as female gender (finding)[facility] HealthcareStart: 68-60-9140Uswuhy orientationHeterosexual (finding)[facility] HealthcareStart: 53-96-3541OwrhupjvxAARH HealthcareStart: 08-72-8278DlxZckwkq [facility] Healthcare Goals DatePatient GoalDesired Activity/StatePersonal health goal Clinical Notes 07-24-2021 to 09-09-2025 Note Date & JccnMqvfWyfoiyog37-00-0533 History of Present illness Narrative* Eliana Pruett LPN - 09/09/2025 10:00 AM [...] nursing note reviewed. Exam conducted with a tool clerk present. Vitals: Estimated body mass index is 49.96 kg/m as calculated from the following: Height as of 01/13/25: 5'. Weight as of this encounter: 255 lb 12.8 oz. BP: 126/78 Patient's last menstrual period was 01/16/2025. Assessment/Plan ICD-10-CM 1. Third trimester ([facility]) Z34.93 SURESWAB(R) ADVANCED VAGINITIS PLUS, TMA CHLAMYDIA TRACHOMATIS (GENITO/STI) Neisseria gonorrhea DNA probe, direct CULTURE, GROUP B STREP WITH SUSCEPTIBLITY CULTURE, GROUP B STREP WITH SUSCEPTIBLITY 2. 36 weeks gestation of ([facility]) Z3A.36 POCT urinalysis dipstick manually resulted Patient [...] of: Min Cheung DO documented in this encounterSaint John's Aurora Community HospitalDjjzxldrgw08-82-0124 History of Present illness Narrative* Eliana Pruett [...] nursing note reviewed. Exam conducted with a tool clerk present. Vitals: Estimated body mass index is 49.61 kg/m as calculated from the following: Height as of 01/13/25: 5'. Weight as of this encounter: 254 lb. BP: 138/82 Patient's last menstrual period was 01/16/2025. Assessment/Plan ICD-10-CM 1. Third trimester ([facility]) Z34.93 2. 34 weeks gestation of ([facility]) Z3A.34 POCT urinalysis dipstick manually resulted Return [...] of: Min Cheung DO documented in this encounterSaint John's Aurora Community HospitalNjmfwadzin24-21-8634 History of Present illness Narrative* Becki Chaudhary [...] nursing note reviewed. Exam conducted with a tool clerk present. Vitals: Estimated body mass index is 48.67 kg/m as calculated from the following: Height as of 01/13/25: 5'. Weight as of this encounter: 249 lb 3.2 oz. BP: 122/72 Patient's last menstrual period was 01/16/2025. ASSESSMENT & PLAN ICD-10-CM 1. size inconsistent with dates ([facility]) O26.849 US OB follow up transabdominal approach 2. Third trimester ([facility]) Z34.93 3. 32 weeks gestation of ([facility]) Z3A.32 POCT urinalysis dipstick manually resulted Return [...] of: Becki Chaudhary NP documented in this encounterSaint John's Aurora Community HospitalBtcmnslzfk04-04-4499 History of Present illness Narrative* Bekci Chaudhary NP - 07/28/2025 2:50 PM EDT [...] nursing note reviewed. Exam conducted with a tool clerk present. Vitals: Estimated body mass index is 47.8 kg/m as calculated from the following: Height as of 01/13/25: 5'. Weight as of this encounter: 244 lb 12 oz. BP: 122/76 Patient's last menstrual period was 01/16/2025. ASSESSMENT & PLAN ICD-10-CM 1. Third trimester ([facility]) Z34.93 POCT urinalysis dipstick manually resulted 2. 30 weeks gestation of ([facility]) Z3A.30 Return OB: Patient presents today for [...] of: Min Cheung DO documented in this encounterSaint John's Aurora Community HospitalLyamylenwh63-60-1449 History of Present illness Narrative* Becki Chaudhary [...] nursing note reviewed. Exam conducted with a tool clerk present. Vitals: Estimated body mass index is 47.16 kg/m as calculated from the following: Height as of 01/13/25: 5'. Weight as of this encounter: 241 lb 8 oz. BP: 124/76 Patient's last menstrual period was 01/16/2025. ASSESSMENT & PLAN ICD-10-CM 1. Second trimester ([facility]) Z34.92 POCT urinalysis dipstick manually resulted 2. 26 weeks gestation of ([facility]) Z3A.26 3. Diabetes mellitus screening Z13.1 CBC [...] of: Min Cheung DO documented in this encounterSaint John's Aurora Community HospitalMclocamofh44-02-8804 History of Present illness Narrative* FRANCINE Chery [...] ASSESSMENT & PLAN ICD-10-CM 1. Second trimester ([facility]) Z34.92 POCT urinalysis dipstick manually resulted 2. 22 weeks gestation of ([facility]) Z3A.22 Return OB: Patient presents today for [...] behalf of: FRANCINE Chery documented in this encounterSaint John's Aurora Community HospitalEimlxmkkio03-16-1603 History of Present illness Narrative* Karina Osorio [...] nursing note reviewed. Exam conducted with a tool clerk present. Vitals: Estimated body mass index is 44.33 kg/m as calculated from the following: Height as of 01/13/25: 5'. Weight as of this encounter: 227 lb. BP: 120/84 Patient's last menstrual period was 01/16/2025. ASSESSMENT & PLAN ICD-10-CM 1. Second trimester ([facility]) Z34.92 POCT urinalysis dipstick manually resulted 2. 16 weeks gestation of ([facility]) Z3A.16 Alpha fetoprotein, maternal Alpha fetoprotein, maternal 3. Screening, , for anatomic survey ([facility]) Z36.89 OB 14+ weeks anatomy scan New OB: [...] or undercooked meat, and stay away [facility]. Patient has been consulted regarding any [...] of: Min Cheung DO documented in this encounterSaint John's Aurora Community HospitalThbluusipq83-26-9897 History of Present illness Narrative* Perlita Lynn [...] or undercooked meat, and stay away [facility]. Patient has also been advised to not change litter boxes and eat 6 small meals a day. Patient has been consulted regarding the do's and don'ts ofpregnancy. Patient was given labs and all questions and concerns were answered. Patient did not want Neopit labs or Zofran sent at this time. [...] by: Perlita Lynn LPN documented in this encounterSaint John's Aurora Community HospitalVgegqjhggy93-06-4739 History of Present illness Narrative* FRANCINE Chery [...] behalf of FRANCINE Chery documented in this encounterSaint John's Aurora Community HospitalZqkmewlarz88-54-0748 History of Present illness Narrative* Eliana Pruett [...] nursing note reviewed. Exam conducted with a tool clerk present. Vitals: Estimated body mass index is [...] of: Min Cheung DO documented in this encounterSaint John's Aurora Community HospitalFtxifjvrjc72-29-7574 NoteOPERATIVE NOTE OPERATION DATE: 07-24-21 ANESTHETIC:Spinal with Duramorph. SALES PERFORMANCE ANALYST:IBIS Cordova. PREOPERATIVE DIAGNOSIS: 1. Intrauterine at 39 [...] to the Recovery Room in stable condition. IFC Signed and Approved by: DR MIN CHEUNG . 07/27/2021 19:33:00[facility]09-18-2021 NoteDISCHARGE SUMMARY Discharge Date: 07-26-21 PRIMARY DIAGNOSIS: [...] Tylenol, any abdominal pain unrelieved with narcotics. IFC Signed and Approved by: DR MIN CHEUNG . 08/05/2021 21:36:00[facility]Evaluation [facility]* Diagnosis Well woman exam with routine [...] ([facility]) state, incidental 16 weeks gestation of ([facility]) Screening, , for anatomic survey ([facility]) Encounter for anatomic survey documented in this encounter [facility] HealthcareEvaluation [facility]* Diagnosis Second trimester ([facility]) state, incidental 22 weeks gestation of ([facility]) documented in this encounter [facility] HealthcareEvaluation note* Diagnosis Second trimester ([facility]) state, incidental 26 weeks gestation of ([facility]) [...] and content) DATE CREATED AUTHOR 03/24/2022 [facility] DATE CREATED AUTHOR AUTHOR'S ORGANIZ ATION 09/10/2025 [facility] EPIC Care Teams (unrecognized sec tion and content) Team MemberRelationshipSpecialtyStart DateEnd Date Varun Cardenas MD [address] [place] [address] PCP - General07/04/23Team MemberRelationshipSpecialtyStart DateEnd Date Varun Cardenas MD [address] [place] [address] PCP - General07/04/23Team MemberRelationshipSpecialtyStart DateEnd Date Varun Cardenas MD [address] [place] [address] PCP - General07/04/23Team MemberRelationshipSpecialtyStart DateEnd Date Varun Cardenas MD [address] [place] [address] PCP - General07/04/23Te MemberRelationshipSpecialtyStart DateEnd Date Varun Cardenas MD PCP - [facility]07/04/23Te MemberRelationshipSpecialtyStart DateEnd Date Varun Cardenas MD [address] [place] [address] PCP - [facility]07/04/23Te MemberRelationshipSpecialtyStart DateEnd Date Varun Cradenas MD [address] [place] [address] PCP - [facility]07/04/23Te MemberRelationshipSpecialtyStart DateEnd Date Varun Cardenas MD [address] [facility] [place] [address] PCP - [facility]07/04/23Te MemberRelationshipSpecialtyStart DateEnd Varun Cardenas MD [address] [place] [address] PCP - [facility]07/04/23 Reason for Visit (unrecogniz ed section and [...] BE BASED ON THE PRIMARY CLINICAL RECORDS. [facility] [employer] [facility]. provides no warranty or guarantee of the accuracy or completeness of information in this document.
--- OUTSIDE RECORDS SUMMARY | 2025-09-25 05:37 | XMS_ITS | Encounter Summary ---
Author Organization [facility] Address [address] [place] [address] Care Team Providers Care Die Casting Machine Operator Name Role Phone Varun Cardenas MD Primary Care Provider [phone] Encounter Details DateTypeDepartmentCare Team (Latest Contact Info)Msvqsllwfdw01/04/2025Clinisync Result Encounter [facility] External Department Unsolicited Grzegorz Cheung DO [address] [place], [place] [id number] Social History Tobacco UseTypesPacks/DayYears UsedDateSmoking Tobacco: Some DaysCigarettes Comments:5 or less cigarette s/day Alcohol UseStandard Drinks/WeekCommentsYes0 (1 standard drink = 0.6 oz pure alcohol)Alcohol: 1 or 2 drinks on a typical day / 2 to 4 times a month. Caffeine: >4 cups/day coffeeEstimated Date of DeliveryCommentsYes 5Based on Ultrasound, FHR-160Sex and Gender InformationValueDate RecordedSex Assigned at XkupeAwhckv86/29/2023 6:04 PM EDTLegal SexFemale 01/18/2023 6:37 PM EDTGender FvdicagmFkipgp12/29/2023 6:04 PM EDTSexual XxsstbqwtxuHkvkrbav52/29/2023 6:04 PM EDTdocumented as of this encounter Plan of Treatment DateTypeDepartmentCare Team (Latest Contact Info)Snmzwdfbaxo76/26/2025 3:30 PM ESTOffice Visit NOMNick [place] [facility] [address] [place] [address] Bekah Harry PA [address] [place] [address] 11/18/2025 9:00 AM ESTOffice Visit [facility]er JONES [address] [place] [address] Grzegorz Cheung DO [address] [place] [address] documented as of this encounter Goals GoalPatient Goal TypeAssociated ProblemsRecent ProgressPatient-Stated?Author Reminders Care PlanOB RemindersNoOpen Scheduling, Backgrounddocumented as of this encounter Procedures Procedure NamePriorityDate/TimeAssociated DiagnosisCommentsSTREP GP B CULTURE+VWXSBusbdxa29/04/2025 10:18 AM EST documented in this encounter Results * STREP GP B CULTURE+RFLX (09/09/2025 10:18 AM EST)ComponentValueRef RangeTest MethodAnalysis TimePerformed AtPathologist SignatureSTREP GP B CULTURE+RFLX ??Strep Gp B Culture+Rflx TBHSTREP GP B CULTURE+RFLXNegativeTBHSTREP GP B CULTURE+RFLXCenters for Disease Control and Prevention (CDC) andTBHSTREP GP B CULTURE+RFLXAmerican Congress of Obstetricians and GynecologistsTBHSTREP GP B CULTURE+RFLX(ACOG) guidelines for prevention of group BTBHSTREP GP B CULTURE+RFLXstreptococcal (GBS) disease specify co-collection ofTBHSTREP GP B CULTURE+RFLXa vaginal and rectal swab specimen to maximizeTBHSTREP GP B CULTURE+RFLXsensitivity of GBS detection. Per the CDC and ACOG,TBHSTREP GP B CULTURE+RFLXswabbing both the lower vagina and rectumTBHSTREP GP B CULTURE+RFLXsubstantially increases the yield of detectionTBHSTREP GP B CULTURE+RFLXcompared with sampling the vagina alone.TBH STREP GP B CULTURE+RFLXPenicillin G, ampicillin, or cefazolin are indicatedTBH STREP GP B CULTURE+RFLXfor intrapartum prophylaxis of GBSTBHSTREP GP B CULTURE+RFLXcolonization. Reflex susceptibility testing should beTBHSTREP GP B CULTURE+RFLXperformed prior to use of clindamycin only on GBSTBHSTREP GP B CULTURE+RFLXisolates from penicillin-allergic women who areTBHSTREP GP B CULTURE+RFLXconsidered a high risk for anaphylaxis. Treatment withTBHSTREP GP B CULTURE+RFLXvancomycin without additional testing is warranted ifTBHSTREP GP B CULTURE+RFLXresistance to clindamycin is noted.TBHSTREP GP B CULTURE+RFLX Performed at: [facility]Be[facility] HospitalTBHSTREP GP B CULTURE+IHVA[address] [place], [place] [id number] GP B CULTURE+RFLXLab Director: Jeet Dawn PhD, Phone: [phone] (Source)Anatomical Location / Laterality Collection Method / VolumeCollection TimeReceived Time09/09/2025 10:18 AM EST 09/09/2025 9:33 PM EST Narrative [facility] - 09/14/2025 6:09 PM EST Authorizing ProviderResult TypeResult StatusCorey Skye DOLAB BLOOD ORDERABLES Final ResultPerforming OrganizationAddressCity/State/ZIP CodePhone Number [facility] documented in this encounter Visit Diagnoses Not on filedocumented in this encounter Additional Health Concerns Active ProblemsNoted DateDiagnosed DateOB Jndduaioh72/11/2025 documented as of this encounter Care Teams Team MemberRelationshipSpecialtyStart DateEnd Date Varun Cardenas MD [address] [place] [address] PCP - [facility]07/04/23documented as of this encounter
--- OUTSIDE RECORDS SUMMARY | 2025-09-25 05:37 | XMS_ITS | Encounter Summary ---
Author Organization [facility] Address [address] [place] [address] Care Team Providers Care Savings Teller Name Role Phone Varun Cardenas MD Primary Care Provider [phone] Encounter Details DateTypeDepartmentCare Team (Latest Contact Info)Gmieklynzez49/04/2025External Result Encounter [facility] External Department Unsolicited Grzegorz Cheung DO [address] [place], [place] [phone] Social History Tobacco UseTypesPacks/DayYears UsedDateSmoking Tobacco: Some DaysCigarettes Comments:5 or less cigarette s/day Alcohol UseStandard Drinks/WeekCommentsYes0 (1 standard drink = 0.6 oz pure alcohol)Alcohol: 1 or 2 drinks on a typical day / 2 to 4 times a month. Caffeine: >4 cups/day coffeeEstimated Date of DeliveryCommentsYes 5Based on Ultrasound, FHR-160Sex and Gender InformationValueDate RecordedSex Assigned at GphdlDtmcuw51/29/2023 6:04 PM EDTLegal SexFemale 01/18/2023 6:37 PM EDTGender DajeasdiSkjdkr61/29/2023 6:04 PM EDTSexual EzwegphwwvnZwjzcaey07/29/2023 6:04 PM EDTdocumented as of this encounter Plan of Treatment DateTypeDepartmentCare Team (Latest Contact Info)Njcqhxttdoc95/26/2025 3:30 PM ESTOffice Visit [facility]BGYMaximus [address] [address] Bekah Harry PA [address] [place] [address] 11/18/2025 9:00 AM ESTOffice Visit [facility] JONES [address] [place] [address] Grzegorz Cheung DO [address] [place] [address] documented as of this encounter Goals GoalPatient Goal TypeAssociated ProblemsRecent ProgressPatient-Stated?Author Reminders Care PlanOB RemindersNoOpen Scheduling, Backgrounddocumented as of this encounter Procedures Procedure NamePriorityDate/TimeAssociated DiagnosisCommentsRECURRENT VAGINITIS (HTRX)Qrpjyar0409/09/2025 11:36 AM EST documented in this encounter Results * RECURRENT VAGINITIS (HTRX) (09/09/2025 11:36 AM EST)ComponentValueRef Range Test MethodAnalysis TimePerformed AtPathologist SignatureATOPOBIUM VAGINAE0 19.961 - 24.689 ppm09/11/2025 6:03 AM ESTHealthTrackRx at LabPortATOPOBIUM VAGINAENot Zdktuaxo11.961 - 24.689 ppm09/11/2025 6:03 AM ESTHealthTrackRx at LabPortBVAB 2,3 (BACTERIAL VAGINOSIS ASSOCIATED BACTERIA 2, 3); MOBILUNCUS SPP 019.961 - 24.689 ppm09/11/2025 6:03 AM ESTHealthTrackRx at LabPortBVAB 2,3 (BACTERIAL VAGINOSIS ASSOCIATED BACTERIA 2, 3); MOBILUNCUS SPPNot Detected 19.961 - 24.689 ppm09/11/2025 6:03 AM ESTHealthTrackRx at LabPortCANDIDA ALBICANS, PARAPSILOSIS, TOCZMERFZC706.000 - 30.347 ppm09/11/2025 6:03 AM EST [facility] at LabPortCANDIDA ALBICANS, PARAPSILOSIS, TROPICALISNot Detected 23.000 - 30.347 ppm09/11/2025 6:03 AM ESTHealthTrackRx at LabPortCANDIDA ZAFHBJRN274.000 - 31.618 ppm09/11/2025 6:03 AM ESTHealthTrackRx at LabPort CARIN GLABRATANot Fddvjnsi38.000 - 31.618 ppm09/11/2025 6:03 AM EST [facility] at LabPortCANDIDA ZPJVMF162.000 - 30.873 ppm09/11/2025 6:03 AM ESTHealthTrackRx at LabPortCANDIDA KRUSEINot Cltcdlbf72.000 - 30.873 ppm 09/11/2025 6:03 AM ESTHealthTrackRx at LabPortCHLAMYDIA QLRECPEPWQU084.000 - 31.586 ppm09/11/2025 6:03 AM ESTHealthTrackRx at LabPortCHLAMYDIA TRACHOMATIS Not Avpdnpbr03.000 - 31.586 ppm09/11/2025 6:03 AM ESTHealthTrackRx at LabPort GARDNERELLA KUUGVTJYW811.961 - 24.689 ppm09/11/2025 6:03 AM ESTHealthTrackRx at LabPortGARDNERELLA VAGINALISNot Orrekrer14.961 - 24.689 ppm09/11/2025 6:03 AM ESTHealthTrackRx at LabPortMEGASPHAERA (TYPES 1, 2)019.961 - 24.689 ppm 09/11/2025 6:03 AM ESTHealthTrackRx at LabPortMEGASPHAERA (TYPES 1, 2)Not Ltbuzmjf11.961 - 24.689 ppm09/11/2025 6:03 AM ESTHealthTrackRx at LabPort NEISSERIA NGVLJDIQGNF440.000 - 32.587 ppm09/11/2025 6:03 AM ESTHealthTrackRx at LabPortNEISSERIA GONORRHOEAENot Xmbkjkjg79.000 - 32.587 ppm09/11/2025 6:03 AM ESTHealthTrackRx at LabPortTRICHOMONAS JLIOZXBBP713.000 - 31.995 ppm 09/11/2025 6:03 AM ESTHealthTrackRx at LabPortTRICHOMONAS VAGINALISNot Esgwjqum14.000 - 31.995 ppm09/11/2025 6:03 AM ESTHealthTrackRx at LabPort MYCOPLASMA RPROQQTQMW289.961 - 24.689 ppm09/11/2025 6:03 AM ESTHealthTrackRx at LabPortMYCOPLASMA GENITALIUMNot Uwgoschw41.961 - 24.689 ppm09/11/2025 6:03 AM ESTHealthTrackRx at LabPortSpecimen (Source)Anatomical Location / LateralityCollection Method / VolumeCollection TimeReceived TimeTissue 09/09/2025 11:36 AM EST09/11/2025 1:54 AM EST Narrative Authorizing ProviderResult TypeResult StatusCorey Skye DOLAB BLOOD ORDERABLES Final ResultPerforming OrganizationAddressCity/State/ZIP CodePhone Number [facility] [address] [place] [address] documented in this encounter Visit Diagnoses Not on filedocumented in this encounter Additional Health Concerns Active ProblemsNoted DateDiagnosed DateOB Mzvjorroq26/11/2025 documented as of this encounter Care Teams Team MemberRelationshipSpecialtyStart DateEnd Date Varun Cardenas MD [address] [place] [address] PCP - General07/04/23documented as of this encounter
--- OUTSIDE RECORDS SUMMARY | 2025-09-25 05:37 | XMS_ITS | Encounter Summary ---
Author Organization [facility] Address [address] [place] [address] Care Team Providers Care Plastics Tooling Engineer Name Role Phone Varun Cardenas MD Primary Care Provider [phone] Encounter Details DateTypeDepartmentCare Team (Latest Contact Info)Hfohoaiwefm92/13/2025amboo flowsheet [facility] OBSUMAYA [address] [place] [address] Bekah Harry PA [address] [place], [id number] Social History Tobacco UseTypesPacks/DayYears UsedDateSmoking Tobacco: Some DaysCigarettes Comments:5 or less cigarette s/day Alcohol UseStandard Drinks/WeekCommentsYes0 (1 standard drink = 0.6 oz pure alcohol)Alcohol: 1 or 2 drinks on a typical day / 2 to 4 times a month. Caffeine: >4 cups/day coffeeEstimated Date of DeliveryCommentsYes 5Based on Ultrasound, FHR-160Sex and Gender InformationValueDate RecordedSex Assigned at JcecmWnegob78/29/2023 6:04 PM EDTLegal SexFemale 01/18/2023 6:37 PM EDTGender IhbpccyeUkpevw61/29/2023 6:04 PM EDTSexual YyhlcrfiktoLrwawrlp45/29/2023 6:04 PM EDTdocumented as of this encounter Plan of Treatment DateTypeDepartmentCare Team (Latest Contact Info)Yztaufhydbw08/26/2025 3:30 PM ESTOffice Visit [facility] GLOVERGYMaximus [address] [place] [address] Bekah Harry PA [address] [place] [address] 11/18/2025 9:00 AM ESTOffice Visit NOMNick JONES [address] [facility] [address] [place] [address] Grzegorz Cheung DO [address] [place] [address] documented as of this encounter Goals GoalPatient Goal TypeAssociated ProblemsRecent ProgressPatient-Stated?Author Reminders Care PlanOB RemindersNoOpen Scheduling, Backgrounddocumented as of this encounter Visit Diagnoses Not on filedocumented in this encounter Additional Health Concerns Active ProblemsNoted DateDiagnosed DateOB Xuuwigngm07/11/2025 documented as of this encounter Care Teams Team MemberRelationshipSpecialtyStart DateEnd Date Varun Cardenas MD [address] [facility] [place] [address] PCP - General07/04/23documented as of this encounter
--- OUTSIDE RECORDS SUMMARY | 2025-09-25 05:37 | XMS_ITS | Clinical Summary ---
Author Organization [facility] Address [address] [place] [address] Care Team Providers Care Nuclear Fuels Reclamation Engineer Name Role Phone Varun Cardenas MD Primary Care Provider [phone] Allergies No known active allergies Medications MedicationSigDispense QuantityRefillsLast FilledStart DateEnd DateStatus clindamycin (Cleocin-T) 1 % lotion Indications:Acne, unspecified acne typeApply topically Daily 60 mL /ctive MV-Min-Fe Fum-FA-DHA ( 1 PO) Take 1 tablet by mouth DailyActive aspirin 81 MG EC tablet Take 81 mg by mouth DailyActive Encounters DateTypeDepartmentCare NzitBdlggrksypo17/13/2025 2:30 [place] [address] Bekah Harry PA Third trimester ([facility]); 38 weeks gestation of ([facility])5Bamboo [place] [address] Bekah Harry PA 09/09/2025 10:00 [place] [address] Grzegorz Cheung DO Third trimester ([facility]); 36 weeks gestation of ([facility])5Clinisync Result Encounter NOMS External Department Unsolicited Grzegorz Cheung, DO 09/09/2025External Result Encounter NOMS External Department Unsolicited Grzegorz Cheung, DO 09/09/2025amboo flowsheet [facility] [place] [facility] [place] [address] Grzegorz Cheung, DO 08/26/2025 11:30 AM EDTRoutine [facility] [place] [facility] [place] [address] Grzegorz Cheung, DO Third trimester ([facility]); 34 weeks gestation of ([facility])08/26/2025 11:00 AM EDTAncillary Procedure [facility] [place] [facility] [place] [address] size inconsistent with dates ([facility])08/19/2025bstract [facility] [place] [facility] [place] [address] Grzegorz Cheung, DO 08/11/2025 3:20 PM EDTRoutine [facility] [place] [facility] [place] [address] Becki Chaudhary, [place] size inconsistent with dates ([facility]) (Primary Dx); Third trimester ([facility]); 32 weeks gestation of ([facility])08/11/2025amboo flowsheet [facility] [place] [facility] [place] [address] Becki Chaudhary, [place] 07/28/2025 2:50 PM EDTRoutine [facility] [place] [facility] [place] [address] Grzegorz Cheung, DO Third trimester ([facility]); 30 weeks gestation of ([facility])07/28/2025bstract NOMNick [place] [facility] [place] [place] [address] Grzegorz Cheung, 5Bamboo flowsheet [facility] [address] [place] [address] Grzegorz Cheung, 5Clinisync Result Encounter NOMS External Department Unsolicited Grzegorz Cheung, 06/30/2025 9:50 AM EDTRoutine [facility] [address] Grzegorz Cheung, Second trimester ([facility]); 26 weeks gestation of ([facility]); Diabetes mellitus ikbtwlwyf99/25/2025amboo flowsheet [facility] [facility] [address] [place] [address] Grzegorz Cheung, from Last 3 Months Family History Medical [...] FHR-160Sex and Gender InformationValueDate RecordedSex Assigned at GyiycAhpihf44/29/2023 6:04 PM EDTLegal SexFemale 01/18/2023 6:37 PM EDTGender KszfbvuvEgtgzf39/29/2023 6:04 PM EDTSexual LpozxdcyrvoZxeonflt65/29/2023 6:04 PM EDT Last Filed Vital Signs Vital SignReadingTime TakenCommentsBlood Arwtqnoq551/7011/ 2:38 PM EST Pulse--Temperature--Respiratory Rate--Oxygen Saturation--Inhaled Oxygen Concentration--Oyihkp632 kg (259 lb 6.4 oz)09/18/2025 2:38 PM YDSXdwwed915.4 cm (5')01/13/2025 8:57 AM EDTBody Mass Index50.66001/13/2025 8:57 AM EDT Plan of Treatment DateTypeDepartmentCare Team (Latest Contact Info)Bvrhylhtxdr70/26/2025 3:30 PM ESTOffice Visit ROSELIA JONES [address] [place] [address] [place] [address] Bekah Harry PA [address] [facility] [address] [place], [place] [address] 11/18/2025 9:00 AM ESTOffice Visit ROSELIA JONES [address] [place] [address] [place] [address] Grzegorz Cheung DO [address] [facility] [address] [place], [place] [id number] Goals GoalPatient Goal TypeAssociated ProblemsRecent ProgressPatient-Stated?Author Reminders Care PlanOB RemindersNoOpen Scheduling, Background Procedures Procedure NamePriorityDate/TimeAssociated DiagnosisCommentsPOCT URINALYSIS BBDDEJXAPrneuzf55/13/2025 2:39 PM EST 38 weeks gestation of ([facility]) RECURRENT VAGINITIS (HTRX)Ulafvak0309/09/2025 11:36 AM EST POCT URINALYSIS MSCRTVXBWnfjvzi79/04/2025 10:40 AM EST 36 weeks gestation of ([facility]) STREP GP B CULTURE+ICUCSpdrpsh42/04/2025 10:18 AM EST POCT URINALYSIS GQGSSFTQMoipcwg50/21/2025 11:58 AM EDT 34 weeks gestation of ([facility]) US OB FOLLOW UP TRANSABDOMINAL UTVLCOAGObxfzpq72/21/2025 11:42 AM EDT size inconsistent with dates ([facility]) POCT URINALYSIS SGTYFQMKOodvibn28/06/2025 3:30 PM EDT 32 weeks gestation of ([facility]) POCT URINALYSIS XWYTARQNOkppzkc27/22/2025 3:38 PM EDT Third trimester ([facility]) ALL CBC WITH AUTO ADHZAjaxarx25/08/2025 11:42 AM EDT GLUCOSE 1 AVOGKlolehn56/08/2025 11:42 AM EDT POCT URINALYSIS XHNGMQCCQopeyws74/25/2025 10:16 AM EDT Second trimester ([facility]) from Last 3 Months Results * (ABNORMAL) POCT urinalysis dipstick manually resulted (09/18/2025 2:39 PM EST) Only the most recent of6 resultswithin the time period is included. ComponentValueRef RangeTest MethodAnalysis TimePerformed AtPathologist Signature Color, UAYellowClarity, UAClearGlucose, UANegativeNegative - 2000(110) ++++ mg/dLBilirubin, UANegativeNegative - 4(70) +++ mg/dLKetones, UAPositiveNegative - 160(16) ++++ mg/dLSpec Grav, UA1.0101 - 1.03Blood, UANegativeNegative - 50 Shoaib/mcLpH, UA6.55 - 9Protein, UATraceNegative - 2000(20) ++++ mg/dLUrobilinogen, UA1.00.2 - 12 mg/dLLeukocytes, UA1+Negative - 500+++ Mayra/mcLNitrite, UANegative Negative - PositiveSpecimen (Source)Anatomical Location / LateralityCollection Method / VolumeCollection TimeReceived MnikQvtoo72/13/2025 2:39 PM EST Narrative Authorizing ProviderResult TypeResult StatusAmy Rehabilitation [facility] OF CARE TEST ENTER/EDIT ORDERABLESFinal Result * RECURRENT VAGINITIS (HTRX) (09/09/2025 11:36 AM EST)ComponentValueRef Range Test MethodAnalysis TimePerformed AtPathologist SignatureATOPOBIUM VAGINAE0 19.961 - 24.689 ppm09/11/2025 6:03 AM ESTHealthTrackRx at LabPortATOPOBIUM VAGINAENot Ftoglpes22.961 - 24.689 ppm09/11/2025 6:03 AM ESTHealthTrackRx at LabPortBVAB 2,3 (BACTERIAL VAGINOSIS ASSOCIATED BACTERIA 2, 3); MOBILUNCUS SPP 019.961 - 24.689 ppm09/11/2025 6:03 AM ESTHealthTrackRx at LabPortBVAB 2,3 (BACTERIAL VAGINOSIS ASSOCIATED BACTERIA 2, 3); MOBILUNCUS SPPNot Detected 19.961 - 24.689 ppm09/11/2025 6:03 AM ESTHealthTrackRx at LabPortCANDIDA ALBICANS, PARAPSILOSIS, GKZHOYFQDK360.000 - 30.347 ppm09/11/2025 6:03 AM EST [facility] at LabPortCANDIDA ALBICANS, PARAPSILOSIS, TROPICALISNot Detected 23.000 - 30.347 ppm09/11/2025 6:03 AM ESTHealthTrackRx at LabPortCANDIDA FJDYRQSK407.000 - 31.618 ppm09/11/2025 6:03 AM ESTHealthTrackRx at LabPort CARIN GLABRATANot Xvtiyrfy08.000 - 31.618 ppm09/11/2025 6:03 AM EST [facility] at LabPortCANDIDA NOEPXO517.000 - 30.873 ppm09/11/2025 6:03 AM ESTHealthTrackRx at LabPortCANDIDA KRUSEINot Pzhmqpgf34.000 - 30.873 ppm 09/11/2025 6:03 AM ESTHealthTrackRx at LabPortCHLAMYDIA OQQFTHCBULC492.000 - 31.586 ppm09/11/2025 6:03 AM ESTHealthTrackRx at LabPortCHLAMYDIA TRACHOMATIS Not Wlvwebpu20.000 - 31.586 ppm09/11/2025 6:03 AM ESTHealthTrackRx at LabPort GARDNERELLA AYZYYDPYM392.961 - 24.689 ppm09/11/2025 6:03 AM ESTHealthTrackRx at LabSt. [facility] HospitalGARDNERELLA VAGINALISNot Cquwkiia63.961 - 24.689 ppm09/11/2025 6:03 AM ESTHealthTrackRx at LabPortMEGASPHAERA (TYPES 1, 2)019.961 - 24.689 ppm 09/11/2025 6:03 AM ESTHealthTrackRx at LabPortMEGASPHAERA (TYPES 1, 2)Not Sablwnmj89.961 - 24.689 ppm09/11/2025 6:03 AM ESTHealthTrackRx at LabSt[facility] NEISSERIA MGOVCQHUJFY689.000 - 32.587 ppm09/11/2025 6:03 AM ESTHealthTrackRx at [facility] CenterNEISSERIA GONORRHOEAENot Jznhjoub58.000 - 32.587 ppm09/11/2025 6:03 AM ESTHealthTrackRx at LabPortTRICHOMONAS PCVESIFWB590.000 - 31.995 ppm 09/11/2025 6:03 AM ESTHealthTrackRx at LabSt. Vincent Indianapolis HospitalTRICHOMONAS VAGINALISNot Wmwscuag77.000 - 31.995 ppm09/11/2025 6:03 AM ESTHealthTrackRx at LabPort MYCOPLASMA WSPCMPBVNZ681.961 - 24.689 ppm09/11/2025 6:03 AM ESTHealthTrackRx at LabPortMYCOPLASMA GENITALIUMNot Xeljmxfc99.961 - 24.689 ppm09/11/2025 6:03 AM ESTHealthTrackRx at LabPortSpecimen (Source)Anatomical Location / LateralityCollection Method / VolumeCollection TimeReceived TimeTissue 09/09/2025 11:36 AM EST09/11/2025 1:54 AM EST Narrative Authorizing ProviderResult TypeResult StatusCorey Skye DOLAB BLOOD ORDERABLES Final ResultPerforming OrganizationAddressCity/State/ZIP CodePhone Number [facility] at [facility]Port [facility] [address] * STREP GP B CULTURE+RFLX (09/09/2025 10:18 AM EST)ComponentValueRef RangeTest MethodAnalysis TimePerformed AtPathologist SignatureSTREP GP B CULTURE+RFLX ??Strep Gp B Culture+Rflx TBHSTREP GP B CULTURE+RFLXNegativeTBHSTREP GP B CULTURE+RFLXCenters for Disease Control and Prevention (CDC) andTBHSTREP GP B CULTURE+RFLXAmerrady children's hospital Congress of Obstetricians and GynecologistsTBHSTREP GP B [...] is noted.TBHSTREP GP B CULTURE+RFLX Performed at: [facility] LabVibra Hospital of Southeastern MichiganTBHSTREP GP B CULTURE+[id number] [place], [place] [id number] GP B CULTURE+RFLXLab Director: Jeet Dawn PhD, Phone: [phone] (Source)Anatomical Location / Laterality Collection Method / VolumeCollection TimeReceived Time09/09/2025 10:18 AM EST 09/09/2025 9:33 PM EST Narrative TONA - 09/14/2025 6:09 PM EST Authorizing ProviderResult TypeResult StatusCorey Skye DOLAB BLOOD ORDERABLES Final ResultPerforming OrganizationAddressCity/State/ZIP CodePhone Number TONA [facility] * US OB follow up transabdominal approach [...] BY: Agustin Fernandez MD Authorizing ProviderResult TypeResult Nikki Chaudhary NPIMG OB US PROCEDURESFinal Result * GLUCOSE 1 HOUR (07/14/2025 11:42 AM EDT)ComponentValueRef RangeTest Method Analysis TimePerformed AtPathologist SignatureGLUCOSE 1 QQEB211<130 mg/dLTBH Specimen (Source)Anatomical Location / LateralityCollection Method / Volume Collection TimeReceived Time07/14/2025 11:42 AM EDT07/14/2025 11:44 AM EDT Narrative CLINISYNC - 07/14/2025 12:11 PM EDT Authorizing ProviderResult TypeResult StatusCorey [facility] BLOOD ORDERABLES Final ResultPerforming OrganizationAddressCity/State/ZIP CodePhone Number CLINISYNC TB * (ABNORMAL) ALL CBC WITH AUTO DIFF (07/14/2025 11:42 AM EDT)ComponentValueRef RangeTest MethodAnalysis TimePerformed AtPathologist SignatureTBH WBC9.54.0 - 11.0 10 3/uLTBHTBH RBC4.14(L)4.20 - 5.40 10 6/uLTBHTBH HGB11.3(L)12.0 - 16.0 g/dLTBHTBH HCT35.2(L)36.0 - 48.0 %TBHTBH MCV85.081.0 - 99.0 fLTBHTBH MCH27.3 26.7 - 34.0 pgTBHTBH MCHC32.129.9 - 35.2 g/dLTBHTBH RDW12.911.0 - 15.0 %TBHTBH ZQM047957 - 450 10 3/uLTBHTBH MPV8.9(L)9.5 - 13.5 [...] Additional Health Concerns Active ProblemsNoted DateDiagnosed DateOB Enqibaesy29/11/2025 Insurance Care Teams Team MemberRelationshipSpecialtyStart DateEnd Varun Cardenas MD [address] [place] [address] PCP - [facility]07/04/23
[2025-09-25] MEDS: 0.9 % SODIUM CHLORIDE 1,000 ML 1000 ML IV ×2 (06:10→06:57)
[2025-09-25 06:13] LABS: Glucose Urine UA NEGATIVE (NEGATIVE)
[2025-09-25 06:14] LABS: Hematocrit 35.3 % (36.0-48.0); Hemoglobin 11.1 g/dL (12.0-16.0); Immature Granulocytes Abs Auto 0.06 10^3/uL (0.00-0.03); Immature Granulocytes Pct Auto 0.6 % (0.0-0.5); Lymphocytes Absolute Auto 2.6 10^3/uL (1.2-3.8); Mean Corpuscular HGB Conc 31.4 g/dL (29.9-35.2); Mean Corpuscular Hemoglobin 25.4 pg (26.7-34.0); Mean Corpuscular Volume 80.8 fL (81.0-99.0); Platelet Count 268 10^3/uL (150-450); Red Blood Count 4.37 10^6/uL (4.20-5.40); White Blood Count 10.6 10^3/uL (4.0-11.0)
[2025-09-25 06:22] LABS: Crystals Seen? Seen #/HPF (None Seen)
[2025-09-25 06:23] LABS: Cast Seen? NONE SEEN #/LPF (NONE SEEN); Urine Culture Indicated YES-LC
[2025-09-25 06:24] LABS: Cannabinoid Screen Urine POSITIVE (NEGATIVE); Methamphetamines Screen Urine NEGATIVE (NEGATIVE); Tricyclic Antidepressant Urine NEGATIVE (NEGATIVE)
[2025-09-25] MEDS: CEFAZOLIN SODIUM/DEXTROSE,ISO 2 GM/50 ML PIGGYBACK IV ×2 (06:57→13:33)
[2025-09-25] MEDS: FAMOTIDINE/PF 20 MG/2 ML VIAL IV (06:59)
[2025-09-25] MEDS: METOCLOPRAMIDE HCL 10 MG/2 ML VIAL IVP (07:00)
--- NOTE | 2025-09-25 08:46 | PM.ONB ---
Brief Operative Note Date of procedure: 09/25/25 Pre-op diagnosis general: iup at 39wks, previous c/s Post-op diagnosis: same as pre-op Procedure: NAME OF PROCEDURE: [ section ] PROCEDURE: Patient was taken back to the Operating Room where she was given a spinal anesthesia with Duramorph without difficulty. She was prepped and draped in the normal sterile fashion. A Pfannenstiel skin incision was then made 2 cm above the symphysis pubis and carried down to underlying rectus fascia using a Bovie. The fascia was incised in the midline and extended laterally using Gongora scissors. Two Miri clamps were placed on the superior aspect of the fascia and dissected off the underlying rectus muscles. The same was performed on the inferior aspect as well. The muscles were then in the midline. Peritoneum was identified and entered bluntly. The peritoneum was then extended superiorly and inferiorly with good visualization of the bladder. The bladder blade was inserted. A low transverse incision was made on the patient's uterus and extended laterally digitally. The was then delivered atraumatically after the bladder blade was removed in the cephalic position. The cord was clamped and cut. Cord blood was obtained. The was handed off to awaiting team. The patient's placenta was spontaneously delivered. The uterus was then exteriorized. The uterus was cleared of all clots and debris. The bladder blade was reinserted. The patient's uterine incision was closed using #0 Vicryl in a running lock fashion. Excellent hemostasis was assured. The uterus was then returned to the patient's abdomen. The patient's abdomen was copiously irrigated using warm saline. Peritoneal gutters were cleared of all clots and debris. Again excellent hemostasis was assured. The patient's peritoneum was closed using 3-0 Vicryl in a running fashion. The patient's fascia was closed using #0 Vicryl in a running fashion. The patient's skin was closed using 4-0 Vicryl subcuticularly. The patient tolerated the procedure well. Sponge, lap, and needle counts were correct x2. The patient was taken to the Recovery Room in stable condition. Anesthesia: spinal Surgeon: Grzegorz Cheung Jewelry Jobber: Charu Moore Estimated blood loss (mL): 575 Pathology: none sent Condition: stable Disposition: floor Urinary Catheter Management Urinary Catheter Management Urethral: Cath placed during this visit: no
--- NOTE | 2025-09-25 08:48 | PM.OBPRCCS ---
Procedure Pre-op/Post-op diagnoses: Pre-Op/Post-Op Diagnoses Operation Date: 09/25/25 07:30 <No data on this case meets the specified criteria> Procedure: Procedures Operation Date: 09/25/25 07:30 Actual Procedure Side Surgeon p Repeat Not Applicable Grzegorz Cheung DO Director Of Intelligence: Charu Moore Estimated blood loss (mL): 575 Disposition: floor Anesthesia type: Spinal
[2025-09-25] MEDS: ENOXAPARIN SODIUM 40 MG/0.4 ML SYRINGE SUBQ (20:44)
[2025-09-25] MEDS: KETOROLAC TROMETHAMINE 30 MG/ML VIAL IVP (22:11)
[2025-09-26] VITALS (8 sets, daily range): BP systolic 115–155; BP diastolic 57–122; PULSE 73–84; TEMP 36.6–36.8; O2SAT 99
[2025-09-26] MEDS: KETOROLAC TROMETHAMINE 30 MG/ML VIAL IVP (06:25)
[2025-09-26] MEDS: ACETAMINOPHEN 500 MG TABLET 1000 MG PO ×2 (06:25→20:05)
[2025-09-26 07:32] LABS: Hematocrit 30.6 % (36.0-48.0); Hemoglobin 10.0 g/dL (12.0-16.0); Immature Granulocytes Abs Auto 0.05 10^3/uL (0.00-0.03); Immature Granulocytes Pct Auto 0.5 % (0.0-0.5); Lymphocytes Absolute Auto 1.6 10^3/uL (1.2-3.8); Mean Corpuscular HGB Conc 32.7 g/dL (29.9-35.2); Mean Corpuscular Hemoglobin 26.4 pg (26.7-34.0); Mean Corpuscular Volume 80.7 fL (81.0-99.0); Platelet Count 234 10^3/uL (150-450); Red Blood Count 3.79 10^6/uL (4.20-5.40); White Blood Count 11.0 10^3/uL (4.0-11.0)
[2025-09-26] MEDS: DOCUSATE SODIUM 100 MG CAPSULE PO ×2 (08:40→20:05)
--- NOTE | 2025-09-26 10:36 | PM.OBPN ---
OB - PN: Subj Subjective Patient comments: no complaints and pain well controlled [place] status: doing well Exam Constitutional Vital Signs, click to edit/add: Last Vital Signs Temp 97.8 F 09/26/25 08:35 Pulse 84 09/26/25 08:35 Resp 16 09/26/25 08:35 BP 115/57 09/26/25 08:35 Pulse Ox 99 09/26/25 08:35 O2 Del Method Room Air 09/26/25 00:30 Documenting provider has reviewed patient's vital signs: yes Common normals: no apparent distress Respiratory Common normals: normal respiratory effort and clear to auscultation bilaterally Cardio Common normals: regular rate and regular rhythm GI Common normals: Normal to inspection, nondistended, normoactive bowel sounds present Extremity Common normals: no clubbing, cyanosis or edema and no calf tenderness Results Labs Labs: Short CBC 09/26/25 Range/Units 07:23 WBC 11.0 (4.0-11.0) 10^3/uL Hgb 10.0 L (12.0-16.0) g/dL Hct 30.6 L (36.0-48.0) % Plt Count 234 (150-450) 10^3/uL Urinary Catheter Management Urinary Catheter Management Urethral: Cath placed during this visit: no OB - PN: A/P Plan - day: 1 Plan: routine postop care Time Spent with Patient Time: Total time spent is greater than 50% in coordination of care (as documented) at patient's floor/unit and/or counseling patient: Total time spent with greater than 50% in coordination of care (as documented) at patient's floor/unit and/or counseling patient: less than 15 minutes
--- NOTE | 2025-09-26 13:19 | SWNOTE1 ---
SW consulted for drug abuse, pt positive for THC on admission. SW met with pt and father of baby in room, father of baby is To. They have there daughter in room as well. She is 3 years old. They do have everything they need at home for baby. Pt is breast feeding and voiced it is going well. They do have good support at home as well. Pt did eat THC gummies to assist with her anxiety and to help her sleep. Also during 3rd trimester it helped with her nausea. No plans of continuing use once home. GINGER did advised that SW is mandated anesthesiology teacher and a report will be made to [facility]. Pt and father of baby did voice understanding and did not have any further questions. GINGER updated nurse. No other concerns at this time. Pt and father of baby caring for baby appropriately. Report made to [facility] CPS, HIPAA form filled out and sent to
[2025-09-26] MEDS: IBUPROFEN 400 MG TABLET 800 MG PO ×2 (14:26→22:01)
[2025-09-26] MEDS: RHO(D) IMMUNE GLOBULIN 1,500 UNIT SYRINGE 1500 UNIT IM (16:29)
[2025-09-26] MEDS: ENOXAPARIN SODIUM 40 MG/0.4 ML SYRINGE SUBQ (20:06)
[2025-09-27] VITALS (7 sets, daily range): BP systolic 134–186; BP diastolic 71–102; PULSE 86–106; TEMP 36.4–36.6
[2025-09-27] MEDS: ACETAMINOPHEN 500 MG TABLET 1000 MG PO (02:33)
[2025-09-27] MEDS: IBUPROFEN 400 MG TABLET 800 MG PO ×2 (06:40→14:58)
--- NOTE | 2025-09-27 07:16 | PM.OBPN ---
OB - PN: Subj Subjective Patient comments: no complaints, pain well controlled and tolerating diet Exam Narrative Exam Narrative: requesting discharge Constitutional Vital Signs, click to edit/add: Last Vital Signs Temp 97.6 F 09/27/25 00:40 Pulse 86 09/27/25 00:40 Resp 17 09/27/25 00:40 BP 134/71 09/27/25 02:36 Pulse Ox 99 09/26/25 08:35 O2 Del Method Room Air 09/27/25 00:40 Documenting provider has reviewed patient's vital signs: yes Common normals: no apparent distress GI Common normals: soft to palpation and non-tender Other: Fundus - firm below umbilicus Incision - healing well with steri strips Other: minimal bleeding Extremity Other: +edema bilaterally lower extremities Neuro Common normals: oriented x3 Sensorium/orientation: awake and alert Psych Common normals: mental status grossly normal Results Labs Labs: Short CBC 09/26/25 Range/Units 07:23 WBC 11.0 (4.0-11.0) 10^3/uL Hgb 10.0 L (12.0-16.0) g/dL Hct 30.6 L (36.0-48.0) % Plt Count 234 (150-450) 10^3/uL Urinary Catheter Management Urinary Catheter Management Urethral: Cath placed during this visit: no Urethral indwelling: No OB - PN: A/P Assessment and Plan (1) Term delivered: Plan - day: 2 Plan: routine postop care and discharge home Time Spent with Patient Time: Total time spent is greater than 50% in coordination of care (as documented) at patient's floor/unit and/or counseling patient: Total time spent with greater than 50% in coordination of care (as documented) at patient's floor/unit and/or counseling patient: less than 15 minutes
[2025-09-27] MEDS: DOCUSATE SODIUM 100 MG CAPSULE PO (08:50)
[2025-09-27 12:50] LABS: Hematocrit 30.6 % (36.0-48.0); Hemoglobin 9.5 g/dL (12.0-16.0); Immature Granulocytes Abs Auto 0.04 10^3/uL (0.00-0.03); Immature Granulocytes Pct Auto 0.4 % (0.0-0.5); Lymphocytes Absolute Auto 2.4 10^3/uL (1.2-3.8); Mean Corpuscular HGB Conc 31.0 g/dL (29.9-35.2); Mean Corpuscular Hemoglobin 25.7 pg (26.7-34.0); Mean Corpuscular Volume 82.7 fL (81.0-99.0); Platelet Count 267 10^3/uL (150-450); Red Blood Count 3.70 10^6/uL (4.20-5.40); White Blood Count 9.4 10^3/uL (4.0-11.0)
[2025-09-27 12:59] LABS: Alanine Aminotransferase 19 U/L (14-59); Albumin Globulin Ratio 0.6; Albumin Level 2.2 g/dL (3.4-5.0); Alkaline Phosphatase 96 U/L (46-116); Anion Gap 7.2; Aspartate Amino Transferase 13 U/L (15-37); Blood Urea Nitrogen 7.0 mg/dL (7.0-18.0); Calcium 8.5 mg/dL (8.5-10.1); Carbon Dioxide 28.8 mmol/L (21.0-32.0); Chloride 109 mmol/L (98-107); Estimated GFR (African America >60 (>=60 mL/min/1.73m^2); Estimated GFR (Non-African Ame >60 (>=60 mL/min/1.73m^2); Globulin 3.7 g/dL; Glucose 72 mg/dL (74-106); Potassium 4.0 mmol/L (3.5-5.1); Sodium 141 mmol/L (136-145); Total Protein 5.9 g/dL (6.4-8.2); Uric Acid 2.9 mg/dL (2.6-6.0)
== END 2025-09-27 17:40 | disposition home or self-care (01) | DRG 787 ==
PROVIDERS: Obstetrics & Gynecology Gynecology; Admitting Provider Obstetrics & Gynecology; PCP Family Medicine; Visit Provider Obstetrics & Gynecology
PROC: 10D00Z1 Extraction of Products of Conception, Low, Open Approach (ICD-10-PCS; CPT 59514; principal; 2025-09-25 07:30)
DX: O34.211 Maternal care for low transverse scar from previous cesarean delivery (principal); O99.324 Drug use complicating childbirth; Z3A.39 39 weeks gestation of pregnancy; Z37.0 Single live birth; O99.214 Obesity complicating childbirth; E66.01 Morbid (severe) obesity due to excess calories; O26.893 Other specified pregnancy related conditions, third trimester; Z67.11 Type A blood, Rh negative; F12.90 Cannabis use, unspecified, uncomplicated; O99.334 Smoking (tobacco) complicating childbirth; F17.210 Nicotine dependence, cigarettes, uncomplicated
CPT/HCPCS: 36415; 59050; 80053; 80307; 80349; 81001; 84550; 85025; 85461; 86850; 86900; 86901; 87086; 87186; 94667; 94668; J0690; J1650; J1885; J2274; J2371; J2405; J2590; J2765; J2791; J3490

== ENCOUNTER 2025-09-29 08:23 | Outpatient (OUT) | payer BC, SELFPAY ==
--- OUTSIDE RECORDS SUMMARY | 2011-09-12 19:00 | XMS_ITS | Continuity of Care Document ---
Author Organization [facility] Address [address] [place] [address] Phone Care Team Providers Care Senior Software Engineer Analytics Name Role Phone Nighat SCHULTZ Renard Unavailable Unavailable Procedures Procedure Date TB INTRADERMAL TEST Advance Directives Directive Yes / No Effective Date File Name No Information Encounters Encounter Description Practice Location Reason(s) For Visit Diagnoses Date Provider Providers Copied on Encounter [facility], [address] [place], [place], [id number], [place] tel:[phone] [facility] No Information Nighat Loco. [address] [place], [place], [id number], [place]. tel:[phone] Family History Family Member Type Diagnosis Age At Onset No Information Payers Payer name Insurance type Covered democrat ID Authoriza tion(s) No Information Social History [...]
--- OUTSIDE RECORDS SUMMARY | 2024-07-15 03:30 | XMS_ITS ---
Author Organization [facility] Address [address] [place] [address] Care Team Providers Care Architectural Draftsman Name Role Phone Aleksandr Becerril Primary Care Provider Deisy Nelson Unavailable [phone] REASON FOR VISIT 6 MONTH prophy Encounters Encounter Location Date Provider Diagnosis [facility] [address] [place] [address] 07/15/2024 Deisy Nelson Plan Of Treatment Next Appt Details Provider Name:Bridgett Osuna , 02/17/2026 11:15:00 AM, [address], [place], [address], Progress Notes * YOLANDA LIMONJUANITAOB:1995 ( 30 yo F)Acc No.[id number]:07/15/2024 Patient:?DAYA LIMON :?Deisy LeslieDOB:1995???Age:29 Y???Sex: FemaleDate:07/15/2024hone:[phone]:[address] [place], [place]Fgl:Aleksandr Becerril Subjective: * Chief Complaints: * 6 MONTH prophy * Electronic signature of Deisy Nelson on 09/29/2025 at 08:26 AM ESTSign off status: Pending * Provider: Dorene Nelson Date: 0 07/15/2024 Generated for Printing/Faxing/eTransmitting on:?09/29/2025 08:26 AM EST
--- OUTSIDE RECORDS SUMMARY | 2025-01-14 05:45 | XMS_ITS ---
Author Organization [facility] Address [address] [place] [address] Care Team Providers Care Family Advocate Name Role Phone Aleksandr Becerril Primary Care Provider Deisy Nelson Unavailable [phone] REASON FOR VISIT 6 MONTHS Encounters Encounter Location Date Provider Diagnosis [facility] [address] [place] [address] 01/14/2025 Deisy Nelson Plan Of Treatment Next Appt Details Provider Name:Bridgett Osuna , 02/17/2026 11:15:00 AM, [address], [place], [address], Progress Notes * YOLANDA LIMONHDOB:1995 ( 30 yo F)Acc No.[id number]:01/14/2025 Patient:?DAYA LIMON :?Deisy NelsonDOB:1995???Age:29 Y???Sex: FemaleDate:01/14/2025Phone:[phone]:[address] [place], [place]Wdd:Aleksandr Becerril Subjective: * Chief Complaints: * 6 MONTHS * Electronic signature of Deisy Nelson on 09/29/2025 at 08:27 AM ESTSign off status: Pending * Provider: Dorene Nelson Date: 0 01/14/2025 Generated for Printing/Faxing/eTransmitting on:?09/29/2025 08:27 AM EST
--- OUTSIDE RECORDS SUMMARY | 2025-04-23 04:00 | XMS_ITS ---
Author Organization [facility] Address [address] [place] [address] Care Team Providers Care Hand Booked Folder And Stitcher Name Role Phone Aleksandr Becerril Primary Care Provider [phone] Bridgett Denis Unavailable [phone] REASON FOR VISIT PROPHY Encounters Encounter Location Date Provider Diagnosis [facility] [address] [place] [address] 04/23/2025 Bridgett Osuna Acute gingivitis, plaque induced K05.00 Assessments Encounter Date Diagnosis (ICD Code) Assessment Notes Treatment Notes Treatment Clinical Notes Section Notes 04/23/2025 Acute gingivitis, plaque induced (ICD-10 - K05.00) Plan Of Treatment Next Appt Details Provider Name:Bridgett Osuna , 02/17/2026 11:15:00 AM, [address], [place], [address], Progress Notes * YOLANDA LIMONHDOB:1995 ( 30 yo F)Acc No.[id number]:04/23/2025 Patient:?DAYA LIMON :?Bridgett OsunaDOB:1995???Age:29 Y???Sex: FemaleDate:04/23/2025Phone:[phone]:[address], [id number]:Aleksandr Becerril Subjective: * Chief Complaints: * P ROPHY Objective: * Dental Examination/Plan : * Tooth / Surface Status Description Provider Date TPPROPHYLAXIS - [id number]/23/2025 Assessment: * Assessment: 1.?Acute gingivitis, plaque induced - K05.00 (Primary)??? * Electronic signature of Bridgett Osuna on 09/29/2025 at 08:27 AM ESTSign off status: Pending * Provider: Gregory Osuna Date: 0 04/23/2025 Generated for Printing/Faxing/eTransmitting on:?09/29/2025 08:27 AM EST
--- OUTSIDE RECORDS SUMMARY | 2025-05-29 04:45 | XMS_ITS ---
Author Organization [facility] Address [address] [place] [address] Care Team Providers Care Air Pollution Engineer Name Role Phone Aleksandr Becerril Primary Care Provider [phone] Bridgett Denis Unavailable [phone] REASON FOR VISIT 6 MONTH F/U Encounters Encounter Location Date Provider Diagnosis [facility] [address] [place] [address] 05/29/2025 Bridgett Osuna Plan Of Treatment Next Appt Details Provider Name:Bridgett Osuna , 02/17/2026 11:15:00 AM, [address], [place], [address], Progress Notes * YOLANDA LIMONJUANITAOB:1995 ( 30 yo F)Acc No.[id number]:05/29/2025 Patient:?DAYA LIMON :?Bridgett OsunaDOB:1995???Age:29 Y???Sex: FemaleDate:05/29/2025Phone:[phone]:[address] [id number]:Aleksandr Becerril Subjective: * Chief Complaints: * 6 MONTH F/U * Electronic signature of Bridgett Osuna on 09/29/2025 at 08:27 AM ESTSign off status: Pending * Provider: Gregory Osuna Date: 0 05/29/2025 Generated for Printing/Faxing/eTransmitting on:?09/29/2025 08:27 AM EST
--- OUTSIDE RECORDS SUMMARY | 2025-09-18 14:30 | XMS_ITS | Encounter Summary ---
Author Organization [facility] Address [address] [place] [address] Care Team Providers Care Processing Lead Name Role Phone Varun Cardenas MD Primary Care Provider [phone] Reason for Visit * ReasonCommentsRoutine Visit Encounter Details DateTypeDepartmentCare Team (Latest Contact Info)Vmlytilsaqm43/13/2025 2:30 PM ESTRoutine [facility] [address] [place] [address] Bekah Harry PA [address] [place], [facility] Third trimester ([facility]); 38 weeks gestation of ([facility]) Social History Tobacco UseTypesPacks/DayYears UsedDateSmoking Tobacco: Some DaysCigarettes Comments:5 or less cigarette s/day Alcohol UseStandard Drinks/WeekCommentsYes0 (1 standard drink = 0.6 oz pure alcohol)Alcohol: 1 or 2 drinks on a typical day / 2 to 4 times a month. Caffeine: >4 cups/day coffeeCommentsYesSex and Gender InformationValue Date RecordedSex Assigned at PyongZdzwbj22/29/2023 6:04 PM EDTLegal SexFemale 01/18/2023 6:37 PM EDTGender TohnyscwMenqrt53/29/2023 6:04 PM EDTSexual XxvtzufhbygJmvbqmzs78/29/2023 6:04 PM EDTdocumented as of this encounter Last Filed Vital Signs Vital SignReadingTime TakenCommentsBlood Bfqwnalf921/7009/18/2025 2:38 PM EST Pulse--Temperature--Respiratory Rate--Oxygen Saturation--Inhaled Oxygen Concentration--Wunhxd568 kg (259 lb 6.4 oz)09/18/2025 2:38 PM ESTHeight--Body Mass Index50.6603 8:57 AM EDTdocumented in this encounter Progress Notes * Rosina Reynoso - 09/18/2025 2:30 PM EST Reason for Appointment: Patient ID: [...] nursing note reviewed. Exam conducted with a kraft mill operator present. Vitals: Estimated body mass index is 49.96 kg/m?? as calculated from the following: Height as of 01/13/25: 5'. Weight as of 09/09/25: 255 lb 12.8 oz. BP: Patient's last menstrual period was 01/16/2025. ASSESSMENT & PLAN ICD-10-CM 1. Third trimester ([facility]) Z34.93 2. 38 weeks gestation of ([facility]) Z3A.38 POCT urinalysis dipstick manually resulted Assessment/Plan Return OB: Patient presents today for a routine obstetrics appointment. Patient is currently 38w0d . Patient states she is doing well but has complaints of being tired due to current . Patient has verbalizes frequent movement. labor precautions was discussed/given and patient was instructed to perform kick counts three times a day. Orders Placed This Encounter Procedures POCT urinalysis dipstick manually resulted Follow Up: Patient is to return to office in 1 week for routine OB appointment. Documented by Rosina Reynoso CST on behalf of: FRANCINE Chery documented in this encounter Plan of Treatment DateTypeDepartmentCare Team (Latest Contact Info)Kssztobvgeb89/26/2025 3:30 PM ESTOffice Visit [facility] [address] [place] [address] [place] [phone] Bekah Harry PA [address] [place] [address] [place] [address] 11/18/2025 9:00 AM ESTOffice Visit [facility] [address] [place] [address] Grzegorz Cheung, [address] [place] [address] documented as of this encounter Goals GoalPatient Goal TypeAssociated ProblemsRecent ProgressPatient-Stated?Author Reminders Care PlanOB RemindersNoOpen Scheduling, Backgrounddocumented as of this encounter Procedures Procedure NamePriorityDate/TimeAssociated DiagnosisCommentsPOCT URINALYSIS MAPDYESOIqklcxd16/13/2025 2:39 PM EST 38 weeks gestation of ([facility]) documented in this encounter Results * (ABNORMAL) POCT urinalysis dipstick manually resulted (09/18/2025 2:39 PM EST) ComponentValueRef RangeTest MethodAnalysis TimePerformed AtPathologist SignatureColor, UAYellowClarity, UAClearGlucose, UANegativeNegative - 2000(110) ++++ mg/dLBilirubin, UANegativeNegative - 4(70) +++ mg/dLKetones, UA PositiveNegative - 160(16) ++++ mg/dLSpec Grav, UA1.0101 - 1.03Blood, UA NegativeNegative - 50 Shoaib/mcLpH, UA6.55 - 9Protein, UATraceNegative - 2000(20) ++++ mg/dLUrobilinogen, UA1.00.2 - 12 mg/dLLeukocytes, UA1+Negative - 500+++ Mayra/mcLNitrite, UANegativeNegative - PositiveSpecimen (Source)Anatomical Location / LateralityCollection Method / VolumeCollection TimeReceived Time Urine09/18/2025 2:39 PM EST Narrative Authorizing ProviderResult TypeResult StatusAmy Kamryn PAPOINT OF CARE TEST ENTER/EDIT ORDERABLESFinal Result documented in this encounter Visit Diagnoses Diagnosis Third trimester ([facility]) state, incidental 38 weeks gestation of ([facility]) documented in this encounter Additional Health Concerns Active ProblemsNoted DateDiagnosed DateOB Uioysxocz46/11/2025 documented as of this encounter Care Teams Team MemberRelationshipSpecialtyStart DateEnd Date Varun Cardenas MD [address] [place] [address] PCP - General07/04/23documented as of this encounter
--- OUTSIDE RECORDS SUMMARY | 2025-09-29 08:27 | XMS_ITS | Encounter Summary ---
Author Organization [facility] Address [address] [place] [address] Care Team Providers Care Digital Strategist Senior Manager Name Role Phone Varun Cardenas MD Primary Care Provider [phone] Encounter Details DateTypeDepartmentCare Team (Latest Contact Info)Jwsmysnnaqt06/20/2025bstract NOMNick JONES [address] [place] [address] Grzegorz Cheung, [address] [place], [place] [id number] Social History Tobacco UseTypesPacks/DayYears UsedDateSmoking Tobacco: Some DaysCigarettes Comments:5 or less cigarette s/day Alcohol UseStandard Drinks/WeekCommentsYes0 (1 standard drink = 0.6 oz pure alcohol)Alcohol: 1 or 2 drinks on a typical day / 2 to 4 times a month. Caffeine: >4 cups/day coffeeCommentsNoSex and Gender InformationValue Date RecordedSex Assigned at DmznnYndygj50/29/2023 6:04 PM EDTLegal SexFemale 01/18/2023 6:37 PM EDTGender HzudtfhaVurgat50/29/2023 6:04 PM EDTSexual EpojpldafyjMgohaqmv02/29/2023 6:04 PM EDTdocumented as of this encounter Plan of Treatment DateTypeDepartmentCare Team (Latest Contact Info)Ywsfogsvexm28/26/2025 3:30 PM ESTOffice Visit ROSELIA JONES [address] [place] [address] Bekah Harry PA [address] [facility] [place] [address] 11/18/2025 9:00 AM ESTOffice Visit [facility] [address] [facility] [address] [place] [address] Grzegorz Cheung DO [address] [facility] [address] [place], [place] [address] documented as of this encounter Goals GoalPatient Goal TypeAssociated ProblemsRecent ProgressPatient-Stated?Author Reminders Care PlanOB RemindersNoOpen Scheduling, Backgrounddocumented as of this encounter Visit Diagnoses Not on filedocumented in this encounter Additional Health Concerns Active ProblemsNoted DateDiagnosed DateOB Tohelfnld47/11/2025 documented as of this encounter Care Teams Team MemberRelationshipSpecialtyStart DateEnd Date Varun Cardenas MD [address] [facility] [place] [address] PCP - General07/04/23documented as of this encounter
--- OUTSIDE RECORDS SUMMARY | 2025-09-29 08:27 | XMS_ITS | Patient Health Record ---
Author Organization [facility] Serv[facility] es Address [address] [place] [address] Care Team Providers Care Supervisor Laundry Name Role Phone Aleksandr Becerril Primary Care Provider Bridgett Osuna Unavailable [phone] Deisy Nelson Unavailable [phone] Reason For Referral No Information Medications Medication SIG (Take, Route, Frequency, Duration) Notes Start Date End Date Status Metformin HCl ActiveCitalopram HydrobromideActive Encounters Encounter Location Date Provider Diagnosis [facility] [address] [place] [address] 04/14/2025 Aleksandr Becerril [facility] [address] [place] [address]/06/2025 Bridgett OsunaAcute gingivitis, plaque induced K05.00 and Dental caries [...] 02/17/2026 11:15:00 AM, [address] [place], [address], Insurance Providers Payer Name Payer Address Payer Phone Subscriber Number Group Number Insured Name Patient Relationship to Insured Coverage Start Date Coverage End Date z[employer] CE-termed 12/06/22 [address] [place] [address] [id number] DAYA LIMON Self - patient is the insured 2 3 zMEDICAID CFC after [employer] E-termed 12/06/22 [address] [place] [address] [id number] DAYA LIMON Self - patient is the insured 2 3 zDENTAL [employer] E-termed 12/06/22 [address] [place] [address] [id number] 00 DAYA LIMON Self - patient is the insured 2 3 zDental MEDICAID CFC after [employer] E-termed 12/06/22 [address] [place] [address] [id number] DAYA LIMON Self - patient is the insured 2 3 [employer] [place] Medicaid [address] [place] [address] [id number] Jackie LIMON - patient is the /Wrap [facility] CareSource [address] [place] [id number], HANNAHSelf - patient is the ctceugx84/ental [employer] [place] [place] [id number], HANNAHSelf - patient is the cylmegk72/ental Wrap [facility] CareSourcePO [address] [place] [id number], HANNAHSelf - patient is the /[facility] [address] [place] [phone], HANNAHSelf - patient is the [id number] [facility] GUARDIAN[address] [place] [id number] [id number], HANNAHSelf - patient is the anflrvq5811/06/2023 [facility] [address] [place] [phone], HANNAHSelf - patient is the cegtpwn2105/06/2024[facility] COMMERCIALPO [address] [address] [place] [id number], HANNAHSelf - patient is the insured 11/06/2024
--- OUTSIDE RECORDS SUMMARY | 2025-09-29 08:27 | XMS_ITS | Encounter Summary ---
Author Organization [facility] Address [address] [place] [address] Care Team Providers Care Housing Grant Analyst Name Role Phone Varun Cardenas MD Primary Care Provider [phone] Encounter Details DateTypeDepartmentCare Team (Latest Contact Info)Dwlowgecrjf97/20/2025linisync Result Encounter [facility] External Department Unsolicited Grzegorz Cheung DO [address] [place] [address] Social History Tobacco UseTypesPacks/DayYears UsedDateSmoking Tobacco: Some DaysCigarettes Comments:5 or less cigarette s/day Alcohol UseStandard Drinks/WeekCommentsYes0 (1 standard drink = 0.6 oz pure alcohol)Alcohol: 1 or 2 drinks on a typical day / 2 to 4 times a month. Caffeine: >4 cups/day coffeeCommentsNoSex and Gender InformationValue Date RecordedSex Assigned at WlhodGgjzts34/29/2023 6:04 PM EDTLegal SexFemale 01/18/2023 6:37 PM EDTGender PvjtlzjnHcsvlx31/29/2023 6:04 PM EDTSexual EznsdbpggktGhhefeys23/29/2023 6:04 PM EDTdocumented as of this encounter Plan of Treatment DateTypeDepartmentCare Team (Latest Contact Info)Sfoxtiqirze78/26/2025 3:30 PM ESTOffice Visit [facility] [address] [place] [phone] Bekah Harry PA [address] [place], [place] [phone] 11/18/2025 9:00 AM ESTOffice Visit [facility] [address] [facility] [place] [address] Grzegorz Cheung DO [address] [facility] [place] [address] NameTypePriorityAssociated DiagnosesDate/TimeURINE CULTURE, ROUTINELabRoutine 09/25/2025 5:45 AM ESTdocumented as of this encounter Goals GoalPatient Goal TypeAssociated ProblemsRecent ProgressPatient-Stated?Author Reminders Care PlanOB RemindersNoOpen Scheduling, Backgrounddocumented as of this encounter Procedures Procedure NamePriorityDate/TimeAssociated DiagnosisCommentsALL CBC WITH AUTO ITKFKietycz94/20/2025 6:00 AM EST URINE CULTURE, QJUNPFDFcoxtgx46/20/2025 5:45 AM ESTTBH DRUG SCREEN RAPID (URINE) Attobke1909/25/2025 5:45 AM EST HMHP URINALYSIS, WITH IGYPNYVZUZQEjhnwmz59/20/2025 5:45 AM EST documented in this encounter Results * (ABNORMAL) ALL CBC WITH AUTO DIFF (09/25/2025 6:00 AM EST)ComponentValueRef RangeTest MethodAnalysis TimePerformed AtPathologist SignatureTBH WBC10.64.0 - 11.0 10 3/uLTBHTBH RBC4.374.20 - 5.40 10 6/uLTBHTBH HGB11.1(L)12.0 - 16.0 g/dL TBHTBH HCT35.3(L)36.0 - 48.0 %TBHTBH MCV80.8(L)81.0 - 99.0 fLTBHTBH MCH25.4(L) 26.7 - 34.0 pgTBHTBH MCHC31.429.9 - 35.2 g/dLTBHTBH RDW13.811.0 - 15.0 %TBHTBH PHB724662 - 450 10 3/uLTBHTBH MPV9.59.5 - 13.5 fLTBHNEUTROPHILS PERCENT AUTO 65.943.0 - 75.0 %TBHLYMPHOCYTES PERCENT AUTO24.620.5 - 60.0 %TBHMONOCYTES PERCENT AUTO8.01.7 - 12.0 %TBHTBH EO %0.6(L)0.9 - 7.0 %TBHBASOPHILS PERCENT AUTO0.30.2 - 2.0 %TBHIMMATURE GRANULOCYTES PCT AUTO0.6(H)0.0 - 0.5 %TBH NEUTROPHILS ABSOLUTE AUTO7.0(H)1.4 - 6.5 10 3/uLTBHLYMPHOCYTES ABSOLUTE AUTO 2.61.2 - 3.8 10 3/uLTBHMONOCYTES ABSOLUTE AUTO0.9(H)0.3 - 0.8 10 3/uLTBHTBH EO #0.10.0 - 0.7 10 3/uLTBHBASOPHILS ABSOLUTE AUTO0.00.0 - 0.1 10 3/uLTBHIMMATURE GRANULOCYTES ABS AUTO0.06(H)0.00 - 0.03 10 3/uLTBHSpecimen (Source)Anatomical Location / LateralityCollection Method / VolumeCollection TimeReceived Time 09/25/2025 6:00 AM EST09/25/2025 6:09 AM EST Narrative CLINISYNC - 09/25/2025 6:15 AM EST Authorizing ProviderResult TypeResult StatusCorey Skye DOCLINISYNCFinal Result Performing OrganizationAddressCity/State/ZIP CodePhone Number CLINISYNC [facility] * (ABNORMAL) TBH DRUG SCREEN RAPID (URINE) (09/25/2025 5:45 AM EST)Component ValueRef RangeTest MethodAnalysis TimePerformed AtPathologist Signature CANNABINOID SCREEN URINEPOSITIVE(A)NEGATIVETBHPHENCYCLIDINE SCREEN URINE NEGATIVENEGATIVETBHCOCAINE SCREEN URINENEGATIVENEGATIVETBHMETHAMPHETAMINES SCREEN URINENEGATIVENEGATIVETBHOPIATE SCREEN URINENEGATIVENEGATIVETBH AMPHETAMINE SCREEN URINENEGATIVENEGATIVETBHBENZODIAZEPINES SCREEN URINE NEGATIVENEGATIVETBHTRICYCLIC ANTIDEPRESSANT URINENEGATIVENEGATIVETBHMETHADONE SCREEN URINENEGATIVENEGATIVETBHBARBITURATES SCREEN URINENEGATIVENEGATIVETBH OXYCODONE SCREEN URINENEGATIVENEGATIVETBHBUPRENORPHINE SCREEN URINENEGATIVE NEGATIVETBHComment: DRUG CLASS TEST SYSTEM CUT-OFF CONCENTRATIONS ARE FOLLOWS: AMP (Amphetamine): 500 ng/mL BAR (Barbiturates): 200 ng/mL BZO (Benzodiazepines): 150 ng/mL BUP (Buprenorphine): 10 ng/mL BRIDGER (Cocaine): 150 ng/mL mAMP (Methamphetamine): 500 ng/mL MTD (Methadone): 200 ng/mL OPI (Opiates): 100 ng/mL OXY (Oxycodone): 100 ng/mL PCP (Phencyclidine): 25 ng/mL THC (Cannabinoids): 50 ng/mL TCA (Trycyclic Antidepressants): 300 ng/mL Specimen (Source)Anatomical Location / LateralityCollection Method / Volume Collection TimeReceived Time09/25/2025 5:45 AM EST09/25/2025 6:10 AM EST Narrative CLINISYNC - 09/25/2025 6:24 AM EST Authorizing ProviderResult TypeResult StatusCorey Skye DOCLINISYNCFinal Result Performing OrganizationAddressCity/State/ZIP CodePhone Number [facility] * (ABNORMAL) HMHP URINALYSIS, WITH MICROSCOPIC (09/25/2025 5:45 AM EST)Component ValueRef RangeTest MethodAnalysis TimePerformed AtPathologist SignatureCOLOR URINELT. YELLOWYELLOWTBHCLARITY URINECLEARCLEARTBHSPECIFIC GRAVITY URINE1.015 1.005 - 1.025TBHPH URINE6.55.0 - 9.0TBHPROTEIN URINENEGATIVENEG/TRACE mg/dLTBH GLUCOSE URINE UANEGATIVENEGATIVE mg/dLTBHBILIRUBIN URINENEGATIVENEGATIVETBH KETONES URINENEGATIVENEGATIVE mg/dLTBHBLOOD URINENEGATIVENEGATIVETBHNITRITE URINENEGATIVENEGATIVETBHUROBILINOGEN URINE0.20.2 - 1.0 EU/dLTBHLEUKOCYTE ESTERASE URINESMALL(A)NEGATIVETBHTBH WBC2-5(A)NONE SEEN #/HPFTBHTBH RBC2-5(A)0 - 2 #/HPFTBHBACTERIA URINEMODERATE(A)NONE SEEN #/HPFTBHMUCUS URINENONE SEEN NONE SEENTBHSQUAMOUS EPITHELIAL CELL URINEFEW(A)NONE/RARE #/LPFTBHCRYSTALS SEEN?Seen(A)None Seen #/HPFTBHAMORPHOUS SEDIMENT URINEFEWTBHCAST SEEN?NONE SEENNONE SEEN #/LPFTBHURINE CULTURE INDICATEDYES-LCTBHSpecimen (Source) Anatomical Location / LateralityCollection Method / VolumeCollection Time Received Time09/25/2025 5:45 AM EST09/25/2025 6:10 AM EST Narrative CLINISYNC - 09/25/2025 6:23 AM EST Authorizing ProviderResult TypeResult StatusCorey Skye DOCLINISYNCFinal Result Performing OrganizationAddressCity/State/ZIP CodePhone Number [facility] documented in this encounter Visit Diagnoses Not on filedocumented in this encounter Additional Health Concerns Active ProblemsNoted DateDiagnosed DateOB Zggsdkvhr49/11/2025 documented as of this encounter Care Teams Team MemberRelationshipSpecialtyStart DateEnd Date Varun Cardenas MD [address] [place] [address] PCP - [facility]07/04/23documented as of this encounter
--- OUTSIDE RECORDS SUMMARY | 2025-09-29 08:27 | XMS_ITS | Clinical Summary ---
Author Organization [facility] Address [address] [place] [address] Care Team Providers Care Molding Associate Name Role Phone Varun Cardenas MD Primary Care Provider [phone] Allergies No known active allergies Medications MedicationSigDispense QuantityRefillsLast FilledStart DateEnd DateStatus clindamycin (Cleocin-T) 1 % lotion Indications:Acne, unspecified acne typeApply topically Daily 60 mL 305//ctive MV-Min-Fe Fum-FA-DHA ( 1 PO) Take 1 tablet by mouth DailyActive aspirin 81 MG EC tablet Take 81 mg by mouth DailyActive Encounters DateTypeDepartmentCare BatlJxwxsvbavlp35/21/2025linisync Result Encounter [facility] External Department Unsolicited Grzegorz Cheung, DO 09/25/2025bstract [facility] [address] [place] [address] Grzegorz Cheung, DO 09/25/2025linisync Result Encounter [facility]S External Department Unsolicited Grzegorz Cheung, DO 09/18/2025 2:30 PM ESTRoutine [facility] [address] [place] [address] Bekah Harry PA Third trimester ([facility]); 38 weeks gestation of ([facility])09/18/2025amboo flowsheet [facility] [address] [place] [address] Bekah Harry PA 09/09/2025 10:00 AM ESTRoutine [facility] [address] [place] [address] Grzegorz Cheung, Third trimester ([facility]); 36 weeks gestation of ([facility])09/09/2025linisync Result Encounter [facility] External Department Unsolicited Grzegorz Cheung, DO 09/09/2025External Result Encounter [facility] External Department Unsolicited Grzegorz Cheung, DO 09/09/2025amboo flowsheet [facility] [address] [place] [address] Grzegorz Cheung, 08/26/2025 11:30 AM EDTRoutine [facility] [address] [place] [address] Grzegorz Cheung, Third trimester ([facility]); 34 weeks gestation of ([facility])08/26/2025 11:00 AM EDTAncillary Procedure [facility] [place] [facility] [address] [place] [address] size inconsistent with dates ([facility])08/19/2025bstract [facility] [address] [place] [address] Grzegorz Cheung, 08/11/2025 3:20 PM EDTRoutine [facility] [place] [facility] [address] [place] [address] Becki Chaudhary NP size inconsistent with dates ([facility]) (Primary Dx); Third trimester ([facility]); 32 weeks gestation of ([facility])08/11/2025amboo flowsheet [facility] [address] [place] [address] Becki Chaudhary NP 07/28/2025 2:50 PM EDTRoutine [facility] [address] [place] [address] Grzegorz Cheung, Third trimester ([facility]); 30 weeks gestation of ([facility])5Abstract [facility] [address] [place] [address] Grzegorz Cheung, 5Bamboo flowsheet [facility] [address] [place] [address] Grzegorz Cheung DO 5Clinisync Result Encounter [facility]OMS External Department Unsolicited Grzegorz Cheung, 06/30/2025 9:50 AM EDTRoutine [facility] [address] [place] [address] Grzegorz Cheung DO Second trimester ([facility]); 26 weeks gestation of ([facility]); Diabetes mellitus ghfutcarw85/25/2025amb flowsheet [facility] [address] [place] [address] Grzegorz Cheung, from Last 3 Months Family [...] and Gender InformationValue Date RecordedSex Assigned at OyifbIjcnhl53/29/2023 6:04 PM EDTLegal SexFemale 01/18/2023 6:37 PM EDTGender RowvhvgzMagqfy01/29/2023 6:04 PM EDTSexual HbzsnygdzefGxcyloeu86/29/2023 6:04 PM EDT Last Filed Vital Signs Vital SignReadingTime TakenCommentsBlood Wxvzxtjp045/7009/18/2025 2:38 PM EST Pulse--Temperature--Respiratory Rate--Oxygen Saturation--Inhaled Oxygen Concentration--Gxsfck904 kg (259 lb 6.4 oz)09/18/2025 2:38 PM YLQAqscgh425.4 cm (5')01/13/2025 8:57 AM EDTBody Mass Index50.66001/13/2025 8:57 AM EDT Plan of Treatment DateTypeDepartmentCare Team (Latest Contact Info)Unwonsrsnop41/26/2025 3:30 PM ESTOffice Visit [facility] [address] [place] [address] [place] [address] Bekah Harry PA [address] [facility] [address] [place], [place] [address] 11/18/2025 9:00 AM ESTOffice Visit [facility] [address] [place] [address] [place] [phone] Grzegorz Cheung DO [address] [facility] [address] [place], [place] [address] Goals GoalPatient Goal TypeAssociated ProblemsRecent ProgressPatient-Stated?Author Reminders Care PlanOB RemindersNoOpen Scheduling, Background Procedures Procedure NamePriorityDate/TimeAssociated DiagnosisCommentsALL CBC WITH AUTO VZUEXpzrxxv13/21/2025 7:23 AM EST ALL CBC WITH AUTO EBGTUriqdbu16/20/2025 6:00 AM EST URINE CULTURE, KPLHXEJVptezhr41/20/2025 5:45 AM ESTTBH DRUG SCREEN RAPID (URINE) Djjnyfb0809/25/2025 5:45 AM EST HMHP URINALYSIS, WITH SAWASLKZECHLkhtzlk38/20/2025 5:45 AM EST POCT URINALYSIS XSAVBSUXWlbxced02/13/2025 2:39 PM EST 38 weeks gestation of ([facility]) RECURRENT VAGINITIS (HTRX)Rtodpjr7009/09/2025 11:36 AM EST POCT URINALYSIS VJXTOWBHZuobmfu15/04/2025 10:40 AM EST 36 weeks gestation of ([facility]) STREP GP B CULTURE+LBVDRmmxjlc00/04/2025 10:18 AM EST POCT URINALYSIS DICDRHJBPcotayd11/21/2025 11:58 AM EDT 34 weeks gestation of ([facility]) US OB FOLLOW UP TRANSABDOMINAL IXUBIICGIdhkfhf03/21/2025 11:42 AM EDT size inconsistent with dates ([facility]) POCT URINALYSIS UJVUIBJYZyrbykq18/06/2025 3:30 PM EDT 32 weeks gestation of ([facility]) POCT URINALYSIS ZSEUXTCVIqhrctj52/22/2025 3:38 PM EDT Third trimester ([facility]) ALL CBC WITH AUTO OLHVGclmtzc80/08/2025 11:42 AM EDT GLUCOSE 1 EGNJKzmuzvb15/08/2025 11:42 AM EDT POCT URINALYSIS QKOPEFNROnrukid22/25/2025 10:16 AM EDT Second trimester ([facility]) from Last 3 Months Results * (ABNORMAL) ALL CBC WITH AUTO DIFF (09/26/2025 7:23 AM EST) Only the most recent of3 resultswithin the time period is included. ComponentValueRef RangeTest MethodAnalysis TimePerformed AtPathologist Signature TBH WBC11.04.0 - 11.0 10 3/uLTBHTBH RBC3.79(L)4.20 - 5.40 10 6/uLTBHTBH HGB10.0 (L)12.0 - 16.0 g/dLTBHTBH HCT30.6(L)36.0 - 48.0 %TBHTBH MCV80.7(L)81.0 - 99.0 fL TBHTBH MCH26.4(L)26.7 - 34.0 pgTBHTBH MCHC32.729.9 - 35.2 g/dLTBHTBH RDW14.111.0 - 15.0 %TBHTBH TXY671689 - 450 10 3/uLTBHTBH MPV9.59.5 - 13.5 fLTBHNEUTROPHILS PERCENT AUTO78.4(H)43.0 - 75.0 %TBHLYMPHOCYTES PERCENT AUTO14.7(L)20.5 - 60.0 % TBHMONOCYTES PERCENT AUTO5.81.7 - 12.0 %TBHTBH EO %0.4(L)0.9 - 7.0 %TBHBASOPHILS PERCENT AUTO0.20.2 - 2.0 %TBHIMMATURE GRANULOCYTES PCT AUTO0.50.0 - 0.5 %TBH NEUTROPHILS ABSOLUTE AUTO8.6(H)1.4 - 6.5 10 3/uLTBHLYMPHOCYTES ABSOLUTE AUTO1.6 1.2 - 3.8 10 3/uLTBHMONOCYTES ABSOLUTE AUTO0.60.3 - 0.8 10 3/uLTBHTBH EO #0.00.0 - 0.7 10 3/uLTBHBASOPHILS ABSOLUTE AUTO0.00.0 - 0.1 10 3/uLTBHIMMATURE GRANULOCYTES ABS AUTO0.05(H)0.00 - 0.03 10 3/uLTBHSpecimen (Source)Anatomical Location / LateralityCollection Method / VolumeCollection TimeReceived Time 09/26/2025 7:23 AM EST09/26/2025 7:30 AM EST Narrative CLINISYNC - 09/26/2025 7:48 AM EST Authorizing ProviderResult TypeResult StatusCorey Skye [...] OrganizationAddressCity/State/ZIP CodePhone Number CLINISYNC [facility] * (ABNORMAL) HMHP URINALYSIS, WITH MICROSCOPIC (09/25/2025 [...] Skye DOCLINISYNCFinal Result Performing OrganizationAddressCity/State/ZIP CodePhone Number [facility] * (ABNORMAL) POCT urinalysis dipstick manually resulted [...] Location / LateralityCollection Method / VolumeCollection TimeReceived OnvrMvnji98/13/2025 2:39 PM EST Narrative Authorizing ProviderResult TypeResult StatusEncompass Health Rehabilitation [facility] TEST ENTER/EDIT ORDERABLESFinal Result * RECURRENT VAGINITIS (HTRX) (09/09/2025 11:36 AM EST)ComponentValueRef Range Test MethodAnalysis TimePerformed AtPathologist SignatureATOPOBIUM VAGINAE0 19.961 - 24.689 ppm09/11/2025 6:03 AM ESTHealthTrackRx at LabPortATOPOBIUM VAGINAENot Gtizafns74.961 - 24.689 ppm09/11/2025 6:03 AM ESTHealthTrackRx at LabPortBVAB 2,3 (BACTERIAL VAGINOSIS ASSOCIATED BACTERIA 2, 3); MOBILUNCUS SPP 019.961 - 24.689 ppm09/11/2025 6:03 AM ESTHealthTrackRx at LabPortBVAB 2,3 (BACTERIAL VAGINOSIS ASSOCIATED BACTERIA 2, 3); MOBILUNCUS SPPNot Detected 19.961 - 24.689 ppm09/11/2025 6:03 AM ESTHealthTrackRx at LabPortCANDIDA ALBICANS, PARAPSILOSIS, TBEMWPWAOA868.000 - 30.347 ppm09/11/2025 6:03 AM EST [facility] at LabPortCANDIDA ALBICANS, PARAPSILOSIS, TROPICALISNot Detected 23.000 - 30.347 ppm09/11/2025 6:03 AM ESTHealthTrackRx at LabPortCANDIDA YMLUYDJJ200.000 - 31.618 ppm09/11/2025 6:03 AM ESTHealthTrackRx at LabPort CARIN GLABRATANot Huekasie91.000 - 31.618 ppm09/11/2025 6:03 AM EST [facility] at LabPortCANDIDA LEURYR823.000 - 30.873 ppm09/11/2025 6:03 AM ESTHealthTrackRx at LabPortCANDIDA KRUSEINot Awzxjzme64.000 - 30.873 ppm 09/11/2025 6:03 AM ESTHealthTrackRx at LabPortCHLAMYDIA HWOJKXBCJIA661.000 - 31.586 ppm09/11/2025 6:03 AM ESTHealthTrackRx at LabPortCHLAMYDIA TRACHOMATIS Not Uckmymmm76.000 - 31.586 ppm09/11/2025 6:03 AM ESTHealthTrackRx at LabPort GARDNERELLA ORSXOTQXY262.961 - 24.689 ppm09/11/2025 6:03 AM ESTHealthTrackRx at LabPortGARDNERELLA VAGINALISNot Slczidxu35.961 - 24.689 ppm09/11/2025 6:03 AM ESTHealthTrackRx at LabPortMEGASPHAERA (TYPES 1, 2)019.961 - 24.689 ppm 09/11/2025 6:03 AM ESTHealthTrackRx at LabPortMEGASPHAERA (TYPES 1, 2)Not Hbgajmxn37.961 - 24.689 ppm09/11/2025 6:03 AM ESTHealthTrackRx at LabPort NEISSERIA HSKNWUOJEMG231.000 - 32.587 ppm09/11/2025 6:03 AM ESTHealthTrackRx at LabPortNEISSERIA GONORRHOEAENot Vuesojbd10.000 - 32.587 ppm09/11/2025 6:03 AM ESTHealthTrackRx at LabPortTRICHOMONAS DNDVDYGVE640.000 - 31.995 ppm 09/11/2025 6:03 AM ESTHealthTrackRx at LabPortTRICHOMONAS VAGINALISNot Ievtfygq19.000 - 31.995 ppm09/11/2025 6:03 AM ESTHealthTrackRx at LabPort MYCOPLASMA JVIMWKKLFR622.961 - 24.689 ppm09/11/2025 6:03 AM ESTHealthTrackRx at LabPortMYCOPLASMA GENITALIUMNot Qjdsxnyy99.961 - 24.689 ppm09/11/2025 6:03 AM ESTHealthTrackRx at LabPortSpecimen (Source)Anatomical Location / LateralityCollection Method / VolumeCollection TimeReceived TimeTissue 09/09/2025 11:36 AM EST09/11/2025 1:54 AM EST Narrative Authorizing ProviderResult TypeResult StatusCorey Skye RUEDA BLOOD ORDERABLES Final ResultPerforming OrganizationAddressCity/State/ZIP CodePhone Number [facility] [address] [facility] [address] [place] [address] * STREP GP B CULTURE+RFLX (09/09/2025 10:18 [...] is noted.TBHSTREP GP B CULTURE+RFLX Performed at: [facility]+[id number] [place], [place] [id number] GP B CULTURE+RFLXLab Director: eJet Dawn PhD, Phone: [phone] (Source)Anatomical Location / Laterality Collection Method / VolumeCollection TimeReceived Time09/09/2025 10:18 AM EST 09/09/2025 9:33 PM EST Narrative TONA - 09/14/2025 6:09 PM EST Authorizing ProviderResult TypeResult StatusCorey Skye DOLAB BLOOD ORDERABLES Final ResultPerforming OrganizationAddressCity/State/ZIP CodePhone Number [facility] * US OB follow up transabdominal approach [...] RangeTest Method Analysis TimePerformed AtPathologist SignatureGLUCOSE 1 PJHJ652<130 mg/dLTBH Specimen (Source)Anatomical Location / LateralityCollection Method / Volume Collection TimeReceived Time07/14/2025 11:42 AM EDT07/14/2025 11:44 AM EDT Narrative CLINISYNC - 07/14/2025 12:11 PM EDT Authorizing ProviderResult TypeResult StatusCorey Skye DOLAB BLOOD ORDERABLES Final ResultPerforming OrganizationAddressCity/State/ZIP CodePhone Number CLINISYNC [facility] from Last 3 Months Additional Health Concerns Active ProblemsNoted DateDiagnosed DateOB Advdmejzq00/11/2025 Insurance Care Teams Team MemberRelationshipSpecialtyStart DateEnd Varun Cardenas MD [address] [place] [address] [facility] - [facility]07/04/23
--- OUTSIDE RECORDS SUMMARY | 2025-09-29 08:27 | XMS_ITS | Encounter Summary ---
Author Organization [facility] Address [address] [place] [address] Care Team Providers Care Agricultural Engineering Teacher Name Role Phone Varun Cardenas MD Primary Care Provider [phone] Encounter Details DateTypeDepartmentCare Team (Latest Contact Info)Zcryizoyska19/21/2025linisync Result Encounter [facility] External Department Unsolicited Grzegorz Cheung DO [address] [place] [address] Social History Tobacco UseTypesPacks/DayYears UsedDateSmoking Tobacco: Some DaysCigarettes Comments:5 or less cigarette s/day Alcohol UseStandard Drinks/WeekCommentsYes0 (1 standard drink = 0.6 oz pure alcohol)Alcohol: 1 or 2 drinks on a typical day / 2 to 4 times a month. Caffeine: >4 cups/day coffeeCommentsNoSex and Gender InformationValue Date RecordedSex Assigned at PuevnHrpkxi93/29/2023 6:04 PM EDTLegal SexFemale 01/18/2023 6:37 PM EDTGender CscinpnnLphnri82/29/2023 6:04 PM EDTSexual TbpgkbqkkzmZzylyopg99/29/2023 6:04 PM EDTdocumented as of this encounter Plan of Treatment DateTypeDepartmentCare Team (Latest Contact Info)Shhhoywdhmx81/26/2025 3:30 PM ESTOffice Visit [facility] [address] [place] [phone] Bekah Harry PA [address] [place] [address] 11/18/2025 9:00 AM ESTOffice Visit [facility] [address] [place] [address] Grzegorz Cheung, [address] [facility] [place] [address] documented as of this encounter Goals GoalPatient Goal TypeAssociated ProblemsRecent ProgressPatient-Stated?Author Reminders Care PlanOB RemindersNoOpen Scheduling, Backgrounddocumented as of this encounter Procedures Procedure NamePriorityDate/TimeAssociated DiagnosisCommentsALL CBC WITH AUTO JCSMMgfwcgo73/21/2025 7:23 AM EST documented in this encounter Results * (ABNORMAL) ALL CBC WITH AUTO DIFF (09/26/2025 7:23 AM EST)ComponentValueRef RangeTest MethodAnalysis TimePerformed AtPathologist SignatureTBH WBC11.04.0 - 11.0 10 3/uLTBHTBH RBC3.79(L)4.20 - 5.40 10 6/uLTBHTBH HGB10.0(L)12.0 - 16.0 g/dLTBHTBH HCT30.6(L)36.0 - 48.0 %TBHTBH MCV80.7(L)81.0 - 99.0 fLTBHTBH MCH 26.4(L)26.7 - 34.0 pgTBHTBH MCHC32.729.9 - 35.2 g/dLTBHTBH RDW14.111.0 - 15.0 %TBHTBH KNC712558 - 450 10 3/uLTBHTBH MPV9.59.5 - 13.5 fLTBHNEUTROPHILS PERCENT AUTO78.4(H)43.0 - 75.0 %TBHLYMPHOCYTES PERCENT AUTO14.7(L)20.5 - 60.0 %TBHMONOCYTES PERCENT AUTO5.81.7 - 12.0 %TBHTBH EO %0.4(L)0.9 - 7.0 %TBH BASOPHILS PERCENT AUTO0.20.2 - 2.0 %TBHIMMATURE GRANULOCYTES PCT AUTO0.50.0 - 0.5 %TBHNEUTROPHILS ABSOLUTE AUTO8.6(H)1.4 - 6.5 10 3/uLTBHLYMPHOCYTES ABSOLUTE AUTO1.61.2 - 3.8 10 3/uLTBHMONOCYTES ABSOLUTE AUTO0.60.3 - 0.8 10 3/uLTBHTBH EO #0.00.0 - 0.7 10 3/uLTBHBASOPHILS ABSOLUTE AUTO0.00.0 - 0.1 10 3/uLTBHIMMATURE GRANULOCYTES ABS AUTO0.05(H)0.00 - 0.03 10 3/uLTBHSpecimen (Source)Anatomical Location / LateralityCollection Method / VolumeCollection TimeReceived Time09/26/2025 7:23 AM EST09/26/2025 7:30 AM EST Narrative [facility] - 09/26/2025 7:48 AM EST Authorizing ProviderResult TypeResult StatusCorey Skye DOCLINISYNCFinal Result Performing OrganizationAddressCity/State/ZIP CodePhone Number [facility] documented in this encounter Visit Diagnoses Not on filedocumented in this encounter Additional Health Concerns Active ProblemsNoted DateDiagnosed DateOB Kkwmasyyi43/11/2025 documented as of this encounter Care Teams Team MemberRelationshipSpecialtyStart DateEnd Date Varun Cardenas MD [address] [place] [id number] PCP - General07/04/23documented as of this encounter
--- OUTSIDE RECORDS SUMMARY | 2025-09-29 08:27 | XMS_ITS | Encounter Summary ---
Author Organization [facility] Address [address] [place] [address] Care Team Providers Care Office Machine Servicer Name Role Phone Varun Cardenas MD Primary Care Provider [phone] Encounter Details DateTypeDepartmentCare Team (Latest Contact Info)Zixamlzcetz33/13/2025Bamboo flowsheet [facility] [address] [place] [address] Bekah Harry PA [address] [place], [facility] Social History Tobacco UseTypesPacks/DayYears UsedDateSmoking Tobacco: Some DaysCigarettes Comments:5 or less cigarette s/day Alcohol UseStandard Drinks/WeekCommentsYes0 (1 standard drink = 0.6 oz pure alcohol)Alcohol: 1 or 2 drinks on a typical day / 2 to 4 times a month. Caffeine: >4 cups/day coffeeCommentsYesSex and Gender InformationValue Date RecordedSex Assigned at LdhcoKbwcev88/29/2023 6:04 PM EDTLegal SexFemale 01/18/2023 6:37 PM EDTGender RawmrndvUcmysg54/29/2023 6:04 PM EDTSexual BlmmndynbxlDmseqjxm73/29/2023 6:04 PM EDTdocumented as of this encounter Plan of Treatment DateTypeDepartmentCare Team (Latest Contact Info)Omoxsbldibw48/26/2025 3:30 PM ESTOffice Visit NOMNick [facility]ON[facility] [address] [place] [phone] Bekah Harry PA [address] [place] [address] 11/18/2025 9:00 AM ESTOffice Visit [facility] [address] [place] [address] Grzegorz Cheung DO [address] [place], [place] [id number] documented as of this encounter Goals GoalPatient Goal TypeAssociated ProblemsRecent ProgressPatient-Stated?Author Reminders Care PlanOB RemindersNoOpen Scheduling, Backgrounddocumented as of this encounter Visit Diagnoses Not on filedocumented in this encounter Additional Health Concerns Active ProblemsNoted DateDiagnosed DateOB Lfcbuqigt96/11/2025 documented as of this encounter Care Teams Team MemberRelationshipSpecialtyStart DateEnd Date Varun Cardenas MD [address] [facility] [place] [address] PCP - General07/04/23documented as of this encounter
--- OUTSIDE RECORDS SUMMARY | 2025-09-29 08:28 | XMS_ITS | CCD ---
Author Organization [facility] Care Team Providers Care Credit Union Manager Name Role Phone SKYE, DR COPELAND Attending [...] oral tablet (6 sources)Serotonin Reuptake Inhibitor End: 48-20-6338emmwbskvua (CeleXA) 10 MG tablet CeleXA 12/19/2024 Discontinued (Other)clindamycin 10 mg/ml topical lotion (20 sources)Lincosamide AntibacterialStart: 03-20-2025 End: 02-33-3880bqbjmxggnsw (Cleocin-T) 1 % lotion Indications: Acne, unspecified acne type Apply topically Daily 60 mL 3 03/20/2025 03/20/2026 Activedesogestrel 0.15 mg / ethinyl estradiol 0.03 mg oral tablet (3 sources)Progestin, EstrogenStart: 08-13-2024 End: 40-42-7954norxoattgzl-ethinyl estradiol (Apri) 0.15-30 MG-MCG tablet Indications: Acne, unspecified acne typeTAKE 1 TABLET BY MOUTH EVERY DAY IN THE MORNING 28 tablet 08/13/2024 11/12/2024 Discontinued (Therapy completed)24 hr metFORMIN hydrochloride 500 mg extended release oral tablet (14 sources)BiguanideStart: 11-12-2024 End: 17-30-0150ymqn 1 tablet by mouth every twenty-four hours at mealtime metFORMIN XR (Glucophage-XR) 500 MG 24 hr tablet Indications: Weight gain Take 1 tablet (500 mg) bymouth in the evening. Take with meals Do not crush, chew, or split. 30 tablet 11 11/12/2024 03/20/2025 Discontinued End: 18-21-6268nmnPGLOGI, OSM, (Fortamet) 500 MG 24 hr tablet Metformin HCl 03/20/2025 Discontinuedminocycline 50 mg oral capsule (3 sources)Tetracycline-class DrugStart: 09-01-2023 End: 49-69-3424hcsv 1 tablet by mouth at bedtimeminocycline 50 MG capsule Indications: Acne, unspecified acne type TAKE 1 TABLET (50 MG) BY MOUTH IN THE MORNING AND BEFORE BEDTIME 60 capsule 1 09/01/2023 11/12/2024 Discontinued (Therapy completed)phentermine hydrochloride 37.5 mg oral tablet (4 sources)Sympathomimetic Amine AnorecticStart: 12-19-2024 End: 63-60-0995fqba 1 tablet by mouth before mealtimephentermine (Adipex-P) 37.5 MG tablet Indications: Encounter for weight management Take 1 tablet (37.5 mg) by mouth in the morning. Take before meals. 30 tablet 01/13/2025 03/20/2025 DiscontinuedPrenatal MV-Min-Fe Fum-FA-DHA ( 1 PO) (20 sources) MV-Min-Fe Fum-FA-DHA ( 1 PO) Take 1 tablet by mouth Daily Yxbdjr56 hr venlafaxine 37.5 mg extended release oral capsule (3 sources)Serotonin and Norepinephrine Reuptake InhibitorStart: 11-02-2023 End: 72-60-8099ojjr 1 capsule by mouth every twenty-four hours [...] [Persons encountering health services in other specified circumstances]32-06-6074LfaplirgQfoxbddcorxdz and screening for infectious disease (1 source)Encounter for screening for human papillomavirus (HPV); Translations: [ENC SCREENING HUMAN PAPILLOMAVIRUS]Onset: 56-70-7565SxmwgbkeUiiphxsna disorders (1 source)Missed period; Translations: [Irregular menstruation, unspecified] 44-40-6469RiuhybrBxcun complications of ; puerperium affecting management of mother (1 source)Anemia complicating childbirth; Translations: [ANEMIA COMPLICATING CHILDBIRTH]Onset: 89-64-2185NmzljlpTdgze complications of (2 sources) size does not accord with dates; Translations: [Uterine size- date discrepancy, unspecified trimester]65-69-2930QbpsyqpuPglzs nutritional; endocrine; and metabolic disorders (2 sources)Weight increased; Translations: [Abnormal weight gain]11-12-2024 EpisodicOther and delivery including normal (20 sources)Encounter for care and examination of lactating mother; Translations: [Encounter for routine follow-up]Onset: 07-28-2021 EpisodicOther screening for suspected conditions (not mental disorders or infectious disease) (18 sources)Encounter for screening for malignant neoplasm of cervix; Translations: [Encounter for screening for Streptococcus B]Onset: 84-70-8725KsvkrropIsuzh skin disorders (1 source)Acne; Translations: [Acne, unspecified]91-26-3908QjlskemdWktfislj codes; unclassified (2 sources)Gestation period, 16 weeks; Translations: [16 weeks gestation of ]45-04-5485XaluezzfYtzvpbjq codes; unclassified (2 sources)Gestation period, 22 weeks; Translations: [22 weeks gestation of ]85-62-4834LdkeccucXnmoklad codes; unclassified (2 sources)Gestation period, 26 weeks; Translations: [26 weeks gestation of ]01-87-9936DkyztgdmOangqvhb codes; unclassified (2 sources)Gestation period, 30 weeks; Translations: [30 weeks gestation of ]45-71-1698YjiddtosItqsvchv codes; unclassified (2 sources)Gestation period, 32 weeks; Translations: [32 weeks gestation of ]27-69-5674KwwhpieqVdgrvnvh codes; unclassified (2 sources)Gestation period, 34 weeks; Translations: [34 weeks gestation of ]60-25-0287AceifqhzLvjdiqie codes; unclassified (2 sources)Gestation period, 36 weeks; Translations: [36 weeks gestation of ]81-87-3670KyrmplrkPewunlriodyu (1 source)CONTACT W/AND (SUSP) EXPOS COVID-19; Translations: [CONTACT W/AND (SUSP) EXPOS COVID-19]Onset: 44-80-4956Ljnzwlxvgexx (20 sources)OB RemindersOnset: 571500-10-1170 Past or Other Problems Problem ClassificationProblemDateDocumented DateEpisodic/ChronicAcute posthemorrhagic anemia (1 source)Acute posthemorrhagic anemia; Translations: [ACUTE POSTHEMORRHAGIC ANEMIA]Onset: 03-15-6985EpktazcpRyieztvmev disproportion; obstruction (1 source)Maternal care for disproportion, unspecified; Translations: [MATERNAL CARE FOR DISPROPORTION UNS]Onset: 93-06-4295JcqbjwupHsdynfiqal during ; abruptio placenta; placenta previa (4 sources)Low lying placenta NOS or without hemorrhage, second trimester; Translations: [LOW LYING PL NOS W/OHEMORR 2ND TRI]Onset: 21-65-0106Zqmvelab Malposition; malpresentation (1 source)Maternal care for high head at term, not applicable or unspecified; Translations: [MATERNAL CARE HIGH HEAD TERM NA/UNS]Onset: 97-54-2335Aayjqbnb Other complications of (5 sources)Maternal care for excessive growth, third trimester, not applicable or unspecified; Translations: [MAT CARE EXCSS FTL GRTH 3RD TRI UNS] Onset: 66-92-2073XdxayubzZhwai complications of (4 sources)Maternal care for excessive growth, unspecified trimester, not applicable or unspecified; Translations: [MAT CARE EXCSS FTL GRTH UNS TRI UNS] Onset: 70-69-8625DqsvtwbwJqyws complications of (1 source)Other specified related conditions, unspecified trimester; Translations: [OTH SPEC PREG RELATED COND UNS TRI]Onset: 33-16-9596Fikbydci Residual codes; unclassified (1 source)39 weeks gestation of ; Translations: [39 WEEKS GESTATION OF ]Onset: 70-16-0026NnugzgyvXjzgkcqw codes; unclassified (1 source)35 weeks gestation of ; Translations: [35 WEEKS GESTATION OF ]Onset: 60-87-3322GcuhkqvqJeiygdgh codes; unclassified (1 source)Unspecified blood type, Rh negative; Translations: [UNSPECIFIED BLOOD TYPE RH NEGATIVE]Onset: 58-87-8585QihvkilmIxftfgtm codes; unclassified (1 source)24 weeks gestation of ; Translations: [24 WEEKS GESTATION OF ]Onset: 53-50-9948Vdrlkfxa Results Test NameValueInterpretationReference RangeFacilitySTREP GP B CULTURE+RFLXon 82-87-4499KULWW GP B CULTURE+RFLX Strep Gp B Culture+Rflx [...] HealthcareSTREP GP B CULTURE+RFLXPerformed at: - [facility] Cedar RapidsNOMN HealthcareSTREP GP B CULTURE+[id number] [place], [place] [id number] HealthcareSTREP GP B CULTURE+RFLXLab Director: Jeet Dawn PhD, Phone: [phone] HealthcareCLINISYNCNALLIANCEHE[facility] HealthcareRECURRENT VAGINITIS (HTRX)on 09-11-2025 ATOPOBIUM UWDPDOH5ZVZY HealthcareATOPOBIUM VAGINAENot detectedNOMS Healthcare BVAB 2,3 (BACTERIAL VAGINOSIS ASSOCIATED BACTERIA 2, 3); MOBILUNCUS FXM6PTHX HealthcareBVAB 2,3 (BACTERIAL VAGINOSIS ASSOCIATED BACTERIA 2, 3); MOBILUNCUS SPPNot detectedNOMS HealthcareCANDIDA ALBICANS, PARAPSILOSIS, IPDOXDCLXW8CMPQ HealthcareCANDIDA ALBICANS, PARAPSILOSIS, TROPICALISNot detectedNOMS Healthcare CARIN RNTSBXBQ9PLTT HealthcareCANDIDA GLABRATANot detectedNOMS Healthcare CARIN UZRPUS2VLLH HealthcareCANDIDA KRUSEINot detectedNOMS HealthcareCHLAMYDIA SLOHQQTPDFF9JGSQ HealthcareCHLAMYDIA TRACHOMATISNot detectedNOMS Healthcare GARDNERELLA XILFYEGWQ8CWZW HealthcareGARDNERELLA VAGINALISNot detectedNOMS HealthcareMEGASPHAERA (TYPES 1, 2)0NOMS HealthcareMEGASPHAERA (TYPES 1, 2)Not detectedNOMS HealthcareMYCOPLASMA WNSLYKKSWN3RMRN HealthcareMYCOPLASMA GENITALIUMNot detectedNOMS HealthcareNEISSERIA XFXZXRTAOJX3SQZL Healthcare NEISSERIA GONORRHOEAENot detectedNOMS HealthcareTRICHOMONAS RFWLNUOQD1FKFY HealthcareTRICHOMONAS VAGINALISNot detectedNOTenet St. LouisNOMS Healthcare Urinalysis macro (dipstick) panel (U)on 15-33-4908Zihmudibs, UANegativeNegative - 4(70) +++ mg/dLNOMS HealthcareBlood, UANegativeNegative - 50 Shoaib/mcLNOMS HealthcareClarity, UAClearNOMS HealthcareColor, UAYellowNOMN HealthcareGlucose, UANegativeNegative - 2000(110) ++++ mg/dLNOMN HealthcareInterpretation and review of laboratory resultsAbnormalNOMN HealthcareKetones, UAPositiveNegative - 160(16) ++++ mg/dLNOMN HealthcareLeukocytes, UATraceNegative - 500+++ Mayra/mcL NOMS HealthcareNitrite, UANegativeNegative - PositiveNOMS HealthcarepH, UA6.05 - 9NOMS HealthcareProtein, UATraceNegative - 2000(20) ++++ mg/dLNOMN Healthcare Spec Grav, UA1.0151 - 1.03NOMN HealthcareUrobilinogen, UA1.00.2 - 12 mg/dLNOMS HealthcareNOMN HealthcareUS OB FOLLOW UP TRANSABDOMINAL APPROACHon 27-25-7772KN OB FOLLOW UP TRANSABDOMINAL APPROACHFINDINGS: A single, [...] Delivery: 10/02/25 Gestational Age as of 08/11/2025: 30d7iBapjuzoobf macro (dipstick) panel (U)on 08-33-2925Brcbvpksk, UANegativeNegative - 4(70) +++ mg/dLNOMS HealthcareBlood, UANegativeNegative [...] mg/dLNOMS HealthcareNOMS HealthcareUrinalysis macro (dipstick) panel (U)on 87-98-6623Hipkqqtna, UA NegativeNegative - 4(70) +++ mg/dLNOMS HealthcareBlood, [...] mg/dLNOMS HealthcareNOMS HealthcareUrinalysis macro (dipstick) panel (U)on 13-20-2779Rpurhuske, UANegativeNegative - 4(70) +++ mg/dLNOMS HealthcareBlood, UANegativeNegative [...] - 12 mg/dLNOMS HealthcareNOMS HealthcareGLUCOSE 1 HOURon 81-30-1001Zdfajvz [Mass/Vol]104 mg/dLNINF - 130 mg/dLNOMS HealthcareCLINISYNC NOMS HealthcareUrinalysis macro (dipstick) panel (U)on 68-34-2541Bmqflemag, UA NegativeNegative - 4(70) +++ mg/dLNOMS HealthcareBlood, [...] HealthcareNOMS HealthcareUS OB 14+ WEEKS ANATOMY SCANon 77-67-6906OK OB 14+ WEEKS ANATOMY SCANFINDINGS: A single, [...] Delivery: 10/02/25 Gestational Age as of 04/17/2025: 81n3gUfiupnwvvz macro (dipstick) panel (U)on 97-47-5665Capygxrwo, UANegativeNegative - 4(70) +++ mg/dLNOMS HealthcareBlood, UANegativeNegative - 50 Shoaib/mcLNOMS HealthcareClarity, UAClearNOMS Healthcare Color, UAYellowNOMS HealthcareGlucose, UANegativeNegative - 1999(110) ++++ mg/dL NOM HealthcareInterpretation and review of laboratory resultsNormalLONE PEAK HOSPITAL HealthcareKetones, UANegativeNegative - 160(16) ++++ mg/dLNOMN Healthcare Leukocytes, UANegativeNegative - 500+++ Mayra/mcLNOMN HealthcareNitrite, UA NegativeNegative - PositiveNOMS HealthcarepH, UA85 - 9NOMS HealthcareProtein, UA NegativeNegative - 2000(20) ++++ mg/dLNOMS HealthcareSpec Grav, UA1.0151 - 1.03 NOMS HealthcareUrobilinogen, UA0.20.2 - 12 mg/dLNOTenet [address]. LouisNOMN Healthcare Urinalysis macro (dipstick) panel (U)on 18-76-5861Tnovaqbvt, UANegativeNegative - 4(70) +++ mg/dLNOMN HealthcareBlood, UAPositiveNegative - 50 Shoaib/mcLNOMN HealthcareComment on above:Trace-intactClarity, UAClearNOMN HealthcareColor, UA YellowNOMN HealthcareGlucose, UANegativeNegative - 1999(110) ++++ mg/dLNOMN HealthcareInterpretation and review of laboratory resultsAbnormalTenet St. [place] Ketones, UANegativeNegative - 160(16) ++++ mg/dLNOMN HealthcareLeukocytes, UA TraceNegative - 500+++ Mayra/mcLNOMN HealthcareNitrite, UANegativeNegative - PositiveNOMN HealthcarepH, UA75 - 9NOMN HealthcareProtein, UANegativeNegative - 2000(20) ++++ mg/dLNOMN HealthcareSpec Grav, UA1.011 - 1.03NOMN Healthcare Urobilinogen, UA0.20.2 - 12 mg/dLNOMN HealthcareNOMS HealthcareALL CBC WITH AUTO DIFFon 06-99-4381KONLGCMBW ABSOLUTE IZFE5RXKY HealthcareBasophils/100 WBC (Bld) 0.2 %0.2 - 2.0 %NOMS HealthcareEosinophils/100 WBC (Bld)0.5 %Low0.9 - 7.0 %NOMS HealthcareErythrocyte distribution width (RBC) [Ratio]13 %11.0 - 15.0 %NOMS HealthcareHematocrit (Bld) [Volume fraction]37.3 %36.0 - 48.0 %[facility] Hemoglobin (Bld) [Mass/Vol]12.5 g/dL12.0 - 16.[address] LouisIMMATURE GRANULOCYTES ABS AUTO0.03NOTenet St. LouisImmature granulocytes/100 WBC (Bld)0.3 % 0.0 - 0.5 %[facility] LouisInterpretation and review of laboratory results AbnormalTenet St. LouisLYMPHOCYTES ABSOLUTE AUTO2.9[facility] Lymphocytes/100 WBC (Bld)26.2 %20.5 - 60.0 %[facility] ServicesH (RBC) [Entitic mass]28.2 pg26.7 - 34.0 pgHeartland Behavioral Health ServicesHC (RBC) [Mass/Vol]33.5 g/dL29.9 - 35.2 g/dLHeartland Behavioral Health ServicesV (RBC) [Entitic vol]84 fL81.0 - 99.[address] LouisMONOCYTES ABSOLUTE AUTO0.5[facility] LouisMonocytes/100 WBC (Bld)4.6 % 1.7 - 12.0 %[facility] LouisNEUTROPHILS ABSOLUTE AUTO7.6HighTenet St. Louis Neutrophils/100 WBC (Bld)68.2 %43.0 - 75.0 %[facility] LouisPlatelet mean volume (Bld) [Entitic vol]8.5 fLLow9.5 - 13.[address] LouisTB EO #0.1NOMS [facility] County HospitalTB MPV180RKNADeaconess Incarnate Word Health System RBC4.44NODeaconess Incarnate Word Health System WBC11.1HighTenet St. LouisCLINISYNCNExcelsior Springs Medical CenterHCG ( test) Ql (U)on 03-20-2025 Interpretation and review of laboratory resultsAbnormalTenet St. LouisPreg Test, UrPositiveNegativeSaint [facility] HealthcareUS OB TRANSVAGINALon 03-20-2025 US OB TRANSVAGINALEXAM: [...] II, MD, PHD at 21-Mar-2025 10:13:40 AM [facility] TeleradiologyNormalNot AvailableComment on above:Order Comment: US OB TRANSVAGINAL No LMP recorded.Urinalysis macro (dipstick) panel (U)on 12-03-4218Krtazilnn, UA NegativeNegative - 4(70) +++ mg/dLNOMS HealthcareBlood, UANegativeNegative - 50 Shoaib/mcLNOMN HealthcareClarity, UAClearNOMN HealthcareColor, UAYellowNOMS HealthcareGlucose, UANegativeNegative - 1999(110) ++++ mg/dLNOMN Healthcare Interpretation and review of laboratory resultsAbnormalNOMN HealthcareKetones, UANegativeNegative - 160(16) ++++ mg/dLNOMS HealthcareLeukocytes, UATrace Negative - 500+++ Mayra/mcLNOMS HealthcareNitrite, UANegativeNegative - Positive NOMS HealthcarepH, UA5.55 - 9NOMS HealthcareProtein, UANegativeNegative - 1999(20) ++++ mg/dLNOMS HealthcareSpec Grav, UA1.0251 - 1.03NOMS Healthcare Urobilinogen, UA0.20.2 - 12 mg/dLNOMS HealthcareNOMS HealthcareIGP,APTIMA HPV,AGE GDLNon 46-89-4807GRP GDLN ACOG TESTINGNote.Tenet St. LouisComment on above:TESTS RESULT FLAG UNITS REF RANGE LAB Clinician Provided Cytology Information Source.............Cervix;Endocervix No. of containers..01 ThinPrep Vial Age Algo ACOG Ese... FLAG LEGEND: L-Low Normal,H-High Normal,LL-Alert Low,HH-Alert High <-Panic Low,>-Panic High,A-Abnormal,AA-Critical Abnormal Performed at: 01 =G [facility] [address] Cynthia Guzman MD, IGP, RFX APTIMA HPV ASCUNote.Tenet St. LouisComment on above:TESTS RESULT FLAG UNITS REF RANGE LAB DIAGNOSIS: 02 NEGATIVE FOR INTRAEPITHELIAL LESION OR MALIGNANCY. Specimen adequacy: 02 Satisfactory for evaluation. Endocervical and/or squamous metaplastic cells (endocervical component) are present. Performed by: 02 Ramon Marquez Classics Teacher ([facility]) . 02 Note: Note 02 [...] <-Panic Low,>-Panic High,A-Abnormal,AA-Critical Abnormal Performed at: [address] [address] Cynthia Guzman MD, Performed at: = - [facility] [id number] Mobile Application Architect: Cynthia Guzman MD, Phone: [phone] Performed at: [facility] [id number] Mobile Application Architect: Cynthia Guzman MD, Phone: [phone] BRUSH-SPATULA CERVIX ENDOCERVIX CLINISYNCNOMN HealthcareCytology Cervical or vaginal smear or scraping studyon 29-74-5326TFHV HealthcarePAP ACOG PANEL 2: 21 to 29on 03-21-2022..NormalThe [facility] on above:Performed By: #### CVDAGA #### [facility] [address] [place] [address] Dr. Nixon BravoDIAGNOSIS:CommentNormalThe [facility] Hospital on above: Result Comment: NEGATIVE FOR INTRAEPITHELIAL LESION OR MALIGNANCY.Performed By: #### CVDAGA #### [facility] [address] [place] [address] Dr. Nixon BravoMethodology:CommentGreen Cross Hospital on above: Result Comment: This liquid based ThinPrep(R) pap test was screened with the use of an image guided system.Performed By: #### CVDAGA #### [facility] [address] [place] [address] Dr. Nixon BravoNote:CommentGreen Cross Hospital on above:Result Comment: The Pap smear is a screening test designed to aid in the detection of premalignant and malignant conditions of the uterine cervix. It is not a diagnostic procedure and should not be used as the sole means of detecting cervical cancer. Both false-positive and false-negative reports do occur. .Performed By: #### CVDAGA #### [place] [address] Dr[address] Nixon BravoPerformed by:CommentGreen Cross Hospital on above: Result Comment: Pam Anderson Classics Teacher (ASCP)Performed By: #### CVDAGA #### [place] [address] Dr[address] Nixon BravoReflex Criteria:[facility] on above:Result Comment: The HPV DNA reflex criteria were not met with this specimen result therefore, no HPV testing was performed. .Performed By: #### CVDAGA #### [facility] [address] [place] [address] Dr. Nixon BravoSpecimen adequacy:CommentGreen Cross Hospital on above:Result Comment: Satisfactory for evaluation. Endocervical and/or squamous metaplastic cells (endocervical component) are present.Performed By: #### CVDAGA #### [facility] [address] [place] [address] Dr. Nixon Santana Gdln ACOG Yjrgukk43-62BydogwCwrCrystal Clinic Orthopedic Center on above:Performed By: #### CVDAGA #### [facility] [address] [place] [address] Dr. Nixon Black LEUKOREDUCEDon 80-82-5228QFK and Rh group Nom (Bld)Cross Match Result Compatible Unit Blood Type A Neg Unit Number [id number] Status Information Transfused Product ID Red Blood Cells Product Code [id number] Cross Match Result Compatible Blood Bank Notes Notifed Meredith Collazo in FB @ 1053 07/26/21 Unit Blood Type A Neg Unit Number [id number] Status Information Transfused Product ID Red Blood Cells Product Code [id number] [facility] EastComment on above:Performed By: #### PRBC #### [facility] [address] [place] [address] Dr. Nixon MunozC AUTO DIFFon 73-70-7861QPKN #0.0 103/ulNormal0.0-0.1The [facility] EastComment on above:Performed By: #### CBC #### [facility] [address] [place] [address] Dr. Nixon BravoBasophils/100 WBC (Bld)0.3 %Normal0.2-2.0The [facility] Comment on above:Performed By: #### CBC #### [facility] [address] [place] [address] Dr. Nixon Alberto #0.0 103/ulNormal0.0-0.7The [facility] EastComment on above: Performed By: #### CBC #### [facility] [address] [place] [address] Dr. Nxion Azevedoosinophils/100 WBC (Bld)0.3 %Critically low0.9-7.0The [facility] EastComment on above:Performed By: #### CBC #### [facility] [address] [place] [address] Dr. Nixon Azevedorythrocyte distribution width (RBC) [Ratio]14.8 %Hlxzhh40.0-15.0 The [facility] EastComment on above:Performed By: #### CBC #### [facility] [address] [place] [address] Dr. Nixon BravoHematocrit (Bld) [Volume fraction]24.0 %Critically low36.0-48.0 The [facility] EastComment on above:Performed By: #### CBC #### [facility] [address] [place] [address] Dr. Nixon BravoHemoglobin (Bld) [Mass/Vol]7.5 g/dLCritically low12.0-16.0The [facility] EastComment on above:Performed By: #### CBC #### [facility] [address] [place] [address] Dr. Nixon Shields #0.05 10e3/ulCritically high0.00-0.03The [facility] Comment on above:Performed By: #### CBC #### [facility] [address] [place] [address] Dr. Nixon Shields %0.5 %Normal0.0-0.5The [facility] EastComment on above: Performed By: #### CBC #### [facility] [address] [place] [address] Dr. Nixon Vela #2.4 103/ulNormal1.2-3.8The [facility] EastComment on above:Performed By: #### CBC #### [facility] [address] [place] [address] Dr. Nixon Perrymphocytes/100 WBC (Bld)24.7 %Inytmt50.5-60.0The [facility] EastComment on above:Performed By: #### CBC #### [facility] [address] [place] [address] Dr. Nixon FisherUAL DIFF REQNONormalThe [facility] EastComment on above: Performed By: #### CBC #### [facility] [address] [place] [address] Dr. Nixon Weathers (RBC) [Entitic mass]25.6 pgCritically low26.7-34.0The [facility] EastComment on above:Performed By: #### CBC #### [facility] [address] [place] [address] Dr. Nixon Borges (RBC) [Mass/Vol]31.3 g/wGRaezpa30.9-35.2The [facility] EastComment on above:Performed By: #### CBC #### [facility] [address] [address] [address] Nixon BorgesV (RBC) [Entitic vol]81.9 tLCmpiwq68.0-99.0The [facility] EastComment on above:Performed By: #### CBC #### [facility] [address] [place] [address] Dr. Nixon Rose #0.8 103/ulNormal0.3-0.8The [facility] EastComment on above:Performed By: #### CBC #### [facility] [address] [place] [address] Dr. Nixon Kimballocytes/100 WBC (Bld)7.8 %Normal1.7-12.0The [facility] Comment on above:Performed By: #### CBC #### [facility] [address] [place] [address] Dr. Nixon Mercedes #6.5 103/ulNormal1.4-6.5The [facility] EastComment on above:Performed By: #### CBC #### [facility] [address] [place] [address] Dr. Nixon Torrezutrophils/100 WBC (Bld)66.4 %Dfwhrh89.0-75.0The [facility] EastComment on above:Performed By: #### CBC #### [facility] [address] [place] [address] Dr. Nixon Santanalet mean volume (Bld) [Entitic vol]9.7 fLNormal9.5-13.5The [facility] EastComment on above:Performed By: #### CBC #### [facility] [address] [place] [address] Dr. Nixon BravoPLT254 103/vyDmhgwd609-622Bus [facility] EastComment on above: Performed By: #### CBC #### [facility] [address] [place] [address] Dr. Nixon BravoRBC2.93 106/ulCritically low4.20-5.40[facility] on above:Performed By: #### CBC #### [facility] [address] [place] [address] Dr. Nixon BravoWBC9.8 103/ulNormal4.0-11.0The [facility] EastComment on above: Performed By: #### CBC #### [facility] [address] [place] [address] Dr. Nixon Sanchez AUTO DIFFon 84-52-5915PVKC #0.0 103/ulNormal0.0-0.1[facility] on above:Performed By: #### CBC #### [facility] [address] [place] [address] Dr. Nixon BravoBasophils/100 WBC (Bld)0.1 %Critically low0.2-2.0[facility] on above:Performed By: #### CBC #### [facility] [address] [place] [address] Dr. Nixon Alberto #0.0 103/ulNormal0.0-0.7[facility] on above: Performed By: #### CBC #### [facility] [address] [place] [address] Dr. Nixon Azevedoosinophils/100 WBC (Bld)0.1 %Critically low0.9-7.0[facility] on above:Performed By: #### CBC #### [facility] [facility] [address] [place] [address] Dr. Nixon Azevedorythrocyte distribution width (RBC) [Ratio]14.5 %Mpaibe92.0-15.0 [facility] on above:Performed By: #### CBC #### [facility] [address] [place] [address] Dr. Nixon BravoHematocrit (Bld) [Volume fraction]25.9 %Critically low36.0-48.0 [facility] on above:Performed By: #### CBC #### [facility] [address] [address] [address] Nixon BravoHemoglobin (Bld) [Mass/Vol]8.0 g/dLCritically low12.0-16.0The [facility] on above:Result Comment: DELTA: DELIVEREDPerformed By: #### CBC #### [facility] [address] [address] [address] Nixon Shields #0.06 10e3/ulCritically high0.00-0.03The [facility] Comment on above:Performed By: #### CBC #### [facility] [address] [place] [address] Dr. Nixon Shields %0.4 %Normal0.0-0.5The [facility] on above: Performed By: #### CBC #### [facility] [address] [place] [address] Dr. Nixon Vela #2.1 103/ulNormal1.2-3.8The [facility] on above:Performed By: #### CBC #### [facility] [address] [place] [address] Dr. Nixon Villanuevahocytes/100 WBC (Bld)14.9 %Critically low20.5-60.0The [facility] on above:Performed By: #### CBC #### [facility] [address] [place] [address] Dr. Nixon FisherUAL DIFF REQNONormalThe [facility]Comment on above: Performed By: #### CBC #### [facility] [address] [place] [address] Dr. Nixon Weathers (RBC) [Entitic mass]25.5 pgCritically low26.7-34.0The [facility] on above:Performed By: #### CBC #### [facility] [address] [place] [address] Dr. Nixon Borges (RBC) [Mass/Vol]30.9 g/fFNkxdoh93.9-35.2[facility]Comment [facility] above:Performed By: #### CBC #### [facility] [address] [place] [address] Dr. Nixon Coates (RBC) [Entitic vol]82.5 wSHuadfz39.0-99.0The [facility] on above:Performed By: #### CBC #### [facility] [address] [place] [address] Dr. Nixon Rose #0.9 103/ulCritically high0.3-0.8ThUniversity [facility] Comment on above:Performed By: #### CBC #### [facility] [address] [place] [address] Dr. Nixon Kimballocytes/100 WBC (Bld)6.2 %Normal1.7-12.0[facility] Comment on above:Performed By: #### CBC #### [facility] [address] [place] [address] Dr. Nixon Mercedes #11.1 103/ulCritically high1.4-6.5ThUniversity [facility] Comment on above:Performed By: #### CBC #### [facility] [address] [place] [address] Dr. Nixon Torrezutrophils/100 WBC (Bld)78.3 %Critically high43.0-75.0The [facility] on above:Performed By: #### CBC #### [facility] [address] [place] [address] Dr. Nixon Santanalet mean volume (Bld) [Entitic vol]9.8 fLNormal9.5-13.5The [facility] on above:Performed By: #### CBC #### [facility] [address] [place] [address] Dr. Nixon BravoPLT230 103/sqEsckwk154-833Rre [facility] on above: Performed By: #### CBC #### [facility] [address] [place] [address] Dr. Nixon BravoRBC3.14 106/ulCritically low4.20-5.40[facility] on above:Performed By: #### CBC #### [facility] [address] [place] [address] Dr. Nixon BravoWBC14.2 103/ulCritically high4.0-11.0[facility] on above:Performed By: #### CBC #### [facility] [address] [place] [address] Dr. Nixon BravoFETAL SCREENon [id number] SCREENNegativeNoCrystal Clinic [facility] on above:Performed By: #### FETSCRN #### [facility] [address] [place] [address] Dr. Nixon Zendejas [id number] Information Issued Quantity 1 Product ID Rh Immune Globulin Lot Number [id number] Issue Date/Time [id number] Cross Hospital on above: Performed By: #### RHOG #### [facility] [address] [place] [address] Dr. Nixon BravoASYMPTOMATIC COVID-19 ANTIGENon [id number] StatementSEE BELOW NormalThe [facility] on above:Result Comment: This test has [...] is revoked sooner.Performed By: #### CVDAGA #### [facility] [address] [place] [address] Dr. Nixon Barragan-CoV-2 (COVID-19) RNA JONA+probe Ql (Unsp spec)NegativeNormal NEGATIVEThe [facility]Comment on above:Result Comment: Negative results are presumptive. They do not preclude infection and should not be used as the sole basis for treatment decisions. Additional confirmatory testing by a molecular method should be considered.Performed By: #### CVDAGA #### [facility] [address] [place] [address] Dr. Nixon Sanchez AUTO DIFFon [id number] #0.0 103/ulNormal0.0-0.1The [facility] on above:Performed By: #### CVDAGA #### [facility] [address] [place] [address] Dr. Nixon BravoBasophils/100 WBC (Bld)0.2 %Normal0.2-2.0[facility] Comment on above:Performed By: #### CVDAGA #### [facility] [address] [place] [address] Dr. Nixon Alberto #0.0 103/ulNormal0.0-0.7The [facility] on above: Performed By: #### CVDAGA #### [facility] [address] [place] [address] Dr. Nixon Azevedoosinophils/100 WBC (Bld)0.3 %Critically low0.9-7.0[facility] AdministrationComment on above:Performed By: #### CVDAGA #### [facility] [address] [place] [address] Dr. Nixon Azevedorythrocyte distribution width (RBC) [Ratio]14.3 %Hrrugt63.0-15.0 [facility] AdministrationComment on above:Performed By: #### CVDAGA #### [facility] [address] [place] [address] Dr. Nixon Englandatocrit (Bld) [Volume fraction]33.2 %Critically low36.0-48.0 [facility] Administration[facility] on above:Performed By: #### CVDAGA #### [facility] [address] [place] [address] Dr. Yilan ChangHemoglobin (Bld) [Mass/Vol]10.6 g/dLCritically low12.0-16.0The [facility] on above:Performed By: #### CVDAGA #### [facility] [address] [place] [address] Dr. Nixon Shields #0.03 10e3/ulNormal0.00-0.03The [facility] on above:Performed By: #### CVDAGA #### [facility] [address] [place] [address] Dr. Nixon Shields %0.3 %Normal0.0-0.5The [facility] on above: Performed By: #### CVDAGA #### [facility] [address] [place] [address] Dr. Nixon Vela #2.8 103/ulNormal1.2-3.8The [facility] on above:Performed By: #### CVDAGA #### [facility] [address] [place] [address] Dr. Nixon Villanuevahocytes/100 WBC (Bld)26.9 %Rysuza03.5-60.0The [facility] on above:Performed By: #### CVDAGA #### [facility] [address] [place] [address] Dr. Nixon FisherUAL DIFF REQNONormalThe [facility] on above: Performed By: #### CVDAGA #### [facility] [address] [place] [address] Dr. Nixon Borges (RBC) [Entitic mass]25.9 pgCritically low26.7-34.0The [facility] on above:Performed By: #### CVDAGA #### [facility] [address] [place] [address] Dr. Nixon Borges (RBC) [Mass/Vol]31.9 g/gRRamfwk71.9-35.2The [facility] on above:Performed By: #### CVDAGA #### [facility] [address] [place] [address] Dr. Nixon BorgesV (RBC) [Entitic vol]81.2 iARhjpyf02.0-99.0The [facility] on above:Performed By: #### CVDAGA #### [facility] [address] [place] [address] Dr. Nixon Rose #0.7 103/ulNormal0.3-0.8The [facility] on above:Performed By: #### CVDAGA #### [facility] [address] [place] [address] Dr. Nixon Kimballocytes/100 WBC (Bld)6.5 %Normal1.7-12.0The [facility] Comment on above:Performed By: #### CVDAGA #### [facility] [address] [place] [address] Dr. Nixon Mercedes #6.8 103/ulCritically high1.4-6.5The [facility] Comment on above:Performed By: #### CVDAGA #### [facility] [address] [place] [address] Dr. Nixon Torrezutrophils/100 WBC (Bld)65.8 %Onuaeb66.0-75.0The [facility] on above:Performed By: #### CVDAGA #### [facility] [address] [place] [address] Dr. Nixon Faith mean volume (Bld) [Entitic vol]9.8 fLNormal9.5-13.5The [facility] on above:Performed By: #### CVDAGA #### [facility] [address] [place] [address] Dr. Nixon BravoPLT243 103/zqFdqrnh060-848Xvu [facility] above: Performed By: #### CVDAGA #### [facility] [address] [place] [address] Dr. Nixon BravoRBC4.09 106/ulCritically low4.20-5.40The [facility] on above:Performed By: #### CVDAGA #### [facility] [address] [place] [address] Dr. Nixon BravoWBC10.3 103/ulNormal4.0-11.0[facility] on above:Performed By: #### CVDAGA #### [facility] [address] [place] [address] Dr. Nixon Napier SCREEN RAPID (URINE)on [id number]X [facility] AdministrationCom[facility] on above:Performed By: #### CBC #### [facility] [address] [place] [address] Dr. Nixon NagelNegativeNormalNEGCleveland Clinic Fairview HospitalCombronson lakeview hospital on above: Performed By: #### CBC #### [facility] [address] [place] [address] Dr. Nixon BravoBUPNegativeNonovant health kernersville medical centerNEGCleveland Clinic Fairview HospitalCombronson lakeview hospital on above: Performed By: #### CBC #### [facility] [address] [place] [address] Dr. Nixon BravoBZONegativeNormalNEGCleveland Clinic Fairview HospitalCombronson lakeview hospital on above: Performed By: #### CBC #### [facility] [address] [place] [address] Dr. Nixon WeinerCNegativeMissouri Delta Medical CenteralNEGCleveland Clinic Fairview HospitalCombronson lakeview hospital on above: Performed By: #### CBC #### [facility] [address] [place] [address] Dr. Nixon JorgensenOhioHealth Berger HospitalComment on above: Result Comment: AMP (Amphetamine): 500ng/mL, BAR (Barbituates): 200 ng/mL, BZO (Benzodiazepines): 150 ng/mL, BUP (Buprenorphine): 10 ng/mL, BRIDGER (Cocaine): 150 ng/mL, mAMP (Methamphetamine): 500 ng/mL, MTD (Methadone): 200 ng/mL, OPI (Opiates): 100 ng/mL, OXY (Oxycodone): 100 ng/mL, PCP (Phencyclidine): 25 ng/mL, PPX (Propoxyphene): 300 ng/mL, THC (Cannabinoids): 50 ng/mL, TCA (Trycyclic Antidepressants): 300 ng/mLPerformed By: #### CBC #### [facility] [address] [place] [address] Dr. Nixon BravoDRUG CUT HEADERDRUG CLASS TEST SYSTEM CUT-OFF CONCENTRATIONS ARE FOLLOWS:NormalThe [facility]Comment on above:Performed By: #### CBC #### [facility] [address] [place] [address] Dr. Nixon BravomAMPNegativeNormalNEGATIVEVeterans Health AdministrationComment on above: Performed By: #### CBC #### [facility] [address] [place] [address] Dr. Nixon BravoMTDNegativeNormalNEGCleveland Clinic Fairview HospitalComment on above: Performed By: #### CBC #### [facility] [address] [place] [address] Dr. Nixon BravoOPINegativeNormalNEGATIVEVeterans Health AdministrationComment on above: Performed By: #### CBC #### [facility] [address] [place] [address] Dr. Nixon BravoOXYNegativeNormalNEGATIVEVeterans Health AdministrationCombronson lakeview hospital on above: Performed By: #### CBC #### [facility] [address] [place] [address] Dr. Nixon BravoPCPNegativeNormalNEGATIVEVeterans Health AdministrationComment on above: Performed By: #### CBC #### [facility] [address] [place] [address] Dr. Nixon BravoPPXNegativeNormalNEGATIVEVeterans Health AdministrationComment on above: Performed By: #### CBC #### [facility] [address] [place] [address] Dr. Nixon BravoTCANegativeNormalNEGCleveland Clinic Fairview HospitalComment on above: Performed By: #### CBC #### [facility] [address] [place] [address] Dr. Nixon BravoTHCNegativeNormalNEGATIVEVeterans Health AdministrationComment on above: Performed By: #### CBC #### [facility] [address] [address] [address] Nixon Valles AND SCREENon [id number] AND SCREENNegativeTriHealth Bethesda North HospitalComment on above:Performed By: #### TNS #### [facility] [address] [address] [address] Nixon Rodriguez PREG GROWTHon [id number] PREG GROWTHEXAMINATION: US PREG GROWTH HISTORY: Large [...] by ultrasound, 90th percentile by expected). FL/AC: 0.209221 FL/BPD: 0.024202 HC/AC: 0.453149 GESTATIONAL AGE: Age by EDC: 37 weeks, 6 days ROSALEE by EDC: 07/30/2021 Age by US: 39 weeks, 0 days ROSALEE by US: 07/22/2021 IMPRESSION: 1. Single live intrauterine with growth detailed above. 2. Estimated weight is at the 95th percentile. Dr. Cheung was notified by the marine engineering teacher at the time of imaging. Electronically authenticated by: ENRIQUETA HUERTA Date: 2021-07-15 13:30[facility] HospitalGROUP B STREP CULTUREon 07-01-2021. agalactiae Ag Ql (Unsp spec)Culture Observations: NEGATIVE FOR GROUP B STREPTOCOCCUS.NormalVeterans Health AdministrationComment on above: Performed By: #### CVDAGA #### [facility] [address] [place] [address] Dr. Nixon Rodriguez PREG GROWTHon [id number] PREG GROWTHEXAMINATION: US PREG GROWTH HISTORY: Excessive [...] by ultrasound, 94th percentile by expected) FL/AC: 0.152225 FL/BPD: 0.066083 HC/AC: 0.699535 GESTATIONAL AGE: Age by EDC: 35 weeks, 6 days ROSALEE by EDC: 07/30/2021 Age by US: 37 weeks, 4 days ROSALEE by US: 07/18/2021 IMPRESSION: 1. Single live intrauterine with growth detailed above. 2. Estimated weight is at the 94th percentile. 3. BPD, HC, and AC are more than 2 weeks larger than gestational age. Electronically authenticated by: ENRIQUETA HUERTA Date: 2021-07-01 09:04[facility] HospitalHEPUBLIC [facility]ALTH [facility] B SURFACE ANTIBODY, QUANTon [id number] B Surf AB Quant<3.1Critically lowImmunity>9.9[facility] on above:Result Comment: Status of Immunity Anti-HBs Level Inconsistent with Immunity 0.0 - 9.9 Consistent with Immunity >9.9Performed By: #### VIRGINIEAGA #### [facility] [address] [place] [address] Dr. Nixon Zendejas [id number] Information Issued Quantity 1 Product ID Rh Immune Globulin Lot Number [id number] Issue Date/Time [id number] Cross Hospital on above: Performed By: #### LACHELLE #### [facility] [address] [place] [address] Dr. Nixon BravoGLUCMIRANDA - 1HRon [id number] [Mass/Vol]98 mg/mNJnnwaf67-802 [facility] HospitalComment on above:Performed By: #### CVDAGA #### [facility] [address] [place] [address] Dr. Nixon BravoHEMOGRAM AND PLATELon 75-19-9249Rurveuwyje (Bld) [Volume fraction]35.7 %Critically low36.0-48.0The [facility] on above: Performed By: #### HH #### [facility] [address] [place] [address] Samantha KarenHemoglobin (Bld) [Mass/Vol]11.8 g/dLCritically low12.0-16.0[facility] on above:Performed By: #### HH #### [facility] [address] [place] [address] Samantha KarenMCH (RBC) [Entitic mass]28.0 ffZmmgot31.7-34.0[facility] Comment on above:Performed By: #### HH #### [facility] [address] [place] [address] Samantha KarenMCHC (RBC) [Mass/Vol]33.1 g/oZOgpcgi91.9-35.2[facility] Comment on above:Performed By: #### HH #### [facility] [address] [place] [address] Samantha KarenMCV (RBC) [Entitic vol]84.8 gVGycmgw19.0-99.0[facility] Comment on above:Performed By: #### HH #### [facility] [address] [place] [address] Samantha RzvvoSAI436 103/dcVflcnu388-413Rbz [facility] on above: Performed By: #### HH #### [facility] [address] [place] [address] Samantha KarenRBC4.21 106/ulNormal4.20-5.40The [facility] on above: Performed By: #### HH #### [facility] [address] [place] [address] Samantha SyggeZQJ64.3 103/ulCritically high4.0-11.0[facility] on above:Performed By: #### HH #### [facility] [address] [place], [place] [address] Samantha MedelenTYPE AND SCREENon 59-49-5067DMPV AND SCREENNegativeTriHealth Bethesda North HospitalComment on above:Performed By: #### TNS #### [facility] [address], [place] [address] Samantha MedelenUS PREG PLACENTAon [id number] PREG PLACENTAEXAMINATION: US PREG PLACENTA HISTORY: Low lying placenta COMPARISON: 03/18/2021 FINDINGS: Placenta: Posterior. No intraplacental or retroplacental echogenic abnormality. The placental edge is 4.8 cm from the cervical os. IMPRESSION: Placental edge is 4.8 cm from the cervical os Electronically authenticated by: ESAU DUFF Date: 2021-04-15 08:45[facility] Vital Signs Date TimeVital SignValuePerforming GussaqwntOurhwhuh90-27-6719 10:41-0500Body mass index (BMI) [Ratio]49.96 kg/p7Atrfh Skye DO Work Phone: [phone]-[facility] LouisAtfduwjazj11-08-1466 10:41-0500Body .03 kgCorey Skye DO Work Phone: [phone] [place], [place] [address]Dswydnasim64-65-9138 10:41-0500Diastolic blood mm[Hg]Min Skye DO Work Phone: [phone] [address] LouisRluwecynks69-54-8087 10:41-0500Systolic blood zwgxfqoe296 mm[Hg]Min Skye DO Work Phone: [phone] LouisMwmckwktuk90-56-4428 11:45-0400Body mass index (BMI) [Ratio]49.61 kg/i8Kxkvc Skye DO Work Phone: [facility] LouisAevmwmhveu37-95-5467 11:45-0400Body dxpyyh640.21 kgCorey Skye DO Work Phone: [phone]-[facility] [address] LouisEyxcfwurnk84-23-7319 11:45-0400Diastolic blood xzytmxut57 mm[Hg]Min Skye DO Work Phone: [phone] [place], [place] [address]Eezwbvhluu84-81-8508 11:45-0400Systolic blood syxibear533 mm[Hg]Min Skye DO Work Phone: [phone] [place], [place] [address]Opednwsenj64-79-2043 15:26-0400Body mass index (BMI) [Ratio]48.67 kg/u5Ryeaeqjf Neena SALES LEAD GENERATOR Work Phone: [phone] [place], [place] [address]Ilnpstyxlo74-61-0002 15:26-0400Body iwrkhe909.04 kgKrtorresa Neena SALES LEAD GENERATOR Work Phone: [phone] [place], [place] [address]Imztbpohxe73-76-3166 15:26-0400Diastolic blood fxpsutvj47 mm[Hg]Becki Neena SALES LEAD GENERATOR Work Phone: [phone] [place], [place] [address]Zijqjuzjhy16-49-6260 15:26-0400Systolic blood pvbysqas107 mm[Hg]Becki Neena SALES LEAD GENERATOR Work Phone: [phone] [place], [place] [address]Avvrphsbgp96-44-2653 15:30-0400Body mass index (BMI) [Ratio]47.8 kg/x3Pnszp Skye DO Work Phone: [phone] [place], [place] [address]Endkexoyls03-27-7501 15:30-0400Body .02 kgCorey Skye DO Work Phone: [phone] [place], [place] [address]Iucbwafuot61-96-7724 15:30-0400Diastolic blood hjhjzyfp98 mm[Hg]Min Skye DO Work Phone: [phone] [place], [place] [address]Aatncdwknu90-69-4893 15:30-0400Systolic blood kvmviugu173 mm[Hg]Min Skye DO Work Phone: [phone] [place], [place] [address]Actiriaizb05-86-5410 10:14-0400Body mass index (BMI) [Ratio]47.16 kg/k9Nwyng Skye DO Work Phone: [phone] [place], [place] [address]Pynhxhvlba35-47-2822 10:14-0400Body vlbomc070.54 kgCorey Skye DO Work Phone: [facility] LouisZbejokmjgn20-79-6305 10:14-0400Diastolic blood mm[Hg]Min Skye DO Work Phone: [facility] LouisNoxyylzfmg24-50-3980 10:14-0400Systolic blood sgpdaosk015 mm[Hg]Min Skye DO Work Phone: [phone]-[facility] LouisJmzchdliwn24-36-5483 10:20-0400Body mass index (BMI) [Ratio]45.8 kg/m2Amy Kamryn PA Work Phone: [phone] [place], [place] [address]Ecipwnkpbq25-47-3450 10:20-0400Body bnzjik794.37 kgBekah Spearmirta ESCAMILLA Work Phone: [phone] [place], [place] [address]Chugdgwkxs19-74-8454 10:20-0400Diastolic blood pyjrouno81 mm[Hg]Bekah Spearmirta ESCAMILLA Work Phone: [phone] [place], [place] [address]Aqfmetdtet20-83-4950 10:20-0400Systolic blood mm[Hg]Bekah Olson PA Work Phone: [phone] [place], [place] [address]Fdqfnejofq53-52-5841 09:15-0400Body mass index (BMI) [Ratio]44.33 kg/v0Towqk Skye DO Work Phone: [phone] [place], [place] [address]Cpuupbnflq50-99-4696 09:15-0400Body tepwxj755.97 kgCorey Skye DO Work Phone: [phone] [place], [place] [address]Licahxwhrc62-85-5341 09:15-0400Diastolic blood kawoenlh16 mm[Hg]Min Skye DO Work Phone: [phone])240-[address] [place], [place] [address]Bvgepjdavz85-49-5071 09:15-0400Systolic blood pyrpphir651 mm[Hg]Min Skye DO Work Phone: [phone] [place], [place] [address]Uwgdrswwjg14-61-8678 13:47-0400Body mass index (BMI) [Ratio]43.59 kg/m2NoCameron [facility]05-15-2025 13:47-0400Body ergkca369.[address]Cuiplmaapi72-46-4517 13:47-0400Diastolic blood nkukbcpu57 mm[Hg]Noms NurseMS Hdjnduetgy51-44-9389 13:47-0400Systolic blood avrqmcos392 mm[Hg][facility]02-13-2025 13:02-0500Body mass index (BMI) [Ratio]47.29 kg/m2Bekah Kamryn ESCAMILLA Work Phone: [facility] St[facility] LouisYwmkejjxlz91-16-5153 13:02-0500Body ahsubx412.83 kgBekah Kamryn ESCAMILLA Work Phone: [facility] LouisHhzgoghhfh20-37-8407 13:02-0500Diastolic blood niobjrtl09 mm[Hg]Bekah Kamryn ESCAMILLA Work Phone: [facility] LouisDatywpmbgv58-40-2212 13:02-0500Systolic blood imvqllnt338 mm[Hg]Bekah aKmryn ESCAMILLA Work Phone: [facility] LouisFxbnfjnecu60-25-7936 11:59-0500Body mass index (BMI) [Ratio]48.63 kg/t8Tuyad Skye DO Work Phone: [facility] LouisQxypgbuemj35-59-4076 11:59-0500Body vjthdy968.95 kgCorey Skye DO Work Phone: [facility] LouisKlnyhbiowx59-65-3926 11:59-0500Diastolic blood fhvznraz79 mm[Hg]Min Skye DO Work Phone: [facility] LouisLtkntspize50-28-2086 11:59-0500Systolic blood hzohvyuv711 mm[Hg]Min Skye DO Work Phone: [facility] Encounters Encounter DateEncounter TypeCare ProviderFacilityStart: 09-09-2025 End: 54-00-8252Kgyulf flowsheetCorey Skye DO Work Phone: [facility] [place] [facility]YNStart: 09-09-2025 End: 99-47-1258Ldobsf flowsheetCorey Skye DO Work Phone: [facility]YNStart: 09-09-2025 End: 92-01-7895Pafqpbpgx Result EncounterCorey Skye DO Work Phone: [facility] External Department UnsolicitedStart: 09-09-2025 End: 81-16-3589Ppjzbhbj Result EncounterCorey Skye DO Work Phone: [facility] External Department UnsolicitedStart: 09-09-2025 End: 44-56-7791Qtbwirtq flow sheetCorey Skye DO Work Phone: [facility] [place] [facility]BGYNComment on above:Third trimester ([facility]); 36 weeks gestation of ([facility])Start: 09-09-2025 End: 81-24-5618awrwhygtbfZKXXC FAZIONot AvailableStart: 08-26-2025 End: 45-90-1504Izpuisrj flow sheetCorey Skye DO Work Phone: [facility] [place] [facility]BGYNComment on above:Third trimester ([facility]); 34 weeks gestation of ([facility])Start: 08-26-2025 End: 39-62-6154rsolgwpqpvEPIMQ FAZIONot AvailableStart: 08-11-2025 End: 58-81-2565zdsabzmhvdAFNQFINF EBERLYNot AvailableStart: 08-11-2025 End: 43-22-2157Spawnsif flow sheetKristina Neena SALES LEAD GENERATOR Work Phone: [facility] [place] OBGYNComment on above: size inconsistent with dates ([facility]) (Primary Dx); Third trimester ([facility]); 32 weeks gestation of ([facility])Start: 08-11-2025 End: 09-04-5304Ffzwpc flowsheetKrkavin Chaudhary SALES LEAD GENERATOR Work Phone: [facility]YNStart: 08-11-2025 End: 42-77-5762Bzanhw flowsheetKristina Neena SALES LEAD GENERATOR Work Phone: [facility] [place] [facility]BGYNStart: 07-28-2025 End: 70-22-7750Pfwbcqkw flow sheetCorey Skye DO Work Phone: [facility]BGYNComment on above:Third trimester ([facility]); 30 weeks gestation of ([facility])Start: 07-28-2025 End: 99-83-2302hfhefbycwsIOTXK FAZIONot AvailableStart: 07-28-2025 End: 19-06-7433Qhquqq flowsheetCorey Skey DO Work Phone: [facility]YNStart: 07-28-2025 End: 96-92-7437Okatbd flowsheetCorey Skye DO Work Phone: [facility] [place] [facility]YNStart: 07-14-2025 End: 36-64-7954Qjbslmwvk Result EncounterCorey Skye DO Work Phone: [facility] External Department UnsolicitedStart: 07-14-2025 End: 17-16-4685Sxdbxgftx Result EncounterCorey Skye DO Work Phone: [facility] External Department UnsolicitedStart: 06-30-2025 End: 76-27-8316Ypzuur flowsheetCorey Skye DO Work Phone: [facility]YNStart: 06-30-2025 End: 99-89-8783Ctuvbz flowsheetCorey Skye DO Work Phone: [facility] [place] [facility]YNStart: 06-30-2025 End: 23-45-0015vuybmstfbgSSMLY FAZIONot AvailableStart: 06-30-2025 End: 07-17-2474Fjxqrpfp flow sheetCorey Skye DO Work Phone: [facility] [place] [facility]BGYNComment on above:Second trimester ([facility]); 26 weeks gestation of ([facility]); Diabetes mellitus screeningStart: 05-29-2025 End: 32-76-5889vbbbfjkfmnBMU RAMEYNot AvailableStart: 05-29-2025 End: 14-13-2036Uccgagbz flow sheetBekah Olson PA Work Phone: [facility] BCP OBComment on above:Second trimester ([facility]); 22 weeks gestation of ([facility])Start: 05-29-2025 End: 38-82-6514wftwsaxqcwYZQ RAMEYNot AvailableStart: 04-17-2025 End: 03-41-5475Akeghx flowsheetCorey Skye DO Work Phone: [facility] BCP OBStart: 04-17-2025 End: 56-97-6251Rchydb flowsheetCorey Skye DO Work Phone: [facility] BCP OBStart: 04-17-2025 End: 56-91-2237qsqdzwaixtQWCBF FAZIONot AvailableStart: 04-17-2025 End: 69-04-1760Zjeigzos flow sheetCorey Skye DO Work Phone: [facility] BCP OBComment on above:Second trimester ([facility]); 16 weeks gestation of ([facility]); Screening, , for anatomic survey ([facility])Start: 04-16-2025 End: 43-42-8517Llongoyuj Result EncounterCorey Skye DO Work Phone: noMS External Department UnsolicitedStart: 04-16-2025 End: 95-92-5349Zdhtwerka Result EncounterCorey Skye DO Work Phone: [facility] External Department UnsolicitedStart: 03-20-2025 End: 39-20-3350Fyoraj outpatient visit 5 minutesNoms Bcp Ob Skye NurseNOMS BCP OBComment on above:GA: 37c5qJgphn: 03-20-2025 End: 18-76-7687xvrnijrtrxMEA RAMEYNot AvailableStart: 01-13-2025 End: 50-13-8882ryhmqfhjomCHK RAMEYNot AvailableStart: 12-19-2024 End: 91-91-4134Wdnbjj Jaden ESCAMILLA Work Phone: [facility] BCP OBStart: 12-19-2024 End: 89-78-1354Ufeuif Jaden ESCAMILLA Work Phone: [facility] BCP OBStart: 12-19-2024 End: 79-40-8155Onyksk outpatient visit 15 minutesAmy Kamryn ESCAMILLA Work Phone: [facility] BCP OBComment on above:Encounter for weight managementStart: 12-19-2024 End: 59-64-0782pridwqhfavKCQ RAMEYNot AvailableStart: 11-12-2024 End: 54-89-6807Pmfnhb flowsheetCorey Skye DO Work Phone: [facility] BCP OBStart: 11-12-2024 End: 83-03-1203Lofkay flowsheetCorey Skye DO Work Phone: [facility] BCP OBStart: 11-12-2024 End: 04-95-4832Wffkpwbux Result EncounterCorey Skye DO Work Phone: [facility] External Department UnsolicitedStart: 11-12-2024 End: 47-58-5888Hcsmbff encounter procedureCorey Skye DO Work Phone: [facility] HealthcareStart: 11-12-2024 End: 08-31-1867Aryivcub preventive med est patient 18-39 yrsCorey Skye DO Work Phone: [facility] BCP OBComment on above:Well woman exam with routine gynecological exam; Weight gainStart: 11-12-2024 End: 27-10-1968wzxcvyjwktKTOBE FAZIONot AvailableStart: 03-15-2022 End: 79-67-0915yufdnzpexpME MIN FAZIOFacility:H6Eauhv: 08-03-2021 End: 84-65-5087eisoxmvulhLC MIN FAZIOFacility:X2Rykyh: 12-02-1786Yzpoecvgtj and management of inpatientDR MIN FAZIOFacility:Q5Tlwry: 07-28-2021 End: 81-11-6823fjnfarszkjBG MIN FAZIOFacility:L9Vuihy: 07-24-2021 End: 75-40-7858Fhxghgierg and management of inpatientDR GLEN SALGADO Facility:X8Iptiu: 07-15-2021 End: 49-61-6627mspwnnpzyiZI MIN FAZIOFacility:R9Wtvkk: 07-01-2021 End: 04-29-4307kbxtdnlswhKP MIN FAZIOFacility:Y5Hbyqq: 07-01-2021 End: 72-11-6199zzepvbggzaIX MIN FAZIOFacility:O9Pesfb: 83-10-7110Fidclzxnm for antibody response examinationDR MIN Gastelum [place] HospitalStart: 06-09-2021 End: 50-41-7039hxgugkiwtyHR MIN FAZIOFacility:J4Ufdsl: 06-09-2021 End: 58-79-9133Eleaiufce for antibody response examinationDR MIN SAGEO Facility:B6Zjpdd: 05-06-2021 End: 92-51-4483nvnffnltuwGD MIN FAZIOFacility:R3Ebyok: 04-15-2021 End: 88-14-4008tukxhgumdrBG MIN FAZIOFacility:H1 Procedures DateProcedureProcedure DetailPerforming ClinicianStart: 30-11-9815ZGUTGWIBJ VAGINITIS (HTRX)Min Skye DO Work Phone: Start: 98-71-2283Aacws dip stick/tablet rgnt non-auto w/o micrscpCorey Skye DO Work Phone: Start: 06-94-6618JASMN GP B CULTURE+RFLXCorey Skye DO Work Phone: Start: 59-29-1373Rlhag dip stick/tablet rgnt non-auto w/o micrscpCorey Skye DO Work Phone: Start: 62-15-0947Zuxqd dip stick/tablet rgnt non-auto w/o micrscpKristina Neena SALES LEAD GENERATOR Work Phone: Start: 44-67-8291Phsft dip stick/tablet rgnt non-auto w/o micrscpCorey Skye DO Work Phone: Start: 77-26-9513SRLUDQH 1 HOURCorey Skye DO Work Phone: Start: 71-92-1851Zeped dip stick/tablet rgnt non-auto w/o micrscpCorey Skye DO Work Phone: Start: 01-49-7012Rimfi dip stick/tablet rgnt non-auto w/o micrscpAmy Kamryn ESCAMILLA Work Phone: Start: 32-14-4475Eyznb dip stick/tablet rgnt non-auto w/o micrscpCorey Skye DO Work Phone: Start: 95-37-4519CLH CBC WITH AUTO DIFFCorey Skye DO Work Phone: Start: 19-80-3008Kvglr dip stick/tablet rgnt non-auto w/o micrscpCorey Skye DO Work Phone: Start: 59-59-7552WAZ,APTIMA HPV,AGE GDLNCorey Skye DO Work Phone: Start: 67-51-5362Nqte cerv/vag auto thin layer prep mnl screenCorey Skye DO Work Phone: Start: 22-44-5268Bgdoxbucyqu of Nonautologous Red Blood Cells into Peripheral Vein, Percutaneous ApproachDR MIN FAZIOStart: 43-12-1872Oznpfcloeg of Products of Conception, Low Cervical, Open ApproachDR MIN FAZIOStart: 28-30-9765Khbhzidu of Amniotic Fluid, Therapeutic from Products of Conception, Via Natural or Artificial OpeningDR MIN FAZIOStart: 03-29-0307Nydvwcmkvwkf of Other Hormone into Peripheral Vein, Percutaneous ApproachDR [facility] Plan of Treatment DateCare ActivityDetailAuthorStart: 11-18-2025 End: 36-13-6772Rdatogh encounter procedureNOMS BCP OBStart: 09-18-2025 End: 64-79-4167Hptcemd encounter dewthlkmb97/13/2025 2:30 PM EST Routine [facility] [address] [place], [id number] Bekah Olson PA [address] [place] [address] NOMNick [facility] OBGYNStart: 09-09-2025 End: 17-52-2980SYTXDFY, GROUP B STREP WITH SUSCEPTIBLITYCULTURE, GROUP B STREP WITH SUSCEPTIBLITY Lab Routine Third trimester ([facility]) Expected: 09/09/2025, Expires: 09/09/2026[facility] HealthcareComment on above:Expected: 09/09/2025, Expires: 09/09/2026Start: 09-09-2025 End: 67-26-2593Giwaeie encounter procedureNOMS [facility] OBGYNComment on above: ArrivedStart: 08-11-2025 End: 23-16-6142Unxemot encounter enxccaauc06/06/2025 3:20 PM EDT Routine [facility] [place] [facility] [address] [place], [phone] Becki Chaudhary, SALES LEAD GENERATOR [address] [place] [phone] [facility]BGYNStart: 08-11-2025 End: 96-59-0483MO for pregnancyUS OB follow up transabdominal approach Imaging Routine size inconsistent with dates ([facility]) Expected: 08/11/2025, Expires: 12/12/2025[facility] Work Phone: comment on above:Expected: 08/11/2025, Expires: 12/12/2025Start: 07-28-2025 End: 89-05-6028Vcmpttl encounter procedureNO [place] OBGYNComment on above: ArrivedStart: 07-14-2025 End: 98-56-0197Idorigs encounter iawqjaeyp03/08/2025 11:30 AM EDT Routine [facility] [place] [facility] [address] [phone] Min Cheung DO [address] [place] [address] ROSELIA [place] OBGYNStart: 06-30-2025 End: 64-21-6523ACH panel - Blood by Automated countCBC Lab Routine Diabetes mellitus screening Expected: 06/30/2025 (Approximate), Expires: 06/30/2026[facility] Work Phone: comment on above:Expected: 06/30/2025 (Approximate), Expires: 06/30/2026Start: 06-30-2025 End: 27-17-9181Nfgawcfaxcy of glucose 1 hour after glucose challenge for glucose tolerance testGlucose tolerance, 1 hour Lab Routine Diabetes mellitus screening Expected: 06/30/2025 (Approximate), Expires: 06/30/2026[facility] HealthcareComment on above:Expected: 06/30/2025 (Approximate), Expires: 06/30/2026Start: 06-30-2025 End: 95-48-8239Palwcoi encounter alpaflmrr83/25/2025 9:50 AM EDT Routine [facility] [address] [place] [phone] Min Cheung DO [address] [place], [place] [phone] [facility] BCP OBStart: 05-29-2025 End: 63-37-1960Wnyapzy encounter lrmanscpt26/24/2025 9:30 AM EDT Routine [facility] [address] [place] [address] Bekah Olson PA [address] [place] [address] [facility] BCP OBStart: 05-29-2025 End: 22-89-1343Cibytuwthsax / ancillary services yoyiufjpvb98/24/2025 8:30 AM EDT Ancillary Procedure [facility] [address] [place] [address] [facility] BCP OBStart: 04-17-2025 End: 09-78-4325Irkyi fetoprotein, maternalAlpha fetoprotein, maternal Lab Routine 16 weeks gestation of ([facility]) Expected: 04/17/2025 (Approximate), Expires: 06/17/2025[facility] Work Phone: comment on above:Expected: 04/17/2025 (Approximate), Expires: 06/17/2025Start: 04-17-2025 End: 20-23-1841ZJ for pregnancyUS OB 14+ weeks anatomy scan Imaging Routine Screening, , for anatomic survey ([facility]) Expected: 04/17/2025, Expires: 07/18/2025[facility] HealthcareComment on above:Expected: 04/17/2025, Expires: 07/18/2025Start: 04-17-2025 End: 68-23-9212Vkvueae encounter /12/2025 8:50 AM EDT Routine [facility] [address] [place] [phone] Min Cheung, DO [address] [place] [address] [facility] BCP OBStart: 03-20-2025 End: 64-24-4955JPQ/RhABO/Rh Lab Routine Missed menses , unspecified gestational age Expected: 03/20/2025 (Approximate), Expires: 03/20/2026[facility] HealthcareComment on above:Expected: 03/20/2025 (Approximate), Expires: 03/20/2026Start: 03-20-2025 End: 78-87-3623Xwpvo type and Indirect antibody screen panel - BloodType and screen Lab Routine Missed menses , unspecified gestational age Expected: 03/20/2025 (Approximate), Expires: 03/20/2026[facility] HealthcareComment on above:Expected: 03/20/2025 (Approximate), Expires: 03/20/2026Start: 03-20-2025 End: 50-94-2170Whbpf of abuse panel - Urine by Screen methodRapid drug screen, urine Lab Routine , unspecified gestational age Encounter for supervision of normal first in first trimester Expected: 03/20/2025 (Approximate), Expires: 03/20/2026[facility] HealthcareComment on above:Expected: 03/20/2025 (Approximate), Expires: 03/20/2026Start: 03-19-2025 End: 24-11-0422MU Pelvis transvaginalUS OB transvaginal Imaging Routine Missed menses Expected: 03/19/2025, Expires: 06/19/2025[facility] Work Phone: comment on above:Expected: 03/19/2025, Expires: 06/19/2025Start: 01-16-2025 End: 04-39-6977Rkirkiz encounter uhkqpzwcy71/13/2025 8:30 AM EDT Office Visit [facility] [address] [place] [address] Bekah Olson PA [address] [place] [address] [facility] BCP OBStart: 12-19-2024 End: 16-13-8320Riyqxed encounter procedureNOMS BCP OBComment on above:Arrived Start: 11-12-2024 End: 55-53-7283Jujfyso encounter tcaecvhyb19/07/2025 11:40 AM EST Office Visit [facility] [address] [place] [phone] Min Cheung DO [address] [place] [address] ArrivedNOMS BCP OBComment on above:ArrivedBacteria identified in Urine by CultureUrine culture Microbiology Routine Missed menses Ordered: 03/20/2025[facility] HealthcareComment on above:Ordered: 03/20/2025BC W Auto Differential panel - BloodCBC and differential Lab Routine Missed menses , unspecified gestational age Ordered: 03/20/2025[facility] HealthcareComment on above:Ordered: 03/20/2025HLAMYDIA TRACHOMATIS (GENITO/STI)CHLAMYDIA TRACHOMATIS (GENITO/STI) Lab Routine Third trimester ([facility]) Ordered: 09/09/2025[facility] HealthcareComment on above:Ordered: 09/09/2025ytology Cervical or vaginal smear or scraping studyPap Smear Pathology and Cytology Routine Well woman exam with routine gynecological exam Ordered: 11/12/2024[facility] Work Phone: Comment on above:Ordered: 11/12/2024Hemoglobin A1c/Hemoglobin.total in BloodHemoglobin A1c Lab Routine Missed menses , unspecified gestational age Ordered: 03/20/2025[facility] HealthcareComment on above: Ordered: 03/20/2025Hepatitis B virus surface Ag [Presence] in Serum or Plasma by ImmunoassayHepatitis B surface antigen Lab Routine Missed menses , unspecified gestational age Ordered: 03/20/2025[facility] HealthcareComment on above: Ordered: 03/20/2025Hepatitis C virus Ab [Presence] in Serum or Plasma by ImmunoassayHepatitis C antibody Lab Routine Missed menses , unspecified gestational age Ordered: 03/20/2025[facility] HealthcareComment on above:Ordered: 03/20/2025HIV-1/HIV-2 antigen/antibody combination immunoassayHIV-1 and HIV-2 antibodies Lab Routine Missed menses , unspecified gestational age Ordered: 03/20/2025[facility] HealthcareComment on above:Ordered: 03/20/2025Neisseria gonorrhoeae DNA [Presence] in Unspecified specimen by JONA with probe detection Neisseria gonorrhea DNA probe, direct Lab Routine Third trimester ([facility]) Ordered: 09/09/2025[facility] HealthcareComment on above:Ordered: 09/09/2025 Reagin Ab [Presence] in Serum by RPRRPR Lab Routine Missed menses , unspecified gestational age Ordered: 03/20/2025[facility] HealthcareComment on above: Ordered: 03/20/2025Rubella antibody, IgGRubella antibody, IgG Lab Routine Missed menses , unspecified gestational age Ordered: 03/20/2025[facility] HealthcareComment on above:Ordered: 03/20/2025SURESWAB(R) ADVANCED VAGINITIS PLUS, TMASURESWAB(R) ADVANCED VAGINITIS PLUS, TMA Pathology and Cytology Routine Third trimester ([facility]) Ordered: 09/09/2025[facility] Work Phone: comment on above:Ordered: 09/09/2025US Pelvis transvaginalUS OB transvaginal Imaging Routine Missed menses 03/20/2025 12[facility] Payers DatePayer CategoryPayerPolicy [id number] [facility] ..[id number] [id number] 2..1.425128.3.57[id number] 2..1.827052.3.579.[id number] 2..1.177121.3.57[id number] 2..1.024375.3.579.[id number] 2..1.445500.3.579.2.09198-94-1567Krveuew7239189 2..1.606002.3.579.2.32921-18-4546Aulekej7641939 2..1.392432.3.579.2.63591-42-7956Aflmtqg6786725 2..1.294609.3.579.2.28719-50-7525Iunyost4161547 2.840.1.222937.3.579.2.82261-75-0622Jhswzcv4402610 2.840.1.743644.3.579.2.16283-84-2566Zeansjg0705713 2.840.1.318862.3.579.[id number] 2.840.1.115065.3.579.2.40441-43-8624Fmyfhvi43592193 2.0.1.093420.3.579.2.481390-80-7485Ezuzkzo09948711 2.0.1.861868.3.579.2.625269-49-2250Uirwazn95594067 2.0.1.620535.3.579.2.8[id number] 2.0.1.540368.3.57[id number] 2.0.1.147194.3.579.2.769606-88-7026Hfmzgef70057434 2..1.378241.3.579.2.397378-14-8487Diktdty64725996 2..1.108362.3.579.2.552053-34-7709Sceonor57769525 2.0.1.183443.3.579.2.478471-64-8587Yvrxskc34507640 2.0.1.557255.3.579.2.994713-70-6897Ervvfma5278109 2.840.1.738203.3.579.2.057289-34-8702Irzhhax6415804 2.0.1.484815.3.579.2.599688-70-7876Djkhigw3654027 2.16.840.1.332083.3.579.2.877728-76-1364Czgqpfu9083752 2.16.840.1.513707.3.579.2.180385-35-7229Urphmvz5150727 2.16.840.1.251110.3.579.2.604117-88-0780Yqoesfq6248005983005-14-9392Urynbtm [id number] Social History DateTypeDetailFacilityStart: 13-16-3915Sqfjsei smoking status NHISOccasional tobacco smokerNOMN HealthcareHistory of tobacco useCigarette SmokerLONE PEAK HOSPITAL HealthcareStart: 07-05-2023 End: 73-10-9110Dkfigbzdb beverage intakeCurrent drinker of alcohol (finding)[facility] HealthcareStart: 07-05-2023 End: 24-31-8816Egvyvko of Social functionNOMN HealthcareStart: 07-05-2023 End: 81-02-7562Symuoqv use panelNOMN HealthcareStart: 85-12-6170Xfofewt Comment5 or less cigarettes/dayL[facility] PEAK HOSPITAL HealthcareStart: 10-91-5815Rcidrmq CommentAlcohol: 1 or 2 drinks on a typical day / 2 to 4 times a month. Caffeine: >4 cups/day coffeeLONE PEAK HOSPITAL HealthcareStart: 49-43-3404Ins assigned at birthMcLaren [facility] Start: 89-27-1284Kceudk identityIdentifies as female gender (finding)[facility] HealthcareStart: 20-29-5685Jjrpvg orientationHeterosexual (finding)[facility] HealthcareStart: 41-37-9115IsajdwierTVLA HealthcareStart: 51-87-1837FckCzohjw [facility] Healthcare Goals DatePatient GoalDesired Activity/StatePersonal health goal Clinical Notes 07-24-2021 to 09-09-2025 Note Date & VoueAjjrSijfivch10-03-4583 History of Present illness Narrative* Eliana Pruett [...] nursing note reviewed. Exam conducted with a voltage tester present. Vitals: Estimated body mass index is 49.96 kg/m as calculated from the following: Height as of 01/13/25: 5'. Weight as of this encounter: 255 lb 12.8 oz. BP: 126/78 Patient's last menstrual period was 01/16/2025. Assessment/Plan ICD-10-CM 1. Third trimester ([facility]) Z34.93 SURESWAB(R) ADVANCED VAGINITIS PLUS, TMA CHLAMYDIA TRACHOMATIS (GENITO/STI) Neisseria gonorrhea DNA probe, direct CULTURE, GROUP B STREP WITH SUSCEPTIBLITY CULTURE, GROUP B STREP WITH SUSCEPTIBLITY 2. 36 weeks gestation of ([facility]) Z3A.36 POCT urinalysis dipstick manually resulted Patient [...] of: Min Cheung DO documented in this encounterTenet St. LouisQvaszjjkba39-94-5684 History of Present illness Narrative* Eliana Pruett [...] nursing note reviewed. Exam conducted with a voltage tester present. Vitals: Estimated body mass index is 49.61 kg/m as calculated from the following: Height as of 01/13/25: 5'. Weight as of this encounter: 254 lb. BP: 138/82 Patient's last menstrual period was 01/16/2025. Assessment/Plan ICD-10-CM 1. Third trimester ([facility]) Z34.93 2. 34 weeks gestation of ([facility]) Z3A.34 POCT urinalysis dipstick manually resulted Return [...] of: Min Cheung DO documented in this encounterTenet St. LouisRyddyzjpwj22-54-6900 History of Present illness Narrative* Becki Chaudhary [...] nursing note reviewed. Exam conducted with a voltage tester present. Vitals: Estimated body mass index is 48.67 kg/m as calculated from the following: Height as of 01/13/25: 5'. Weight as of this encounter: 249 lb 3.2 oz. BP: 122/72 Patient's last menstrual period was 01/16/2025. ASSESSMENT & PLAN ICD-10-CM 1. size inconsistent with dates ([facility]) O26.849 US OB follow up transabdominal approach 2. Third trimester ([facility]) Z34.93 3. 32 weeks gestation of ([facility]) Z3A.32 POCT urinalysis dipstick manually resulted Return [...] of: Becki Chaudhary NP documented in this encounterTenet St. LouisHczvuosvqu60-45-2901 History of Present illness Narrative* Becki Chaudhary [...] nursing note reviewed. Exam conducted with a voltage tester present. Vitals: Estimated body mass index is 47.8 kg/m as calculated from the following: Height as of 01/13/25: 5'. Weight as of this encounter: 244 lb 12 oz. BP: 122/76 Patient's last menstrual period was 01/16/2025. ASSESSMENT & PLAN ICD-10-CM 1. Third trimester ([facility]) Z34.93 POCT urinalysis dipstick manually resulted 2. 30 weeks gestation of ([facility]) Z3A.30 Return OB: Patient presents today for [...] of: Min Cheung DO documented in this encounterTenet St. [id number] History of Present illness Narrative* Becki Chaudhary [...] nursing note reviewed. Exam conducted with a voltage tester present. Vitals: Estimated body mass index is 47.16 kg/m as calculated from the following: Height as of 01/13/25: 5'. Weight as of this encounter: 241 lb 8 oz. BP: 124/76 Patient's last menstrual period was 01/16/2025. ASSESSMENT & PLAN ICD-10-CM 1. Second trimester ([facility]) Z34.92 POCT urinalysis dipstick manually resulted 2. 26 weeks gestation of ([facility]) Z3A.26 3. Diabetes mellitus screening Z13.1 CBC [...] of: Min Cheung DO documented in this encounterTenet St. [id number] History of Present illness Narrative* FRANCINE Chery [...] ASSESSMENT & PLAN ICD-10-CM 1. Second trimester ([facility]) Z34.92 POCT urinalysis dipstick manually resulted 2. 22 weeks gestation of ([facility]) Z3A.22 Return OB: Patient presents today for [...] behalf of: FRANCINE Chery documented in this encounterTenet St. [id number] History of Present illness Narrative* Karina Osorio [...] nursing note reviewed. Exam conducted with a voltage tester present. Vitals: Estimated body mass index is 44.33 kg/m as calculated from the following: Height as of 01/13/25: 5'. Weight as of this encounter: 227 lb. BP: 120/84 Patient's last menstrual period was 01/16/2025. ASSESSMENT & PLAN ICD-10-CM 1. Second trimester (HHS-HCC) Z34.92 POCT urinalysis dipstick manually resulted 2. 16 weeks gestation of ([facility]) Z3A.16 Alpha fetoprotein, maternal Alpha fetoprotein, maternal 3. Screening, , for anatomic survey ([facility]) Z36.89 OB 14+ weeks anatomy scan New [...] of: Min Cheung DO documented in this encounterTenet St. [id number] History of Present illness Narrative* Perlita Lynn [...] concerns were answered. Patient did not want Dilliner labs or Zofran sent at this time. [...] by: Perlita Lynn LPN documented in this encounterTenet St. LouisRhlbmanjud10-31-1996 History of Present illness Narrative* FRANCINE Chery [...] behalf of FRANCINE Chery documented in this encounterTenet St. [id number] History of Present illness Narrative* Eliana Pruett [...] nursing note reviewed. Exam conducted with a voltage tester present. Vitals: Estimated body mass index is [...] of: Min Cheung DO documented in this encounterTenet St. [id number] NoteOPERATIVE NOTE OPERATION DATE: 07-24-21 ANESTHETIC:Spinal with Duramorph. UROLOGY PHYSICIAN ASSISTANT:IBIS Cordova. PREOPERATIVE DIAGNOSIS: 1. Intrauterine at 39 [...] Approved by: DR MIN CHEUNG . 07/27/2021 19:33:00[facility]09-18-2021 NoteDISCHARGE SUMMARY Discharge Date: 07-26-21 PRIMARY DIAGNOSIS: [...] Approved by: DR MIN CHEUNG . 08/05/2021 21:36:00[facility] Well woman exam with routine [...] of (HHS-HCC) Screening, , for anatomic survey ([facility]) Encounter for anatomic survey documented in this [...] and content) DATE CREATED AUTHOR 03/24/2022 [facility] DATE CREATED AUTHOR AUTHOR'S ORGANIZ ATION 09/10/2025 [facility] EPIC Care Teams (unrecognized sec tion and content) Team MemberRelationshipSpecialtyStart DateEnd Date Varun Cardenas MD [address] [place] [address] PCP - General07/04/23Team MemberRelationshipSpecialtyStart DateEnd Date Varun Cardenas MD [address] [place] [address] PCP - General07/04/23Team MemberRelationshipSpecialtyStart DateEnd Date Varun Cardenas MD [address] [place] [address] PCP - General07/04/23Team MemberRelationshipSpecialtyStart DateEnd Date Varun Cardenas MD [address] [place] [address] PCP - General07/04/23Te MemberRelationshipSpecialtyStart DateEnd Date Varun Cardenas MD PCP - [facility]07/04/23Te MemberRelationshipSpecialtyStart DateEnd Date Varun Cardenas MD [address] [place] [address] PCP - [facility]07/04/23Te MemberRelationshipSpecialtyStart DateEnd Date Varun Cardenas MD [address] [place] [address] PCP - [facility]07/04/23Te MemberRelationshipSpecialtyStart DateEnd Date Varun Cardenas MD [address] [facility] [place] [address] PCP - [facility]07/04/23Te MemberRelationshipSpecialtyStart DateEnd Varun Cardenas MD [address] [place] [address] PCP - [facility]07/04/23 Reason for Visit (unrecogniz ed section [...] BE BASED ON THE PRIMARY CLINICAL RECORDS. [facility] [employer] [facility]. provides no warranty or guarantee of the accuracy or completeness of information in this document.
[2025-09-29 11:15] VITALS: BP 139/70; PULSE 88; TEMP 36.7
== END 2025-09-29 12:12 | disposition home or self-care (01) ==
LOC: FBCO 08:24
PROVIDERS: PCP Family Medicine; Visit Provider Obstetrics & Gynecology
DX: Z39.1 Encounter for care and examination of lactating mother (principal)